=== PATIENT | male | born 1970 | race Caucasian/White ===

== ENCOUNTER → 2016-10-27 | Day surgery (SDC) | payer MEDICAID, OTHER ==
[~2016-10-27] VITALS: Ht 182.9 cm; Wt 133.4 kg
[~2016-10-27] MED LIST: *RESP: ALBUTEROL 2.5 MG/3 ML NEB (PRN) PERIprocedural Use ONLY NEB ONE; *morphine SULFATE 8 MG/ML PERIprocedure ONLY ONE; APIX5TAB PO; ASPI1TAB69 PO; CARV6.25 PO; CHLORHEXIDINE GLUCONATE 2 % 1 PACK (2 CLOTHS) TOP SCH; CYMB60CA PO; DEXAMETHASONE SOD PHOS 4 MG/ML VIAL ONE; DO NOT ADM ANY ANTICOAGULANT DRUGS XX PRN; FAMOTIDINE 20 MG/2 ML VIAL ONE; GABA300C5 PO; GABA600T PO; INSULIN HUMAN REGULAR 1,000 UNITS/10 ML VIAL SQ PRN; LACTATED RINGER'S 1000 ML INJ 1,000 ML IV ONE; LACTATED RINGER'S 1000 ML IV SCH; LEVA500T PO; LEVO.05 PO; LEVOFLOXACIN 500 MG PREMIX INJ 100 ML IV ONE; LEVOFLOXACIN 500 MG PREMIX INJ 100 ML IV SCH; LIPI80TA PO; LISI-515 PO; METF500 PO; METOPROLOL TARTRATE 25 MG TAB PO PRN; MIDAZOLAM HCL 2 MG/2 ML VIAL ONE; MITOMYCIN I-VESICULR SCH; NEOSTIGMINE 3 MG/3 ML SYR IV ONE; NITR1SUB3 SL; OMEP20TA PO; OMEP40CA2 PO; ONDANSETRON HCL 4 MG/2 ML VIAL IV PUSH ONE; ONDANSETRON HCL 4 MG/2 ML VIAL IV PUSH PRN; PERC5TAB12 PO; PHEN0.4T PO; PHENAZOPYRIDINE HCL 100 MG TAB PO PRN; PHENYLEPH/NS 1000 MCG/10 ML SYR IV ONE; PLAV75TA29 PO; POVIDONE IODINE 5% (ANTISEPSIS KIT) 4 APPLICATIONS EACH NARE SCH; PROPOFOL 200 MG/20 ML AMP IV ONE; REME45TA PO; SODIUM CHLORID 0.9% 500 ML IV SCH; SUGAMMADEX SODIUM 200 MG/2 ML VIAL IV PUSH ONE; VESI5TAB PO; WATER STERILE FOR I-VESICULR SCH; [UNRECOGNIZED DRUG - OTHER] I-VESICULR SCH; ePHEDrine/NS 25 MG/5 ML SYR IV ONE; fentaNYL CITRATE 250 MCG/5 ML AMP ONE; oxyCODONE/ACETAMINOPHEN 5 MG/325 MG TAB PO PRN
[2016-10-27 08:00] VITALS: BP 145/85; PULSE 91; RESP 20; TEMP 97.9; O2SAT 97
[2016-10-27 08:26] LABS: AUTOMATED NEUTROPHIL # 7.6 TH/MM3 (1.8-7.7); BASOPHIL # 0.1 TH/MM3 (0-0.2); BASOPHIL % 0.5 % (0.0-2.0); EOSINOPHIL # 0.3 TH/MM3 (0-0.4); EOSINOPHIL % 2.6 % (0.0-4.0); HEMATOCRIT 43.4 % (39.0-51.0); HEMO FLAGS DIFF FINAL; LYMPH % 25.2 % (9.0-44.0); MEAN CELL VOLUME 80.3 FL (80.0-100.0); MEAN CORPUSCULAR HEMOGLOBIN 26.2 PG (27.0-34.0); MEAN CORPUSCULAR HGB CONC 32.6 % (32.0-36.0); MONO % 8.3 % (0.0-8.0); NEUT % 63.4 % (16.0-70.0); PLATELET COUNT 359 TH/MM3 (150-450); RED BLOOD COUNT 5.41 MIL/MM3 (4.50-5.90); RED CELL DISTRIBUTION WIDTH 18.4 % (11.6-17.2)
--- NOTE | 2016-10-27 13:06 | PD.OP ---
Operative Report Date of Surgery: Oct 27, 2016 Preoperative Diagnosis: (1) Bladder cancer Postoperative Diagnosis: (1) Bladder cancer Procedure: Indication for procedure: Case of a pleasant 46-year-old gentleman with recurrent bladder cancer who presents today for cystoscopy with transurethral resection of the current lesions as well as intravesical instillation of mitomycin-C. Findings: Multiple superficial bladder tumors involving right, left, anterior and posterior [place] of the bladder as well as a single lesion involving the prostatic urethra, total area greater than 5 cm. Operative procedure in detail: Patient was brought to the operating room suite and placed supine on cystoscopy table. He was then placed under general anesthesia. He was then repositioned in the dorsal lithotomy position and prepped and draped in normal sterile fashion. After an appropriate timeout was undertaken a proceeded with cystoscopic evaluation utilizing the rigid cystoscope with a 20 [place]an sheath and both the 30 and 70 lenses. Once again the patient was noted to have multiple recurrent bladder tumors involving the prostatic urethra, right wall, left wall, posterior and anterior wall of the bladder. The total area of these superficial tumors was greater than 5 cm. The cystoscope was exchanged for the resectoscope with a 24 [place]an cutting loop. The patient underwent transrectal resection of these recurrent bladder tumors. Tissue was sent off to pathology for permanent sectioning. The resectoscope was withdrawn and a 16 [place]an 10 cc Breaux catheter was placed. 40 mg mitomycin-C in 40 cc sterile water was instilled into the bladder and the end of the Breaux clamped off. The Breaux will remain clamped for 30 minutes and removed in the PACU. The patient tolerated the procedures without complications and was transferred to the PACU in satisfactory condition. Surgeon: Brian Galindo Inspector Multifocal Lens(s): None Operation and Findings: As outlined above. Brian Galindo MD Oct 27, 2016 13:06
[2016-10-27 14:58] VITALS: BP 138/79; PULSE 82; RESP 18; TEMP 98; O2SAT 95
== END | disposition home or self-care (01) ==
LOC: HSDC 06:56
PROVIDERS: ATTEND Urology
DX: C67.9 Malignant neoplasm of bladder, unspecified (principal); I10 Essential (primary) hypertension; J44.9 Chronic obstructive pulmonary disease, unspecified
CPT/HCPCS: 00910; 51720; 52240; 85025; 88305; 94664; J1100; J1956; J2250; J2270; J2370; J2405; J2710; J3010; J7120; J7613; J9280; 88307

== ENCOUNTER 2016-12-20 19:04 | Inpatient (IN) | payer MEDICAID, OTHER ==
[~2016-12-20] VITALS: Ht 182.9 cm; Wt 134.2 kg
[~2016-12-20 19:04] MED LIST changes: -*RESP: ALBUTEROL 2.5 MG/3 ML NEB (PRN) PERIprocedural Use ONLY NEB ONE; -*morphine SULFATE 8 MG/ML PERIprocedure ONLY ONE; -APIX5TAB PO; -CHLORHEXIDINE GLUCONATE 2 % 1 PACK (2 CLOTHS) TOP SCH; -DEXAMETHASONE SOD PHOS 4 MG/ML VIAL ONE; -DO NOT ADM ANY ANTICOAGULANT DRUGS XX PRN; -FAMOTIDINE 20 MG/2 ML VIAL ONE; -GABA600T PO; -INSULIN HUMAN REGULAR 1,000 UNITS/10 ML VIAL SQ PRN; -LACTATED RINGER'S 1000 ML INJ 1,000 ML IV ONE; -LACTATED RINGER'S 1000 ML IV SCH; -LEVOFLOXACIN 500 MG PREMIX INJ 100 ML IV ONE; -LEVOFLOXACIN 500 MG PREMIX INJ 100 ML IV SCH; -METOPROLOL TARTRATE 25 MG TAB PO PRN; -MIDAZOLAM HCL 2 MG/2 ML VIAL ONE; -MITOMYCIN I-VESICULR SCH; -NEOSTIGMINE 3 MG/3 ML SYR IV ONE; -OMEP40CA2 PO; -ONDANSETRON HCL 4 MG/2 ML VIAL IV PUSH ONE; -ONDANSETRON HCL 4 MG/2 ML VIAL IV PUSH PRN; -PHENAZOPYRIDINE HCL 100 MG TAB PO PRN; -PHENYLEPH/NS 1000 MCG/10 ML SYR IV ONE; -POVIDONE IODINE 5% (ANTISEPSIS KIT) 4 APPLICATIONS EACH NARE SCH; -PROPOFOL 200 MG/20 ML AMP IV ONE; -SODIUM CHLORID 0.9% 500 ML IV SCH; -SUGAMMADEX SODIUM 200 MG/2 ML VIAL IV PUSH ONE; -WATER STERILE FOR I-VESICULR SCH; -[UNRECOGNIZED DRUG - OTHER] I-VESICULR SCH; -ePHEDrine/NS 25 MG/5 ML SYR IV ONE; -fentaNYL CITRATE 250 MCG/5 ML AMP ONE; -oxyCODONE/ACETAMINOPHEN 5 MG/325 MG TAB PO PRN
[2016-12-20 19:05] VITALS: BP 172/105; PULSE 127; RESP 22; TEMP 98.4; O2SAT 95
[2016-12-20] MEDS ORDERED: SODIUM CHLORIDE 0.9% FLUSH 10 ML FLUSH IVF PRN (19:30)
--- NOTE | 2016-12-20 19:44 | PD ---
HPI Chief Complaint: Pain: Acute or Chronic Time Seen by Provider: 19:30 Travel History International Travel<30 days: No Contact w/Intl Traveler<30days: No Traveled to known affect area: No History of Present Illness HPI 46-year-old male with known history of peripheral rashes disease, diabetes, known history of bladder cancer, smoker presents for evaluation of acute onset right lower extremity pain. He reports that 2 hours ago he was sitting at home on his computer when he began developing severe pain in the right lower leg and foot. Pain is constant, leading factors. He reports a history of COPD with some chronic dyspnea because of this. Denies any acute dyspnea or chest pain. We on Plavix. He was previously on Coumadin, this was discontinued one year ago. PFSH Past Medical History Hx Anticoagulant Therapy: No Alzheimer's Disease: Yes Anemia: Yes Arthritis: Yes (BOTH KNEES) Asthma: No Autoimmune Disease: No Blood Disorders: No Bipolar Disorder: Yes Anxiety: Yes Depression: Yes Heart Rhythm Problems: No Cancer: Yes (BLADDER CANCER) Cardiac Catheterization: Yes (2009) Cardiovascular Problems: Yes (htn on meds, hx of 3 CT with 2 stent) High Cholesterol: Yes Chemotherapy: No Chest Pain: Yes Congestive Heart Failure: No COPD: Yes Cerebrovascular Accident: Yes Coronary Artery Disease: Yes Diabetes: Yes Patient Takes Glucophage: Yes Diminished Hearing: No Deep Vein Thrombosis: Yes (right leg, PE and stomach) Endocrine: Yes Gastrointestinal Disorders: Yes (ACID REFLUX, HX ULCER) GERD: Yes Glaucoma: No Genitourinary: Yes (BLADDER TUMORS) Headaches: No Hepatitis: No Hiatal Hernia: Yes Heparin Induced Thrombocytopen: No Hypertension: Yes Immune Disorder: Yes (OA) Implanted Vascular Access Dvce: No Kidney Stones: Yes ( CHRONIC STONES ) Medical other: Yes (H/O DVT RLE) Musculoskeletal: Yes (OSTEOARTHRITIS NICKIE KNESS) Neurologic: Yes (DIABETIC NEUROPATHY) Psychiatric: Yes (BIPOLAR, ANXIETY, DEPRESSION) Reproductive: No Respiratory: Yes (COPD, HX PE) Immunizations Current: Yes Migraines: Yes Myocardial Infarction: Yes (X 2) Radiation Therapy: No Renal Failure: No Seizures: No Sickle Cell Disease: No Sleep Apnea: No Thyroid Disease: Yes (HYPOTHYROIDISM) Ulcer: Yes Past Surgical History Abdominal Surgery: No AICD: No Appendectomy: No Arteriovenous Shunt: No Body Medical Devices: CARDIAC STENT Cardiac Surgery: No Cholecystectomy: No Coronary Artery Bypass Graft: No Coronary Stent: Yes (one stent placed) Ear Surgery: No Endocrine Surgery: No Eye Surgery: No Genitourinary Surgery: Yes (BLADDER TUMORS REMOVED; kidney stent removed) Gynecologic Surgery: No Insulin Pump: No Joint Replacement: No Neurologic Surgery: No Oral Surgery: No Pacemaker: No Thoracic Surgery: No Other Surgery: Yes (see hx) Family History Family Myocardial Infarction: Yes (GRANDFATHER) Social History Alcohol Use: Yes Tobacco Use: Yes Substance Use: Yes (MULTI 6 YEARS CLEAN) Allergies-Medications (Allergen,Severity, Reaction): Coded Allergies: Penicillin (Verified Allergy, Severe, Anaphylaxis, 12/20/16) Per pt. Reported Meds & Prescriptions Reported Meds & Active Scripts Active Percocet (Oxycodone-Acetaminophen) 5-325 mg Tab 1-2 Tab PO Q6H PRN Pyridium (Phenazopyridine HCl) 100 Mg Tab 100 Mg PO Q8H PRN Reported Gabapentin 300 Mg Cap 900 Mg PO AC LUNCH Gabapentin 600 Mg Tab 600 Mg PO BID Omeprazole 40 Mg Cap 40 Mg PO HS Synthroid (Levothyroxine Sodium) 50 Mcg Tab 50 Mcg PO DAILY Remeron (Mirtazapine) 45 Mg Tab 45 Mg PO HS Lisinopril 20 Mg Tab 20 Mg PO BID Glucophage (Metformin HCl) 500 Mg Tab 500 Mg PO HS With a meal Nitroglycerin SL (Nitroglycerin) 0.4 Mg Subl 0.4 Mg SL Q 5 MINUTES PRN ONE TABLET UNDER THE TONGUE NEEDED FOR CHEST PAIN, MAY REPEAT EVERY FIVE MINUTES FOR A TOTAL OF 3 DOSES OR CALL 911 IF NO RELIEF Plavix (Clopidogrel Bisulfate) 75 Mg Tab 75 Mg PO DAILY Lipitor (Atorvastatin Calcium) 80 Mg Tab 80 Mg PO HS Coreg (Carvedilol) 6.25 Mg Tab 6.25 Mg PO BID Cymbalta DR (Duloxetine HCl) 60 Mg Capdr 180 Mg PO DAILY Aspirin 81 Mg Tabdr 81 Mg PO DAILY Review of Systems Except as stated in HPI: all other systems reviewed are Neg Physical Exam Narrative GENERAL: Well-developed well-nourished male who appears uncomfortable on initial examination. He was tachycardic initially as well. SKIN: Warm and dry. HEAD: Atraumatic. Normocephalic. EYES: Pupils equal and round. No scleral icterus. No injection or drainage. ENT: No nasal bleeding or discharge. Mucous membranes pink and moist. NECK: Trachea midline. No JVD. CARDIOVASCULAR: Regular rate and rhythm. No murmur appreciated. RESPIRATORY: No accessory muscle use. Some wheezing. GASTROINTESTINAL: Abdomen soft, non-tender, nondistended. Hepatic and splenic margins not palpable. MUSCULOSKELETAL: Initial lower extremities reveals that the right lower leg/foot , cold in comparison to the left. Multiple attempts at Doppler during the right dorsalis pedis and posterior tibial pulses were attempted with no success. Left dorsalis pedis pulse easily dopplerable. No lower extremity edema. NEUROLOGICAL: Awake and alert. No obvious cranial nerve deficits. Motor grossly within normal limits. Normal speech. PSYCHIATRIC: Appropriate mood and affect; insight and judgment normal. Data Data Last Documented VS Vital Signs Date Time Temp Pulse Resp B/P Pulse Ox O2 Delivery O2 Flow Rate FiO2 12/20/16 22:30 98.1 70 18 134/94 100 Room Air Orders Electrocardiogram (12/20/16 19:29) Basic Metabolic Panel (Bmp) (12/20/16 19:29) Ckmb (Isoenzyme) Profile (12/20/16 19:29) Complete Blood Count With Diff (12/20/16 19:29) Magnesium (Mg) (12/20/16 19:29) Prothrombin Time / Inr (Pt) (12/20/16 19:29) Act Partial Throm Time (Ptt) (12/20/16 19:29) Troponin I (12/20/16 19:29) Ecg Monitoring (12/20/16 19:29) Iv Access Insert/Monitor (12/20/16:29) Oximetry (12/20/16 19:29) Oxygen Administration (12/20/16:29) Sodium Chloride 0.9% Flush (Ns Flush) (12/20/16 19:30) Heparin Infusion RAMILA.Q1H (12/20/16 19:31) Heparin Inj (Heparin Inj) (12/21/16 01:45) Heparin Inj (Heparin Inj) (12/21/16 01:45) Heparin-D5w Inj (Heparin-D5w Inj) (12/20/16 19:45) Cbc No Diff, Includes Plts (12/23/16 06:00) Act Partial Throm Time (Ptt) (12/21/16 02:31) Occult Blood (Hemoccult) Stool (12/20/16 19:31) Heparin Inj (Heparin Inj) (12/20/16 19:45) Cta Runoff W Iv Contrast W 3d (12/20/16 ) Morphine Inj (Morphine Inj) (12/20/16 20:00) Hydromorphone Pf Inj (Dilaudid Pf Inj) (12/20/16 20:30) Ondansetron Inj (Zofran Inj) (12/20/16 20:30) NPO (12/20/16 20:46) Type And Screen (12/20/16 20:46) Consent (12/20/16 20:46) Consult Vascular Surgery (12/20/16 ) (Hub Use Only)Inp Phy Cons/Ref (12/20/16 ) Iohexol 350 Inj (Omnipaque 350 Inj) (12/20/16 21:25) Hydromorphone Pf Inj (Dilaudid Pf Inj) (12/20/16 22:30) Admit Order (Ed Use Only) (12/20/16 22:49) Labs Laboratory Tests Test 12/20/16 12/20/16 19:58 21:46 White Blood Count 9.9 TH/MM3 Red Blood Count 5.17 MIL/MM3 Hemoglobin 14.0 GM/DL Hematocrit 42.4 % Mean Corpuscular Volume 81.9 FL Mean Corpuscular Hemoglobin 27.0 PG Mean Corpuscular Hemoglobin 33.0 % Concent Red Cell Distribution Width 19.0 % Platelet Count 252 TH/MM3 Mean Platelet Volume 7.9 FL Neutrophils (%) (Auto) 76.5 % Lymphocytes (%) (Auto) 16.4 % Monocytes (%) (Auto) 5.3 % Eosinophils (%) (Auto) 1.2 % Basophils (%) (Auto) 0.6 % Neutrophils # (Auto) 7.5 TH/MM3 Lymphocytes # (Auto) 1.6 TH/MM3 Monocytes # (Auto) 0.5 TH/MM3 Eosinophils # (Auto) 0.1 TH/MM3 Basophils # (Auto) 0.1 TH/MM3 CBC Comment DIFF FINAL Differential Comment Prothrombin Time 10.0 SEC Prothromb Time International 0.9 RATIO Ratio Activated Partial 22.4 SEC Thromboplast Time Sodium Level 141 MEQ/L Potassium Level 3.8 MEQ/L Chloride Level 108 MEQ/L Carbon Dioxide Level 21.6 MEQ/L Anion Gap 11 MEQ/L Blood Urea Nitrogen 11 MG/DL Creatinine 1.18 MG/DL Estimat Glomerular Filtration 66 ML/MIN Rate Random Glucose 151 MG/DL Calcium Level 8.7 MG/DL Magnesium Level 2.0 MG/DL Total Creatine Kinase 81 U/L Troponin I 0.02 NG/ML Blood Type A POSITIVE Antibody Screen NEGATIVE Blood Bank Comment MDM Medical Decision Making Medical Screen Exam Complete: Yes Emergency Medical Condition: Yes Medical Record Reviewed: Yes Interpretation(s) cta with runoff CONCLUSION: Abrupt occlusion of the proximal right popliteal artery with reconstitution of the more distal popliteal aratery. This is concerning for an embolus in this region. Differential Diagnosis Acute Arterial occlusion, peripheral vascular disease, peripheral neuropathy, DVT Narrative Course 46-year-old male smoker with history of diabetes, bladder cancer, peripheral masses he is presents with acute onset right lower extremity pain which began 2 hours prior to arrival. Multiple attempts were made at Doppler in the right lower extremity pulses with no success. The right lower extremity is cold to palpation in comparison to the left. Therefore discussed with vascular surgeon Dr. Alfredo who agrees with CT and with runoff, heparin initiation. The patient denies any recent bleeding episodes, melena, bright red blood per rectum , hematochezia. Most recent hemoglobin on file 14.1 from October 27, 2016. Results of the CT with runoff have been reviewed. The patient is being admitted to the hospitalist group with vascular surgery consult. Dr. Colon discussed with Dr. Carmichael who is agreeable with admission. Diagnosis Primary Impression: Arterial occlusion Admitting Information Admitting Physician Requests: Admit Abelino Florian December 20, 2016 19:44
[2016-12-20] MEDS ORDERED: HEPARIN SODIUM - IV 10,000 UNITS/10 ML VIAL IV ONE (19:45)
[2016-12-20] MEDS ORDERED: MORPHINE SULFATE 8 MG/ML INJ IV PUSH ONE (20:00)
--- NOTE | 2016-12-20 20:08 | PD ---
Data Data Last Documented VS Vital Signs Date Time Temp Pulse Resp B/P Pulse Ox O2 Delivery O2 Flow Rate FiO2 12/20/16 22:30 98.1 70 18 134/94 100 Room Air Orders Electrocardiogram (12/20/16 19:29) Basic Metabolic Panel (Bmp) (12/20/16 19:29) Ckmb (Isoenzyme) Profile (12/20/16 19:29) Complete Blood Count With Diff (12/20/16 19:29) Magnesium (Mg) (12/20/16 19:29) Prothrombin Time / Inr (Pt) (12/20/16 19:29) Act Partial Throm Time (Ptt) (12/20/16 19:29) Troponin I (12/20/16:29) Ecg Monitoring (12/20/16:29) Iv Access Insert/Monitor (12/20/16 19:29) Oximetry (12/20/16 19:29) Oxygen Administration (12/20/16 19:29) Sodium Chloride 0.9% Flush (Ns Flush) (12/20/16 19:30) Heparin Infusion RAMILA.Q1H (12/20/16 19:31) Heparin Inj (Heparin Inj) (12/21/16 01:45) Heparin Inj (Heparin Inj) (12/21/16 01:45) Heparin-D5w Inj (Heparin-D5w Inj) (12/20/16 19:45) Cbc No Diff, Includes Plts (12/23/16 06:00) Act Partial Throm Time (Ptt) (12/21/16 02:31) Occult Blood (Hemoccult) Stool (12/20/16 19:31) Heparin Inj (Heparin Inj) (12/20/16 19:45) Cta Runoff W Iv Contrast W 3d (12/20/16 ) Morphine Inj (Morphine Inj) (12/20/16 20:00) Hydromorphone Pf Inj (Dilaudid Pf Inj) (12/20/16 20:30) Ondansetron Inj (Zofran Inj) (12/20/16 20:30) NPO (12/20/16 20:46) Type And Screen (12/20/16 20:46) Consent (12/20/16 20:46) Consult Vascular Surgery (12/20/16 ) (Hub Use Only)Inp Phy Cons/Ref (12/20/16 ) Iohexol 350 Inj (Omnipaque 350 Inj) (12/20/16 21:25) Hydromorphone Pf Inj (Dilaudid Pf Inj) (12/20/16 22:30) Admit Order (Ed Use Only) (12/20/16 22:49) Labs Laboratory Tests Test 12/20/16 12/20/16 12/20/16 19:58 21:46 22:00 White Blood Count 9.9 TH/MM3 Red Blood Count 5.17 MIL/MM3 Hemoglobin 14.0 GM/DL Hematocrit 42.4 % Mean Corpuscular Volume 81.9 FL Mean Corpuscular Hemoglobin 27.0 PG Mean Corpuscular Hemoglobin 33.0 % Concent Red Cell Distribution Width 19.0 % Platelet Count 252 TH/MM3 Mean Platelet Volume 7.9 FL Neutrophils (%) (Auto) 76.5 % Lymphocytes (%) (Auto) 16.4 % Monocytes (%) (Auto) 5.3 % Eosinophils (%) (Auto) 1.2 % Basophils (%) (Auto) 0.6 % Neutrophils # (Auto) 7.5 TH/MM3 Lymphocytes # (Auto) 1.6 TH/MM3 Monocytes # (Auto) 0.5 TH/MM3 Eosinophils # (Auto) 0.1 TH/MM3 Basophils # (Auto) 0.1 TH/MM3 CBC Comment DIFF FINAL Differential Comment Prothrombin Time 10.0 SEC Prothromb Time International 0.9 RATIO Ratio Activated Partial 22.4 SEC Thromboplast Time Sodium Level 141 MEQ/L Potassium Level 3.8 MEQ/L Chloride Level 108 MEQ/L Carbon Dioxide Level 21.6 MEQ/L Anion Gap 11 MEQ/L Blood Urea Nitrogen 11 MG/DL Creatinine 1.18 MG/DL Estimat Glomerular Filtration 66 ML/MIN Rate Random Glucose 151 MG/DL Calcium Level 8.7 MG/DL Magnesium Level 2.0 MG/DL Total Creatine Kinase 81 U/L Troponin I 0.02 NG/ML Blood Type A POSITIVE A POSITIVE Antibody Screen NEGATIVE Blood Bank Comment Crossmatch Leukocyte-Reduced Red Blood Cells [facility] Medical Record Reviewed: Yes Supervised Visit with SATURNINO: Yes Narrative Course I, Dr. Gutierrez, have reviewed the advance practice practitioner's documentation and am in agreement, met with the patient face to face, made the diagnosis, and the medical decision making was done by me. *My assessment and Findings: Patient has sudden onset right foot pain and associated pulselessness. Stat CTA ordered. Heparin started. d/w vascular. EKG sinus, rate 99. Last 24 hours Impressions Aorta w/Runoff CTA 12/20/16 0000 Signed Impressions: Service Date/Time: Tuesday, December 20, 2016 21:21 - CONCLUSION: Abrupt occlusion of the proximal right popliteal artery with reconstitution of the more distal popliteal aratery. This is concerning for an embolus in this region. Sammy Nichols MD CBC & BMP Diagram 12/20/16 19:58 d/w vascular surgeon who will take patient to [facility]. d/w Dr Carmichael who will admit patient to [facility] service. Critical Care Narrative Aggregate critical care time was 40 minutes. Time to perform other separately billable procedures was not included in the critical care time. My time did not include minutes spent treating any other patients simultaneously or on activities that did not directly contribute to the patient's treatment. The services I provided to this patient were to treat and/or prevent clinically significant deterioration that could result in: loss of limb I provided critical care services requiring my management, as noted below: Chart data review, documentation time, medication orders and management, vital sign assessments/reviewing monitor data, ordering and reviewing lab tests, ordering and interpreting/reviewing x-rays and diagnostic studies, care of the patient and discussion of the patient with the admitting physicians. Procedures Procedure Narrative RUE IV placed by undersigned at bedside under US guidance. 18g with good return and flush. Pt tolerated well. Aseptic technique. Diagnosis Primary Impression: Ischemia of right lower extremity Additional Impression: Arterial occlusion Admitting Information Admitting Physician Requests: Allan Mondragon MD December 20, 2016 20:08
[2016-12-20 20:10] VITALS: BP 127/97; PULSE 103; RESP 18; O2SAT 100
[2016-12-20] MEDS: HEPARIN-D5W INJ 250 ML IV SCH (20:13)
[2016-12-20] MEDS ORDERED: OMEP40CA2 PO (20:20)
[2016-12-20] MEDS ORDERED: GABA600T PO (20:21)
[2016-12-20] MEDS ORDERED: GABA300C5 PO (20:23)
[2016-12-20 20:24] LABS: AUTOMATED NEUTROPHIL # 7.5 TH/MM3 (1.8-7.7); BASOPHIL # 0.1 TH/MM3 (0-0.2); BASOPHIL % 0.6 % (0.0-2.0); EOSINOPHIL # 0.1 TH/MM3 (0-0.4); EOSINOPHIL % 1.2 % (0.0-4.0); HEMATOCRIT 42.4 % (39.0-51.0); HEMO FLAGS DIFF FINAL; LYMPH % 16.4 % (9.0-44.0); LYMPHOCYTE # 1.6 TH/MM3 (1.0-4.8); MEAN CELL VOLUME 81.9 FL (80.0-100.0); MONO % 5.3 % (0.0-8.0); NEUT % 76.5 % (16.0-70.0); PLATELET COUNT 252 TH/MM3 (150-450); RED BLOOD COUNT 5.17 MIL/MM3 (4.50-5.90); WHITE BLOOD COUNT 9.9 TH/MM3 (4.0-11.0)
[2016-12-20] MEDS ORDERED: ONDANSETRON HCL 4 MG/2 ML VIAL IV PUSH ONE (20:30)
[2016-12-20] MEDS ORDERED: HYDROmorphone HCL PF 1 MG/ML VIAL IV PUSH ONE ×2 (20:30→22:30)
[2016-12-20 20:35] LABS: APTT (PATIENT) 22.4 SEC (24.3-30.1); INTERNATIONAL NORMALIZED RATIO 0.9 RATIO
--- NOTE | 2016-12-20 20:46 | PD.CAR.PN ---
CVT Progress Note Subjective/Hospital Course: 46-year-old vasculopath with multiple medical problems the frequent visitor to this emergency room with coronary artery disease peripheral vascular disease, diabetes mellitus hypertension and bladder tumors, presents with 7-8 hour history off severe pain in his right leg mainly below the knee. On physical exam patient has bilateral good femoral pulses on the left side he has a palpable popliteal pulse and strong dorsalis pedis posterior tibial On the right side patient's palpable femoral pulse very weak popliteal pulse probably by either reconstitution or alongside the clot flow and then no pulses below that level either posterior tibial or dorsalis pedis Foot is cool pale and pulseless partially insensate over the plantar surface and toes. It should be noted that the patient had similar episodes off vascular occlusion about 2 years ago at which time patient underwent tPA lysis by Dr. Xavier and the leg was salvaged. Patient after that continue to smoke which is the case currently. It should be noted then patient is in quite of a poor hygienic state and noncompliant with his medical care. Smokes about half to 1 pack a day continuously all of his adult life despite several heart attacks and problems of the nature. I suspect clot in the superficial femoral artery probably reaching into the trifurcation and depending on CTA findings patient will either undergo TPA lysis or surgical embolectomy Full consult to follow Jailyn Cage Objective: Vital Signs Date Time Temp Pulse Resp B/P Pulse Ox O2 Delivery O2 Flow Rate FiO2 12/20/16 20:10 103 18 127/97 100 Room Air 12/20/16 19:33 95 Room Air 12/20/16 19:22 113 25 12/20/16 19:05 98.4 127 22 172/105 95 Room Air Labs: Laboratory Tests Test 12/20/16 19:58 White Blood Count 9.9 TH/MM3 (4.0-11.0) Red Blood Count 5.17 MIL/MM3 (4.50-5.90) Hemoglobin 14.0 GM/DL (13.0-17.0) Hematocrit 42.4 % (39.0-51.0) Mean Corpuscular Volume 81.9 FL (80.0-100.0) Mean Corpuscular Hemoglobin 27.0 PG (27.0-34.0) Mean Corpuscular Hemoglobin 33.0 % Concent (32.0-36.0) Red Cell Distribution Width 19.0 % (11.6-17.2) Platelet Count 252 TH/MM3 (150-450) Mean Platelet Volume 7.9 FL (7.0-11.0) Neutrophils (%) (Auto) 76.5 % (16.0-70.0) Lymphocytes (%) (Auto) 16.4 % (9.0-44.0) Monocytes (%) (Auto) 5.3 % (0.0-8.0) Eosinophils (%) (Auto) 1.2 % (0.0-4.0) Basophils (%) (Auto) 0.6 % (0.0-2.0) Neutrophils # (Auto) 7.5 TH/MM3 (1.8-7.7) Lymphocytes # (Auto) 1.6 TH/MM3 (1.0-4.8) Monocytes # (Auto) 0.5 TH/MM3 (0-0.9) Eosinophils # (Auto) 0.1 TH/MM3 (0-0.4) Basophils # (Auto) 0.1 TH/MM3 (0-0.2) CBC Comment DIFF FINAL Differential Comment Prothrombin Time 10.0 SEC (9.8-11.6) Prothromb Time International 0.9 RATIO Ratio Activated Partial 22.4 SEC Thromboplast Time (24.3-30.1) Result Diagram: 12/20/161957 Tiff Alfredo MD December 20, 2016 20:46
[2016-12-20 20:47] LABS: BICARBONATE 21.6 MEQ/L (21.0-32.0); POTASSIUM 3.8 MEQ/L (3.5-5.1)
[2016-12-20] MEDS ORDERED: IOHEXOL 350 MG/ML 10 ML VIAL (for RAD DIAG) IV ONE (21:25)
[2016-12-20 22:30] VITALS: BP 134/94; PULSE 70; RESP 18; TEMP 98.1; O2SAT 100
[2016-12-20] MEDS ORDERED: ACETAMINOPHEN 325 MG TAB PO PRN (23:00)
[2016-12-20] MEDS ORDERED: BISACODYL 10 MG SUPP RECTAL PRN (23:00)
[2016-12-20] MEDS ORDERED: MORPHINE SULFATE 4 MG/ML INJ IV PRN (23:00)
[2016-12-20] MEDS ORDERED: GLUCAGON 1 MG/ML VIAL OTHER PRN (23:00)
[2016-12-20] MEDS ORDERED: SODIUM CHLORIDE 0.9% FLUSH 10 ML FLUSH IV FLUSH PRN (23:00)
[2016-12-20] MEDS ORDERED: ONDANSETRON HCL 4 MG/2 ML VIAL IVP PRN (23:00)
[2016-12-20] MEDS ORDERED: DEXTROSE 50% IN WATER 50 ML VIAL(D50) IV PRN (23:00)
[2016-12-20] MEDS ORDERED: ACETAMINOPHEN/HYDROcodone 325 MG/5 MG TAB PO PRN (23:00)
--- NOTE | 2016-12-20 23:00 | HHI.HP ---
[facility] Service [facility] Hospitalists Primary Care Physician Zahra Dennison MD Admission Diagnosis RLE Arterial Occlusion Diagnoses: (1) Ischemia of right lower extremity Diagnosis: Principal (2) PVD (peripheral vascular disease) Diagnosis: Principal (3) HTN (hypertension) Diagnosis: Principal (4) DM (diabetes mellitus) Diagnosis: Principal (5) Tobacco abuse Diagnosis: Principal Travel History International Travel<30 Days: No Contact w/Intl Traveler <30 Da: No Traveled to Known Affected Are: No History of Present Illness This is a 46-year-old male with PMH of Severe PVD, HTN, Hyperlipidemia, COPD, CAD s/p Stent, Anxiety, Depression, Bipolar Disorder, Bladder CA, h/o DVT, h/o Cocaine Abuse and ongoing Tobacco Abuse who presented to the ER w/ complaints of right foot pain starting few hours prior to presentation. Denies trauma or injury. States symptoms similar to previous DVT. Was on Coumadin in the past, now only on ASA/Plavix. On arrival, BP 172/105, HR 127, O2 sats 95% on RA, Afebrile. CBC unremarkable. Chemistry essentially unremarkable except for GFR 66. Troponin negative. INR 0.9. CTA Aorta with abrupt occlusion of the proximal right popliteal artery with reconstitution of distal popliteal artery, concerning for embolus. S/p eval by Dr. Alfredo, plan is for surgical embolectomy. Review of Systems Except as stated in HPI: all other systems reviewed are Neg ROS: 14 point review of systems otherwise negative. Past Family Social History Past Medical History PMH: Severe PVD, HTN, Hyperlipidemia, COPD, CAD s/p Stent, Anxiety, Depression , Bipolar Disorder, Bladder CA, h/o DVT, h/o Cocaine Abuse and ongoing Tobacco Abuse Past Surgical History PAST SURGICAL HISTORY: Cardiac Stent Allergies: Coded Allergies: Penicillin (Verified Allergy, Severe, Anaphylaxis, 12/20/16) Per pt. Family History PAST FAMILY HISTORY: Reviewed. No h/o DM or CAD Social History PAST SOCIAL HISTORY: Positive for alcohol and tobacco. History of Cocaine abuse, positive 07/2016. Physical Exam Vital Signs Vital Signs Date Time Temp Pulse Resp B/P Pulse Ox O2 Delivery O2 Flow Rate FiO2 12/20/16 22:30 98.1 70 18 134/94 100 Room Air 12/20/16 22:30 100 Room Air 12/20/16 20:10 103 18 127/97 100 Room Air 12/20/16 19:33 95 Room Air 12/20/16 19:22 113 25 12/20/16 19:05 98.4 127 22 172/105 95 Room Air Physical Exam PE: GENERAL: Morbidly obese middle-age white male in no acute distress. HEENT: PERRLA, EOMI. No scleral icterus or conjunctival pallor. No lid lag or facial droop. CARDIOVASCULAR: Regular rate and rhythm. No obvious murmurs to auscultation. No chest tenderness to palpation. RESPIRATORY: No obvious rhonchi or wheezing. Clear to auscultation. Breath sounds equal bilaterally. GASTROINTESTINAL: Abdomen soft, non-tender, nondistended. BS normal. MUSCULOSKELETAL: Right lower extremity cool to touch, pulses weak. LLE w/ strong pulses, warm to touch. NEUROLOGICAL: Awake, alert and oriented x4. No focal neurologic deficits. Moving both upper and lower extremities spontaneously. Laboratory Laboratory Tests Test 12/20/16 12/20/16 19:58 21:46 White Blood Count 9.9 Red Blood Count 5.17 Hemoglobin 14.0 Hematocrit 42.4 Mean Corpuscular Volume 81.9 Mean Corpuscular Hemoglobin 27.0 Mean Corpuscular Hemoglobin 33.0 Concent Red Cell Distribution Width 19.0 Platelet Count 252 Mean Platelet Volume 7.9 Neutrophils (%) (Auto) 76.5 Lymphocytes (%) (Auto) 16.4 Monocytes (%) (Auto) 5.3 Eosinophils (%) (Auto) 1.2 Basophils (%) (Auto) 0.6 Neutrophils # (Auto) 7.5 Lymphocytes # (Auto) 1.6 Monocytes # (Auto) 0.5 Eosinophils # (Auto) 0.1 Basophils # (Auto) 0.1 CBC Comment DIFF FINAL Differential Comment Prothrombin Time 10.0 Prothromb Time International 0.9 Ratio Activated Partial 22.4 Thromboplast Time Sodium Level 141 Potassium Level 3.8 Chloride Level 108 Carbon Dioxide Level 21.6 Anion Gap 11 Blood Urea Nitrogen 11 Creatinine 1.18 Estimat Glomerular Filtration 66 Rate Random Glucose 151 Calcium Level 8.7 Magnesium Level 2.0 Total Creatine Kinase 81 Troponin I 0.02 Blood Type A POSITIVE Antibody Screen NEGATIVE Blood Bank Comment Result Diagram: 12/20/16195712/20/161957 Assessment and Plan Problem List: (1) Ischemia of right lower extremity ICD Code: I99.8 Status: Acute (2) PVD (peripheral vascular disease) ICD Code: I73.9 Status: Acute (3) HTN (hypertension) ICD Code: I10 Status: Acute (4) DM (diabetes mellitus) ICD Code: E11.9 Status: Acute (5) Tobacco abuse ICD Code: Z72.0 Status: Acute Assessment and Plan A/P: 1. RLE Ischemia: h/o PVD, significant vasculopathy, ongoing tobacco abuse, now w/ cold extremity, weak pulses. CTA Aorta w/ abrupt occlusion of proximal right popliteal artery with reconstitution of distal popliteal artery, concerning for embolus, images reviewed by me. S/p eval by Dr. Alfredo, plan is for surgical embolectomy. NPO, IVF, analgesics/antiemetics. Currently on Heparin gtt. 2. PVD: Severe, now w/ acute occlusion, continue w/ treatment as above. 3. HTN: BP 170's on arrival, currently 120's systolic. Will continue to monitor, resume home medications. 4. DM: Hold Metformin, Sliding Scale w/ Accu-Cheks. 5. Tobacco Abuse: Pt counselled. Ativan prn if needed. No NicoDerm to avoid vasoconstriction. 6. DVT Prophylaxis: On Heparin gtt 7. Social work for d/c planning as needed. 8. Case discussed w/ ER physician at length Physician Certification 2 Midnight Certification Type: Admission for Inpatient Services Order for Inpatient Services The services are ordered in accordance with Medicare regulations or non- Medicare payer requirements, as applicable. In the case of services not specified as inpatient-only, they are appropriately provided as inpatient services in accordance with the 2-midnight benchmark. Estimated LOS (days): 2 days is the estimated time the patient will need to remain in the hospital, assuming treatment plan goals are met and no additional complications. Post-Hospital Plan: Not yet determined Fadia Carmichael MD December 20, 2016 23:00
--- NOTE | 2016-12-20 23:02 | RADRPT ---
EXAM DATE/TIME: 12/20/2016 21:21 [place] COMPARISON: CTA RUNOFF W 3D RECON, January 06, 2016, 0:00. INDICATIONS : Right leg pain. IV CONTRAST: 91 cc Omnipaque 350 (iohexol) IV RADIATION DOSE: 8.37 CTDIvol (mGy) MEDICAL HISTORY : Diabetes mellitus type 2. Cardiovascular disease Deep venous thrombosis. Bladde r cancer. SURGICAL HISTORY : Angioplasty. ENCOUNTER: Initial ACUITY: 1 day PAIN SCALE: 4/10 LOCATION: Right leg TECHNIQUE: Volumetric scanning was performed using a multi-row detector CT scanner. The data was post processed with a variety of visualization algorithms including full volume maximum intensity pr ojection, multi-planar sliding thin slab reformation, curved planar reformation, and surface renderin g techniques. Using automated exposure control and adjustment of the mA and/or kV according to patie nt size, radiation dose was kept as low as reasonably achievable to obtain optimal diagnostic quality images. FINDINGS: ABDOMINAL AORTA: There is mild plaque seen at the periphery of the abdominal aorta. Some of this is calcified. An aneurysm is not seen. The proximal celiac and superior mesenteric arteries are pa tent and normal in diameter. There are solitary renal arteries bilaterally without gross abnormality . BIFURCATION: Normal. RIGHT PELVIS: The right common iliac, internal iliac, and external iliac vessels are patent witho ut luminal irregularity. LEFT PELVIS: The left common iliac, internal iliac, and external iliac vessels are patent and wit hout luminal irregularity. RIGHT THIGH: The superficial femoral and profunda vessels are patent without luminal irregularity . LEFT THIGH: The superficial femoral and profunda vessels are patent without luminal irregularity. RIGHT KNEE: There is abrupt occlusion of the proximal popliteal artery. There is the suggestion of a filling defect at this level. This is seen at the level of the junction between the femoral sha ft and the femoral condyles. There is reconstitution of the more distal popliteal artery through col laterals. The trifurcation is intact. LEFT KNEE: The distal femoral and popliteal arteries are patent without luminal irregularity. RIGHT LEG: The trifurcation is intact. LEFT LEG: The trifurcation is intact. CONCLUSION: Abrupt occlusion of the proximal right popliteal artery with reconstitution of the more distal poplit eal aratery. This is concerning for an embolus in this region. Sammy Nichols MD on December 20, 2016 at 22:45 Board Certified Radiologist. This report was verified electronically.
[2016-12-20] MEDS ORDERED: DEXAMETHASONE SOD PHOS 4 MG/ML VIAL ONE (23:59)
[2016-12-20] MEDS ORDERED: MIDAZOLAM HCL 2 MG/2 ML VIAL ONE (23:59)
[2016-12-20] MEDS ORDERED: FAMOTIDINE 20 MG/2 ML VIAL ONE (23:59)
[2016-12-21] MEDS ORDERED: HEPARIN SODIUM - IV 10,000 UNITS/10 ML VIAL ONE (01:16)
[2016-12-21] MEDS ORDERED: HEPARIN SODIUM - IV 10,000 UNITS/10 ML VIAL IV PRN ×2 (01:45)
[2016-12-21] MEDS ORDERED: RESP: ALBUTEROL 2.5 MG/3 ML NEB (SCH) ONE (02:38)
[2016-12-21] MEDS ORDERED: *morphine SULFATE 8 MG/ML PERIprocedure ONLY ONE ×3 (02:50→03:13)
[2016-12-21] MEDS ORDERED: *MEPERIDINE 25 MG INJ VIAL PERIprocedural Use ONLY ONE (02:50)
[2016-12-21] MEDS: HEPARIN-D5W INJ 250 ML IV SCH (03:00)
[2016-12-21] MEDS ORDERED: fentaNYL CITRATE 250 MCG/5 ML AMP ONE (03:03)
[2016-12-21] MEDS ORDERED: SUGAMMADEX SODIUM 200 MG/2 ML VIAL IV PUSH ONE ×2 (03:03)
[2016-12-21] MEDS ORDERED: *HYDROmorphone PF 1 MG VIAL PERIprocedural Use ONLY ONE (03:22)
[2016-12-21 04:00] VITALS: BP 131/71; PULSE 70; RESP 11; TEMP 98; O2SAT 96
--- NOTE | 2016-12-21 04:55 | PD.CONS ---
HPI Service Critical Care Medicine Consult Requested By Primary Care Physician Zahra Dennison MD History of Present Illness 46-year-old male with known history of peripheral rashes disease, diabetes, known history of bladder cancer, active smoker presents for evaluation of acute onset right lower extremity pain. He was diagnosed with acute thrombosis and underwent emergent thrombolysis in the vascular suite. Postprocedure is admitted to ICU. Review of Systems ROS Unable to obtain patient still lethargic post general anesthesia Past Family Social History Allergies: Coded Allergies: Penicillin (Verified Allergy, Severe, Anaphylaxis, 12/20/16) Per pt. Past Medical History Severe peripheral vascular disease Hypertension Hyperlipidemia COPD Coronary artery disease status post and placement Anxiety Depression Bipolar Disorder Bladder cancer DVT Tobacco use disorder History of cocaine use Past Surgical History Cardiac stents Reported Medications Reported Meds & Active Scripts Active Percocet (Oxycodone-Acetaminophen) 5-325 mg Tab 1-2 Tab PO Q6H PRN Pyridium (Phenazopyridine HCl) 100 Mg Tab 100 Mg PO Q8H PRN Reported Gabapentin 300 Mg Cap 900 Mg PO AC LUNCH Gabapentin 600 Mg Tab 600 Mg PO BID Omeprazole 40 Mg Cap 40 Mg PO HS Synthroid (Levothyroxine Sodium) 50 Mcg Tab 50 Mcg PO DAILY Remeron (Mirtazapine) 45 Mg Tab 45 Mg PO HS Lisinopril 20 Mg Tab 20 Mg PO BID Glucophage (Metformin HCl) 500 Mg Tab 500 Mg PO HS With a meal Nitroglycerin SL (Nitroglycerin) 0.4 Mg Subl 0.4 Mg SL Q 5 MINUTES PRN ONE TABLET UNDER THE TONGUE NEEDED FOR CHEST PAIN, MAY REPEAT EVERY FIVE MINUTES FOR A TOTAL OF 3 DOSES OR CALL 911 IF NO RELIEF Plavix (Clopidogrel Bisulfate) 75 Mg Tab 75 Mg PO DAILY Lipitor (Atorvastatin Calcium) 80 Mg Tab 80 Mg PO HS Coreg (Carvedilol) 6.25 Mg Tab 6.25 Mg PO BID Cymbalta DR (Duloxetine HCl) 60 Mg Capdr 180 Mg PO DAILY Aspirin 81 Mg Tabdr 81 Mg PO DAILY Active Ordered Medications Current Medications Medications (Trade) Dose Ordered Sig/Erin Route PRN Reason Start Time Stop Time Status Last Admin Dose Admin Heparin Sodium (Porcine) (Heparin Inj) 5,000 units UNSCH PRN IV APTT LESS THAN 25 12/21/16 01:45 Heparin Sodium (Porcine) 2500 units 2,500 units UNSCH PRN IV APTT 25 TO 39 12/21/16 01:45 Heparin Sodium/ Dextrose (Heparin-D5W Inj) 250 ml @ 0 mls/hr TITRATE IV 12/20/16 19:45 12/21/16 03:00 Dextrose (D50w (Vial) Inj) 50 ml UNSCH PRN IV HYPOGLYCEMIA-SEE COMMENTS 12/20/16 23:00 Glucagon (Glucagon Inj) 1 mg UNSCH PRN OTHER HYPOGLYCEMIA-SEE COMMENTS 12/20/16 23:00 Sodium Chloride (NS Flush) 2 ml UNSCH PRN IV FLUSH FLUSH AFTER USING IV ACCESS 12/20/16 23:00 Sodium Chloride (NS Flush) 2 ml BID IV FLUSH 12/21/16 09:00 Ondansetron HCl (Zofran Inj) 4 mg Q6H PRN IVP NAUSEA OR VOMITING 12/20/16 23:00 Bisacodyl (Dulcolax Supp) 10 mg DAILY PRN RECTAL CONSTIPATION 12/20/16 23:00 Acetaminophen (Tylenol) 650 mg Q6H PRN PO FEVER/PAIN SCALE 1 TO 2 12/20/16 23:00 Acetaminophen/ Hydrocodone Bitart ([place] 5-325 Mg) 1 tab Q4H PRN PO PAIN SCALE 3 TO 5 12/20/16 23:00 Atorvastatin Calcium (Lipitor) 80 mg HS PO 12/21/16 21:00 Carvedilol (Coreg) 6.25 mg BID PO 12/21/16 09:00 Duloxetine HCl (Cymbalta Dr) 180 mg DAILY PO 12/21/16 09:00 Gabapentin (Neurontin) 600 mg BID PO 12/21/16 09:00 Levothyroxine Sodium (Synthroid) 50 mcg DAILY@0600 PO 12/21/16 06:00 Lisinopril (Prinivil) 20 mg BID PO 12/21/16 09:00 Mirtazapine (Remeron) 45 mg HS PO 12/21/16 21:00 Pantoprazole Sodium (Protonix) 40 mg HS PO 12/21/16 21:00 Morphine Sulfate (Morphine Inj) 4 mg Q2H PRN IV Pain 6-10 12/21/16 03:00 Oxycodone/ Acetaminophen (Percocet 5-325 Mg) 1 tab Q4H PRN PO PAIN SCALE 3-5 12/21/16 02:00 Clopidogrel Bisulfate (Plavix) 75 mg DAILY PO 12/21/16 09:00 Family History Noncontributory no history of diabetes or premature coronary artery disease Social History Continues to smoke History of cocaine abuse in 2016 No alcohol abuse Physical Exam Vital Signs Vital Signs Date Time Temp Pulse Resp B/P Pulse Ox O2 Delivery O2 Flow Rate FiO2 12/21/16 04:00 98.0 70 11 131/71 96 12/21/16 03:36 98.1 81 16 155/76 99 Nasal Cannula 3 12/21/16 03:15 88 16 143/68 99 Nasal Cannula 3 12/21/16 03:00 90 17 142/72 98 Nasal Cannula 3 12/21/16 02:47 98.8 98 17 165/82 96 Nasal Cannula 3 12/20/16 22:30 98.1 70 18 134/94 100 Room Air 12/20/16 22:30 100 Room Air 12/20/16 20:10 103 18 127/97 100 Room Air 12/20/16 19:33 95 Room Air 12/20/16 19:22 113 25 12/20/16 19:05 98.4 127 22 172/105 95 Room Air Physical Exam GENERAL: Morbidly obese lethargic patient in no acute distress SKIN: Warm and dry. HEAD: Normocephalic. EYES: No scleral icterus. No injection or drainage. NECK: Supple, trachea midline. No JVD or lymphadenopathy. CARDIOVASCULAR: Regular rate and rhythm without murmurs, gallops, or rubs. RESPIRATORY: Breath sounds equal bilaterally. No accessory muscle use. GASTROINTESTINAL: Abdomen soft, non-tender, nondistended. MUSCULOSKELETAL: No cyanosis, or edema. BACK: Nontender without obvious deformity. No CVA tenderness. EXTREMITIES: Peripheral arteria dorsalis pedis pulses on the right extremity is weaker compared to the left side however presented Laboratory Laboratory Tests Test 12/20/16 12/20/16 12/20/16 19:58 21:46 22:00 White Blood Count 9.9 Red Blood Count 5.17 Hemoglobin 14.0 Hematocrit 42.4 Mean Corpuscular Volume 81.9 Mean Corpuscular Hemoglobin 27.0 Mean Corpuscular Hemoglobin 33.0 Concent Red Cell Distribution Width 19.0 Platelet Count 252 Mean Platelet Volume 7.9 Neutrophils (%) (Auto) 76.5 Lymphocytes (%) (Auto) 16.4 Monocytes (%) (Auto) 5.3 Eosinophils (%) (Auto) 1.2 Basophils (%) (Auto) 0.6 Neutrophils # (Auto) 7.5 Lymphocytes # (Auto) 1.6 Monocytes # (Auto) 0.5 Eosinophils # (Auto) 0.1 Basophils # (Auto) 0.1 CBC Comment DIFF FINAL Differential Comment Prothrombin Time 10.0 Prothromb Time International 0.9 Ratio Activated Partial 22.4 Thromboplast Time Sodium Level 141 Potassium Level 3.8 Chloride Level 108 Carbon Dioxide Level 21.6 Anion Gap 11 Blood Urea Nitrogen 11 Creatinine 1.18 Estimat Glomerular Filtration 66 Rate Random Glucose 151 Calcium Level 8.7 Magnesium Level 2.0 Total Creatine Kinase 81 Troponin I 0.02 Blood Type A POSITIVE A POSITIVE Antibody Screen NEGATIVE Blood Bank Comment Crossmatch Leukocyte-Reduced Red Blood Cells Result Diagram: 12/20/16195712/20/161957 Assessment and Plan Assessment and Plan Respiratory failure - Posterior general anesthesia - Incentive spirometer while awake every hour - Wean off the oxygen as tolerated - O2 supply to keep sats above 92 COPD - No exacerbation - No indication for steroids - DuoNeb scheduled and when necessary Tobacco use disorder - Monitor for withdrawal - Consider nicotine patch if needed Acute arterial thrombosis in right lower extremity - Heparin drip - Status post lobectomy by Dr. Cage - Management per vascular surgeon Coronary artery disease - No acute event - Continue home meds and supportive care DVT GI prophylaxis - Heparin drip/heart healthy diet Critical Care: The total critical care time was 35 minutes. Time to perform other separately billable procedures was not included in the critical care time. Arcenio Hsu MD December 21, 2016 04:55
[2016-12-21] MEDS: MORPHINE SULFATE 4 MG/ML INJ IV PRN ×6 (05:16→22:36)
[2016-12-21 06:36] LABS: APTT (PATIENT) 26.6 SEC (24.3-30.1)
[2016-12-21 06:44] LABS: AUTOMATED NEUTROPHIL # 16.1 TH/MM3 (1.8-7.7); BASOPHIL # 0.1 TH/MM3 (0-0.2); BASOPHIL % 0.7 % (0.0-2.0); EOSINOPHIL % 0.1 % (0.0-4.0); HEMATOCRIT 37.7 % (39.0-51.0); LYMPH % 5.3 % (9.0-44.0); MEAN CELL VOLUME 82.6 FL (80.0-100.0); MEAN CORPUSCULAR HEMOGLOBIN 25.8 PG (27.0-34.0); MEAN CORPUSCULAR HGB CONC 31.2 % (32.0-36.0); MONO % 4.1 % (0.0-8.0); NEUT % 89.8 % (16.0-70.0); PLATELET COUNT 225 TH/MM3 (150-450); RED BLOOD COUNT 4.57 MIL/MM3 (4.50-5.90); RED CELL DISTRIBUTION WIDTH 18.7 % (11.6-17.2); WHITE BLOOD COUNT 17.9 TH/MM3 (4.0-11.0)
[2016-12-21 06:48] LABS: HEMO FLAGS AUTO DIFF
[2016-12-21] MEDS: INSULIN ASPART SUPPLEMENTAL SCALE SQ SCH ×4 (07:00→21:17)
[2016-12-21 07:09] LABS: ANION GAP 7 MEQ/L (5-15); AST (GOT) 16 U/L (15-37); BICARBONATE 27.4 MEQ/L (21.0-32.0); BLOOD UREA NITROGEN 10 MG/DL (7-18); CHLORIDE 108 MEQ/L (98-107); GLOMERULAR FILTRATION RATE 87 ML/MIN (>89); SODIUM (NA) 142 MEQ/L (136-145)
[2016-12-21 07:11] LABS: ALKALINE PHOSPHATASE 103 U/L (45-117); ALT (GPT) 22 U/L (12-78); TOTAL BILIRUBIN ADULT 0.4 MG/DL (0.2-1.0)
[2016-12-21] MEDS: LEVOTHYROXINE SODIUM 50 MCG TAB PO SCH (07:12)
[2016-12-21] MEDS: SODIUM CHLORIDE 0.9% FLUSH 10 ML FLUSH IV FLUSH SCH ×2 (07:17→21:17)
[2016-12-21 08:00] VITALS: BP 159/80; PULSE 69; RESP 12; TEMP 98.6; O2SAT 97
[2016-12-21] MEDS: CLOPIDOGREL 75 MG TAB PO SCH (08:59)
[2016-12-21] MEDS: LISINOPRIL 20 MG TAB PO SCH ×2 (08:59→21:06)
[2016-12-21] MEDS: CARVEDILOL 6.25 MG TAB PO SCH ×2 (08:59→21:07)
[2016-12-21] MEDS: DULoxetine HCl DR 60 MG CAP PO SCH (09:00)
[2016-12-21] MEDS: GABAPENTIN 300 MG CAP PO SCH ×3 (09:00→21:06)
[2016-12-21 09:50] LABS: SCAN/DIFF AUTO DIFF CONFIRMED
[2016-12-21 10:00] VITALS: PULSE 70
[2016-12-21] MEDS: APIXABAN 5 MG TABLET PO SCH ×2 (10:15→21:06)
--- NOTE | 2016-12-21 11:27 | PD.CAR.PN ---
CVT Progress Note Subjective/Hospital Course: 46-year-old vasculopath with multiple medical problems the frequent flyer to this emergency room with coronary artery disease peripheral vascular disease, diabetes mellitus hypertension and bladder tumors, presents with 7-8 hour history off severe pain in his right leg mainly below the knee. On physical exam patient has bilateral good femoral pulses on the left side he has a palpable popliteal pulse and strong dorsalis pedis posterior tibial On the right side patient's palpable femoral pulse very weak popliteal pulse probably by either reconstitution or alongside the clot flow and then no pulses below that level either posterior tibial or dorsalis pedis Foot is cool pale and pulseless partially insensate over the plantar surface and toes. It should be noted that the patient had similar episodes off vascular occlusion about 2 years ago at which time patient underwent tPA lysis by Dr. Xavier and the leg was salvaged. Patient after that continue to smoke which is the case currently. It should be noted then patient is in quite of a poor hygienic state and noncompliant with his medical care. Smokes about half to 1 pack a day continuously all of his adult life despite several heart attacks and problems of the nature. I suspect clot in the superficial femoral artery probably reaching into the trifurcation and depending on CTA findings patient will either undergo TPA lysis or surgical embolectomy Full consult to follow Jailyn Cage 12/21/16 Patient status post right leg thromboembolectomy Incision is clean and dry Foot is nice and warm patient now has dopplerable dorsalis pedis and posterior tibial pulses capillary refill is normal Plan Stop heparin drip Patient will be started on a factor X a inhibitor considering the fact that this is repeated episodes of thromboembolism to the leg and there may be a occult source for this looks more like a cardioarterial embolus than anything else Cardiac echo pending Patient can be transferred to the floor and Breaux will be removed Out of bed and ambulate Stop diabetes fluids patient doing well at this time at this bit discharged next 24-48 hrs. Objective: Vital Signs Date Time Temp Pulse Resp B/P Pulse Ox O2 Delivery O2 Flow Rate FiO2 12/21/16 10:00 70 12/21/16 08:00 98.6 69 12 159/80 97 12/21/16 08:00 69 12/21/16 04:00 98.0 70 11 131/71 96 12/21/16 03:36 98.1 81 16 155/76 99 Nasal Cannula 3 12/21/16 03:15 88 16 143/68 99 Nasal Cannula 3 12/21/16 03:00 90 17 142/72 98 Nasal Cannula 3 12/21/16 02:47 98.8 98 17 165/82 96 Nasal Cannula 3 12/20/16 22:30 98.1 70 18 134/94 100 Room Air 12/20/16 22:30 100 Room Air 12/20/16 20:10 103 18 127/97 100 Room Air 12/20/16 19:33 95 Room Air 12/20/16 19:22 113 25 12/20/16 19:05 98.4 127 22 172/105 95 Room Air Labs: Laboratory Tests Test 12/21/16 12/21/16 06:00 06:30 Activated Partial 26.6 SEC Thromboplast Time (24.3-30.1) White Blood Count 17.9 TH/MM3 (4.0-11.0) Red Blood Count 4.57 MIL/MM3 (4.50-5.90) Hemoglobin 11.8 GM/DL (13.0-17.0) Hematocrit 37.7 % (39.0-51.0) Mean Corpuscular Volume 82.6 FL (80.0-100.0) Mean Corpuscular Hemoglobin 25.8 PG (27.0-34.0) Mean Corpuscular Hemoglobin 31.2 % Concent (32.0-36.0) Red Cell Distribution Width 18.7 % (11.6-17.2) Platelet Count 225 TH/MM3 (150-450) Mean Platelet Volume 7.7 FL (7.0-11.0) Neutrophils (%) (Auto) 89.8 % (16.0-70.0) Lymphocytes (%) (Auto) 5.3 % (9.0-44.0) Monocytes (%) (Auto) 4.1 % (0.0-8.0) Eosinophils (%) (Auto) 0.1 % (0.0-4.0) Basophils (%) (Auto) 0.7 % (0.0-2.0) Neutrophils # (Auto) 16.1 TH/MM3 (1.8-7.7) Lymphocytes # (Auto) 1.0 TH/MM3 (1.0-4.8) Monocytes # (Auto) 0.7 TH/MM3 (0-0.9) Eosinophils # (Auto) 0.0 TH/MM3 (0-0.4) Basophils # (Auto) 0.1 TH/MM3 (0-0.2) CBC Comment AUTO DIFF Differential Comment AUTO DIFF CONFIRMED Sodium Level 142 MEQ/L (136-145) Potassium Level 4.0 MEQ/L (3.5-5.1) Chloride Level 108 MEQ/L (98-107) Carbon Dioxide Level 27.4 MEQ/L (21.0-32.0) Anion Gap 7 MEQ/L (5-15) Blood Urea Nitrogen 10 MG/DL (7-18) Creatinine 0.93 MG/DL (0.60-1.30) Estimat Glomerular Filtration 87 ML/MIN (>89) Rate Random Glucose 119 MG/DL (74-106) Calcium Level 8.0 MG/DL (8.5-10.1) Total Bilirubin 0.4 MG/DL (0.2-1.0) Aspartate Amino Transf 16 U/L (15-37) (AST/SGOT) Alanine Aminotransferase 22 U/L (12-78) (ALT/SGPT) Alkaline Phosphatase 103 U/L (45-117) Total Protein 6.2 GM/DL (6.4-8.2) Albumin 3.0 GM/DL (3.4-5.0) Result Diagram: 12/21/1662912/21/16629 Tiff Alfredo MD December 21, 2016 11:27
[2016-12-21] MEDS ORDERED: LACTATED RINGER'S 1000 ML INJ 3,000 ML IV ONE (12:00)
[2016-12-21] MEDS ORDERED: PHENYLEPH/NS 1000 MCG/10 ML SYR IV ONE (12:00)
[2016-12-21] MEDS ORDERED: ONDANSETRON HCL 4 MG/2 ML VIAL IV PUSH ONE (12:00)
[2016-12-21] MEDS ORDERED: SODIUM CHLOR 0.9% 250 ML INJ 250 ML IV ONE (12:00)
[2016-12-21] MEDS ORDERED: ACETAMINOPHEN 1000 MG/100 ML VIAL IV ONE (12:00)
[2016-12-21] MEDS ORDERED: PROPOFOL 200 MG/20 ML AMP IV ONE (12:00)
[2016-12-21] MEDS ORDERED: VANCOMYCIN HCL 1000 MG VIAL IV ONE (12:00)
[2016-12-21] MEDS ORDERED: SODIUM CHLORID 0.9% 500 ML INJ 500 ML IV ONE (12:00)
[2016-12-21 16:00] VITALS: BP 113/64; PULSE 74; RESP 19; TEMP 98; O2SAT 95
--- NOTE | 2016-12-21 17:00 | EKG ---
Date Performed: 12/20/2016 Time Performed: 19:31:43 PTAGE: 46 years EKG: Sinus rhythm INFERIOR MYOCARDIAL INFARCTION PROBABLE ANTEROLATERAL MYOCARDIAL INFARCTION ABNORMAL ECG INTERPRETAT ION BASED ON A DEFAULT AGE OF 40 YEARS PREVIOUS TRACING : 07/31/2016 21.54 Compared to prior tracing no significant change DOCTOR: Raquel Donis Interpretating Date/Time 12/21/2016 16:59:10
[2016-12-21] MEDS: oxyCODONE/ACETAMINOPHEN 5 MG/325 MG TAB PO PRN ×2 (18:02→21:14)
[2016-12-21 18:57] LABS: APTT (PATIENT) 44.1 SEC (24.3-30.1)
[2016-12-21 20:45] VITALS: BP 126/65; PULSE 76; RESP 18; TEMP 99.6; O2SAT 95
[2016-12-21 21:00] VITALS: PULSE 83
[2016-12-21] MEDS: ATORVASTATIN 80 MG TAB PO SCH (21:07)
[2016-12-21] MEDS: PANTOPRAZOLE SOD 40 MG DELAYED RELEASE TAB PO SCH (21:07)
[2016-12-21] MEDS: MIRTAZAPINE 15 MG TAB PO SCH (21:09)
[2016-12-22] MEDS: MORPHINE SULFATE 4 MG/ML INJ IV PRN ×9 (00:36→20:22)
[2016-12-22 00:45] VITALS: BP 130/74; PULSE 80; RESP 19; TEMP 98.9; O2SAT 96
[2016-12-22] MEDS: LEVOTHYROXINE SODIUM 50 MCG TAB PO SCH (04:40)
[2016-12-22] MEDS: oxyCODONE/ACETAMINOPHEN 5 MG/325 MG TAB PO PRN ×2 (04:40→09:02)
[2016-12-22] MEDS: INSULIN ASPART SUPPLEMENTAL SCALE SQ SCH ×4 (06:15→20:33)
[2016-12-22] MEDS: CARVEDILOL 6.25 MG TAB PO SCH ×2 (08:04→20:18)
[2016-12-22 08:05] VITALS: BP 113/69; PULSE 50; PULSE 60; RESP 17; TEMP 97.5; O2SAT 96
[2016-12-22] MEDS: DULoxetine HCl DR 60 MG CAP PO SCH (08:05)
[2016-12-22] MEDS: GABAPENTIN 300 MG CAP PO SCH ×3 (08:05→20:18)
[2016-12-22] MEDS: APIXABAN 5 MG TABLET PO SCH ×2 (08:05→20:18)
[2016-12-22] MEDS: CLOPIDOGREL 75 MG TAB PO SCH (08:05)
[2016-12-22] MEDS: LISINOPRIL 20 MG TAB PO SCH ×2 (08:06→20:18)
[2016-12-22] MEDS: SODIUM CHLORIDE 0.9% FLUSH 10 ML FLUSH IV FLUSH SCH ×2 (08:06→15:49)
--- NOTE | 2016-12-22 09:04 | MP ---
cc: EMEKA WITT MD DATE OF SURGERY 12/21/2016 PREOPERATIVE DIAGNOSIS Right distal SFA and popliteal artery occlusion, thromboembolus. POSTOPERATIVE DIAGNOSIS Right distal SFA and popliteal artery occlusion, thromboembolus. OPERATIVE PROCEDURE Right external iliac thromboembolectomy Right Femoral and popliteal thromboembolectomy SURGEON MD Juni ANESTHESIA General. ESTIMATED BLOOD LOSS 100 cc. PROCEDURE The patient was prepped and draped in the usual fashion. The right groin incision was made in oblique fashion, deepened down to the common femoral artery. The common femoral, deep femoral, superficial femoral arteries are isolated. Incision was made to just over the distal common femoral artery the patient is given 5000 units of heparin. A profunda clamp is placed proximally and distally the vessel is held on a rubber vessel loop. Vessel was opened transversely with Davis scissors and then the profunda clamp was flashed and noted that the flow into the groin is fairly poor. Therefore #5 Sky is first placed upward and I felt when it went through a soft clot. Retrieval of the Sky results in about 4 cm x 8 mm thromboembolus retrieval and this is followed by brisk blood flow. Vessel loop was pulled up and profunda clamp replaced A #5 white Sky is now placed down through the superficial femoral artery into the leg and on the first pass a large amount of thromboembolic material was retrieved. Now a red Sky is placed, the first one broke the balloon, the second one retrieved a little more and then it comes back clean. The vessel is now flushed with heparinized saline and then there is excellent backbleeding present. I wanted to obtain an arteriogram; however, unfortunately the table the patient was on is not suitable table for arteriogram so I had to skip this. The arteriotomy is now closed with 6-0 Prolene interrupted stitches and then blood flow reestablished. The patient has a strong palpable pulse in the popliteal artery and a strong dopplerable brisk posterior tibial artery. Dorsalis pedis is not present either to spasm or pain. The patient has occluded vessel there anyway. The foot readily pinks up. The patient tolerated this part of the procedure well. The area is now irrigated with saline, then the incision closed in layers with 2-0 Vicryl and 4-0 Monocryl. Benzoin and Steri-Strips were applied. Emeka MENDOSA /2:10 AM /8:58 AM JESSICA
--- NOTE | 2016-12-22 09:52 | PD.CAR.PN ---
CVT Progress Note Subjective/Hospital Course: 46-year-old vasculopath with multiple medical problems the frequent visitor to this emergency room with coronary artery disease peripheral vascular disease, diabetes mellitus hypertension and bladder tumors, presents with 7-8 hour history off severe pain in his right leg mainly below the knee. On physical exam patient has bilateral good femoral pulses on the left side he has a palpable popliteal pulse and strong dorsalis pedis posterior tibial On the right side patient's palpable femoral pulse very weak popliteal pulse probably by either reconstitution or alongside the clot flow and then no pulses below that level either posterior tibial or dorsalis pedis Foot is cool pale and pulseless partially insensate over the plantar surface and toes. It should be noted that the patient had similar episodes off vascular occlusion about 2 years ago at which time patient underwent tPA lysis by Dr. Xavier and the leg was salvaged. Patient after that continue to smoke which is the case currently. It should be noted then patient is in quite of a poor hygienic state and noncompliant with his medical care. Smokes about half to 1 pack a day continuously all of his adult life despite several heart attacks and problems of the nature. I suspect clot in the superficial femoral artery probably reaching into the trifurcation and depending on CTA findings patient will either undergo TPA lysis or surgical embolectomy Full consult to follow Thanks J 12/22/16 Patient doing well Foot is nice and warm patient is excellent flow including palpable femoral pulses bilateral strong dopplerable popliteal pulses and strong posterior tibial pulse by Doppler in the right foot Foot is nice and warm and capillary refill is normal From my point patient can be discharged any time Follow-up with me in about 2 weeks in my office Patient should be discharged on factor Xa inhibitor Objective: Vital Signs Date Time Temp Pulse Resp B/P Pulse Ox O2 Delivery O2 Flow Rate FiO2 12/22/16 08:05 97.5 60 17 113/69 96 12/22/16 00:45 98.9 80 19 130/74 96 12/21/16 21:00 83 12/21/16 20:45 99.6 76 18 126/65 95 12/21/16 16:00 98.0 74 19 113/64 95 12/21/16 15:05 18 12/21/16 10:00 70 Result Diagram: 12/21/16 0630 12/21/16 0630 Tiff Alfredo MD December 22, 2016 09:52
[2016-12-22 12:00] VITALS: BP 116/61; PULSE 59; RESP 17; TEMP 97.8; O2SAT 97
[2016-12-22 15:40] VITALS: BP 118/75; PULSE 60; RESP 17; TEMP 97.5; O2SAT 97
[2016-12-22] MEDS: ATORVASTATIN 80 MG TAB PO SCH (20:18)
[2016-12-22] MEDS: PANTOPRAZOLE SOD 40 MG DELAYED RELEASE TAB PO SCH (20:18)
[2016-12-22] MEDS: MIRTAZAPINE 15 MG TAB PO SCH (20:19)
[2016-12-22 20:50] VITALS: BP 125/75; PULSE 58; RESP 20; TEMP 99.1; O2SAT 98
[2016-12-23] MEDS: MORPHINE SULFATE 4 MG/ML INJ IV PRN ×3 (00:07→08:15)
[2016-12-23 00:53] VITALS: BP 126/69; PULSE 59; RESP 20; TEMP 98.5; O2SAT 96
[2016-12-23] MEDS: oxyCODONE/ACETAMINOPHEN 5 MG/325 MG TAB PO PRN ×3 (02:02→11:14)
[2016-12-23 05:37] VITALS: BP 127/76; PULSE 54; RESP 20; TEMP 97.7; O2SAT 96
[2016-12-23] MEDS: LEVOTHYROXINE SODIUM 50 MCG TAB PO SCH (06:13)
[2016-12-23] MEDS: INSULIN ASPART SUPPLEMENTAL SCALE SQ SCH ×2 (06:15→11:00)
[2016-12-23 08:00] VITALS: BP 135/75; PULSE 58; RESP 17; TEMP 97.2; O2SAT 97
[2016-12-23 08:01] VITALS: PULSE 52
[2016-12-23] MEDS: SODIUM CHLORIDE 0.9% FLUSH 10 ML FLUSH IV FLUSH SCH (08:18)
[2016-12-23] MEDS: CLOPIDOGREL 75 MG TAB PO SCH (08:18)
[2016-12-23] MEDS: DULoxetine HCl DR 60 MG CAP PO SCH (08:18)
[2016-12-23] MEDS: CARVEDILOL 6.25 MG TAB PO SCH (08:18)
[2016-12-23] MEDS: APIXABAN 5 MG TABLET PO SCH (08:18)
[2016-12-23] MEDS: GABAPENTIN 300 MG CAP PO SCH ×2 (08:18→11:14)
[2016-12-23] MEDS: LISINOPRIL 20 MG TAB PO SCH (08:18)
[2016-12-23 08:56] VITALS: BP 135/75; PULSE 58; RESP 17; TEMP 97.2; O2SAT 97
[2016-12-23] MEDS ORDERED: PERC5TAB12 PO (11:19)
[2016-12-23] MEDS ORDERED: APIX5TAB PO (11:19)
--- NOTE | 2016-12-23 11:21 | HHI.PR ---
Subjective Remarks in no acute distress. has some on and off pain to the right leg. otherwise no other complaints. d/w the RN and no acute issues over night. Objective Vitals Vital Signs Date Time Temp Pulse Resp B/P Pulse Ox O2 Delivery O2 Flow Rate FiO2 12/23/16 08:56 97.2 58 17 135/75 97 12/23/16 08:26 18 12/23/16 08:01 52 12/23/16 08:00 97.2 58 17 135/75 97 12/23/16 05:37 97.7 54 20 127/76 96 12/23/16 00:53 98.5 59 20 126/69 96 12/22/16 20:50 99.1 58 20 125/75 98 12/22/16 15:40 97.5 60 17 118/75 97 12/22/16 12:00 97.8 59 17 116/61 97 I/O 12/22/16 12/22/16 12/22/16 12/23/16 12/23/16 12/23/16 06:59 14:59 22:59 06:59 14:59 22:59 Intake Total 480 ml Output Total 790 ml 400 ml Balance -310 ml -400 ml Intake Oral 480 ml Output Urine Total 790 ml 400 ml # Bowel Movements 0 Result Diagram: 12/21/16 0630 12/21/16 0630 Imaging Last Impressions Aorta w/Runoff CTA 12/20/16 0000 Signed Impressions: Service Date/Time: Tuesday, December 20, 2016 21:21 - CONCLUSION: Abrupt occlusion of the proximal right popliteal artery with reconstitution of the more distal popliteal aratery. This is concerning for an embolus in this region. Sammy Nichols MD Objective Remarks GENERAL: This is a well-nourished, well-developed patient, in no apparent distress. CARDIOVASCULAR: Regular rate and regular rhythm without murmurs, gallops, or rubs. RESPIRATORY: Clear to auscultation. Breath sounds equal bilaterally. No wheezes , rales, or rhonchi. GASTROINTESTINAL: Abdomen soft, non-tender, nondistended. Normal, active bowel sounds MUSCULOSKELETAL: Extremities without clubbing, cyanosis, or edema. NEURO: Alert & Oriented x4 to person, place, time, situation. Moves all ext x4 Procedures Right external iliac thromboembolectomy Right Femoral and popliteal thromboembolectomy Medications and IVs Current Medications Sodium Chloride (NS Flush) 2 ml UNSCH PRN IVF FLUSH AFTER USING IV ACCESS; Start 12/20/16 at 19:30; Stop 12/21/16 at 00:05; Status DC Heparin Sodium (Porcine) (Heparin Inj) 5,000 units UNSCH PRN IV APTT LESS THAN 25; Start 12/21/16 at 01:45; Stop 12/21/16 at 10:05; Status DC Heparin Sodium (Porcine) 2500 units 2,500 units UNSCH PRN IV APTT 25 TO 39; Start 12/21/16 at 01:45; Stop 12/21/16 at 10:05; Status DC Heparin Sodium/ Dextrose (Heparin-D5W Inj) 250 ml @ 0 mls/hr TITRATE IV Last administered on 12/21/16 03:00; Start 12/20/16 at 19:45; Stop 12/21/16 at 10:05 ; Status DC Heparin Sodium (Porcine) (Heparin Inj) 10,000 units ONCE ONCE IV Last administered on 12/20/16 20:12; Start 12/20/16 at 19:45; Stop 12/21/16 at 10:05 ; Status DC Morphine Sulfate (Morphine Inj) 5 mg ONCE ONCE IV PUSH Last administered on 20:13; Start 12/20/16 at 20:00; Stop 12/20/16 at 20:01; Status DC Hydromorphone HCl (Dilaudid Pf Inj) 1 mg ONCE ONCE IV PUSH Last administered on 12/20/16 20:29; Start 12/20/16 at 20:30; Stop 12/20/16 at 20:31; Status DC Ondansetron HCl (Zofran Inj) 4 mg ONCE ONCE IV PUSH Last administered on 20:29; Start 12/20/16 at 20:30; Stop 12/20/16 at 20:31; Status DC Iohexol (Omnipaque 350 Inj) 91 ml STK-MED ONCE IV Last administered on 21:25; Start 12/20/16 at 21:25; Stop 12/20/16 at 21:27; Status DC Hydromorphone HCl (Dilaudid Pf Inj) 1 mg ONCE ONCE IV PUSH Last administered on 12/20/16 22:29; Start 12/20/16 at 22:30; Stop 12/20/16 at 22:31; Status DC Dextrose (D50w (Vial) Inj) 50 ml UNSCH PRN IV HYPOGLYCEMIA-SEE COMMENTS; Start 12/20/16 at 23:00 Glucagon (Glucagon Inj) 1 mg UNSCH PRN OTHER HYPOGLYCEMIA-SEE COMMENTS; Start 12/20/16 at 23:00 Insulin Aspart (NovoLOG SUPPLEMENTAL SCALE) 1 ACHS SLIDING SCALE SQ ; Start at 07:00 Sodium Chloride (NS Flush) 2 ml UNSCH PRN IV FLUSH FLUSH AFTER USING IV ACCESS ; Start 12/20/16 at 23:00 Sodium Chloride (NS Flush) 2 ml BID IV FLUSH Last administered on 12/23/16 08: 18; Start 12/21/16 at 09:00 Ondansetron HCl (Zofran Inj) 4 mg Q6H PRN IVP NAUSEA OR VOMITING; Start at 23:00 Bisacodyl (Dulcolax Supp) 10 mg DAILY PRN RECTAL CONSTIPATION; Start 12/20/16 at 23:00 Acetaminophen (Tylenol) 650 mg Q6H PRN PO FEVER/PAIN SCALE 1 TO 2; Start at 23:00 Acetaminophen/ Hydrocodone Bitart ([place] 5-325 Mg) 1 tab Q4H PRN PO PAIN SCALE 3 TO 5; Start 12/20/16 at 23:00 Morphine Sulfate (Morphine Inj) 2 mg Q3H PRN IV Pain 6-10; Start 12/20/16 at 23 :00; Stop 12/21/16 at 02:02; Status DC Atorvastatin Calcium (Lipitor) 80 mg HS PO Last administered on 12/22/16 20:18 ; Start 12/21/16 at 21:00 Carvedilol (Coreg) 6.25 mg BID PO Last administered on 12/23/16 08:18; Start 12/21/16 at 09:00 Duloxetine HCl (Cymbalta Dr) 180 mg DAILY PO Last administered on 12/23/16 08: 18; Start 12/21/16 at 09:00 Gabapentin (Neurontin) 900 mg AC LUNCH PO Last administered on 12/22/16 10:37 ; Start 12/21/16 at 11:00 Gabapentin (Neurontin) 600 mg BID PO Last administered on 12/23/16 08:18; Start 12/21/16 at 09:00 Levothyroxine Sodium (Synthroid) 50 mcg DAILY@0600 PO Last administered on 12/23 06:13; Start 12/21/16 at 06:00 Lisinopril (Prinivil) 20 mg BID PO Last administered on 12/23/16 08:18; Start 12/21/16 at 09:00 Mirtazapine (Remeron) 45 mg HS PO Last administered on 12/22/16 20:19; Start 12/21/16 at 21:00 Pantoprazole Sodium (Protonix) 40 mg HS PO Last administered on 12/22/16 20:18 ; Start 12/21/16 at 21:00 Midazolam HCl (Versed Inj) 2 mg STK-MED ONCE .ROUTE ; Start 12/20/16 at 23:59; Stop 12/21/16 at 00:00; Status DC Dexamethasone Sodium Phosphate (Decadron Inj) 4 mg STK-MED ONCE .ROUTE ; Start 12/20/16 at 23:59; Stop 12/21/16 at 00:00; Status DC Famotidine (Pepcid Inj) 20 mg STK-MED ONCE .ROUTE ; Start 12/20/16 at 23:59; Stop 12/21/16 at 00:00; Status DC Heparin Sodium (Porcine) (Heparin Inj) 10,000 units STK-MED ONCE .XX Last administered on 12/21/16 01:16; Start 12/21/16 at 01:16; Stop 12/21/16 at 10:05 ; Status DC Morphine Sulfate (Morphine Inj) 4 mg Q2H PRN IV Pain 6-10 Last administered on 12/23/16 08:15; Start 12/21/16 at 03:00 Oxycodone/ Acetaminophen (Percocet 5-325 Mg) 1 tab Q4H PRN PO PAIN SCALE 3-5 Last administered on 12/23/16 06:18; Start 12/21/16 at 02:00 Clopidogrel Bisulfate (Plavix) 75 mg DAILY PO Last administered on 12/23/16 08 :18; Start 12/21/16 at 09:00 Albuterol Sulfate (Albuterol Neb) 2.5 mg STK-MED ONCE .ROUTE Last administered on 12/21/16 02:38; Start 12/21/16 at 02:38; Stop 12/21/16 at 02:39; Status DC Morphine Sulfate (*morphine INJ PERIprocedure ONLY) 8 mg STK-MED ONCE .ROUTE Last administered on 12/21/16 02:50; Start 12/21/16 at 02:50; Stop 12/21/16 at 02:51; Status DC Meperidine HCl (*DEMEROL INJ PERIprocedural ONLY) 25 mg STK-MED ONCE .ROUTE Last administered on 12/21/16 02:50; Start 12/21/16 at 02:50; Stop 12/21/16 at 02:51; Status DC Morphine Sulfate (*morphine INJ PERIprocedure ONLY) 8 mg STK-MED ONCE .ROUTE Last administered on 12/21/16 03:02; Start 12/21/16 at 03:02; Stop 12/21/16 at 03:03; Status DC Sugammadex Sodium ([place] Inj) 400 mg STK-MED ONCE IV PUSH ; Start 12/21/16 at 03:03; Stop 12/21/16 at 03:04; Status DC Fentanyl Citrate (fentaNYL INJ) 250 mcg STK-MED ONCE .ROUTE ; Start 12/21/16 at 03:03; Stop 12/21/16 at 03:04; Status DC Morphine Sulfate (*morphine INJ PERIprocedure ONLY) 8 mg STK-MED ONCE .ROUTE Last administered on 12/21/16 03:13; Start 12/21/16 at 03:13; Stop 12/21/16 at 03:14; Status DC Hydromorphone HCl (*DILAUDID PF INJ PERIprocedural ONLY) 1 mg STK-MED ONCE .ROUTE Last administered on 12/21/16 03:22; Start 12/21/16 at 03:22; Stop at 03:23; Status DC Apixaban (Eliquis) 5 mg BID PO Last administered on 12/23/16 08:18; Start at 10:15 A/P Assessment and Plan A/P Respiratory failure- resolved COPD - No exacerbation - No indication for steroids Tobacco use disorder - Monitor for withdrawal - Consider nicotine patch if needed Acute arterial thrombosis in right lower extremity - s/p Right external iliac thromboembolectomy and Right Femoral and popliteal thromboembolectomy - cleared by vascular surgeon for discharge. Coronary artery disease - No acute event - Continue lisinopril,BB , statin and plavix diabetes mellitus; resume metformin upon discharge. Discharge Planning likely dc home today. see med list. case management consulted to assist with dc needs; meds/ f/u's. d/w the patient and RN. time spent 31 min. Osmani Phillips MD December 23, 2016 11:21
--- NOTE | 2016-12-23 11:26 | HHI.DS ---
Discharge Summary Admission Date December 20, 2016 at 22:51 Discharge Date: December 23, 2016 Admitting Diagnosis RLE Arterial Occlusion (1) Ischemia of right lower extremity ICD Code: I99.8 Diagnosis: Principal (2) PVD (peripheral vascular disease) ICD Code: I73.9 Diagnosis: Principal (3) HTN (hypertension) ICD Code: I10 Diagnosis: Secondary (4) DM (diabetes mellitus) ICD Code: E11.9 Diagnosis: Secondary (5) Tobacco abuse ICD Code: Z72.0 Diagnosis: Secondary Procedures Right external iliac thromboembolectomy Right Femoral and popliteal thromboembolectomy Brief History - From Admission This is a 46-year-old male with PMH of Severe PVD, HTN, Hyperlipidemia, COPD, CAD s/p Stent, Anxiety, Depression, Bipolar Disorder, Bladder CA, h/o DVT, h/o Cocaine Abuse and ongoing Tobacco Abuse who presented to the ER w/ complaints of right foot pain starting few hours prior to presentation. Denies trauma or injury. States symptoms similar to previous DVT. Was on Coumadin in the past, now only on ASA/Plavix. On arrival, BP 172/105, HR 127, O2 sats 95% on RA, Afebrile. CBC unremarkable. Chemistry essentially unremarkable except for GFR 66. Troponin negative. INR 0.9. CTA Aorta with abrupt occlusion of the proximal right popliteal artery with reconstitution of distal popliteal artery, concerning for embolus. S/p eval by Dr. Alfredo, plan is for surgical embolectomy. CBC/BMP: 12/21/16 0630 12/21/16 0630 Significant Findings Laboratory Tests Test 12/20/16 12/21/16 12/21/16 19:58 06:30 17:27 Red Cell Distribution Width 19.0 % 18.7 % (11.6-17.2) (11.6-17.2) Neutrophils (%) (Auto) 76.5 % 89.8 % (16.0-70.0) (16.0-70.0) Activated Partial 22.4 SEC 44.1 SEC Thromboplast Time (24.3-30.1) (24.3-30.1) Chloride Level 108 MEQ/L 108 MEQ/L (98-107) (98-107) Estimat Glomerular Filtration 66 ML/MIN (>89) 87 ML/MIN (>89) Rate Random Glucose 151 MG/DL 119 MG/DL (74-106) (74-106) White Blood Count 17.9 TH/MM3 (4.0-11.0) Hemoglobin 11.8 GM/DL (13.0-17.0) Hematocrit 37.7 % (39.0-51.0) Mean Corpuscular Hemoglobin 25.8 PG (27.0-34.0) Mean Corpuscular Hemoglobin 31.2 % Concent (32.0-36.0) Lymphocytes (%) (Auto) 5.3 % (9.0-44.0) Neutrophils # (Auto) 16.1 TH/MM3 (1.8-7.7) Calcium Level 8.0 MG/DL (8.5-10.1) Total Protein 6.2 GM/DL (6.4-8.2) Albumin 3.0 GM/DL (3.4-5.0) Imaging Last Impressions Aorta w/Runoff CTA 12/20/16 0000 Signed Impressions: Service Date/Time: Tuesday, December 20, 2016 21:21 - CONCLUSION: Abrupt occlusion of the proximal right popliteal artery with reconstitution of the more distal popliteal aratery. This is concerning for an embolus in this region. Sammy Nichols MD PE at Discharge GENERAL: This is a well-nourished, well-developed patient, in no apparent distress. CARDIOVASCULAR: Regular rate and regular rhythm without murmurs, gallops, or rubs. RESPIRATORY: Clear to auscultation. Breath sounds equal bilaterally. No wheezes , rales, or rhonchi. GASTROINTESTINAL: Abdomen soft, non-tender, nondistended. Normal, active bowel sounds MUSCULOSKELETAL: Extremities without clubbing, cyanosis, or edema. NEURO: Alert & Oriented x4 to person, place, time, situation. Moves all ext x4 Hospital Course Respiratory failure- resolved COPD - No exacerbation - No indication for steroids Tobacco use disorder - Monitor for withdrawal - Consider nicotine patch if needed Acute arterial thrombosis in right lower extremity - s/p Right external iliac thromboembolectomy and Right Femoral and popliteal thromboembolectomy - cleared by vascular surgeon for discharge. Coronary artery disease - No acute event - Continue lisinopril,BB , statin and plavix diabetes mellitus; resume metformin upon discharge. Pt Condition on Discharge: Fair Discharge Disposition: Discharge Home Discharge Time: > 30 minutes Discharge Instructions DIET: Follow Instructions for: Heart Healthy Diet, Diabetic Diet Activities you can perform: Regular-No Restrictions Follow up Referrals: PCP Follow-up Vascular Surgery New Medications: Apixaban (Eliquis) 5 Mg Tab 5 MG PO BID PVD Days 30 Ref 0 TAB Changed Medications: Oxycodone-Acetaminophen (Percocet) 5-325 mg Tab 1 TAB PO Q6H PRN PAIN #30 Ref 0 TAB (Changed from: 1-2 TAB) Continued Medications: Atorvastatin (Lipitor) 80 Mg Tab 80 MG PO HS Cholesterol Management #30 Ref 0 TAB Carvedilol (Coreg) 6.25 Mg Tab 6.25 MG PO BID #60 Ref 0 TAB Clopidogrel (Plavix) 75 Mg Tab 75 MG PO DAILY Blood Clot Prevention #30 Ref [address] (Cymbalta DR) 60 Mg Capdr 180 MG PO DAILY #30 Ref 0 CAP Gabapentin (Gabapentin) 600 Mg Tab 600 MG PO BID #60 Ref 0 TAB Gabapentin (Gabapentin) 300 Mg Cap 900 MG PO AC LUNCH #90 Ref 0 CAP Levothyroxine (Synthroid) 50 Mcg Tab 50 MCG PO DAILY Thyroid #30 Ref 0 TAB Lisinopril (Lisinopril) 20 Mg Tab 20 MG PO BID #30 Ref 0 TAB Metformin (Glucophage) 500 Mg Tab 500 MG PO HS With a meal Blood Sugar Management #30 Ref 0 TAB Mirtazapine (Remeron) 45 Mg Tab 45 MG PO HS Depression Control #30 Ref 0 TAB Nitroglycerin SL (Nitroglycerin SL) 0.4 Mg Subl 0.4 MG SL Q 5 MINUTES ONE TABLET UNDER THE TONGUE NEEDED FOR CHEST PAIN, MAY REPEAT EVERY FIVE MINUTES FOR A TOTAL OF 3 DOSES OR CALL 911 IF NO RELIEF PRN CHEST PAIN #100 Ref 0 TAB.SL Omeprazole (Omeprazole) 40 Mg Cap 40 MG PO HS #30 Ref 0 CAP Phenazopyridine (Pyridium) 100 Mg Tab 100 MG PO Q8H PRN DYSURIA #40 Ref 0 TAB Discontinued Medications: Aspirin (Aspirin) 81 Mg Tabdr 81 MG PO DAILY TAB Osmani Phillips MD December 23, 2016 11:26
--- NOTE | 2016-12-23 11:26 | HHI.DCPOC ---
Discharge Care Plan Diagnosis: (1) PVD (peripheral vascular disease) Additional Problems poor blood circulation. Goals to Promote Your Health * To prevent worsening of your condition and complications * To maintain your health at the optimal level Directions to Meet Your Goals Take your medications as prescribed Follow your dietary instruction Follow activity as directed Keep your appointments as scheduled Take your immunizations and boosters as scheduled If your symptoms worsen call your PCP, if no PCP go to Urgent Care Center or Emergency Room Smoking is Dangerous to Your Health. Avoid second hand smoke Call the 24-hour hour crisis hotline for domestic abuse at Osmani Phillips MD December 23, 2016 11:26
[2016-12-23 11:49] LABS: HEMATOCRIT 36.5 % (39.0-51.0); MEAN CELL VOLUME 82.7 FL (80.0-100.0); MEAN CORPUSCULAR HEMOGLOBIN 27.1 PG (27.0-34.0); MEAN CORPUSCULAR HGB CONC 32.8 % (32.0-36.0); PLATELET COUNT 222 TH/MM3 (150-450); RED BLOOD COUNT 4.42 MIL/MM3 (4.50-5.90); RED CELL DISTRIBUTION WIDTH 18.5 % (11.6-17.2); REVIEW FLAG FINAL; WHITE BLOOD COUNT 7.4 TH/MM3 (4.0-11.0)
[2016-12-23 11:50] VITALS: BP 123/67; PULSE 55; RESP 17; TEMP 97.5; O2SAT 96
--- NOTE | 2016-12-27 17:34 | PQ ---
Physician Query Response Document PATIENT: SUMA OSEGUERA : 1970 ADMIT DATE: 12/20/2016 10:51 PM DISCH DATE: 12/23/2016 12:34 PM RESPONDING PROVIDER #: [email or web address] QUERY TEXT: Respiratory Failure Acuity and Type Respiratory Failure is documented in the Medical Record. Please specify the type and acuity (includes suspected or probable) Such as: -- Acute respiratory failure - With hypoxia - With hypercapnia -- Chronic respiratory failure - With hypoxia - With hypercapnia -- Acute on chronic respiratory failure - With hypoxia - With hypercapnia -- Other, please specify If you have any additional questions/comments and/or concerns, please do not hesitate to reach out to the CDI/Coding Hotline, Ext. [phone]. The patient's Clinical Indicators include: Documentation from Dr. Hsu's Consultation post embolectomy procedure on 12/21/16: Review of Systems : ROS : Unable to obtain patient still lethargic post general anesthesia On nasal cannula O2 at 3 liters. Lowest pulse oximetry recorded was 95% on room air prior to being p laced on O2. Assessment and Plan : Respiratory failure - Posterior general anesthesia - Incentive spirometer while awake every hour - Wean off the oxygen as tolerated - O2 supply to keep sats above 92 Query created by: April Pena on 12/25/2016 3:19 PM RESPONSE TEXT: Acute respiratory failure- post-anesthesia. Electronically signed by: Osmani Phillips MD 12/27/2016 5:31 PM
== END 2016-12-23 12:34 | disposition home or self-care (01) | DRG 270 ==
LOC: NEPC 19:04 → NEDA 22:51 → N03B 12-21 03:43 → N05B 12-21 12:08
PROVIDERS: ADMIT Internal Medicine; ATTEND Internal Medicine
PROC: 04CK0ZZ Extirpation of Matter from Right Femoral Artery, Open Approach (ICD-10-PCS; 2016-12-21)
PROC: 04CM0ZZ Extirpation of Matter from Right Popliteal Artery, Open Approach (ICD-10-PCS; 2016-12-21)
PROC: 04CH0ZZ Extirpation of Matter from Right External Iliac Artery, Open Approach (ICD-10-PCS; principal; 2016-12-21 00:02)
DX: I74.3 Embolism and thrombosis of arteries of the lower extremities (principal); J96.00 Acute respiratory failure, unspecified whether with hypoxia or hypercapnia; Z68.41 Body mass index [BMI] 40.0-44.9, adult; E66.01 Morbid (severe) obesity due to excess calories; E11.40 Type 2 diabetes mellitus with diabetic neuropathy, unspecified; E11.51 Type 2 diabetes mellitus with diabetic peripheral angiopathy without gangrene; Z79.84 Long term (current) use of oral hypoglycemic drugs; I10 Essential (primary) hypertension; Z79.82 Long term (current) use of aspirin; M17.0 Bilateral primary osteoarthritis of knee; Z86.718 Personal history of other venous thrombosis and embolism; E03.9 Hypothyroidism, unspecified; I25.10 Atherosclerotic heart disease of native coronary artery without angina pectoris; Z95.5 Presence of coronary angioplasty implant and graft; I25.2 Old myocardial infarction; Z79.02 Long term (current) use of antithrombotics/antiplatelets; E78.5 Hyperlipidemia, unspecified; K21.9 Gastro-esophageal reflux disease without esophagitis; J44.9 Chronic obstructive pulmonary disease, unspecified; F17.210 Nicotine dependence, cigarettes, uncomplicated; F41.9 Anxiety disorder, unspecified; F31.9 Bipolar disorder, unspecified; Z91.19 Patient's noncompliance with other medical treatment and regimen; Z85.51 Personal history of malignant neoplasm of bladder
CPT/HCPCS: 75635; 80048; 80053; 82550; 82948; 83735; 84484; 85025; 85027; 85610; 85730; 86850; 86900; 86901; 86920; 88304; 93005; 94664; 96365; 96366; 96375; 96376; C1757; J0131; J1100; J1170; J1644; J2175; J2250; J2270; J2370; J2405; J3010; J3370; J7040; J7050; J7120; J7613; Q9967

== ENCOUNTER 2017-02-05 16:41 | Observation (INO) | payer MEDICAID ==
[2017-02-05] VITALS (7 sets, daily range): BP systolic 82–117; BP diastolic 50–70; PULSE 88–124; RESP 16–22; TEMP 97.8–98.2; O2SAT 97–98
[~2017-02-05] VITALS: Ht 182.9 cm; Wt 139.6 kg
[~2017-02-05 16:41] MED LIST changes: +APIX5TAB PO; -ASPI1TAB69 PO; +GABA600T PO; -LEVA500T PO; -OMEP20TA PO; +OMEP40CA2 PO; -VESI5TAB PO
[2017-02-05] MEDS: SODIUM CHLORIDE 0.9% FLUSH 10 ML FLUSH IVF PRN (16:57)
[2017-02-05] MEDS ORDERED: ASPIRIN 325 MG TAB PO ONE (17:00)
[2017-02-05] MEDS ORDERED: XANA2TAB2 PO (17:12)
--- NOTE | 2017-02-05 17:19 | RADRPT ---
EXAM DATE/TIME: 02/05/2017 16:42 [facility] COMPARISON: CHEST SINGLE AP, July 09, 2016, 4:44. INDICATIONS : Chest pain MEDICAL HISTORY : Hypertension. Chronic renal failure. Cardiovascular disease. Bladder Cancer SURGICAL HISTORY : Coronary artery stent. ENCOUNTER: Initial ACUITY: 1 day PAIN SCORE: 9/10 LOCATION: Bilateral chest FINDINGS: A single view of the chest demonstrates the lungs to be symmetrically aerated without evidence of mas s, infiltrate or effusion. The heart size is enlarged but stable compared to the prior exam.. [place] us structures are intact and stable. CONCLUSION: No acute disease. No significant change has occurred. Heath Vigil MD on February 05, 2017 at 17:16 Board Certified Radiologist. This report was verified electronically.
[2017-02-05 17:38] LABS: AUTOMATED NEUTROPHIL # 7.3 TH/MM3 (1.8-7.7); BASOPHIL % 0.4 % (0.0-2.0); EOSINOPHIL # 0.1 TH/MM3 (0-0.4); EOSINOPHIL % 0.9 % (0.0-4.0); HEMATOCRIT 42.8 % (39.0-51.0); HEMO FLAGS DIFF FINAL; LYMPH % 26.6 % (9.0-44.0); MEAN CELL VOLUME 84.5 FL (80.0-100.0); MEAN CORPUSCULAR HEMOGLOBIN 26.5 PG (27.0-34.0); MEAN CORPUSCULAR HGB CONC 31.3 % (32.0-36.0); MONO % 8.2 % (0.0-8.0); NEUT % 63.9 % (16.0-70.0); PLATELET COUNT 268 TH/MM3 (150-450); RED BLOOD COUNT 5.06 MIL/MM3 (4.50-5.90); RED CELL DISTRIBUTION WIDTH 17.6 % (11.6-17.2); WHITE BLOOD COUNT 11.4 TH/MM3 (4.0-11.0)
--- NOTE | 2017-02-05 17:45 | PD ---
HPI Chief Complaint: Chest Pain Time Seen by Provider: 16:45 Travel History International Travel<30 days: No Contact w/Intl Traveler<30days: No Traveled to known affect area: No History of Present Illness HPI 46-year-old male arrives by EMS. The patient was at his Coumadin clinic today when he developed chest pain retrosternal with radiation to the jaw on the left arm. His heart rate was about 90 or so. He received 1 nitroglycerin and his blood pressure decreased to less than 90 systolic. Diaphoresis was observed. Increasing shortness of breath and nausea reported. No vomiting. Patient reports strict compliance with Coumadin and Plavix. He underwent coronary catheterization about 10 months prior where 99% occlusion of LAD was observed and stented by Dr Bustos. The patient reports he is not outside cardiology follow-up secondary to insurance problems. He rates his chest pain is 8/10. Pressure-like in quality. He states he felt very weak all day today and the weakness worsened even more while he was at the Coumadin clinic. Primary care is Dr. Dennison. [facility] Past Medical History Hx Anticoagulant Therapy: Yes (COUMADIN/ PLAVIX) Alzheimer's Disease: Yes Anemia: Yes Arthritis: Yes (BOTH KNEES) Asthma: No Autoimmune Disease: No Blood Disorders: No Bipolar Disorder: Yes Anxiety: Yes Depression: Yes Heart Rhythm Problems: No Cancer: Yes (BLADDER CANCER) Cardiac Catheterization: Yes (2009) Cardiovascular Problems: Yes High Cholesterol: Yes Chemotherapy: No Chest Pain: Yes Congestive Heart Failure: No COPD: Yes Cerebrovascular Accident: Yes Coronary Artery Disease: Yes Diabetes: Yes Patient Takes Glucophage: Yes Diminished Hearing: No Deep Vein Thrombosis: Yes (right leg, PE and stomach) Endocrine: Yes Gastrointestinal Disorders: Yes (ACID REFLUX, HX ULCER) GERD: Yes Glaucoma: No Genitourinary: Yes (BLADDER TUMORS) Headaches: No Hepatitis: No Hiatal Hernia: Yes Heparin Induced Thrombocytopen: No Hypertension: Yes Immune Disorder: Yes (OA) Implanted Vascular Access Dvce: No Kidney Stones: Yes ( CHRONIC STONES ) Medical other: Yes (H/O DVT RLE) Musculoskeletal: Yes (OSTEOARTHRITIS NICKIE KNESS) Neurologic: Yes (DIABETIC NEUROPATHY) Psychiatric: Yes (BIPOLAR, ANXIETY, DEPRESSION) Reproductive: No Respiratory: Yes (COPD, HX PE) Immunizations Current: Yes Migraines: Yes Myocardial Infarction: Yes (X 2) Radiation Therapy: No Renal Failure: No Seizures: No Sickle Cell Disease: No Sleep Apnea: No Thyroid Disease: Yes (HYPOTHYROIDISM) Ulcer: Yes Tetanus Vaccination: > 5 Years Influenza Vaccination: No Past Surgical History Abdominal Surgery: No AICD: No Appendectomy: No Arteriovenous Shunt: No Body Medical Devices: CARDIAC STENT Cardiac Surgery: Yes (TWO STENTS, THROMBOLECTOMY CURRENT VISIT) Cholecystectomy: No Coronary Artery Bypass Graft: No Coronary Stent: Yes (one stent placed) Ear Surgery: No Endocrine Surgery: No Eye Surgery: No Genitourinary Surgery: Yes (BLADDER TUMORS REMOVED; kidney stent removed) Gynecologic Surgery: No Insulin Pump: No Joint Replacement: No Neurologic Surgery: No Oral Surgery: No Pacemaker: No Thoracic Surgery: No Other Surgery: Yes (see hx) Family History Family Myocardial Infarction: Yes (GRANDFATHER) Social History Alcohol Use: Yes (RARE) Tobacco Use: Yes Substance Use: No (PT DENIES) Allergies-Medications (Allergen,Severity, Reaction): Coded Allergies: Penicillin (Verified Allergy, Severe, Anaphylaxis, 02/05/17) Per pt. Reported Meds & Prescriptions Reported Meds & Active Scripts Active Percocet (Oxycodone-Acetaminophen) 5-325 mg Tab 1 Tab PO Q6H PRN Pyridium (Phenazopyridine HCl) 100 Mg Tab 100 Mg PO Q8H PRN Reported Warfarin 2 Mg Tab 2 Mg PO DAILY increase to 5mg Xanax (Alprazolam) 2 Mg Tab 2 Mg PO BID PRN Gabapentin 300 Mg Cap 900 Mg PO AC LUNCH Gabapentin 600 Mg Tab 600 Mg PO BID Omeprazole 40 Mg Cap 40 Mg PO HS Synthroid (Levothyroxine Sodium) 50 Mcg Tab 50 Mcg PO DAILY Remeron (Mirtazapine) 45 Mg Tab 45 Mg PO HS Lisinopril 20 Mg Tab 20 Mg PO BID Glucophage (Metformin HCl) 500 Mg Tab 500 Mg PO HS With a meal Nitroglycerin SL (Nitroglycerin) 0.4 Mg Subl 0.4 Mg SL Q 5 MINUTES PRN ONE TABLET UNDER THE TONGUE NEEDED FOR CHEST PAIN, MAY REPEAT EVERY FIVE MINUTES FOR A TOTAL OF 3 DOSES OR CALL 911 IF NO RELIEF Plavix (Clopidogrel Bisulfate) 75 Mg Tab 75 Mg PO DAILY Lipitor (Atorvastatin Calcium) 80 Mg Tab 80 Mg PO HS Coreg (Carvedilol) 6.25 Mg Tab 6.25 Mg PO BID Cymbalta DR (Duloxetine HCl) 60 Mg Capdr 180 Mg PO DAILY Review of Systems Except as stated in HPI: all other systems reviewed are Neg Physical Exam Narrative GENERAL: 46-year-old male mild to moderate distress secondary to pain and/or anxiety SKIN: Warm. Diaphoretic. HEAD: Atraumatic. Normocephalic. EYES: Pupils equal and round. No scleral icterus. No injection or drainage. ENT: No nasal bleeding or discharge. Mucous membranes pink and moist. NECK: Trachea midline. No JVD. CARDIOVASCULAR: Tachycardia. Regular rhythm. RESPIRATORY: No accessory muscle use. Clear to auscultation. Breath sounds equal bilaterally. GASTROINTESTINAL: Abdomen soft, non-tender, nondistended. Hepatic and splenic margins not palpable. MUSCULOSKELETAL: Extremities without clubbing, cyanosis, or edema. No obvious deformities. NEUROLOGICAL: Awake and alert. No obvious cranial nerve deficits. Motor grossly within normal limits. Five out of 5 muscle strength in the arms and legs. Normal speech. PSYCHIATRIC: Appropriate mood and affect; insight and judgment normal. Data Data Last Documented VS Vital Signs Date Time Temp Pulse Resp B/P Pulse Ox O2 Delivery O2 Flow Rate FiO2 02/05/17 18:18 92 20 98/56 98 Nasal Cannula 3 02/05/17 16:42 97.8 VS reviewed Orders Electrocardiogram (02/05/17 16:46) Ckmb (Isoenzyme) Profile (02/05/17 16:46) Complete Blood Count With Diff (02/05/17 16:46) Comprehensive Metabolic Panel (02/05/17 16:46) Magnesium (Mg) (02/05/17 16:46) Prothrombin Time / Inr (Pt) (02/05/17 16:46) Act Partial Throm Time (Ptt) (02/05/17 16:46) Troponin I (02/05/17 16:46) Lipase (02/05/17 16:46) Chest, Single Ap (02/05/17 16:46) Ecg Monitoring (02/05/17 16:46) Bilateral Bp Monitoring (02/05/17 16:46) Iv Access Insert/Monitor (02/05/17 16:46) Oximetry (02/05/17 16:46) Oxygen Administration (02/05/17 16:46) Aspirin (Aspirin) (02/05/17 17:00) Sodium Chloride 0.9% Flush (Ns Flush) (02/05/17 17:00) Ct Pulmonary Angiogram (02/05/17 17:06) Drug Screen, Random Urine (02/05/17 18:03) CKMB (02/05/17 17:00) CKMB% (02/05/17 17:00) Diet Heart Healthy (02/05/17 Dinner) Vital Signs (Adult) RAMILA.Q4H (02/05/17 18:38) Troponin I (02/05/17 23:00) Troponin I (02/06/17 05:00) Heparin Infusion RAMILA.Q1H (02/05/17 18:35) Heparin Inj (Heparin Inj) (02/05/17 18:45) Heparin Inj (Heparin Inj) (02/06/17 00:45) Heparin Inj (Heparin Inj) (02/06/17 00:45) Heparin-D5w Inj (Heparin-D5w Inj) (02/05/17 18:45) Cbc No Diff, Includes Plts (02/08/17 06:00) Occult Blood (Hemoccult) Stool (02/05/17 18:35) Admit Order (Ed Use Only) (02/05/17 18:42) Labs Laboratory Tests Test 02/05/17 17:00 White Blood Count 11.4 TH/MM3 Red Blood Count 5.06 MIL/MM3 Hemoglobin 13.4 GM/DL Hematocrit 42.8 % Mean Corpuscular Volume 84.5 FL Mean Corpuscular Hemoglobin 26.5 PG Mean Corpuscular Hemoglobin 31.3 % Concent Red Cell Distribution Width 17.6 % Platelet Count 268 TH/MM3 Mean Platelet Volume 8.0 FL Neutrophils (%) (Auto) 63.9 % Lymphocytes (%) (Auto) 26.6 % Monocytes (%) (Auto) 8.2 % Eosinophils (%) (Auto) 0.9 % Basophils (%) (Auto) 0.4 % Neutrophils # (Auto) 7.3 TH/MM3 Lymphocytes # (Auto) 3.0 TH/MM3 Monocytes # (Auto) 0.9 TH/MM3 Eosinophils # (Auto) 0.1 TH/MM3 Basophils # (Auto) 0.0 TH/MM3 CBC Comment DIFF FINAL Differential Comment Prothrombin Time 11.2 SEC Prothromb Time International 1.0 RATIO Ratio Activated Partial 24.2 SEC Thromboplast Time Sodium Level 138 MEQ/L Potassium Level 4.1 MEQ/L Chloride Level 106 MEQ/L Carbon Dioxide Level 25.8 MEQ/L Anion Gap 6 MEQ/L Blood Urea Nitrogen 12 MG/DL Creatinine 1.66 MG/DL Estimat Glomerular Filtration 45 ML/MIN Rate Random Glucose 92 MG/DL Calcium Level 8.6 MG/DL Magnesium Level 2.1 MG/DL Total Bilirubin 0.4 MG/DL Aspartate Amino Transf 23 U/L (AST/SGOT) Alanine Aminotransferase 27 U/L (ALT/SGPT) Alkaline Phosphatase 114 U/L Total Creatine Kinase 112 U/L Creatine Kinase MB 0.6 NG/ML Troponin I 0.06 NG/ML Total Protein 7.3 GM/DL Albumin 3.5 GM/DL Lipase 151 U/L Thyroid Stimulating Hormone 2.140 uIU/ML 3rd Gen [facility] Medical Decision Making Medical Screen Exam Complete: Yes Emergency Medical Condition: Yes Medical Record Reviewed: Yes Differential Diagnosis NSTEMI, unstable angina, coronary vasospasm, PE, PTX, aortic dissection, pericarditis, myocarditis, endocarditis, PNA, esophageal disease, aneurysm, musculoskeletal etiologies, anxiety, cocaine/sympathomimetic abuse Narrative Course EKG: sinus, stable ST changes in multiple leads, rate 99 Last 24 hours Impressions Chest X-Ray 02/05/17 1646 Signed Impressions: Service Date/Time: January 16:42 - CONCLUSION: No acute disease. No significant change has occurred. Heath Vigil MD CBC & BMP Diagram 02/05/17 17:00 Tn 0.06 INR 1.0 LFTs normal Lipase normal Heparin started. Case d/w Dr Phillips for [facility], admission for serial enzymes and cardiology evaluation. 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 Diagnosis Primary Impression: Chest pain Qualified Code: R07.9 - Chest pain, unspecified type Additional Impression: Elevated troponin Admitting Information Admitting Physician Requests: Admit Allan Gutierrez MD Feb 05, 2017 17:45
[2017-02-05 17:48] LABS: APTT (PATIENT) 24.2 SEC (24.3-30.1); PROTHROMBIN TIME - PATIENT 11.2 SEC (9.8-11.6)
[2017-02-05 18:07] LABS: ALT (GPT) 27 U/L (12-78); ANION GAP 6 MEQ/L (5-15); AST (GOT) 23 U/L (15-37); BICARBONATE 25.8 MEQ/L (21.0-32.0); BLOOD UREA NITROGEN 12 MG/DL (7-18); CHLORIDE 106 MEQ/L (98-107); GLOMERULAR FILTRATION RATE 45 ML/MIN (>89); MAGNESIUM 2.1 MG/DL (1.5-2.5); POTASSIUM 4.1 MEQ/L (3.5-5.1); SODIUM (NA) 138 MEQ/L (136-145)
[2017-02-05 18:11] LABS: ALKALINE PHOSPHATASE 114 U/L (45-117); CREATINE KINASE 112 U/L (39-308); TOTAL BILIRUBIN ADULT 0.4 MG/DL (0.2-1.0)
[2017-02-05 18:23] LABS: CKMB 0.6 NG/ML (0.5-3.6)
[2017-02-05] MEDS ORDERED: HEPARIN SODIUM - IV 10,000 UNITS/10 ML VIAL IV ONE (18:45)
[2017-02-05] MEDS: HEPARIN-D5W INJ 250 ML IV SCH (19:22)
[2017-02-05] MEDS ORDERED: IOHEXOL 350 MG/ML 10 ML VIAL (for RAD DIAG) IV ONE (19:34)
--- NOTE | 2017-02-05 19:55 | RADRPT ---
EXAM DATE/TIME: 02/05/2017 19:27 [place] COMPARISON: CT PULMONARY ANGIOGRAM, July 09, 2016, 7:46. INDICATIONS : Chest pain, evaluate for embolus. IV CONTRAST: 50 cc Omnipaque 350 (iohexol) IV RADIATION DOSE: 25.99 CTDIvol (mGy) MEDICAL HISTORY : Cardiovascular disease. Carcinoma, bladder. Hypertension.Diabetic neuropathy. Myocardial infarction. DVT. COPD. SURGICAL HISTORY : Coronary artery stent. ENCOUNTER: Initial ACUITY: 1 day PAIN SCALE: 8/10 LOCATION: Bilateral chest TECHNIQUE: Volumetric scanning of the chest was performed using a pulmonary embolism protocol MIP images were re constructed. Using automated exposure control and adjustment of the mA and/or kV according to patien t size, radiation dose was kept as low as reasonably achievable to obtain optimal diagnostic quality images. DICOM format image data is available electronically for review and comparison. FINDINGS: PULMONARY ARTERIES: No filling defects are seen in the pulmonary arteries through the segmental level. LUNGS: There is no consolidation or pneumothorax . No concerning pulmonary nodule is visualized. There is a mild mosaic increased ground substance throughout the lower lungs which is nonspecific. PLEURAE: There is no pleural thickening or pleural effusion. MEDIASTINUM: There is good visualization of the great vessels of the middle mediastinum. No evidence of mediastin al or hilar adenopathy/mass. CONCLUSION: The study is negative for pulmonary embolism. Tai Chacon MD on February 05, 2017 at 19:46 Board Certified Radiologist. This report was verified electronically.
[2017-02-05] MEDS ORDERED: WARF-23 PO (20:29)
[2017-02-05] MEDS ORDERED: WARF4TAB51 PO (20:34)
--- NOTE | 2017-02-05 20:53 | HHI.PR ---
Addendum to Inpatient Note Addendum Reason: Additional Documentation Additional Information While pt was in the office today, he noted that he had been taking the coumadin and the plavix routinely, however he had not been taking the levothyroxine or the carvedilol for a while as he cannot afford all of his meds each month. He notes he has to choose which ones to take. He previously had cocaine use, not sure if he has restarted (that was the issue with his last NV also). He wasn't using hydrocodone appropriately so I stopped prescribing it for him several months ago--if he is still taking it I don't know who he is getting it from. His normal dose of coumadin had been 5mg daily when he had been on it more than a year ago (stopped it due to no clots in many years and he was having bleeding from the bladder cancer--he couldn't afford the factor Xa inhibitor he was on from hospital discharge of the DVT so he started back on coumadin 2 weeks ago). Zahra Hair MD Feb 05, 2017 20:52
[2017-02-05] MEDS ORDERED: WARFARIN SOD 5 MG TAB PO SCH (21:00)
[2017-02-05] MEDS ORDERED: NITROGLYCERIN 0.4 MG SL 25 TABS/BTL SL PRN (21:15)
[2017-02-05] MEDS ORDERED: SODIUM CHLOR 0.9% 1000 ML INJ 1,000 ML IV ONE (21:15)
[2017-02-05] MEDS ORDERED: GABAPENTIN 300 MG CAP PO ONE (21:15)
[2017-02-05] MEDS: MIRTAZAPINE ODT 30 MG TAB PO SCH (22:00)
--- NOTE | 2017-02-05 22:37 | HHI.HP ---
[facility] Zahra Dennison MD Admission Diagnosis Tn 0.06, Chest Pain, Dyspnea Diagnoses: Chief Complaint: CP and dyspnea Travel History International Travel<30 Days: No Contact w/Intl Traveler <30 Da: No Traveled to Known Affected Are: No History of Present Illness Written by JEANETTE Holcomb acting as scribe for [Colby] on 02/05/17 at 22: 37. 46 y/o male with a history of bladder CA, PVD, DM, hypercholesteremia, HTN, VT with stents,COPD, DVT, hypothyroidism, and bipolar presented to the ED with chest pain and sob. He has been feeling bad for the last few months since he has had bladder cancer. He had a follow up with his PCP today and when he arrived he was feeling dizzy, sob, and was having chest and jaw pain with radiation to right arm. He has chronic diarrhea, but no black or red colored stools. No nausea, vomiting, fever, chills, or dysuria. 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 PCP is Dr. Dennison Review of Systems Constitutional: DENIES: Fever, Chills Respiratory: COMPLAINS OF: Shortness of breath, DENIES: Cough, Sputum production Cardiovascular: COMPLAINS OF: Chest pain, DENIES: Lower Extremity Edema Gastrointestinal: DENIES: Black stools, Bloody stools, Constipation, Diarrhea, Nausea, Vomiting Genitourinary: DENIES: Hematuria, Dysuria Musculoskeletal: DENIES: Neck pain Integumentary: DENIES: Rash Hematologic/lymphatic: DENIES: Lymphadenopathy Immunologic/allergic: DENIES: Urticaria Neurologic: DENIES: Headache Past Family Social History Past Medical History Bladder CA 2014 PVD hypercholesteremia HTN VT x3 with stents COPD DVTs hypothyroidism bipolar DM Past Surgical History Bladder tumor removal Hematoma removed from right knee Renal stent Heart stent Thrombectomy 12/2016 Reported Medications Reported Meds & Active Scripts Active Percocet (Oxycodone-Acetaminophen) 5-325 mg Tab 1 Tab PO Q6H PRN Pyridium (Phenazopyridine HCl) 100 Mg Tab 100 Mg PO Q8H PRN Reported Warfarin 2 Mg Tab 2 Mg PO DAILY increase to 5mg Xanax (Alprazolam) 2 Mg Tab 2 Mg PO BID PRN Gabapentin 300 Mg Cap 900 Mg PO AC LUNCH Gabapentin 600 Mg Tab 600 Mg PO BID Omeprazole 40 Mg Cap 40 Mg PO HS Synthroid (Levothyroxine Sodium) 50 Mcg Tab 50 Mcg PO DAILY Remeron (Mirtazapine) 45 Mg Tab 45 Mg PO HS Lisinopril 20 Mg Tab 20 Mg PO BID Glucophage (Metformin HCl) 500 Mg Tab 500 Mg PO HS With a meal Nitroglycerin SL (Nitroglycerin) 0.4 Mg Subl 0.4 Mg SL Q 5 MINUTES PRN ONE TABLET UNDER THE TONGUE NEEDED FOR CHEST PAIN, MAY REPEAT EVERY FIVE MINUTES FOR A TOTAL OF 3 DOSES OR CALL 911 IF NO RELIEF Plavix (Clopidogrel Bisulfate) 75 Mg Tab 75 Mg PO DAILY Lipitor (Atorvastatin Calcium) 80 Mg Tab 80 Mg PO HS Coreg (Carvedilol) 6.25 Mg Tab 6.25 Mg PO BID Cymbalta DR (Duloxetine HCl) 60 Mg Capdr 180 Mg PO DAILY Allergies: Coded Allergies: Penicillin (Verified Allergy, Severe, Anaphylaxis, 02/05/17) Per pt. Active Ordered Medications Current Medications Medications (Trade) Dose Ordered Sig/Erin Route Start Time Stop Time Status Last Admin (NS Flush) 2 ml UNSCH PRN IVF 02/05/17 17:00 02/05/17 16:57 (Heparin Inj) 5,000 units UNSCH PRN IV 02/06/17 00:45 Heparin Sodium (Porcine) 2500 units 2,500 units UNSCH PRN IV 02/06/17 00:45 (Heparin-D5W Inj) 250 ml @ 0 mls/hr TITRATE IV 02/05/17 18:45 02/05/17 19:22 (Coreg) 3.125 mg BID PO 02/05/17 22:00 (Plavix) 75 mg DAILY PO 02/06/17 09:00 (Neurontin) 900 mg BID PO 02/06/17 09:00 (Imdur) 30 mg DAILY@07 PO 02/06/17 07:00 (Lipitor) 80 mg HS PO 02/05/17 22:00 (Synthroid) 50 mcg DAILY@06 PO 02/06/17 06:00 (Cymbalta Dr) 120 mg DAILY PO 02/06/17 09:00 (Protonix) 40 mg DAILY PO 02/06/17 09:00 (Remeron Soltab Odt) 90 mg HS PO 02/05/17 22:00 (SEROquel) 100 mg BID PO 02/06/17 09:00 (Nitrostat Sl) 0.4 mg Q5M PRN SL 02/05/17 21:15 Family History Mom: HTN Dad: HTN Social History Tobacco use: 3 a day, prior 2 PPD for 30 years Alcohol use: Denies, quit 10 years ago Illicit use: Prior cocaine use, 8 years ago Physical Exam Vital Signs Vital Signs Date Time Temp Pulse Resp B/P Pulse Ox O2 Delivery O2 Flow Rate FiO2 02/05/17 19:42 92 16 109/68 98 Room Air 02/05/17 18:18 92 20 98/56 98 Nasal Cannula 3 02/05/17 17:13 112 22 92/54 98 Nasal Cannula 3 02/05/17 16:53 113 20 117/62 97 Nasal Cannula 2 82/50 02/05/17 16:46 22 98 Nasal Cannula 3 02/05/17 16:46 98 Nasal Cannula 3 02/05/17 16:45 114 22 98 Nasal Cannula 3 02/05/17 16:42 97.8 124 20 117/62 97 Physical Exam GENERAL: This is a well-nourished, Obese patient sitting up in bed. SKIN: No rashes, ecchymoses or lesions. Cool and dry. HEAD: Atraumatic. Normocephalic. EYES: Pupils equal round and reactive. ENT: Nose without bleeding, purulent drainage or septal hematoma. NECK: Trachea midline. No JVD CARDIOVASCULAR: Regular rate and rhythm without murmurs, gallops, or rubs. RESPIRATORY: Clear to auscultation. Breath sounds equal bilaterally. No wheezes , rales, or rhonchi. GASTROINTESTINAL: Abdomen soft, non-tender, nondistended. MUSCULOSKELETAL: Extremities without clubbing, cyanosis, or edema. No calf tenderness. NEUROLOGICAL: Awake and alert. Motor and sensory grossly within normal limits. Normal speech. Laboratory Laboratory Tests Test 02/05/17 17:00 White Blood Count 11.4 Red Blood Count 5.06 Hemoglobin 13.4 Hematocrit 42.8 Mean Corpuscular Volume 84.5 Mean Corpuscular Hemoglobin 26.5 Mean Corpuscular Hemoglobin 31.3 Concent Red Cell Distribution Width 17.6 Platelet Count 268 Mean Platelet Volume 8.0 Neutrophils (%) (Auto) 63.9 Lymphocytes (%) (Auto) 26.6 Monocytes (%) (Auto) 8.2 Eosinophils (%) (Auto) 0.9 Basophils (%) (Auto) 0.4 Neutrophils # (Auto) 7.3 Lymphocytes # (Auto) 3.0 Monocytes # (Auto) 0.9 Eosinophils # (Auto) 0.1 Basophils # (Auto) 0.0 CBC Comment DIFF FINAL Differential Comment Prothrombin Time 11.2 Prothromb Time International 1.0 Ratio Activated Partial 24.2 Thromboplast Time Sodium Level 138 Potassium Level 4.1 Chloride Level 106 Carbon Dioxide Level 25.8 Anion Gap 6 Blood Urea Nitrogen 12 Creatinine 1.66 Estimat Glomerular Filtration 45 Rate Random Glucose 92 Calcium Level 8.6 Magnesium Level 2.1 Total Bilirubin 0.4 Aspartate Amino Transf 23 (AST/SGOT) Alanine Aminotransferase 27 (ALT/SGPT) Alkaline Phosphatase 114 Total Creatine Kinase 112 Creatine Kinase MB 0.6 Troponin I 0.06 Total Protein 7.3 Albumin 3.5 Lipase 151 Thyroid Stimulating Hormone 2.140 3rd Gen Result Diagram: 02/05/17 1700 02/05/17 [address] Angiography 02/05/171705 Signed Impressions: Service Date/Time: January 19:27 - CONCLUSION: The study is negative for pulmonary embolism. Tai Chacon MD Chest X-Ray 02/05/17 1646 Signed Impressions: Service Date/Time: January 16:42 - CONCLUSION: No acute disease. No significant change has occurred. Heath Vigil MD Assessment and Plan Problem List: (1) Acute coronary syndrome ICD Code: I24.9 Status: Acute (2) LUCIA (acute kidney injury) ICD Code: N17.9 Status: Acute (3) Dyspnea ICD Code: R06.00 Status: Acute (4) Subtherapeutic anticoagulation ICD Code: Z51.81 Status: Acute (5) Hypertension ICD Code: I10 Status: Chronic (6) DM (diabetes mellitus) ICD Code: E11.9 Status: Chronic Assessment and Plan 46 y/o male with a history of bladder CA, PVD, DM, hypercholesteremia, HTN, VT with stents,COPd, DVTs, hypothyroidism, and bipolar presented to the ED with chest pain and sob. He has been feeling bad for the last few months since he has had bladder cancer. He had a follow up with his PCP today and when he arrived he was feeling dizzy, sob, and was having chest and jaw pain with radiation to right arm. Troponin elevation- possible Unstable angina/ NSTEMI vs generalized muscle pain patient with active chest pain, dyspnea and elevated troponin, r/o VT and PE Troponin 1 set .06 CTA reviewed, negative for PE EKG shows Sinus rhythm with occasional ventricular premature complexes -Serial troponin and EKG ordered -Heparin drip IV -Nitroglycerin SL PRN for chest pain -Consult cardiology -Cont home Plavix, hold Coumadin Subtherapeutic Coumadin, INR 1.0 -Hold Coumadin for now secondary to heparin drip Acute Kidney injury, creatine 1.6, baseline .9 -BMP in AM -Encourage fluids -Hold Metformin DM, chronic -Accu checks with SSI -hemoglobin A1C ordered HTN, chronic -resume home medications: coreg Chronic medical conditions: dyslipidemia and hypothyroidism, resume home medications DVT prophylaxis: Heparin This note was transcribed by kitibnayla [Ashlee Morton]. I, Dr. Pauline Bowman personally performed the history, physical exam, and medical decision making; and confirmed the accuracy of the information in the transcribed note. Authenticated by Dr. Pauline Bowman on 02/05/17 at 22:37. Discussed Condition With Patient , his nurse Problem Qualifiers (1) Dyspnea: Qualified Code: R06.02 - Shortness of breath (2) DM (diabetes mellitus): Ashlee Morton Feb 05, 2017 22:37 Pauline Bowman MD Feb 06, 2017 07:41
[2017-02-05] MEDS ORDERED: DEXTROSE 50% IN WATER 50 ML VIAL(D50) IV PRN (23:15)
[2017-02-05] MEDS ORDERED: GLUCAGON 1 MG/ML VIAL OTHER PRN (23:15)
[2017-02-05] MEDS: ATORVASTATIN 80 MG TAB PO SCH (23:36)
[2017-02-05] MEDS: CARVEDILOL 3.125 MG TAB PO SCH (23:37)
[2017-02-06] VITALS (7 sets, daily range): BP systolic 94–129; BP diastolic 53–81; PULSE 67–79; RESP 16–18; TEMP 97.3–97.9; O2SAT 94–97
[2017-02-06] MEDS: oxyCODONE/ACETAMINOPHEN 5 MG/325 MG TAB PO PRN ×2 (00:26→10:28)
[2017-02-06] MEDS ORDERED: HEPARIN SODIUM - IV 10,000 UNITS/10 ML VIAL IV PRN (00:45)
[2017-02-06 02:04] LABS: APTT (PATIENT) 27.3 SEC (24.3-30.1)
[2017-02-06] MEDS: ISOSORBIDE MONONITRATE 30 MG TAB PO SCH (06:17)
[2017-02-06] MEDS: LEVOTHYROXINE SODIUM 50 MCG TAB PO SCH (06:17)
[2017-02-06] MEDS: INSULIN ASPART SUPPLEMENTAL SCALE SQ SCH ×4 (06:18→21:00)
[2017-02-06 06:55] LABS: AMPHETAMINE, URINE NEG (NEG); BARBITURATES, URINE NEG (NEG); COCAINE, URINE NEG (NEG)
[2017-02-06] MEDS: CARVEDILOL 3.125 MG TAB PO SCH ×2 (08:35→21:00)
[2017-02-06] MEDS: PANTOPRAZOLE SOD 40 MG DELAYED RELEASE TAB PO SCH (08:36)
[2017-02-06] MEDS: DULoxetine HCl DR 60 MG CAP PO SCH (08:36)
[2017-02-06] MEDS: CLOPIDOGREL 75 MG TAB PO SCH (08:36)
[2017-02-06] MEDS: GABAPENTIN 300 MG CAP PO SCH ×2 (08:36→21:02)
[2017-02-06] MEDS: QUEtiapine FUMARATE 100 MG TAB PO SCH ×2 (08:36→21:02)
[2017-02-06] MEDS ORDERED: metFORMIN HCL 500 MG TAB PO SCH (09:00)
--- NOTE | 2017-02-06 09:47 | HHI.PR ---
Subjective Remarks Follow-up unstable angina/non-ST elevation [place] 02/06/17-patient seen and examined, continue to complaint of substernal chest tightness rated 5/10 in intensity Objective Vitals Vital Signs Date Time Temp Pulse Resp B/P Pulse Ox O2 Delivery O2 Flow Rate FiO2 02/06/17 08:01 97.4 67 18 114/62 95 02/06/17 04:00 97.8 72 18 110/59 96 02/06/17 00:00 97.9 79 16 129/81 94 02/05/17 20:00 98.2 88 18 106/60 97 113/66 108/70 02/05/17 19:42 92 16 109/68 98 Room Air 02/05/17 18:18 92 20 98/56 98 Nasal Cannula 3 02/05/17 17:13 112 22 92/54 98 Nasal Cannula 3 02/05/17 16:53 113 20 117/62 97 Nasal Cannula 2 82/50 02/05/17 16:46 22 98 Nasal Cannula 3 02/05/17 16:46 98 Nasal Cannula 3 02/05/17 16:45 114 22 98 Nasal Cannula 3 02/05/17 16:42 97.8 124 20 117/62 97 I/O 02/05/17 02/05/17 02/05/17 02/06/17 02/06/17 02/06/17 07:00 15:00 23:00 07:00 15:00 23:00 Intake Total 99 ml Balance 99 ml Intake IV Total 99 ml Result Diagram: 02/05/17 1700 02/05/17 [address] Angiography 02/05/17 1706 Signed Impressions: Service Date/Time: January 19:27 - CONCLUSION: The study is negative for pulmonary embolism. Tai Chacon MD Chest X-Ray 02/05/17 1646 Signed Impressions: Service Date/Time: January 16:42 - CONCLUSION: No acute disease. No significant change has occurred. Heath Vigil MD Objective Remarks GENERAL: NAD SKIN: Warm and dry. HEAD: Normocephalic. EYES: No scleral icterus. No injection or drainage. NECK: Supple, trachea midline. No JVD or lymphadenopathy. CARDIOVASCULAR: Regular rate and rhythm without murmurs, gallops, or rubs. RESPIRATORY: Breath sounds equal bilaterally. No accessory muscle use. GASTROINTESTINAL: Abdomen soft, non-tender, nondistended. MUSCULOSKELETAL: No cyanosis, or edema. BACK: Nontender without obvious deformity. No CVA tenderness. A/P Problem List: (1) Acute coronary syndrome ICD Code: I24.9 Status: Acute (2) LUCIA (acute kidney injury) ICD Code: N17.9 Status: Acute (3) Dyspnea ICD Code: R06.00 Status: Acute (4) Subtherapeutic anticoagulation ICD Code: Z51.81 Status: Acute (5) Hypertension ICD Code: I10 Status: Chronic (6) DM (diabetes mellitus) ICD Code: E11.9 Status: Chronic Assessment and Plan 46-year-old man with Acute coronary syndrome Continue ACS rule out per protocol with serial cardiac enzyme and EKGs Cardiology consultation pending for evaluation for possible stress test versus left heart catheterization Continue heparin drip/Plavix/aspirin/nitroglycerin /Coreg/statin Subtherapeutic Coumadin, INR 1.0 -Coumadin on hold, continue with heparin drip Acute Kidney injury, creatine 1.6, baseline .9 -Continue to Hold Metformin DM, chronic -Accu checks with SSI -hemoglobin A1C pending HTN, chronic -Continue Coreg Chronic medical conditions: dyslipidemia and hypothyroidism, continue home medications DVT prophylaxis: Heparin Problem Qualifiers (1) Dyspnea: Qualified Code: R06.02 - Shortness of breath (2) DM (diabetes mellitus): Chris Mcclendon MD Feb 06, 2017 09:47
[2017-02-06 10:09] LABS: APTT (PATIENT) 27.8 SEC (24.3-30.1)
[2017-02-06] MEDS: MORPHINE SULFATE 8 MG/ML INJ IV PUSH PRN ×2 (12:37→16:59)
[2017-02-06] MEDS ORDERED: REGADENOSON INJ 0.4 MG/5 ML SYR ONE (12:37)
[2017-02-06] MEDS: HEPARIN SODIUM - IV 10,000 UNITS/10 ML VIAL IV PRN (12:46)
[2017-02-06] MEDS ORDERED: AMINOPHYLLINE INJ 250 MG/10 ML VIAL IV ONE (13:20)
--- NOTE | 2017-02-06 13:41 | EKG ---
Date Performed: 02/05/2017 Time Performed: 21:04:56 PTAGE: 46 years EKG: Sinus rhythm Inferior infarct - age undetermined Possible lateral infarct - age undetermined Abnormal ECG Compare d to prior tracing no significant change PREVIOUS TRACING : 02/05/2017 16.47 DOCTOR: Cesar Carias Interpretating Date/Time 02/06/2017 13:38:22
--- NOTE | 2017-02-06 13:41 | EKG ---
Date Performed: 02/06/2017 Time Performed: 05:00:58 PTAGE: 46 years EKG: Sinus rhythm Inferior infarct - age undetermined Lateral infarct - age undetermined Abnormal ECG Compared to prio r tracing no significant change PREVIOUS TRACING : 02/05/2017 21.04 DOCTOR: Cesar Carias Interpretating Date/Time 02/06/2017 13:38:13
--- NOTE | 2017-02-06 13:42 | EKG ---
Date Performed: 02/05/2017 Time Performed: 16:47:42 PTAGE: 46 years EKG: Sinus rhythm WITH OCCASIONAL VENTRICULAR PREMATURE COMPLEXES INDETERMINATE AXIS INFERIOR MYOCARDIAL INFARCTION IL OBABLE ANTEROLATERAL MYOCARDIAL INFARCTION ABNORMAL ECG Compared to prior tracing no significant mary ellen sneed PREVIOUS TRACING : 12/20/2016 19.31 DOCTOR: Cesar Carias Interpretating Date/Time 02/06/2017 13:38:36
[2017-02-06 15:20] LABS: HEMOGLOBIN Ao 85.3 %; HEMOGLOBIN LA1C 1.6 %; HEMOGLOBIN P3 3.4 %
--- NOTE | 2017-02-06 17:09 | MB ---
cc: KENNEDY ANGEL DO DATE OF CONSULTATION 02/06/17 REASON FOR CONSULTATION Chest pain. HISTORY OF PRESENT ILLNESS Mark Anthony Louis is a pleasant 46-year-old male who presents to [facility] emergency room on February 05, 2017 due to chest pain and dizziness. He states that he has been feeling bad for the last few months since he has been diagnosed with bladder cancer. While following up with his primary care physician today, he felt somewhat dizzy specifically with standing as well as short of breath. He was found to have a blood pressure of 90/60 and he started having some chest pain. Chest pain is mostly on the right side of his chest and going up to the right side of his jaw. He states that upon arrival to the emergency room, chest pain had relieved. Of note, the patient was also recently diagnosed with arterial occlusion of his right leg on December 21, 2016 and was placed on Eliquis on discharge. He was unable to continue this due to rao and so his primary care physician was switching him to Coumadin and it started him on 1 mg a day and tested his INR after one week. It was noted to be low so he was increased to 2 mg a day and once again was tested and too low. He was about to start on 5 mg a day, but instead came to the emergency room. He denies any lower extremity pain at this time. PAST MEDICAL HISTORY 1. Coronary artery disease with a history of myocardial infarction. 2. Bladder cancer 3. Peripheral arterial disease with a history of arterial occlusion in (December 2016). 4. Hyperlipidemia. 5. Hypertension 6. COPD 7. Hypothyroidism. 8. Bipolar disease. 9. Diabetes mellitus. PAST SURGICAL HISTORY 1. Recent right lower extremity arterial occlusion status post a thromboembolectomy (December 21, 2016). 2. Cardiac catheterization (acute STEMI, April 08, 2016) left main patent, LAD 99% stenosis proximal portion with thrombus, mid-LAD patent, first and second diagonal, patent. Ramus intermediate is a large vessel which is patent. Left circumflex 30% stenosis in the proximal portion with the first and second obtuse marginal patent. RCA is a dominant vessel which is totally occluded at the proximal portion with the distal vessel filling by both right to right and [id number] collaterals. Intervention on the proximal LAD with an integrity stent (4 x 18). 3. Bladder tumor removal. 4. Hematoma removed from right knee. 5. History of renal stent. ALLERGIES PENICILLIN MEDICATIONS 1. Lisinopril 20 mg b.i.d. 2. Coumadin previously 2 mg daily, but recently increased to 5 mg daily. 3. Gabapentin 600 mg b.i.d. with 900 mg at lunch 4. Cymbalta 180 mg daily 5. Remeron 45 mg every night 6. Pyridium 100 mg every 8 hours as needed for dysuria 7. Xanax 2 mg b.i.d. as needed for anxiety. 8. Coreg 6.25 mg b.i.d. 9. Glucophage 500 mg every night 10. Lipitor 80 mg every night 11. Nitro sublingual as needed 12. Percocet 1 tablet every 6 hours as needed for pain. 13. Plavix 75 mg daily 14. Omeprazole 40 mg every night 15. Synthroid 50 mcg daily. FAMILY HISTORY Denies premature coronary artery disease or sudden cardiac within the family. SOCIAL HISTORY Tobacco use. Smokes around three to five cigarettes per day, previously two packs per day for 30 years. Denies alcohol, quitting 10 years ago. Previous cocaine use, quitting eight years ago. REVIEW OF SYSTEMS 14-systems were reviewed including osteopathic. Pertinent positives and negatives above otherwise negative. PHYSICAL EXAMINATION VITAL SIGNS: Temperature 97.4, heart rate 67, blood pressure 114/62, respirations 18, pulse ox 95% on 2 liters. GENERAL: The patient appears well in no acute distress, alert, awake and oriented x3. HEENT: Extraocular muscles intact. Mucous membranes moist. NECK: Supple. No JVD at 45 degrees. No carotid bruits heard bilaterally. Carotid upstroke is brisk in nature. HEART: Regular rate and rhythm. Positive first and second heart sounds with no murmurs, gallops or rubs. PMI is nondisplaced. LUNGS: Clear to auscultation bilaterally. No wheezes, rales or rhonchi. ABDOMEN: Soft, nontender, nondistended, no organomegaly noted. EXTREMITIES: Trace edema bilaterally. Femoral and distal pulses intact bilaterally. NEUROLOGIC: No focal deficits. SKIN: Warm, dry and intact. OSTEOPATHIC: Mild lordosis. No kyphoscoliosis or paraspinal tender points. LABORATORY FINDINGS Hemoglobin 13.4, hematocrit 42.8, platelets 268. INR 1.0. Potassium 4.1, BUN 12, creatinine 1.66, troponin 0.06. CARDIOLOGY STUDIES Electrocardiogram (January at 05:00) sinus rhythm, inferior and lateral infarct which are age indeterminate. No significant change from previous. IMPRESSION 1. Atypical chest pain. 2, History of coronary artery disease with recent myocardial infarction (April 2016) 3. Minimally elevated troponin. 4. Recent right lower extremity arterial occlusion status post thromboembolectomy (December 2016) 5. Change from Eliquis to Coumadin with subtherapeutic INR. 6. History of diabetes mellitus 7. Tobacco abuse. 8. Hypertension. 9. Acute kidney injury. RECOMMENDATIONS Mr. Louis presented with atypical chest pain and has minimally elevated troponin at 0.06. 1. I believe that he should undergo some type of ischemic evaluation and with his current acute kidney injury I do not believe that he should undergo coronary visualization as his creatinine is significantly elevated from his baseline. 2. We will plan on a pharmacologic nuclear stress test today to further look at possible areas of ischemia. 3. We will watch on telemetry for any arrhythmias as the patient states that he has not felt well recently. 4. He has been started on a heparin drip and has been subtherapeutic on his INR with his change to Coumadin. If stress test is negative, then the patient could be restarted on his Coumadin therapy for his recent arterial thromboembolic disease. Thank you for allowing me to see Mark Anthony Louis. If there are any questions, please do not hesitate to call. Kennedy Angel DO VGP/SA /3:40 PM /4:47 PM
[2017-02-06] MEDS: HEPARIN-D5W INJ 250 ML IV SCH (17:10)
[2017-02-06 17:51] LABS: APTT (PATIENT) 25.5 SEC (24.3-30.1)
[2017-02-06] MEDS: MIRTAZAPINE ODT 30 MG TAB PO SCH (21:02)
[2017-02-06] MEDS: ATORVASTATIN 80 MG TAB PO SCH (21:02)
[2017-02-07] VITALS (7 sets, daily range): BP systolic 113–142; BP diastolic 52–84; PULSE 68–98; RESP 18–20; TEMP 97.8–98.1; O2SAT 95–97
[2017-02-07] MEDS: HEPARIN SODIUM - IV 10,000 UNITS/10 ML VIAL IV PRN ×3 (01:15→20:48)
[2017-02-07] MEDS: ISOSORBIDE MONONITRATE 30 MG TAB PO SCH (05:25)
[2017-02-07] MEDS: MORPHINE SULFATE 8 MG/ML INJ IV PUSH PRN ×5 (05:28→22:57)
[2017-02-07] MEDS: LEVOTHYROXINE SODIUM 50 MCG TAB PO SCH (05:32)
[2017-02-07] MEDS: INSULIN ASPART SUPPLEMENTAL SCALE SQ SCH ×4 (05:33→20:38)
[2017-02-07 08:01] LABS: APTT (PATIENT) 25.4 SEC (24.3-30.1)
[2017-02-07 08:12] LABS: BICARBONATE 24.7 MEQ/L (21.0-32.0); POTASSIUM 4.1 MEQ/L (3.5-5.1)
[2017-02-07] MEDS: GABAPENTIN 300 MG CAP PO SCH ×2 (08:53→20:37)
[2017-02-07] MEDS: DULoxetine HCl DR 60 MG CAP PO SCH (08:53)
[2017-02-07] MEDS: QUEtiapine FUMARATE 100 MG TAB PO SCH ×2 (08:54→20:36)
[2017-02-07] MEDS: CLOPIDOGREL 75 MG TAB PO SCH (08:54)
[2017-02-07] MEDS: oxyCODONE/ACETAMINOPHEN 5 MG/325 MG TAB PO PRN ×3 (08:54→20:36)
[2017-02-07] MEDS: SODIUM CHLORIDE 0.9% FLUSH 10 ML FLUSH IVF PRN ×2 (08:54→20:48)
[2017-02-07] MEDS: PANTOPRAZOLE SOD 40 MG DELAYED RELEASE TAB PO SCH (08:55)
[2017-02-07] MEDS: CARVEDILOL 3.125 MG TAB PO SCH ×3 (08:55→20:36)
--- NOTE | 2017-02-07 10:32 | HHI.PR ---
Subjective Remarks Follow-up unstable angina/non-ST elevation [place] 02/06/17-patient seen and examined, continue to complaint of substernal chest tightness rated 5/10 in intensity 02/07/17-patient seen and examined, currently denies any chest pain and is nothing by mouth pending second part of stress test Objective Vitals Vital Signs Date Time Temp Pulse Resp B/P Pulse Ox O2 Delivery O2 Flow Rate FiO2 02/07/17 08:00 98.0 83 18 113/66 95 02/07/17 06:00 97.9 98 18 134/84 96 02/07/17 00:00 97.8 73 18 115/58 97 02/06/17 20:00 77 02/06/17 20:00 97.5 71 16 98/65 96 02/06/17 16:01 97.3 69 18 94/53 97 02/06/17 12:01 97.5 67 18 98/57 94 I/O 02/06/17 02/06/17 02/06/17 02/07/17 02/07/17 02/07/17 07:00 15:00 23:00 07:00 15:00 23:00 Intake Total 99 ml 240 ml 240 ml 0 ml Output Total 1400 ml 400 ml 1200 ml Balance 99 ml -1160 ml -160 ml -1200 ml Intake Oral 240 ml 240 ml 0 ml IV Total 99 ml Output Urine Total 1400 ml 400 ml 1200 ml # Bowel Movements 0 0 0 Result Diagram: 02/05/17 1700 02/07/17 0631 Objective Remarks GENERAL: NAD SKIN: Warm and dry. HEAD: Normocephalic. EYES: No scleral icterus. No injection or drainage. NECK: Supple, trachea midline. No JVD or lymphadenopathy. CARDIOVASCULAR: Regular rate and rhythm without murmurs, gallops, or rubs. RESPIRATORY: Breath sounds equal bilaterally. No accessory muscle use. GASTROINTESTINAL: Abdomen soft, non-tender, nondistended. MUSCULOSKELETAL: No cyanosis, or edema. BACK: Nontender without obvious deformity. No CVA tenderness. A/P Problem List: (1) Acute coronary syndrome ICD Code: I24.9 Status: Acute (2) LUCIA (acute kidney injury) ICD Code: N17.9 Status: Acute (3) Dyspnea ICD Code: R06.00 Status: Acute (4) Subtherapeutic anticoagulation ICD Code: Z51.81 Status: Acute (5) Hypertension ICD Code: I10 Status: Chronic (6) DM (diabetes mellitus) ICD Code: E11.9 Status: Chronic Assessment and Plan 46-year-old man with Acute coronary syndrome Continue ACS rule out per protocol with serial cardiac enzyme and EKGs Cardiology consultation appreciated pending second part of stress test today 02/07/17 Continue heparin drip/Plavix/aspirin/nitroglycerin /Coreg/statin Subtherapeutic Coumadin, INR 1.0 -Coumadin on hold, continue with heparin drip Acute Kidney injury, creatine 1.6, baseline .9 -Continue to Hold Metformin DM, chronic -Accu checks with SSI -hemoglobin A1C 6.1 HTN, chronic -Continue Coreg Chronic medical conditions: dyslipidemia and hypothyroidism, continue home medications DVT prophylaxis: Heparin Problem Qualifiers (1) Dyspnea: Qualified Code: R06.02 - Shortness of breath (2) DM (diabetes mellitus): Chris Mcclendon MD Feb 07, 2017 10:31
--- NOTE | 2017-02-07 12:44 | RADRPT ---
EXAM DATE/TIME: 02/06/2017 13:08 [place] COMPARISON: MYOCARDIAL PERF PHARM SPECT, GATED W/EF, June 05, 2015, 10:15. INDICATIONS : Retrosternal chest pain radiating to the jaw and left arm with diaphoresis, dyspnea and nausea. Angin a. DOSE: 31.7 mCi Tc99m Myoview at stress. 32.7 mCi Tc99m Myoview at rest. 0.4 mg Lexiscan STRESS SYMPTOMS: Chest pain, dyspnea and headache. MEDICATIONS: 1.) 100 mg Aminophylline IV EJECTION FRACTION: 40% MEDICAL HISTORY : Myocardial infarction. Chronic obstructive pulmonary disease. Diabetes mellitus type 2. Hypertension. Deep vein thrombosis. GERD. Stroke. Bladder cancer. SURGICAL HISTORY : Coronary artery stent. Bladder surgery. ENCOUNTER: Initial ACUITY: 1 day PAIN SCALE: 8/10 LOCATION: Retrosternal chest TECHNIQUE: The patient underwent pharmacologic stress with infusion of prescribed dose. Continuous ECG tracing was monitored during stress. Gated SPECT imaging was performed after stress and conventional SPECT i maging was performed at rest. The examination was performed on a SPECT/CT scanner, both attenuation and non-corrected datasets were reviewed. FINDINGS: DISTRIBUTION: The maximum perfused segment at stress is in the anteroseptal and anterolateral [place]. PERFUSION STUDY: No reversible perfusion defects. Large matched defects in the inferior wall inferoseptal and inferola teral [place]. GATED STUDY: Global hypokinesia more pronounced in the inferior wall. CONCLUSION: 1. Remote infarct inferior wall. 2. Decreased ejection fraction. 3. No reversibility suggest ischemia. RISK CATEGORY: High (>3% Annual Mortality Rate) Chris Cordova MD on February 07, 2017 at 12:38 Board Certified Radiologist. This report was verified electronically.
--- NOTE | 2017-02-07 13:09 | PD.CARD.PN ---
Subjective Subjective Remarks Con't chest pain, relieved with morphine Overall feels better Objective Medications Current Medications Medications (Trade) Dose Ordered Sig/Erin Route Start Time Stop Time Status Last Admin (NS Flush) 2 ml UNSCH PRN IVF 02/05/17 17:00 02/07/17 08:54 (Heparin Inj) 5,000 units UNSCH PRN IV 02/06/17 00:45 Heparin Sodium (Porcine) 2500 units 2,500 units UNSCH PRN IV 02/06/17 00:45 02/07/17 08:54 (Heparin-D5W Inj) 250 ml @ 0 mls/hr TITRATE IV 02/05/17 18:45 02/06/17 17:10 (Coreg) 3.125 mg BID PO 02/05/17 22:00 02/07/17 09:03 (Plavix) 75 mg DAILY PO 02/06/17 09:00 02/07/17 08:54 (Neurontin) 900 mg BID PO 02/06/17 09:00 02/07/17 08:53 (Imdur) 30 mg DAILY@07 PO 02/06/17 07:00 02/07/17 05:25 (Lipitor) 80 mg HS PO 02/05/17 22:00 02/06/17 21:02 (Synthroid) 50 mcg DAILY@06 PO 02/06/17 06:00 02/07/17 05:32 (Cymbalta Dr) 120 mg DAILY PO 02/06/17 09:00 02/07/17 08:53 (Protonix) 40 mg DAILY PO 02/06/17 09:00 02/07/17 08:55 (Remeron Soltab Odt) 90 mg HS PO 02/05/17 22:00 02/06/17 21:02 (SEROquel) 100 mg BID PO 02/06/17 09:00 02/07/17 08:54 (Nitrostat Sl) 0.3 mg Q5M PRN SL 02/05/17 22:45 (D50w (Vial) Inj) 50 ml UNSCH PRN IV 02/05/17 23:15 (Glucagon Inj) 1 mg UNSCH PRN OTHER 02/05/17 23:15 (Percocet 5-325 Mg) 1 tab Q6H PRN PO 02/06/17 00:30 02/06/17 10:28 (Percocet 5-325 Mg) 1 tab Q4H PRN PO 02/06/17 18:30 02/07/17 08:54 (Morphine Inj) 2 mg Q5M PRN IV PUSH 02/06/17 19:00 02/07/17 12:31 Vital Signs / I&O Vital Signs Date Time Temp Pulse Resp B/P Pulse Ox O2 Delivery O2 Flow Rate FiO2 02/07/17 12:51 Room Air 02/07/17 08:00 98.0 83 18 113/66 95 02/07/17 08:00 Room Air 02/07/17 06:00 97.9 98 18 134/84 96 02/07/17 00:00 97.8 73 18 115/58 97 02/06/17 20:00 77 02/06/17 20:00 97.5 71 16 98/65 96 02/06/17 16:01 97.3 69 18 94/53 97 I/O 02/06/17 02/06/17 02/06/17 02/07/17 02/07/17 02/07/17 07:00 15:00 23:00 07:00 15:00 23:00 Intake Total 99 ml 240 ml 240 ml 0 ml Output Total 1400 ml 400 ml 1200 ml Balance 99 ml -1160 ml -160 ml -1200 ml Intake Oral 240 ml 240 ml 0 ml IV Total 99 ml Output Urine Total 1400 ml 400 ml 1200 ml # Bowel Movements 0 0 0 Physical Exam GENERAL: NAD, AAOx3 SKIN: Warm and dry. HEAD: Atraumatic. Normocephalic. EYES: Pupils equal and round. No scleral icterus. No injection or drainage. ENT: No nasal bleeding or discharge. Mucous membranes pink and moist. NECK: Trachea midline. No JVD. CARDIOVASCULAR: Regular rate and rhythm. No murmurs noted RESPIRATORY: No accessory muscle use. Clear to auscultation. Breath sounds equal bilaterally. GASTROINTESTINAL: Abdomen soft, non-tender, nondistended. Hepatic and splenic margins not palpable. MUSCULOSKELETAL: Extremities without clubbing, cyanosis, or edema. No obvious deformities. NEUROLOGICAL: Awake and alert. No obvious cranial nerve deficits. Motor grossly within normal limits. Five out of 5 muscle strength in the arms and legs. Normal speech. PSYCHIATRIC: Appropriate mood and affect; insight and judgment normal. Laboratory Laboratory Tests Test 02/06/17 02/06/17 02/07/17 17:24 23:47 06:31 Activated Partial 25.5 SEC 25.0 SEC 25.4 SEC Thromboplast Time Sodium Level 140 MEQ/L Potassium Level 4.1 MEQ/L Chloride Level 108 MEQ/L Carbon Dioxide Level 24.7 MEQ/L Anion Gap 7 MEQ/L Blood Urea Nitrogen 15 MG/DL Creatinine 1.26 MG/DL Estimat Glomerular Filtration 61 ML/MIN Rate Random Glucose 115 MG/DL Calcium Level 8.5 MG/DL Assessment and Plan Problem List: (1) Chest pain (2) Tobacco abuse (3) H/O heart artery stent (4) PVD (peripheral vascular disease) (5) Hx of coronary artery disease (6) Dyslipidemia (7) Hypertension (8) Subtherapeutic anticoagulation (9) LUCIA (acute kidney injury) (10) DM (diabetes mellitus) (11) Elevated troponin Assessment and Plan 1) Presenting with chest pain as well as a minimally elevated troponin 0.06, which was flat 2) Pharmacologic nuclear stress test showing inferior infarct (correlating with previous cath) and no ischemic areas 3) Con't with medical management of CAD 4) Subtherapeutic INR with recent lower extremity arterial occlusion Was changing between Eliquis and Coumadin, but unable to afford Eliquis Currently on heparin drip When discharged, plan on Coumadin/Plavix for CAD/previous arterial occlusion Problem Qualifiers (1) Chest pain: Qualified Code: R07.9 - Chest pain, unspecified type (2) DM (diabetes mellitus): Kennedy Gutierrez DO Feb 07, 2017 13:09
[2017-02-07] MEDS ORDERED: WARFARIN SOD 2 MG TAB PO SCH (18:00)
[2017-02-07] MEDS: HEPARIN-D5W INJ 250 ML IV SCH (18:11)
[2017-02-07] MEDS: NITROGLYCERIN 0.3 MG SL 100 TABS/BTL SL PRN (18:30)
[2017-02-07 19:26] LABS: APTT (PATIENT) 35.2 SEC (24.3-30.1)
[2017-02-07] MEDS: ATORVASTATIN 80 MG TAB PO SCH (20:36)
[2017-02-07] MEDS: MIRTAZAPINE ODT 30 MG TAB PO SCH (20:37)
[2017-02-08 00:30] VITALS: BP 132/73; PULSE 74; RESP 20; TEMP 98.1; O2SAT 97
[2017-02-08 04:29] LABS: HEMATOCRIT 35.9 % (39.0-51.0); MEAN CELL VOLUME 84.2 FL (80.0-100.0); MEAN CORPUSCULAR HEMOGLOBIN 27.6 PG (27.0-34.0); MEAN CORPUSCULAR HGB CONC 32.8 % (32.0-36.0); PLATELET COUNT 214 TH/MM3 (150-450); RED BLOOD COUNT 4.26 MIL/MM3 (4.50-5.90); RED CELL DISTRIBUTION WIDTH 17.5 % (11.6-17.2); REVIEW FLAG FINAL; WHITE BLOOD COUNT 7.9 TH/MM3 (4.0-11.0)
[2017-02-08] MEDS: MORPHINE SULFATE 8 MG/ML INJ IV PUSH PRN ×3 (04:34→08:53)
[2017-02-08] MEDS: HEPARIN-D5W INJ 250 ML IV SCH (04:43)
[2017-02-08 04:49] LABS: APTT (PATIENT) 40.2 SEC (24.3-30.1); INTERNATIONAL NORMALIZED RATIO 0.9 RATIO; PROTHROMBIN TIME - PATIENT 10.4 SEC (9.8-11.6)
[2017-02-08] MEDS: NITROGLYCERIN 0.3 MG SL 100 TABS/BTL SL PRN ×2 (05:20→05:27)
[2017-02-08] MEDS: ISOSORBIDE MONONITRATE 30 MG TAB PO SCH (06:06)
[2017-02-08] MEDS: LEVOTHYROXINE SODIUM 50 MCG TAB PO SCH (06:06)
[2017-02-08] MEDS: INSULIN ASPART SUPPLEMENTAL SCALE SQ SCH ×2 (06:06→11:00)
[2017-02-08 08:00] VITALS: BP 131/64; PULSE 77; RESP 20; TEMP 97.8; O2SAT 97
[2017-02-08] MEDS: CLOPIDOGREL 75 MG TAB PO SCH (08:51)
[2017-02-08] MEDS: GABAPENTIN 300 MG CAP PO SCH (08:51)
[2017-02-08] MEDS: CARVEDILOL 3.125 MG TAB PO SCH (08:51)
[2017-02-08] MEDS: QUEtiapine FUMARATE 100 MG TAB PO SCH (08:51)
[2017-02-08] MEDS: PANTOPRAZOLE SOD 40 MG DELAYED RELEASE TAB PO SCH (08:51)
[2017-02-08] MEDS: DULoxetine HCl DR 60 MG CAP PO SCH (08:51)
--- NOTE | 2017-02-08 10:03 | HHI.PR ---
Subjective Remarks Follow-up unstable angina/non-ST elevation [place] 02/06/17-patient seen and examined, continue to complaint of substernal chest tightness rated 5/10 in intensity 02/07/17-patient seen and examined, currently denies any chest pain and is nothing by mouth pending second part of stress test 02/08/17-patient seen and examined, although patient reports some angina pain however states it stable and much more improved since admission. INR subtherapeutic. Objective Vitals Vital Signs Date Time Temp Pulse Resp B/P Pulse Ox O2 Delivery O2 Flow Rate FiO2 02/08/17 08:00 97.8 77 20 131/64 97 02/08/17 00:30 98.1 74 20 132/73 97 02/07/17 21:38 98.1 79 20 127/80 95 02/07/17 20:30 Room Air 02/07/17 20:00 75 02/07/17 14:00 98.0 84 20 116/52 95 02/07/17 12:51 Room Air I/O 02/07/17 02/07/17 02/07/17 02/08/17 02/08/17 02/08/17 07:00 15:00 23:00 07:00 15:00 23:00 Intake Total 0 ml 1118 ml 117 ml Output Total 1200 ml 100 ml 600 ml Balance -1200 ml 1018 ml -483 ml Intake Oral 0 ml 960 ml IV Total 158 ml 117 ml Output Urine Total 1200 ml 100 ml 600 ml # Bowel Movements 0 Result Diagram: 02/08/17 0406 02/07/17 0631 Objective Remarks GENERAL: NAD SKIN: Warm and dry. HEAD: Normocephalic. EYES: No scleral icterus. No injection or drainage. NECK: Supple, trachea midline. No JVD or lymphadenopathy. CARDIOVASCULAR: Regular rate and rhythm without murmurs, gallops, or rubs. RESPIRATORY: Breath sounds equal bilaterally. No accessory muscle use. GASTROINTESTINAL: Abdomen soft, non-tender, nondistended. MUSCULOSKELETAL: No cyanosis, or edema. BACK: Nontender without obvious deformity. No CVA tenderness. A/P Problem List: (1) Acute coronary syndrome ICD Code: I24.9 Status: Acute (2) LUCIA (acute kidney injury) ICD Code: N17.9 Status: Acute (3) Dyspnea ICD Code: R06.00 Status: Acute (4) Subtherapeutic anticoagulation ICD Code: Z51.81 Status: Acute (5) Hypertension ICD Code: I10 Status: Chronic (6) DM (diabetes mellitus) ICD Code: E11.9 Status: Chronic Assessment and Plan 46-year-old man with Acute coronary syndrome/CAD Status post Lexiscan stress test showing inferior infarct (correlating with previous cath) and no ischemic areas Cardiology consultation appreciated Continue with medical management including heparin drip/Plavix/aspirin/ nitroglycerin /Coreg/statin/Imdur 30 mg daily Subtherapeutic Coumadin, INR 1.0 - continue with heparin drip with Coumadin -Patient advised to take Coumadin 10 mg 1 today 02/08/17 Acute Kidney injury, creatine 1.6, baseline .9 -Continue to Hold Metformin DM, chronic -Accu checks with SSI -hemoglobin A1C 6.1 HTN, chronic -Continue Coreg Chronic medical conditions: dyslipidemia and hypothyroidism, continue home medications DVT prophylaxis: Heparin Problem Qualifiers (1) Dyspnea: Qualified Code: R06.02 - Shortness of breath (2) DM (diabetes mellitus): Chris Mcclendon MD Feb 08, 2017 10:03
[2017-02-08] MEDS ORDERED: COUM10TA PO (10:08)
[2017-02-08] MEDS ORDERED: COUM5TAB PO (10:08)
[2017-02-08] MEDS ORDERED: ISOS30TA3 PO (10:08)
[2017-02-08] MEDS ORDERED: CARV3.125 PO (10:11)
--- NOTE | 2017-02-08 10:19 | HHI.DS ---
Discharge Summary Admission Date Feb 05, 2017 at 18:42 Discharge Date: Feb 08, 2017 Admitting Diagnosis Tn 0.06, Chest Pain, Dyspnea (1) Acute coronary syndrome ICD Code: I24.9 (2) LUCIA (acute kidney injury) ICD Code: N17.9 (3) Dyspnea ICD Code: R06.00 (4) Subtherapeutic anticoagulation ICD Code: Z51.81 (5) Hypertension ICD Code: I10 (6) DM (diabetes mellitus) ICD Code: E11.9 Procedures none Brief History - From Admission Written by JEANETTE Holcomb acting as scribe for [Colby] on 02/05/17 at 22: 37. 46 y/o male with a history of bladder CA, PVD, DM, hypercholesteremia, HTN, [place] with stents,COPD, DVT, hypothyroidism, and bipolar presented to the ED with chest pain and sob. He has been feeling bad for the last few months since he has had bladder cancer. He had a follow up with his PCP today and when he arrived he was feeling dizzy, sob, and was having chest and jaw pain with radiation to right arm. He has chronic diarrhea, but no black or red colored stools. No nausea, vomiting, fever, chills, or dysuria. Since his last [place] 10 months ago with stent placement he has not followed up with a bench worker binding due to insurance purposes. PCP is Dr. Dennison CBC/BMP: 02/08/17 0406 02/07/17 0631 Significant Findings Laboratory Tests Test 02/05/17 02/05/17 02/06/17 02/06/17 17:00 23:08 06:11 06:30 White Blood Count 11.4 TH/MM3 (4.0-11.0) Mean Corpuscular Hemoglobin 26.5 PG (27.0-34.0) Mean Corpuscular Hemoglobin 31.3 % Concent (32.0-36.0) Red Cell Distribution Width 17.6 % (11.6-17.2) Monocytes (%) (Auto) 8.2 % (0.0-8.0) Activated Partial 24.2 SEC Thromboplast Time (24.3-30.1) Creatinine 1.66 MG/DL (0.60-1.30) Estimat Glomerular Filtration 45 ML/MIN (>89) Rate Troponin I 0.06 NG/ML 0.06 NG/ML 0.06 NG/ML (0.02-0.05) (0.02-0.05) (0.02-0.05) Hemoglobin A1c 6.1 % (4.3-6.0) Urine Benzodiazepines Screen POS (NEG) Test 02/07/17 02/07/17 02/08/17 06:31 18:20 04:06 Chloride Level 108 MEQ/L (98-107) Estimat Glomerular Filtration 61 ML/MIN (>89) Rate Random Glucose 115 MG/DL (74-106) Activated Partial 35.2 SEC 40.2 SEC Thromboplast Time (24.3-30.1) (24.3-30.1) Red Blood Count 4.26 MIL/MM3 (4.50-5.90) Hemoglobin 11.8 GM/DL (13.0-17.0) Hematocrit 35.9 % (39.0-51.0) Red Cell Distribution Width 17.5 % (11.6-17.2) PE at Discharge GENERAL: NAD SKIN: Warm and dry. HEAD: Normocephalic. EYES: No scleral icterus. No injection or drainage. NECK: Supple, trachea midline. No JVD or lymphadenopathy. CARDIOVASCULAR: Regular rate and rhythm without murmurs, gallops, or rubs. RESPIRATORY: Breath sounds equal bilaterally. No accessory muscle use. GASTROINTESTINAL: Abdomen soft, non-tender, nondistended. MUSCULOSKELETAL: No cyanosis, or edema. BACK: Nontender without obvious deformity. No CVA tenderness. Hospital Course He was admitted secondary to chest pain, ACS ruled out cardiology was consulted and he underwent a Lexiscan stress test which showed inferior infarct( correlating with previous cath) and no ischemic areas. He was managed medically. He was on heparin drip and started on Imdur 30 mg daily. Patient was continued with Plavix, aspirin, beta meredith and statin. Patient's Coumadin was subsequently restarted, however secondary to subtherapeutic INR was advised to take 10 mg 1 today 02/08/17 and continue with Coumadin 5 mg daily until INR recheck in 2-3 days. BP med were adjusted accordingly, Coreg was decreased to 3.125 mg every 12 hours. Patient's renal function improved. He was place on sliding scale insulin. Pt Condition on Discharge: Stable Discharge Disposition: Discharge Home Discharge Time: <= 30 minutes Discharge Instructions DIET: Follow Instructions for: Diabetic Diet Activities you can perform: Regular-No Restrictions Follow up Referrals: Cardiology PCP Follow-up - 1 Week New Orders: PT/INR - 2-3 Days New Medications: Warfarin (Coumadin) 10 Mg Tab 10 MG PO DAILY Prevent Blood Clot #1 Ref 0 TAB Warfarin (Coumadin) 5 Mg Tab 5 MG PO DAILY Blood Clot Prevention #30 Ref 0 TAB Carvedilol (Coreg) 3.125 Mg Tab 3.125 MG PO BID Blood Pressure Management #60 Ref 3 TAB Isosorbide Mononitrate ER (Isosorbide Mononitrate ER) 30 Mg Yola 30 MG PO DAILY@07 Prevent Heart Failure #30 Ref 3 TAB Continued Medications: Alprazolam (Xanax) 2 Mg Tab 2 MG PO BID PRN ANXIETY Ref 0 TAB Atorvastatin (Lipitor) 80 Mg Tab 80 MG PO HS Cholesterol Management #30 Ref 0 TAB Clopidogrel (Plavix) 75 Mg Tab 75 MG PO DAILY Blood Clot Prevention #[address] Ref [address] (Cymbalta DR) 60 Mg Capdr 180 MG PO DAILY #30 Ref 0 CAP Gabapentin (Gabapentin) 600 Mg Tab 600 MG PO BID #60 Ref 0 TAB Levothyroxine (Synthroid) 50 Mcg Tab 50 MCG PO DAILY Thyroid #30 Ref 0 TAB Lisinopril (Lisinopril) 20 Mg Tab 20 MG PO BID #30 Ref 0 TAB Metformin (Glucophage) 500 Mg Tab 500 MG PO HS With a meal Blood Sugar Management #30 Ref 0 TAB Mirtazapine (Remeron) 45 Mg Tab 45 MG PO HS Depression Control #30 Ref 0 TAB Nitroglycerin SL (Nitroglycerin SL) 0.4 Mg Subl 0.4 MG SL Q 5 MINUTES ONE TABLET UNDER THE TONGUE NEEDED FOR CHEST PAIN, MAY REPEAT EVERY FIVE MINUTES FOR A TOTAL OF 3 DOSES OR CALL 911 IF NO RELIEF PRN CHEST PAIN #100 Ref 0 TAB.SL Omeprazole (Omeprazole) 40 Mg Cap 40 MG PO HS #30 Ref 0 CAP Oxycodone-Acetaminophen (Percocet) 5-325 mg Tab 1 TAB PO Q6H PRN PAIN #30 Ref 0 TAB Discontinued Medications: Carvedilol (Coreg) 6.25 Mg Tab 6.25 MG PO BID #60 Ref 0 TAB Gabapentin (Gabapentin) 300 Mg Cap 900 MG PO AC LUNCH #90 Ref 0 CAP Phenazopyridine (Pyridium) 100 Mg Tab 100 MG PO Q8H PRN DYSURIA #40 Ref 0 TAB Warfarin (Warfarin) 2 Mg Tab 2 MG PO DAILY increase to 5mg Blood Clot Prevention #30 Ref 0 TAB Chris Mcclendon MD Feb 08, 2017 10:19
[2017-02-08 10:30] VITALS: PULSE 71
[2017-02-08 10:35] LABS: APTT (PATIENT) 35.8 SEC (24.3-30.1)
--- NOTE | 2017-02-08 11:55 | PD.CARD.PN ---
Subjective Subjective Remarks No events overnight Feels well, no chest pain Objective Medications Current Medications Medications (Trade) Dose Ordered Sig/Erin Route Start Time Stop Time Status Last Admin (NS Flush) 2 ml UNSCH PRN IVF 02/05/17 17:00 02/07/17 20:48 (Heparin Inj) 5,000 units UNSCH PRN IV 02/06/17 00:45 Heparin Sodium (Porcine) 2500 units 2,500 units UNSCH PRN IV 02/06/17 00:45 02/07/17 20:48 (Heparin-D5W Inj) 250 ml @ 0 mls/hr TITRATE IV 02/05/17 18:45 02/08/17 04:43 (Coreg) 3.125 mg BID PO 02/05/17 22:00 02/08/17 08:51 (Plavix) 75 mg DAILY PO 02/06/17 09:00 02/08/17 08:51 (Neurontin) 900 mg BID PO 02/06/17 09:00 02/08/17 08:51 (Imdur) 30 mg DAILY@07 PO 02/06/17 07:00 02/08/17 06:06 (Lipitor) 80 mg HS PO 02/05/17 22:00 02/07/17 20:36 (Synthroid) 50 mcg DAILY@06 PO 02/06/17 06:00 02/08/17 06:06 (Cymbalta Dr) 120 mg DAILY PO 02/06/17 09:00 02/08/17 08:51 (Protonix) 40 mg DAILY PO 02/06/17 09:00 02/08/17 08:51 (Remeron Soltab Odt) 90 mg HS PO 02/05/17 22:00 02/07/17 20:37 (SEROquel) 100 mg BID PO 02/06/17 09:00 02/08/17 08:51 (Nitrostat Sl) 0.3 mg Q5M PRN SL 02/05/17 22:45 02/08/17 05:27 (D50w (Vial) Inj) 50 ml UNSCH PRN IV 02/05/17 23:15 (Glucagon Inj) 1 mg UNSCH PRN OTHER 02/05/17 23:15 (Percocet 5-325 Mg) 1 tab Q6H PRN PO 02/06/17 00:30 02/06/17 10:28 (Percocet 5-325 Mg) 1 tab Q4H PRN PO 02/06/17 18:30 02/07/17 20:36 (Morphine Inj) 2 mg Q5M PRN IV PUSH 02/06/17 19:00 02/08/17 08:53 Warfarin Sodium 2 mg 2 mg DAILY@16 PO 02/07/17 18:00 02/07/17 17:45 (Coumadin Consult Pharmacy) 0 ml @ 0 mls/hr UNSCH OTHER 02/07/17 17:15 Vital Signs / I&O Vital Signs Date Time Temp Pulse Resp B/P Pulse Ox O2 Delivery O2 Flow Rate FiO2 02/08/17 10:30 71 02/08/17 09:59 Room Air 02/08/17 08:00 97.8 77 20 131/64 97 02/08/17 00:30 98.1 74 20 132/73 97 02/07/17 21:38 98.1 79 20 127/80 95 02/07/17 20:30 Room Air 02/07/17 20:00 75 02/07/17 14:00 98.0 84 20 116/52 95 02/07/17 12:51 Room Air I/O 02/07/17 02/07/17 02/07/17 02/08/17 02/08/17 02/08/17 07:00 15:00 23:00 07:00 15:00 23:00 Intake Total 0 ml 1118 ml 117 ml Output Total 1200 ml 100 ml 600 ml Balance -1200 ml 1018 ml -483 ml Intake Oral 0 ml 960 ml IV Total 158 ml 117 ml Output Urine Total 1200 ml 100 ml 600 ml # Bowel Movements 0 Physical Exam GENERAL: NAD, AAOx3 SKIN: Warm and dry. HEAD: Atraumatic. Normocephalic. EYES: Pupils equal and round. No scleral icterus. No injection or drainage. ENT: No nasal bleeding or discharge. Mucous membranes pink and moist. NECK: Trachea midline. No JVD. CARDIOVASCULAR: Regular rate and rhythm. No murmurs noted RESPIRATORY: No accessory muscle use. Clear to auscultation. Breath sounds equal bilaterally. GASTROINTESTINAL: Abdomen soft, non-tender, nondistended. Hepatic and splenic margins not palpable. MUSCULOSKELETAL: Extremities without clubbing, cyanosis, or edema. No obvious deformities. NEUROLOGICAL: Awake and alert. No obvious cranial nerve deficits. Motor grossly within normal limits. Five out of 5 muscle strength in the arms and legs. Normal speech. PSYCHIATRIC: Appropriate mood and affect; insight and judgment normal. Laboratory Laboratory Tests Test 02/07/17 02/08/17 02/08/17 18:20 04:06 08:30 Activated Partial 35.2 SEC 40.2 SEC 35.8 SEC Thromboplast Time White Blood Count 7.9 TH/MM3 Red Blood Count 4.26 MIL/MM3 Hemoglobin 11.8 GM/DL Hematocrit 35.9 % Mean Corpuscular Volume 84.2 FL Mean Corpuscular Hemoglobin 27.6 PG Mean Corpuscular Hemoglobin 32.8 % Concent Red Cell Distribution Width 17.5 % Platelet Count 214 TH/MM3 Mean Platelet Volume 8.2 FL Prothrombin Time 10.4 SEC Prothromb Time International 0.9 RATIO Ratio Assessment and Plan Problem List: (1) Chest pain (2) Tobacco abuse (3) H/O heart artery stent (4) PVD (peripheral vascular disease) (5) Hx of coronary artery disease (6) Dyslipidemia (7) Hypertension (8) Subtherapeutic anticoagulation (9) LUCIA (acute kidney injury) (10) DM (diabetes mellitus) (11) Elevated troponin Assessment and Plan 1) Presenting with chest pain as well as a minimally elevated troponin 0.06, which was flat 2) Pharmacologic nuclear stress test showing inferior infarct (correlating with previous cath) and no ischemic areas 3) Con't with medical management of CAD 4) Subtherapeutic INR with recent lower extremity arterial occlusion Was changing between Eliquis and Coumadin, but unable to afford Eliquis Currently on heparin drip When discharged, plan on Coumadin/Plavix for CAD/previous arterial occlusion 5) No further cardiovascular workup at this time Problem Qualifiers (1) Chest pain: Qualified Code: R07.9 - Chest pain, unspecified type (2) DM (diabetes mellitus): Kennedy Gutierrez DO Feb 08, 2017 11:55
[2017-02-08 12:00] VITALS: BP 116/68; PULSE 80; RESP 18; TEMP 98; O2SAT 97
[2017-02-08] MEDS: oxyCODONE/ACETAMINOPHEN 5 MG/325 MG TAB PO PRN (12:24)
== END 2017-02-08 13:15 | disposition home or self-care (01) ==
LOC: NEPE 16:41 → NEDA 18:42 → N04A 20:04
PROVIDERS: ADMIT Hospitalist; ATTEND Hospitalist
DX: R06.02 Shortness of breath (principal); I24.9 Acute ischemic heart disease, unspecified; E11.51 Type 2 diabetes mellitus with diabetic peripheral angiopathy without gangrene; R07.9 Chest pain, unspecified; R42 Dizziness and giddiness; R68.84 Jaw pain; M79.601 Pain in right arm; R19.7 Diarrhea, unspecified; N17.9 Acute kidney failure, unspecified; R79.1 Abnormal coagulation profile; R74.8 Abnormal levels of other serum enzymes; R00.0 Tachycardia, unspecified; R94.31 Abnormal electrocardiogram [ECG] [EKG]; I25.10 Atherosclerotic heart disease of native coronary artery without angina pectoris; I10 Essential (primary) hypertension; E03.9 Hypothyroidism, unspecified; I25.2 Old myocardial infarction; J44.9 Chronic obstructive pulmonary disease, unspecified; E78.00 Pure hypercholesterolemia, unspecified; C67.9 Malignant neoplasm of bladder, unspecified; E78.5 Hyperlipidemia, unspecified; E11.40 Type 2 diabetes mellitus with diabetic neuropathy, unspecified; K21.9 Gastro-esophageal reflux disease without esophagitis; F31.9 Bipolar disorder, unspecified; F41.9 Anxiety disorder, unspecified; F02.80 Dementia in other diseases classified elsewhere, unspecified severity, without behavioral disturbance, psychotic disturbance, mood disturbance, and anxiety; G30.9 Alzheimer's disease, unspecified; M17.0 Bilateral primary osteoarthritis of knee; E66.9 Obesity, unspecified; F17.200 Nicotine dependence, unspecified, uncomplicated; Z95.5 Presence of coronary angioplasty implant and graft; Z86.73 Personal history of transient ischemic attack (TIA), and cerebral infarction without residual deficits; Z86.718 Personal history of other venous thrombosis and embolism; Z79.02 Long term (current) use of antithrombotics/antiplatelets; Z79.01 Long term (current) use of anticoagulants; Z79.899 Other long term (current) drug therapy
CPT/HCPCS: 71010; 71275; 76937; 78452; 80048; 80053; 80307; 82272; 82550; 82552; 82948; 83036; 83690; 83735; 84443; 84484; 85025; 85027; 85610; 85730; 93005; 93017; 99285; A9502; G0378; J0280; J1644; J2270; J2785; Q9967

== ENCOUNTER 2017-03-23 09:28 | Emergency (ER) | payer OTHER, MEDICAID ==
[~2017-03-23] VITALS: Ht 182.9 cm; Wt 136.0 kg
[~2017-03-23 09:28] MED LIST changes: -APIX5TAB PO; +CARV3.125 PO; -CARV6.25 PO; +COUM10TA PO; +COUM5TAB PO; -GABA300C5 PO; +ISOS30TA3 PO; -PHEN0.4T PO; +XANA2TAB2 PO
[2017-03-23 09:43] VITALS: BP 96/55; PULSE 85; RESP 18; TEMP 98.8; O2SAT 99
[2017-03-23 09:51] VITALS: BP 96/55; PULSE 85; RESP 18; TEMP 98.8; O2SAT 99
--- NOTE | 2017-03-23 09:58 | PD ---
HPI Chief Complaint: Psychiatric Symptoms Time Seen by Provider: 09:55 Travel History International Travel<30 days: No Contact w/Intl Traveler<30days: No Traveled to known affect area: No History of Present Illness HPI patient was sorenson acted prior to arrival at [facility], due to suicidal ideations...currently patient has thought about overdosing on heroin because he' s tired of living with pain. gives a medical h/o DVT/dm/neuropathy PFSH Past Medical History Hx Anticoagulant Therapy: Yes Alzheimer's Disease: Yes Anemia: Yes Arthritis: Yes (BOTH KNEES) Asthma: No Autoimmune Disease: No Blood Disorders: No Bipolar Disorder: Yes Anxiety: Yes Depression: Yes Heart Rhythm Problems: No Cancer: Yes (BLADDER CANCER) Cardiac Catheterization: Yes (2009) Cardiovascular Problems: Yes High Cholesterol: Yes Chemotherapy: Yes (implanted something in bladder s/p tummors removed) Chest Pain: Yes Congestive Heart Failure: Yes COPD: Yes Cerebrovascular Accident: Yes Coronary Artery Disease: Yes Diabetes: Yes Diminished Hearing: No Deep Vein Thrombosis: Yes (right leg, PE and stomach) Endocrine: Yes Gastrointestinal Disorders: Yes (ACID REFLUX, HX ULCER) GERD: Yes Glaucoma: No Genitourinary: Yes (BLADDER TUMORS) Headaches: No Hepatitis: No Hiatal Hernia: Yes Heparin Induced Thrombocytopen: No Hypertension: Yes Immune Disorder: Yes (OA) Implanted Vascular Access Dvce: No Kidney Stones: Yes ( CHRONIC STONES ) Musculoskeletal: Yes (OSTEOARTHRITIS NICKIE KNESS) Neurologic: Yes (DIABETIC NEUROPATHY) Psychiatric: Yes (BIPOLAR, ANXIETY, DEPRESSION) Reproductive: No Respiratory: Yes (COPD, HX PE) Immunizations Current: Yes Migraines: Yes Myocardial Infarction: Yes (X 2) Radiation Therapy: Yes (pt not sure if bladder insert s/p tumor radition) Renal Failure: No Seizures: No Sickle Cell Disease: No Sleep Apnea: Yes (no cpap) Thyroid Disease: Yes (HYPOTHYROIDISM) Ulcer: Yes Past Surgical History Abdominal Surgery: No AICD: No Appendectomy: No Arteriovenous Shunt: No Body Medical Devices: CARDIAC STENTx2 Cardiac Surgery: Yes (TWO STENTS, THROMBOLECTOMY 01/2017) Cholecystectomy: No Coronary Artery Bypass Graft: No Coronary Stent: Yes (one stent placed) Ear Surgery: No Endocrine Surgery: No Eye Surgery: No Genitourinary Surgery: Yes (BLADDER TUMORS REMOVED; kidney stent removed) Gynecologic Surgery: No Insulin Pump: No Joint Replacement: No Neurologic Surgery: No Oral Surgery: No Pacemaker: No Thoracic Surgery: Yes Other Surgery: Yes (see hx) Social History Alcohol Use: Yes (RARE) Tobacco Use: Yes 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 Reported Meds & Prescriptions Reported Meds & Active Scripts Active Isosorbide Mononitrate ER (Isosorbide Mononitrate) 30 Mg Yola 30 Mg PO DAILY@07 Coumadin (Warfarin) 5 Mg Tab 5 Mg PO DAILY Percocet (Oxycodone-Acetaminophen) 5-325 mg Tab 1 Tab PO Q6H PRN Reported Gabapentin 300 Mg Cap 900 Mg PO HS Gabapentin 300 Mg Cap 900 Mg PO AC BREAKFAST Gabapentin 300 Mg Cap 600 Mg PO AC LUNCH Coreg (Carvedilol) 6.25 Mg Tab 6.25 Mg PO DAILY Mirtazapine 45 Mg Tab 90 Mg PO HS Cymbalta DR (Duloxetine HCl) 60 Mg Capdr 120 Mg PO DAILY Seroquel (Quetiapine Fumarate) 100 Mg Tab 100 Mg PO BID Xanax (Alprazolam) 2 Mg Tab 2 Mg PO BID PRN Omeprazole 40 Mg Cap 40 Mg PO HS Synthroid (Levothyroxine Sodium) 50 Mcg Tab 50 Mcg PO DAILY Lisinopril 20 Mg Tab 20 Mg PO BID Glucophage (Metformin HCl) 500 Mg Tab 500 Mg PO HS With a meal Nitroglycerin SL (Nitroglycerin) 0.4 Mg Subl 0.4 Mg SL Q 5 MINUTES PRN ONE TABLET UNDER THE TONGUE NEEDED FOR CHEST PAIN, MAY REPEAT EVERY FIVE MINUTES FOR A TOTAL OF 3 DOSES OR CALL 911 IF NO RELIEF Plavix (Clopidogrel Bisulfate) 75 Mg Tab 75 Mg PO DAILY Lipitor (Atorvastatin Calcium) 80 Mg Tab 80 Mg PO HS Review of Systems Except as stated in HPI: all other systems reviewed are Neg Psychiatric: Positive: Depression, Suicidal Ideations Physical Exam Narrative GENERAL: SKIN: Warm and dry. HEAD: Atraumatic. Normocephalic. EYES: Pupils equal and round. No scleral icterus. No injection or drainage. ENT: No nasal bleeding or discharge. Mucous membranes pink and moist. NECK: Trachea midline. No JVD. CARDIOVASCULAR: Regular rate and rhythm. RESPIRATORY: No accessory muscle use. Clear to auscultation. Breath sounds equal bilaterally. GASTROINTESTINAL: Abdomen soft, non-tender, nondistended. Hepatic and splenic margins not palpable. MUSCULOSKELETAL: Extremities without clubbing, cyanosis, or edema. No obvious deformities. NEUROLOGICAL: Awake and alert. No obvious cranial nerve deficits. Motor grossly within normal limits. Five out of 5 muscle strength in the arms and legs. Normal speech. PSYCHIATRIC: depressed mood and sad affect; Data Data Last Documented VS Vital Signs Date Time Temp Pulse Resp B/P (MAP) Pulse Ox O2 Delivery O2 Flow Rate FiO2 03/23/17 09:51 85 18 03/23/17 09:51 98.8 96/55 (69) 99 Room Air Orders Orders Complete Blood Count With Diff (03/23/17 09:58) Comprehensive Metabolic Panel (03/23/17 09:58) Urinalysis - C+S If Indicated (03/23/17 09:58) Psych Screen (03/23/17 09:58) Drug Screen, Random Urine (03/23/17 09:58) Alcohol (Ethanol) (03/23/17 09:58) Salicylates (Aspirin) (03/23/17 09:58) Tylenol (Acetaminophen) (03/23/17 09:58) Prothrombin Time / Inr (Pt) (03/23/17 09:58) Act Partial Throm Time (Ptt) (03/23/17 09:58) Labs Laboratory Tests Test 03/23/17 10:35 03/23/17 12:25 White Blood Count 8.3 TH/MM3 Red Blood Count 4.74 MIL/MM3 Hemoglobin 13.0 GM/DL Hematocrit 40.3 % Mean Corpuscular Volume 85.0 FL Mean Corpuscular Hemoglobin 27.4 PG Mean Corpuscular Hemoglobin Concent 32.2 % Red Cell Distribution Width 17.9 % Platelet Count 261 TH/MM3 Mean Platelet Volume 8.0 FL Neutrophils (%) (Auto) 52.2 % Lymphocytes (%) (Auto) 36.6 % Monocytes (%) (Auto) 8.5 % Eosinophils (%) (Auto) 2.4 % Basophils (%) (Auto) 0.3 % Neutrophils # (Auto) 4.3 TH/MM3 Lymphocytes # (Auto) 3.0 TH/MM3 Monocytes # (Auto) 0.7 TH/MM3 Eosinophils # (Auto) 0.2 TH/MM3 Basophils # (Auto) 0.0 TH/MM3 CBC Comment DIFF FINAL Differential Comment Prothrombin Time 10.3 SEC Prothromb Time International Ratio 0.9 RATIO Activated Partial Thromboplast Time 23.9 SEC Blood Urea Nitrogen 11 MG/DL Creatinine 1.10 MG/DL Random Glucose 86 MG/DL Total Protein 6.5 GM/DL Albumin 3.3 GM/DL Calcium Level 8.6 MG/DL Alkaline Phosphatase 97 U/L Aspartate Amino Transf (AST/SGOT) 20 U/L Alanine Aminotransferase (ALT/SGPT) 25 U/L Total Bilirubin 0.3 MG/DL Sodium Level 140 MEQ/L Potassium Level 3.4 MEQ/L Chloride Level 108 MEQ/L Carbon Dioxide Level 22.1 MEQ/L Anion Gap 10 MEQ/L Estimat Glomerular Filtration Rate 72 ML/MIN Salicylates Level 3.9 MG/DL Acetaminophen Level LESS THAN 2.0 MCG/ML Ethyl Alcohol Level LESS THAN 3 MG/DL MDM Medical Decision Making Medical Screen Exam Complete: Yes Emergency Medical Condition: Yes Medical Record Reviewed: Yes Differential Diagnosis hypoglycemia v electrolyte abnl v anemia Narrative Course CBC, COAG AND CMP WNL, NO E/O UTI EITHER. PATIENT IS CURRENTLY CLEAR FOR PSYCHIATRIC SCREEN/EVALUATION Diagnosis Primary Impression: Medical clearance for psychiatric admission Admitting Information Admitting Physician Requests: Observation Kong Zhou MD Mar 23, 2017 09:58
[2017-03-23 11:07] LABS: AUTOMATED NEUTROPHIL # 4.3 TH/MM3 (1.8-7.7); BASOPHIL % 0.3 % (0.0-2.0); EOSINOPHIL # 0.2 TH/MM3 (0-0.4); EOSINOPHIL % 2.4 % (0.0-4.0); HEMATOCRIT 40.3 % (39.0-51.0); HEMO FLAGS DIFF FINAL; LYMPH % 36.6 % (9.0-44.0); MEAN CORPUSCULAR HEMOGLOBIN 27.4 PG (27.0-34.0); MEAN CORPUSCULAR HGB CONC 32.2 % (32.0-36.0); MONO % 8.5 % (0.0-8.0); NEUT % 52.2 % (16.0-70.0); PLATELET COUNT 261 TH/MM3 (150-450); RED BLOOD COUNT 4.74 MIL/MM3 (4.50-5.90); RED CELL DISTRIBUTION WIDTH 17.9 % (11.6-17.2); WHITE BLOOD COUNT 8.3 TH/MM3 (4.0-11.0)
[2017-03-23 11:08] LABS: APTT (PATIENT) 23.9 SEC (24.3-30.1); INTERNATIONAL NORMALIZED RATIO 0.9 RATIO; PROTHROMBIN TIME - PATIENT 10.3 SEC (9.8-11.6)
[2017-03-23 11:11] LABS: ALCOHOL LESS THAN 3 MG/DL (0-5)
[2017-03-23 11:14] LABS: ACETAMINOPHEN LESS THAN 2.0 MCG/ML (10.0-30.0); ALKALINE PHOSPHATASE 97 U/L (45-117); ALT (GPT) 25 U/L (12-78); ANION GAP 10 MEQ/L (5-15); AST (GOT) 20 U/L (15-37); BICARBONATE 22.1 MEQ/L (21.0-32.0); BLOOD UREA NITROGEN 11 MG/DL (7-18); CHLORIDE 108 MEQ/L (98-107); GLOMERULAR FILTRATION RATE 72 ML/MIN (>89); POTASSIUM 3.4 MEQ/L (3.5-5.1); SODIUM (NA) 140 MEQ/L (136-145); TOTAL BILIRUBIN ADULT 0.3 MG/DL (0.2-1.0)
[2017-03-23] MEDS ORDERED: SERO100T PO (12:23)
[2017-03-23] MEDS ORDERED: GABA300C5 PO ×3 (12:23)
[2017-03-23] MEDS ORDERED: MIRT45TA PO (12:23)
[2017-03-23] MEDS ORDERED: CARV6.25 PO (12:23)
[2017-03-23] MEDS ORDERED: CYMB60CA PO (12:23)
[2017-03-23 12:45] LABS: BLOOD, URINE NEG (NEG); COMMENT (UR) CULT NOT INDICATED; CULTURE IF INDICATED CULT NOT INDICATED; GLUCOSE,URINE NEG (NEG); HYALINE CAST, URINE 17 /lpf (RARE); KETONE, URINE NEG (NEG); MUCUS URINE FEW /lpf (OCC); NITRITE,URINE NEG (NEG); SQUAMOUS EPITHELIAL CELL URINE <1 /hpf (0-5); URINE COLOR YELLOW (YELLW/STRAW)
[2017-03-23 16:15] VITALS: BP 113/57; PULSE 66; RESP 16; O2SAT 98
[2017-03-23 22:05] VITALS: BP 137/67; PULSE 64; RESP 18
[2017-03-24 02:10] VITALS: BP 123/69; PULSE 67; RESP 18; O2SAT 95
[2017-03-24 06:00] VITALS: BP 138/69; PULSE 59; RESP 18; O2SAT 98
--- NOTE | 2017-03-24 09:06 | PD ---
History of Present Illness Chief Complaint: Psychiatric Symptoms Time Seen by Provider: 08:50 Travel History International Travel<30 Days: No Contact w/Intl Traveler<30days: No Known affected area: No Legal Status Legal Status: Involuntary [place] Act Signed By: Ddaa MARRERO [place] Act Comment: CERTIFICATE OF PROFESSIONAL INITIATING INVOLUNTARY EXAMINATION03/23/17@0825 History of Present Illness: History of Present Illness Patient is a 46 year old male with history of depression, alcohol abuse who presents to ED under a BA initiated by [employer] [employer] at [facility]. The report alleges that the patient reported feeling suicidal due to not having his medications and that he was in pain and that he feels like his face is going to explode". Reports prior suicide attempt s in past 2 weeks.He reported thoughts of overdosing on heroin. He was monitored in [facility] and he did not present any behavioral concerns and no suicidality. Patient seen. EMR reviewed.He was last evaluated by psychiatry in Jul 2016 and was sent to [facility] for further treatment. The patient is alert and oriented. dressed in hospital gown. He is calm and engaging. Speech is clear and logical. No psychosis and no meghan. He reports that he feels depressed due to not having his medications. He went to [facility] and told them " if I didn't get my medication I will hurt myself" but denies suicidal ideation , intent or plan at this time. He wants to be able to get a prescription since he will have the coverage to get them at the pharmacy. Patient admits to relapse and use of cocaine ten days ago. JEFF Navarro has contacted [facility] to verify current medication as patient reports he has met his share of cost and will be able to get his prescriptions. PFSH Past Medical History Hx Anticoagulant Therapy: Yes Alzheimer's Disease: Yes Anemia: Yes Arthritis: Yes (BOTH KNEES) Asthma: No Autoimmune Disease: No Blood Disorders: No Bipolar Disorder: Yes Anxiety: Yes Depression: Yes Heart Rhythm Problems: No Cancer: Yes (BLADDER CANCER) Cardiac Catheterization: Yes (2009) Cardiovascular Problems: Yes High Cholesterol: Yes Chemotherapy: Yes (implanted something in bladder s/p tummors removed) Chest Pain: Yes Congestive Heart Failure: Yes COPD: Yes Cerebrovascular Accident: Yes Coronary Artery Disease: Yes Diabetes: Yes Patient Takes Glucophage: Yes Diminished Hearing: No Deep Vein Thrombosis: Yes (right leg, PE and stomach) Endocrine: Yes Gastrointestinal Disorders: Yes (ACID REFLUX, HX ULCER) GERD: Yes Glaucoma: No Genitourinary: Yes (BLADDER TUMORS) Headaches: No Hepatitis: No Hiatal Hernia: Yes Heparin Induced Thrombocytopen: No Hypertension: Yes Immune Disorder: Yes (OA) Implanted Vascular Access Dvce: No Kidney Stones: Yes ( CHRONIC STONES ) Medical other: Yes (H/O DVT RLE) Musculoskeletal: Yes (OSTEOARTHRITIS NICKIE KNESS) Neurologic: Yes (DIABETIC NEUROPATHY) Psychiatric: Yes (BIPOLAR, ANXIETY, DEPRESSION) Reproductive: No Respiratory: Yes (COPD, HX PE) Immunizations Current: Yes Migraines: Yes Myocardial Infarction: Yes (X 2) Radiation Therapy: Yes (pt not sure if bladder insert s/p tumor radition) Renal Failure: No Seizures: No Sickle Cell Disease: No Sleep Apnea: Yes (no cpap) Thyroid Disease: Yes (HYPOTHYROIDISM) Ulcer: Yes Past Surgical History Abdominal Surgery: No AICD: No Appendectomy: No Arteriovenous Shunt: No Body Medical Devices: CARDIAC STENTx2 Cardiac Surgery: Yes (TWO STENTS, THROMBOLECTOMY 01/2017) Cholecystectomy: No Coronary Artery Bypass Graft: No Coronary Stent: Yes (stents) Ear Surgery: No Endocrine Surgery: No Eye Surgery: No Genitourinary Surgery: Yes (BLADDER TUMORS REMOVED; kidney stent removed) Gynecologic Surgery: No Insulin Pump: No Joint Replacement: No Neurologic Surgery: No Oral Surgery: No Pacemaker: No Thoracic Surgery: Yes Other Surgery: Yes (see hx) Psychiatric History Psychiatric History Hx Psychiatric Treatment: [facility] 5 YRS AGO INPATIENT. Has been receiving outpatietn care at [facility] and see Tirso. History of Inpatient Treatment: Yes Guns or firearms in home: No Social History Single male. Lives by himself. On medical disability. Has 4 adult children. Hx Alcohol Use: Yes (RARE) Hx Tobacco Use: No Hx Substance Use: Yes (states took cocaine and heroin last week) Substance Use Type: Alcohol, Nicotine/Cigarettes, Benzos (Valium,Xanax) Other Substances Used: ETOH - couple pints of Vodka straight. Hx of Substance Use Treatment: Yes Family Psychiatric History None reported Allergies-Medications (Allergen,Severity, Reaction): Coded Allergies: penicillin G (Unverified Allergy, Severe, Anaphylaxis, 03/23/17) Per pt. Reported Meds & Prescriptions Reported Meds & Active Scripts Active Isosorbide Mononitrate ER (Isosorbide Mononitrate) 30 Mg Yola 30 Mg PO DAILY@07 Coumadin (Warfarin) 5 Mg Tab 5 Mg PO DAILY Percocet (Oxycodone-Acetaminophen) 5-325 mg Tab 1 Tab PO Q6H PRN Reported Gabapentin 300 Mg Cap 900 Mg PO HS Gabapentin 300 Mg Cap 900 Mg PO AC BREAKFAST Gabapentin 300 Mg Cap 600 Mg PO AC LUNCH Coreg (Carvedilol) 6.25 Mg Tab 6.25 Mg PO DAILY Mirtazapine 45 Mg Tab 90 Mg PO HS Cymbalta DR (Duloxetine HCl) 60 Mg Capdr 120 Mg PO DAILY Seroquel (Quetiapine Fumarate) 100 Mg Tab 100 Mg PO BID Xanax (Alprazolam) 2 Mg Tab 2 Mg PO BID PRN Omeprazole 40 Mg Cap 40 Mg PO HS Synthroid (Levothyroxine Sodium) 50 Mcg Tab 50 Mcg PO DAILY Lisinopril 20 Mg Tab 20 Mg PO BID Glucophage (Metformin HCl) 500 Mg Tab 500 Mg PO HS With a meal Nitroglycerin SL (Nitroglycerin) 0.4 Mg Subl 0.4 Mg SL Q 5 MINUTES PRN ONE TABLET UNDER THE TONGUE NEEDED FOR CHEST PAIN, MAY REPEAT EVERY FIVE MINUTES FOR A TOTAL OF 3 DOSES OR CALL 911 IF NO RELIEF Plavix (Clopidogrel Bisulfate) 75 Mg Tab 75 Mg PO DAILY Lipitor (Atorvastatin Calcium) 80 Mg Tab 80 Mg PO HS Review of Systems Musculoskeletal: COMPLAINS OF: Back pain Exam Alert: Yes [place]il: Person (ox4) Mood: Calm Affect: Appropriate Speech: Clear, Logical Eye Contact: Normal Memory Intact: Comment (no impairment ) Hallucinations: Other (denies any) Delusions: No Suicidal: Ideation (denies any) Homicidal: Ideation (deneis any) Insight/Judgement Fair. Not impaired. MDM Medical Decision Making Medical Record Reviewed: Yes Assessment/Plan Patient is a 46 year old male with history of depression, alcohol abuse who presents to ED under a BA initiated by PRODUCTION RECORDER at [facility]. The report alleges that the patient reported feeling suicidal due to not having his medications and that he was in pain and that he feels like his face is going to explode". Patient was monitored in safe environment and did not present any suicidality or behavioral concerns.He is wanting to get back on his medications and plans on continuing care with Tiros at [facility]. He will be provided with a 15 day supply of medication to follow up with [facility]. Orders Orders Complete Blood Count With Diff (03/23/17 09:58) Comprehensive Metabolic Panel (03/23/17 09:58) Urinalysis - C+S If Indicated (03/23/17 09:58) Psych Screen (03/23/17 09:58) Drug Screen, Random Urine (03/23/17 09:58) Alcohol (Ethanol) (03/23/17 09:58) Salicylates (Aspirin) (03/23/17 09:58) Tylenol (Acetaminophen) (03/23/17 09:58) Prothrombin Time / Inr (Pt) (03/23/17 09:58) Act Partial Throm Time (Ptt) (03/23/17 09:58) Diet Diabetic (03/24/17 Breakfast) Results Vital Signs Date Time Temp Pulse Resp B/P (MAP) Pulse Ox O2 Delivery O2 Flow Rate FiO2 03/24/17 06:00 59 18 138/69 (92) 98 Room Air 03/24/17 02:10 67 18 123/69 (87) 95 Room Air 03/23/17 22:05 64 18 137/67 (90) 03/23/17 16:15 66 16 113/57 (75) 98 Room Air 03/23/17 15:27 03/23/17 09:51 85 18 03/23/17 09:51 98.8 85 18 96/55 (69) 99 Room Air 03/23/17 09:43 98.8 85 18 96/55 (69) 99 Laboratory Tests Test 03/23/17 10:35 03/23/17 12:25 White Blood Count 8.3 Red Blood Count 4.74 Hemoglobin 13.0 Hematocrit 40.3 Mean Corpuscular Volume 85.0 Mean Corpuscular Hemoglobin 27.4 Mean Corpuscular Hemoglobin Concent 32.2 Red Cell Distribution Width 17.9 Platelet Count 261 Mean Platelet Volume 8.0 Neutrophils (%) (Auto) 52.2 Lymphocytes (%) (Auto) 36.6 Monocytes (%) (Auto) 8.5 Eosinophils (%) (Auto) 2.4 Basophils (%) (Auto) 0.3 Neutrophils # (Auto) 4.3 Lymphocytes # (Auto) 3.0 Monocytes # (Auto) 0.7 Eosinophils # (Auto) 0.2 Basophils # (Auto) 0.0 CBC Comment DIFF FINAL Differential Comment Prothrombin Time 10.3 Prothromb Time International Ratio 0.9 Activated Partial Thromboplast Time 23.9 Blood Urea Nitrogen 11 Creatinine 1.10 Random Glucose 86 Total Protein 6.5 Albumin 3.3 Calcium Level 8.6 Alkaline Phosphatase 97 Aspartate Amino Transf (AST/SGOT) 20 Alanine Aminotransferase (ALT/SGPT) 25 Total Bilirubin 0.3 Sodium Level 140 Potassium Level 3.4 Chloride Level 108 Carbon Dioxide Level 22.1 Anion Gap 10 Estimat Glomerular Filtration Rate 72 Salicylates Level 3.9 Acetaminophen Level LESS THAN 2.0 Ethyl Alcohol Level LESS THAN 3 Urine Color YELLOW Urine Turbidity CLEAR Urine pH 6.0 Urine Specific [place] 1.020 Urine Protein 30 Urine Glucose (UA) NEG Urine Ketones NEG Urine Occult Blood NEG Urine Nitrite NEG Urine Bilirubin NEG Urine Urobilinogen 2.0 Urine Leukocyte Esterase TRACE Urine RBC LESS THAN 1 Urine WBC 7 Urine Squamous Epithelial Cells <1 Urine Hyaline Casts 17 Urine Mucus FEW Microscopic Urinalysis Comment CULT NOT INDICATED Urine Opiates Screen NEG Urine Barbiturates Screen NEG Urine Amphetamines Screen NEG Urine Benzodiazepines Screen POS Urine Cocaine Screen NEG Urine Cannabinoids Screen NEG Diagnosis Primary Impression: Major depressive disorder, recurrent Additional Impression: Cocaine abuse Psychiatrically Cleared: Yes Med/ Other Pt Specific Info: Prescription(s) given Prescriptions Duloxetine DR (Cymbalta DR) 60 Mg Capdr 60 MG PO DAILY, #15 CAP 0 Refills Prov: Siu,Radha Puja Valencia [employer] 03/24/17 Quetiapine (Seroquel) 100 Mg Tab 100 MG PO BID for Anxiety and/or Insomnia, #30 TAB 0 Refills Prov: Siu,Radha Puja Valencia [employer] 03/24/17 Mirtazapine (Mirtazapine) 30 Mg Tab 30 MG PO HS for Depression Control for 14 Days, #15 TAB 0 Refills Prov: Siu,Radha Puja Valencia [employer]ORDER 03/24/17 Disposition: 01 DISCHARGE HOME Condition: Stable Problem Qualifiers Primary Impression: Major depressive disorder, recurrent Qualified Codes: F33.0 - Major depressive disorder, recurrent, mild Radha Siu [facility] Mar 24, 2017 09:06
[2017-03-24] MEDS ORDERED: MIRT30TA PO (09:08)
[2017-03-24] MEDS ORDERED: SERO100T PO (09:09)
[2017-03-24] MEDS ORDERED: CYMB60CA PO (09:10)
[2017-04-16] MEDS ORDERED: CYMB60CA PO (14:37)
[2017-05-05] MEDS ORDERED: PERC5TAB12 PO (12:27)
[2017-05-11] MEDS ORDERED: PERC10TA27 PO (10:47)
== END 2017-03-24 11:41 | disposition home or self-care (01) ==
LOC: NEPD 09:28 → NEPJ 03-24 11:41
DX: F33.0 Major depressive disorder, recurrent, mild (principal); E03.9 Hypothyroidism, unspecified; E11.40 Type 2 diabetes mellitus with diabetic neuropathy, unspecified; I50.9 Heart failure, unspecified; Z72.0 Tobacco use; Z79.84 Long term (current) use of oral hypoglycemic drugs; Z79.899 Other long term (current) drug therapy
CPT/HCPCS: 80053; 80307; 81001; 85025; 85610; 85730; 99284

== ENCOUNTER 2017-05-01 14:52 | Emergency (ER) | payer MEDICAID, OTHER ==
[~2017-05-01] VITALS: Ht 182.9 cm; Wt 145.0 kg
[~2017-05-01 14:52] MED LIST changes: -CARV3.125 PO; +CARV6.25 PO; -COUM10TA PO; +GABA300C5 PO; -GABA600T PO; +MIRT45TA PO; -REME45TA PO; +SERO100T PO
[2017-05-01 14:54] VITALS: BP 111/55; PULSE 107; RESP 14; TEMP 100.8; O2SAT 96
[2017-05-01 18:32] VITALS: BP 124/63; PULSE 91; RESP 19; TEMP 98.9; O2SAT 97
[2017-05-01] MEDS ORDERED: HYDROmorphone HCL PF 1 MG/ML VIAL IVS ONE (20:00)
--- NOTE | 2017-05-01 20:03 | PD ---
HPI Chief Complaint: Complaint Time Seen by Provider: 18:56 Travel History International Travel<30 days: No Contact w/Intl Traveler<30days: No Traveled to known affect area: No History of Present Illness HPI Is a 46-year-old male multiple medical problems including recurrent bladder cancer presents to the emergency department with pelvic pain, feels a Hot poker stabbing him and his penis, with intermittent spasms in his bladder. He's got a history of chronic pain, states he was prescribed Tylenol with Codeine recently but to chronic opiates in the past. He also is diabetic nerve pain. States she's had similar pain to this in the past. He is due for bladder surgery in the next several weeks. History Past Medical History Narrative Medical Severe peripheral vascular disease not hypertension on hyponatremia CAD, status post and Anxiety and depression Bipolar disorder Bladder cancer History of DVT History of cocaine abuse Ongoing tobacco use Social History Alcohol Use: Yes (RARE) Tobacco Use: Yes (6 CIGARETTES PER DAY) Allergies-Medications (Allergen,Severity, Reaction): Coded Allergies: penicillin G (Unverified Allergy, Severe, Anaphylaxis, 05/01/17) Per pt. Reported Meds & Prescriptions Reported Meds & Active Scripts Active Seroquel (Quetiapine Fumarate) 100 Mg Tab 100 Mg PO BID Isosorbide Mononitrate ER (Isosorbide Mononitrate) 30 Mg Yola 30 Mg PO DAILY@07 Coumadin (Warfarin) 5 Mg Tab 5 Mg PO DAILY Percocet (Oxycodone-Acetaminophen) 5-325 mg Tab 1 Tab PO Q6H PRN Reported Cymbalta DR (Duloxetine HCl) 60 Mg Capdr 120 Mg PO DAILY Gabapentin 300 Mg Cap 900 Mg PO HS Gabapentin 300 Mg Cap 600 Mg PO AC BREAKFAST Gabapentin 300 Mg Cap 900 Mg PO AC LUNCH Coreg (Carvedilol) 6.25 Mg Tab 6.25 Mg PO DAILY Mirtazapine 45 Mg Tab 90 Mg PO HS Xanax (Alprazolam) 2 Mg Tab 2 Mg PO BID PRN Omeprazole 40 Mg Cap 40 Mg PO HS Synthroid (Levothyroxine Sodium) 50 Mcg Tab 50 Mcg PO DAILY Lisinopril 20 Mg Tab 20 Mg PO BID Glucophage (Metformin HCl) 500 Mg Tab 500 Mg PO HS With a meal Nitroglycerin SL (Nitroglycerin) 0.4 Mg Subl 0.4 Mg SL Q 5 MINUTES PRN ONE TABLET UNDER THE TONGUE NEEDED FOR CHEST PAIN, MAY REPEAT EVERY FIVE MINUTES FOR A TOTAL OF 3 DOSES OR CALL 911 IF NO RELIEF Plavix (Clopidogrel Bisulfate) 75 Mg Tab 75 Mg PO DAILY Lipitor (Atorvastatin Calcium) 80 Mg Tab 80 Mg PO HS Review of Systems Except as stated in HPI: all other systems reviewed are Neg Physical Exam Narrative GENERAL: 46-year-old man, obese, generally well-appearing, no acute distress. SKIN: Focused skin assessment warm/dry. HEAD: Atraumatic. Normocephalic. CARDIOVASCULAR: Regular rate and rhythm. No murmur appreciated. RESPIRATORY: No accessory muscle use. Clear to auscultation. Breath sounds equal bilaterally. GASTROINTESTINAL: Abdomen is obese and soft. Is no significant abdominal tenderness. No rebound or guarding. MUSCULOSKELETAL: No obvious deformities. No clubbing. No cyanosis. No edema. NEUROLOGICAL: Awake and alert. No obvious cranial nerve deficits. Motor grossly within normal limits. Normal speech. PSYCHIATRIC: Appropriate mood and affect; insight and judgment normal. Data Data Last Documented VS Vital Signs Date Time Temp Pulse Resp B/P (MAP) Pulse Ox O2 Delivery O2 Flow Rate FiO2 05/01/17 18:32 98.9 91 19 124/63 (83) 97 Room Air Orders Orders Complete Blood Count With Diff (05/01/17 19:30) Comprehensive Metabolic Panel (05/01/17 19:30) Urinalysis - C+S If Indicated (05/01/17 19:30) Ed Poc Ultrasound (05/01/17 ) Hydromorphone Pf Inj (Dilaudid Pf Inj) (05/01/17 20:00) Labs Laboratory Tests Test 05/01/17 19:40 05/01/17 19:50 White Blood Count 9.2 TH/MM3 Red Blood Count 4.54 MIL/MM3 Hemoglobin 12.4 GM/DL Hematocrit 38.2 % Mean Corpuscular Volume 84.2 FL Mean Corpuscular Hemoglobin 27.3 PG Mean Corpuscular Hemoglobin Concent 32.5 % Red Cell Distribution Width 18.1 % Platelet Count 204 TH/MM3 Mean Platelet Volume 8.0 FL Neutrophils (%) (Auto) 62.5 % Lymphocytes (%) (Auto) 27.9 % Monocytes (%) (Auto) 6.7 % Eosinophils (%) (Auto) 1.8 % Basophils (%) (Auto) 1.1 % Neutrophils # (Auto) 5.7 TH/MM3 Lymphocytes # (Auto) 2.6 TH/MM3 Monocytes # (Auto) 0.6 TH/MM3 Eosinophils # (Auto) 0.2 TH/MM3 Basophils # (Auto) 0.1 TH/MM3 CBC Comment DIFF FINAL Differential Comment Blood Urea Nitrogen 14 MG/DL Creatinine 1.16 MG/DL Random Glucose 82 MG/DL Total Protein 6.8 GM/DL Albumin 3.0 GM/DL Calcium Level 8.5 MG/DL Alkaline Phosphatase 110 U/L Aspartate Amino Transf (AST/SGOT) 42 U/L Alanine Aminotransferase (ALT/SGPT) 23 U/L Total Bilirubin 0.4 MG/DL Sodium Level 138 MEQ/L Potassium Level 4.6 MEQ/L Chloride Level 108 MEQ/L Carbon Dioxide Level 23.1 MEQ/L Anion Gap 7 MEQ/L Estimat Glomerular Filtration Rate 67 ML/MIN Urine Color YELLOW Urine Turbidity CLEAR Urine pH 6.0 Urine Specific [place] 1.029 Urine Protein 30 mg/dL Urine Glucose (UA) NEG mg/dL Urine Ketones NEG mg/dL Urine Occult Blood NEG Urine Nitrite NEG Urine Bilirubin NEG Urine Urobilinogen 2.0 MG/DL Urine Leukocyte Esterase NEG Urine RBC 1 /hpf Urine WBC 2 /hpf Urine Mucus FEW /lpf Microscopic Urinalysis Comment CULT NOT INDICATED MDM Medical Decision Making Medical Screen Exam Complete: Yes Emergency Medical Condition: Yes Interpretation(s) LABS: CBC is unremarkable. Mild anemia. CMP overall unremarkable. GFR is a little elevated. Minimal elevation in AST. UA negative Differential Diagnosis Urinary retention, bladder spasms, chronic pain, UTI, other Narrative Course Medical decision making 46 year-old woman presents emergent arm with difficulty voiding and bladder pain and history of recurrent bladder cancer. He is due for recurrent intervention in the next couple weeks. Looks well. He voided normally in the emergency department. When care ultrasound shows normal post void residual volumes. We'll check urine, labs, recommend outpatient follow-up. Procedures Procedure Narrative Point of care ultrasound: Focus transabdominal ultrasound performed to evaluate for the evidence of urinary retention. No evidence of bladder distention was seen. Diagnosis Primary Impression: Pelvic pain in male Additional Instructions: Follow-up with urologist on Thursday. Take hyoscyamine as needed for bladder spasms. Med/Other Pt SpecificInfo: Prescription(s) given Scripts Hyoscyamine (Hyoscyamine) 0.125 Mg Tab 0.125 MG PO Q6H for Bladder Spasm, #15 TAB 0 Refills Prov: Claudy Benites MD 05/01/17 Disposition: 01 DISCHARGE HOME Condition: Stable Claudy Benites MD May 01, 2017 20:03
[2017-05-01 20:06] LABS: AUTOMATED NEUTROPHIL # 5.7 TH/MM3 (1.8-7.7); BASOPHIL # 0.1 TH/MM3 (0-0.2); BASOPHIL % 1.1 % (0.0-2.0); EOSINOPHIL # 0.2 TH/MM3 (0-0.4); EOSINOPHIL % 1.8 % (0.0-4.0); HEMATOCRIT 38.2 % (39.0-51.0); HEMO FLAGS DIFF FINAL; LYMPH % 27.9 % (9.0-44.0); LYMPHOCYTE # 2.6 TH/MM3 (1.0-4.8); MEAN CELL VOLUME 84.2 FL (80.0-100.0); MEAN CORPUSCULAR HEMOGLOBIN 27.3 PG (27.0-34.0); MEAN CORPUSCULAR HGB CONC 32.5 % (32.0-36.0); MONO % 6.7 % (0.0-8.0); NEUT % 62.5 % (16.0-70.0); PLATELET COUNT 204 TH/MM3 (150-450); RED BLOOD COUNT 4.54 MIL/MM3 (4.50-5.90); RED CELL DISTRIBUTION WIDTH 18.1 % (11.6-17.2); WHITE BLOOD COUNT 9.2 TH/MM3 (4.0-11.0)
[2017-05-01 20:19] LABS: ALT (GPT) 23 U/L (12-78)
[2017-05-01 20:21] LABS: ALKALINE PHOSPHATASE 110 U/L (45-117); TOTAL BILIRUBIN ADULT 0.4 MG/DL (0.2-1.0)
[2017-05-01 20:26] LABS: ANION GAP 7 MEQ/L (5-15); AST (GOT) 42 U/L (15-37); BICARBONATE 23.1 MEQ/L (21.0-32.0); BLOOD UREA NITROGEN 14 MG/DL (7-18); CHLORIDE 108 MEQ/L (98-107); GLOMERULAR FILTRATION RATE 67 ML/MIN (>89); POTASSIUM 4.6 MEQ/L (3.5-5.1); SODIUM (NA) 138 MEQ/L (136-145)
[2017-05-01 20:33] LABS: BLOOD, URINE NEG (NEG); COMMENT (UR) CULT NOT INDICATED; CULTURE IF INDICATED CULT NOT INDICATED; GLUCOSE,URINE NEG (NEG); KETONE, URINE NEG (NEG); MUCUS URINE FEW /lpf (OCC); NITRITE,URINE NEG (NEG); URINE COLOR YELLOW (YELLW/STRAW)
[2017-05-01] MEDS ORDERED: HYOS0.128 PO (20:43)
[2017-05-05] MEDS ORDERED: PERC5TAB12 PO (12:27)
[2017-05-11] MEDS ORDERED: PERC10TA27 PO (10:47)
== END 2017-05-01 21:11 | disposition home or self-care (01) ==
LOC: NEPE 14:52
DX: R10.2 Pelvic and perineal pain (principal); I73.9 Peripheral vascular disease, unspecified; Z72.0 Tobacco use
CPT/HCPCS: 80053; 81001; 85025; 96374; 99285; J1170

== ENCOUNTER 2017-05-04 11:18 | Emergency (ER) | payer MEDICAID, OTHER ==
[~2017-05-04 11:18] MED LIST changes: +HYOS0.128 PO
[2017-05-04 11:23] VITALS: BP 134/75; PULSE 110; RESP 15; TEMP 97.8; O2SAT 96
--- NOTE | 2017-05-04 11:28 | PD ---
Physical Exam Time Seen by Provider: 11:26 Narrative History of recurrent bladder and prostate ca. Severe pain x 5 days; was seen Aashish here and given hyoscyamine and it is not working. Pt's urologist Dr. Galindo- has called office, advised patient to come here. No fever/chills. Nausea without vomiting. Urinary urgency with burning. No hematuria. Data Data Last Documented VS Vital Signs Date Time Temp Pulse Resp B/P (MAP) Pulse Ox O2 Delivery O2 Flow Rate FiO2 05/04/17 11:23 97.8 110 15 134/75 (94) 96 Orders Orders Urinalysis - C+S If Indicated (05/04/17 11:28) Complete Blood Count With Diff (05/04/17 11:29) Basic Metabolic Panel (Bmp) (05/04/17 11:29) Tramadol (Ultram) (05/04/17 16:00) Labs Laboratory Tests Test 05/04/17 12:07 05/04/17 12:13 White Blood Count 6.7 TH/MM3 Red Blood Count 4.68 MIL/MM3 Hemoglobin 12.9 GM/DL Hematocrit 39.3 % Mean Corpuscular Volume 84.0 FL Mean Corpuscular Hemoglobin 27.5 PG Mean Corpuscular Hemoglobin Concent 32.8 % Red Cell Distribution Width 18.2 % Platelet Count 279 TH/MM3 Mean Platelet Volume 7.5 FL Neutrophils (%) (Auto) 61.6 % Lymphocytes (%) (Auto) 28.5 % Monocytes (%) (Auto) 7.0 % Eosinophils (%) (Auto) 2.5 % Basophils (%) (Auto) 0.4 % Neutrophils # (Auto) 4.1 TH/MM3 Lymphocytes # (Auto) 1.9 TH/MM3 Monocytes # (Auto) 0.5 TH/MM3 Eosinophils # (Auto) 0.2 TH/MM3 Basophils # (Auto) 0.0 TH/MM3 CBC Comment DIFF FINAL Differential Comment Blood Urea Nitrogen 11 MG/DL Creatinine 1.08 MG/DL Random Glucose 113 MG/DL Calcium Level 8.5 MG/DL Sodium Level 138 MEQ/L Potassium Level 4.3 MEQ/L Chloride Level 109 MEQ/L Carbon Dioxide Level 24.0 MEQ/L Anion Gap 5 MEQ/L Estimat Glomerular Filtration Rate 73 ML/MIN Urine Color STRAW Urine Turbidity CLEAR Urine pH 6.0 Urine Specific [place] 1.002 Urine Protein NEG mg/dL Urine Glucose (UA) NEG mg/dL Urine Ketones NEG mg/dL Urine Occult Blood NEG Urine Nitrite NEG Urine Bilirubin NEG Urine Urobilinogen LESS THAN 2.0 MG/DL Urine Leukocyte Esterase NEG Microscopic Urinalysis Comment CULT NOT INDICATED MDM Medical Record Reviewed: Yes Supervised Visit with SATURNINO: No Scripts Phenazopyridine (Pyridium) 100 Mg Tab 100 MG PO Q8H Y for DYSURIA, #30 TAB 0 Refills Prov: Dominic Reardon MD 05/04/17 Methocarbamol (Robaxin) 750 Mg Tab 750 MG PO QID for Pain, #60 TAB 0 Refills Prov: Dominic Reardon MD 05/04/17 Condition: Stable Justyna Albright May 04, 2017 11:28
[2017-05-04 12:34] LABS: AUTOMATED NEUTROPHIL # 4.1 TH/MM3 (1.8-7.7); BASOPHIL % 0.4 % (0.0-2.0); EOSINOPHIL # 0.2 TH/MM3 (0-0.4); EOSINOPHIL % 2.5 % (0.0-4.0); HEMATOCRIT 39.3 % (39.0-51.0); HEMO FLAGS DIFF FINAL; LYMPH % 28.5 % (9.0-44.0); LYMPHOCYTE # 1.9 TH/MM3 (1.0-4.8); MEAN CORPUSCULAR HEMOGLOBIN 27.5 PG (27.0-34.0); MEAN CORPUSCULAR HGB CONC 32.8 % (32.0-36.0); NEUT % 61.6 % (16.0-70.0); PLATELET COUNT 279 TH/MM3 (150-450); RED BLOOD COUNT 4.68 MIL/MM3 (4.50-5.90); RED CELL DISTRIBUTION WIDTH 18.2 % (11.6-17.2); WHITE BLOOD COUNT 6.7 TH/MM3 (4.0-11.0)
[2017-05-04 12:50] LABS: BLOOD, URINE NEG (NEG); GLUCOSE,URINE NEG (NEG); KETONE, URINE NEG (NEG); NITRITE,URINE NEG (NEG)
[2017-05-04 12:50] LABS: POTASSIUM 4.3 MEQ/L (3.5-5.1)
[2017-05-04 12:57] LABS: COMMENT (UR) CULT NOT INDICATED; CULTURE IF INDICATED CULT NOT INDICATED; URINE COLOR STRAW (YELLW/STRAW)
[2017-05-04] MEDS ORDERED: MACR100C2 PO (13:06)
[2017-05-04] MEDS ORDERED: PHEN0.4T PO ×2 (13:08→15:47)
[2017-05-04] MEDS ORDERED: ROBA750T PO (15:47)
--- NOTE | 2017-05-04 15:48 | PD ---
HPI Chief Complaint: Complaint Time Seen by Provider: 15:20 Travel History International Travel<30 days: No Contact w/Intl Traveler<30days: No Traveled to known affect area: No History of Present Illness HPI 46-year-old male complains of pelvic pain and dysuria and frequency and urinary retention. Patient has history of prostate and bladder cancer status post resection of the lesions. Patient has been seen by Dr. Galindo for follow-up. Patient has been taking oxybutynin, Levsin and [id number] Azo for pain. Patient states that he has recurrent pelvic pain and dysuria and frequency and urinary retention despite taking the medications. Patient denies any fever chills. Patient denies any back pain. PFSH Past Medical History Hx Anticoagulant Therapy: Yes Alzheimer's Disease: Yes Anemia: Yes Arthritis: Yes (BOTH KNEES) Asthma: No Autoimmune Disease: No Blood Disorders: No Bipolar Disorder: Yes Anxiety: Yes Depression: Yes Heart Rhythm Problems: No Cancer: Yes (BLADDER CANCER) Cardiac Catheterization: Yes (2009) Cardiovascular Problems: Yes High Cholesterol: Yes Chemotherapy: Yes (implanted something in bladder s/p tummors removed) Chest Pain: Yes Congestive Heart Failure: Yes COPD: Yes Cerebrovascular Accident: Yes Coronary Artery Disease: Yes Diabetes: Yes Diminished Hearing: No Deep Vein Thrombosis: Yes (right leg, PE and stomach) Endocrine: Yes Gastrointestinal Disorders: Yes (ACID REFLUX, HX ULCER) GERD: Yes Glaucoma: No Genitourinary: Yes (BLADDER TUMORS) Headaches: No Hepatitis: No Hiatal Hernia: Yes Heparin Induced Thrombocytopen: No Hypertension: Yes Immune Disorder: Yes (OA) Implanted Vascular Access Dvce: No Kidney Stones: Yes ( CHRONIC STONES ) Musculoskeletal: Yes (OSTEOARTHRITIS NICKIE KNESS) Neurologic: Yes (DIABETIC NEUROPATHY) Psychiatric: Yes (BIPOLAR, ANXIETY, DEPRESSION) Reproductive: No Respiratory: Yes (COPD, HX PE) Immunizations Current: Yes Migraines: Yes Myocardial Infarction: Yes (X 2) Radiation Therapy: Yes (pt not sure if bladder insert s/p tumor radition) Renal Failure: No Seizures: No Sickle Cell Disease: No Sleep Apnea: Yes (no cpap) Thyroid Disease: Yes (HYPOTHYROIDISM) Ulcer: Yes Past Surgical History Abdominal Surgery: No AICD: No Appendectomy: No Arteriovenous Shunt: No Body Medical Devices: CARDIAC STENTx2 Cardiac Surgery: Yes (TWO STENTS, THROMBOLECTOMY 01/2017) Cholecystectomy: No Coronary Artery Bypass Graft: No Coronary Stent: Yes (stents) Ear Surgery: No Endocrine Surgery: No Eye Surgery: No Genitourinary Surgery: Yes (BLADDER TUMORS REMOVED; kidney stent removed) Gynecologic Surgery: No Insulin Pump: No Joint Replacement: No Neurologic Surgery: No Oral Surgery: No Pacemaker: No Thoracic Surgery: Yes Other Surgery: Yes (see hx) Social History Alcohol Use: Yes (RARE) Tobacco Use: Yes (6 CIGARETTES PER DAY) Substance Use: Yes (states took cocaine and heroin last week) Allergies-Medications (Allergen,Severity, Reaction): Coded Allergies: penicillin G (Verified Allergy, Severe, Anaphylaxis, 05/04/17) Per pt. Reported Meds & Prescriptions Reported Meds & Active Scripts Active Pyridium (Phenazopyridine HCl) 100 Mg Tab 100 Mg PO Q8H PRN Robaxin (Methocarbamol) 750 Mg Tab 750 Mg PO QID Pyridium (Phenazopyridine HCl) 100 Mg Tab 100 Mg PO Q8HR Hyoscyamine (Hyoscyamine Sulfate) 0.125 Mg Tab 0.125 Mg PO Q6H Seroquel (Quetiapine Fumarate) 100 Mg Tab 100 Mg PO BID Isosorbide Mononitrate ER (Isosorbide Mononitrate) 30 Mg Yola 30 Mg PO DAILY@07 Coumadin (Warfarin) 5 Mg Tab 5 Mg PO DAILY Reported Cymbalta DR (Duloxetine HCl) 60 Mg Capdr 120 Mg PO DAILY Gabapentin 300 Mg Cap 900 Mg PO HS Gabapentin 300 Mg Cap 600 Mg PO AC BREAKFAST Gabapentin 300 Mg Cap 900 Mg PO AC LUNCH Coreg (Carvedilol) 6.25 Mg Tab 6.25 Mg PO DAILY Mirtazapine 45 Mg Tab 90 Mg PO HS Xanax (Alprazolam) 2 Mg Tab 2 Mg PO BID PRN Omeprazole 40 Mg Cap 40 Mg PO HS Synthroid (Levothyroxine Sodium) 50 Mcg Tab 50 Mcg PO DAILY Lisinopril 20 Mg Tab 20 Mg PO BID Glucophage (Metformin HCl) 500 Mg Tab 500 Mg PO HS With a meal Nitroglycerin SL (Nitroglycerin) 0.4 Mg Subl 0.4 Mg SL Q 5 MINUTES PRN ONE TABLET UNDER THE TONGUE NEEDED FOR CHEST PAIN, MAY REPEAT EVERY FIVE MINUTES FOR A TOTAL OF 3 DOSES OR CALL 911 IF NO RELIEF Plavix (Clopidogrel Bisulfate) 75 Mg Tab 75 Mg PO DAILY Lipitor (Atorvastatin Calcium) 80 Mg Tab 80 Mg PO HS Review of Systems General / Constitutional: No: Fever Eyes: No: Visual changes HENT: No: Headaches Cardiovascular: No: Chest Pain or Discomfort Respiratory: No: Shortness of Breath Gastrointestinal: No: Abdominal Pain Genitourinary: Positive: Frequency, Dysuria, Decreased Urinary Output Musculoskeletal: No: Pain Skin: No Rash Neurologic: No: Weakness Psychiatric: No: Depression Endocrine: No: Polydipsia Hematologic/Lymphatic: No: Easy Bruising Physical Exam Narrative GENERAL: Well-nourished, well-developed patient. SKIN: Focused skin assessment warm/dry. HEAD: Normocephalic. EYES: No scleral icterus. No injection or drainage. NECK: Supple, trachea midline. No JVD or lymphadenopathy. CARDIOVASCULAR: Regular rate and rhythm without murmurs, gallops, or rubs. RESPIRATORY: Breath sounds equal bilaterally. No accessory muscle use. GASTROINTESTINAL: Abdomen soft, non-tender, nondistended. MUSCULOSKELETAL: No cyanosis, or edema. BACK: Nontender without obvious deformity. No CVA tenderness. exam: No penile lesion noted. No redness swelling of the penis. No tenderness on palpation of the scrotum or testicle. Data Data Last Documented VS Vital Signs Date Time Temp Pulse Resp B/P (MAP) Pulse Ox O2 Delivery O2 Flow Rate FiO2 05/04/17 11:23 97.8 110 15 134/75 (94) 96 Orders Orders Urinalysis - C+S If Indicated (05/04/17 11:28) Complete Blood Count With Diff (05/04/17 11:29) Basic Metabolic Panel (Bmp) (05/04/17 11:29) Tramadol (Ultram) (05/04/17 16:00) Labs Laboratory Tests Test 05/04/17 12:07 05/04/17 12:13 White Blood Count 6.7 TH/MM3 Red Blood Count 4.68 MIL/MM3 Hemoglobin 12.9 GM/DL Hematocrit 39.3 % Mean Corpuscular Volume 84.0 FL Mean Corpuscular Hemoglobin 27.5 PG Mean Corpuscular Hemoglobin Concent 32.8 % Red Cell Distribution Width 18.2 % Platelet Count 279 TH/MM3 Mean Platelet Volume 7.5 FL Neutrophils (%) (Auto) 61.6 % Lymphocytes (%) (Auto) 28.5 % Monocytes (%) (Auto) 7.0 % Eosinophils (%) (Auto) 2.5 % Basophils (%) (Auto) 0.4 % Neutrophils # (Auto) 4.1 TH/MM3 Lymphocytes # (Auto) 1.9 TH/MM3 Monocytes # (Auto) 0.5 TH/MM3 Eosinophils # (Auto) 0.2 TH/MM3 Basophils # (Auto) 0.0 TH/MM3 CBC Comment DIFF FINAL Differential Comment Blood Urea Nitrogen 11 MG/DL Creatinine 1.08 MG/DL Random Glucose 113 MG/DL Calcium Level 8.5 MG/DL Sodium Level 138 MEQ/L Potassium Level 4.3 MEQ/L Chloride Level 109 MEQ/L Carbon Dioxide Level 24.0 MEQ/L Anion Gap 5 MEQ/L Estimat Glomerular Filtration Rate 73 ML/MIN Urine Color STRAW Urine Turbidity CLEAR Urine pH 6.0 Urine Specific [place] 1.002 Urine Protein NEG mg/dL Urine Glucose (UA) NEG mg/dL Urine Ketones NEG mg/dL Urine Occult Blood NEG Urine Nitrite NEG Urine Bilirubin NEG Urine Urobilinogen LESS THAN 2.0 MG/DL Urine Leukocyte Esterase NEG Microscopic Urinalysis Comment CULT NOT INDICATED MDM Medical Decision Making Medical Screen Exam Complete: Yes Emergency Medical Condition: Yes Differential Diagnosis Differential diagnosis including urethritis, UTI, bladder spasm. Narrative Course 46-year-old male with persistent dysuria or frequency pelvic pain. History of prostate and bladder cancer. Ultram one tablet by mouth given. Bedside ultrasound done shows no distended bladder. Diagnosis Primary Impression: Spasmodic bladder Patient Instructions: General Instructions Additional Instructions: Continue with oxybutynin, Levsin, Pyridium as directed. Follow-up with urologist. Med/Other Pt SpecificInfo: Prescription(s) given Scripts Phenazopyridine (Pyridium) 100 Mg Tab 100 MG PO Q8H Y for DYSURIA, #30 TAB 0 Refills Prov: Dominic Reardon MD 05/04/17 Methocarbamol (Robaxin) 750 Mg Tab 750 MG PO QID for Pain, #60 TAB 0 Refills Prov: Dominic Reardon MD 05/04/17 Disposition: 01 DISCHARGE HOME Condition: Stable Dominic Reardon MD May 04, 2017 15:48
[2017-05-04] MEDS ORDERED: traMADol HCL 50 MG TAB PO ONE (16:00)
[2017-05-05] MEDS ORDERED: PERC5TAB12 PO (12:27)
[2017-05-11] MEDS ORDERED: PERC10TA27 PO (10:47)
== END 2017-05-04 16:42 | disposition home or self-care (01) ==
LOC: NEPD 11:18
DX: N32.89 Other specified disorders of bladder (principal); Z85.46 Personal history of malignant neoplasm of prostate; Z85.51 Personal history of malignant neoplasm of bladder; F31.9 Bipolar disorder, unspecified; I10 Essential (primary) hypertension; E11.40 Type 2 diabetes mellitus with diabetic neuropathy, unspecified; I50.9 Heart failure, unspecified; J44.9 Chronic obstructive pulmonary disease, unspecified
CPT/HCPCS: 80048; 81001; 85025; 99284

== ENCOUNTER → 2017-05-11 | Day surgery (SDC) | payer MEDICAID ==
[~2017-05-11] VITALS: Ht 182.9 cm; Wt 151.8 kg
[~2017-05-11] MED LIST changes: +*morphine SULFATE 8 MG/ML PERIprocedure ONLY ONE; +ACETAMINOPHEN 1000 MG/100 ML 100 ML IV ONE; +CHLORHEXIDINE GLUCONATE 2 % 1 PACK (2 CLOTHS) TOPICAL PRN; +DO NOT ADM ANY ANTICOAGULANT DRUGS PRN; +INSULIN HUMAN REGULAR 1,000 UNITS/10 ML VIAL SQ PRN; +LACTATED RINGER'S 1000 ML IV PRN; +LEVOFLOXACIN 500 MG PREMIX INJ 100 ML IV SCH; +LIDOCAINE HCL 1% PF 5 ML AMPULE OTHER ONE; +METOPROLOL TARTRATE 25 MG TAB PO PRN; +ONDANSETRON HCL 4 MG/2 ML VIAL IV PUSH PRN; +PERC10TA27 PO; +PHEN0.4T PO; +PHENYLEPH/NS 1000 MCG/10 ML SYR IV ONE; +POVIDONE IODINE 5% (ANTISEPSIS KIT) 4 APPLICATIONS EACH NARE PRN; +PROPOFOL 200 MG/20 ML AMP IV ONE; +ROBA750T PO; +SODIUM CHLORID 0.9% 500 ML IV PRN; +SUCCINYLCHOLINE CHLORIDE 100 MG/5 ML SYRINGE IV PUSH ONE; +oxyCODONE/ACETAMINOPHEN 10 MG/325 MG TAB PO PRN
[2017-05-11 08:59] LABS: INTERNATIONAL NORMALIZED RATIO 0.9 RATIO; PROTHROMBIN TIME - PATIENT 9.8 SEC (9.8-11.6)
[2017-05-11 09:01] LABS: AUTOMATED NEUTROPHIL # 5.2 TH/MM3 (1.8-7.7); BASOPHIL % 0.4 % (0.0-2.0); EOSINOPHIL # 0.2 TH/MM3 (0-0.4); EOSINOPHIL % 2.9 % (0.0-4.0); HEMATOCRIT 37.8 % (39.0-51.0); HEMO FLAGS DIFF FINAL; LYMPHOCYTE # 1.7 TH/MM3 (1.0-4.8); MEAN CELL VOLUME 84.2 FL (80.0-100.0); MEAN CORPUSCULAR HEMOGLOBIN 27.6 PG (27.0-34.0); MEAN CORPUSCULAR HGB CONC 32.8 % (32.0-36.0); MONO % 7.9 % (0.0-8.0); NEUT % 66.8 % (16.0-70.0); PLATELET COUNT 294 TH/MM3 (150-450); RED BLOOD COUNT 4.49 MIL/MM3 (4.50-5.90); RED CELL DISTRIBUTION WIDTH 17.8 % (11.6-17.2); WHITE BLOOD COUNT 7.8 TH/MM3 (4.0-11.0)
--- NOTE | 2017-05-11 10:46 | PD.OP ---
Operative Report Date of Surgery: May 11, 2017 Preoperative Diagnosis: (1) History of bladder cancer Postoperative Diagnosis: (1) History of bladder cancer Procedure: Cystoscopy with bladder biopsy and fulguration Anesthesia: General Surgeon: Brian Galindo Teasel Setter(s): None Operation and Findings: Indication for procedure: This a very pleasant 46-year-old gentleman with history bladder cancer who is status post recent cystoscopic evaluation that demonstrated a small area involving the posterior bladder wall suspicious for recurrence. Presents now for cystoscopy with bladder biopsy and fulguration. Operative procedure in detail: Patient was brought to the operating suite and placed supine on the OR table. He was then placed under general anesthesia. He was then repositioned in the dorsolithotomy position and prepped and draped in normal sterile fashion. After appropriate timeout was undertaken a proceeded with cystoscopic evaluation utilizing the rigid cystoscope with the 20 Qat[place] sheath in the 30 lens. The urethra was patent without suture formation, the prosthetic urethra was nonobstructing and further passive cystoscope within the urinary bladder via both right and left ureteral orifices being correct anatomic position effluxing clear yellow urine. There was a very small area involving the posterior bladder wall just to the right of the midline suspicious for recurrent bladder cancer. The cup biopsy forceps was utilized in this area was biopsied and subsequently fulgurated with coagulation current. The specimen was sent off to pathology. The bladder was extremely low uric and fluid and the cystoscope withdrawn. The patient tolerated the procedures without complications and was transferred to the PACU in satisfactory condition. Brian Galindo MD May 11, 2017 10:46
[2017-05-11 12:20] VITALS: BP 113/66; PULSE 77; RESP 18; TEMP 97.4; O2SAT 95
== END | disposition home or self-care (01) ==
LOC: HSDC 07:51
PROVIDERS: ATTEND Urology
DX: Z85.51 Personal history of malignant neoplasm of bladder (principal); Z79.01 Long term (current) use of anticoagulants; Z79.899 Other long term (current) drug therapy
CPT/HCPCS: 00910; 52204; 85025; 85610; 88305; J0131; J0330; J1956; J2270; J2370; J3010; J7120

== ENCOUNTER 2017-06-09 13:42 | Observation (INO) | payer SELFPAY ==
[~2017-06-09] VITALS: Ht 182.9 cm; Wt 147.0 kg
[~2017-06-09 13:42] MED LIST changes: -*morphine SULFATE 8 MG/ML PERIprocedure ONLY ONE; -ACETAMINOPHEN 1000 MG/100 ML 100 ML IV ONE; -CHLORHEXIDINE GLUCONATE 2 % 1 PACK (2 CLOTHS) TOPICAL PRN; -DO NOT ADM ANY ANTICOAGULANT DRUGS PRN; -HYOS0.128 PO; +HYOS1TAB9 PO; -INSULIN HUMAN REGULAR 1,000 UNITS/10 ML VIAL SQ PRN; -LACTATED RINGER'S 1000 ML IV PRN; -LEVOFLOXACIN 500 MG PREMIX INJ 100 ML IV SCH; -LIDOCAINE HCL 1% PF 5 ML AMPULE OTHER ONE; -METOPROLOL TARTRATE 25 MG TAB PO PRN; -ONDANSETRON HCL 4 MG/2 ML VIAL IV PUSH PRN; -PHENYLEPH/NS 1000 MCG/10 ML SYR IV ONE; -POVIDONE IODINE 5% (ANTISEPSIS KIT) 4 APPLICATIONS EACH NARE PRN; -PROPOFOL 200 MG/20 ML AMP IV ONE; -SODIUM CHLORID 0.9% 500 ML IV PRN; -SUCCINYLCHOLINE CHLORIDE 100 MG/5 ML SYRINGE IV PUSH ONE; -oxyCODONE/ACETAMINOPHEN 10 MG/325 MG TAB PO PRN
[2017-06-09 13:47] VITALS: BP 179/88; PULSE 111; RESP 26; TEMP 99.3; O2SAT 96
[2017-06-09] MEDS ORDERED: ASPIRIN 81 MG CHEW TAB PO ONE (14:00)
[2017-06-09 14:15] VITALS: BP_SYST 147; BP_SYST 151; BP_DIAS 86; BP_DIAS 89; PULSE 91; RESP 16; O2SAT 96
--- NOTE | 2017-06-09 14:27 | PD ---
HPI Chief Complaint: Chest Pain Time Seen by Provider: 14:19 Travel History International Travel<30 days: No Contact w/Intl Traveler<30days: No Traveled to known affect area: No History of Present Illness HPI This patient complains of chest pain. It started 2 hours ago while he was seated, it was nonexertional. He describes it as a heaviness and a tightness in the sternum. Patient has history of 3 MIs. He takes both Plavix and Coumadin. Symptoms severity was moderate. It's currently eased off. He also has anxiety but sometimes he can't determine whether something is cardiac or anxiety related. No alleviating factors. His may be exacerbated by his anxiety. Duration is about one hour. PFSH Past Medical History Hx Anticoagulant Therapy: Yes Alzheimer's Disease: Yes Anemia: Yes Arthritis: Yes Asthma: No Autoimmune Disease: No Blood Disorders: No Bipolar Disorder: Yes Anxiety: Yes Depression: Yes Heart Rhythm Problems: No Cancer: Yes (BLADDER, PROSTATE) Cardiac Catheterization: Yes Cardiovascular Problems: Yes High Cholesterol: Yes Chemotherapy: Yes (implanted something in bladder s/p tummors removed) Chest Pain: Yes Congestive Heart Failure: Yes COPD: Yes Cerebrovascular Accident: Yes Coronary Artery Disease: Yes Diabetes: Yes Diminished Hearing: No Deep Vein Thrombosis: Yes Endocrine: Yes Gastrointestinal Disorders: Yes (ACID REFLUX, HX ULCER) GERD: Yes Glaucoma: No Genitourinary: Yes (BLADDER TUMORS) Headaches: No Hepatitis: No Hiatal Hernia: Yes Heparin Induced Thrombocytopen: No Hypertension: Yes Immune Disorder: Yes (OA) Implanted Vascular Access Dvce: No Kidney Stones: Yes ( CHRONIC STONES ) Musculoskeletal: Yes (OSTEOARTHRITIS NICKIE KNESS, BURSITIS LEFT ELBOW) Neurologic: Yes (DIABETIC NEUROPATHY) Psychiatric: Yes (BIPOLAR, ANXIETY, DEPRESSION, HX SUICIDE ATTEMPT, PER PT) Reproductive: No Respiratory: Yes (COPD, HX PE) Immunizations Current: Yes Migraines: Yes Myocardial Infarction: Yes (X 2) Radiation Therapy: Yes (pt not sure if bladder insert s/p tumor radition) Renal Failure: No Seizures: No Sickle Cell Disease: No Sleep Apnea: Yes (no cpap) Thyroid Disease: Yes (HYPOTHYROID) Ulcer: Yes Past Surgical History Abdominal Surgery: No AICD: No Appendectomy: No Arteriovenous Shunt: No Body Medical Devices: CARDIAC STENTx2 Cardiac Surgery: Yes (TWO STENTS, THROMBECTOMY 01/2017) Cholecystectomy: No Coronary Artery Bypass Graft: No Coronary Stent: Yes Ear Surgery: No Endocrine Surgery: No Eye Surgery: No Genitourinary Surgery: Yes (BLADDER TUMORS REMOVED; kidney stent removed) Gynecologic Surgery: No Insulin Pump: No Joint Replacement: No Neurologic Surgery: No Oral Surgery: No Pacemaker: No Thoracic Surgery: Yes Other Surgery: Yes (see hx) Social History Alcohol Use: No Tobacco Use: Yes Substance Use: No Allergies-Medications (Allergen,Severity, Reaction): Coded Allergies: penicillin G (Verified Allergy, Severe, Anaphylaxis, 06/05/17) Per pt. Reported Meds & Prescriptions Reported Meds & Active Scripts Active Percocet (Oxycodone-Acetaminophen) 5-325 mg Tab 1 Tab PO Q6H PRN Percocet (Oxycodone-Acetaminophen) 10-325 mg Tab 1 Tab PO Q6H PRN Percocet (Oxycodone-Acetaminophen) 5-325 mg Tab 1-2 Tab PO Q6H PRN Robaxin (Methocarbamol) 750 Mg Tab 750 Mg PO QID Pyridium (Phenazopyridine HCl) 100 Mg Tab 100 Mg PO Q8HR Hyoscyamine (Hyoscyamine Sulfate) 0.125 Mg Tab 0.125 Mg PO Q6H Seroquel (Quetiapine Fumarate) 100 Mg Tab 100 Mg PO BID Isosorbide Mononitrate ER (Isosorbide Mononitrate) 30 Mg Yola 30 Mg PO DAILY@07 Coumadin (Warfarin) 5 Mg Tab 5 Mg PO DAILY Reported Cymbalta DR (Duloxetine HCl) 60 Mg Capdr 120 Mg PO DAILY Gabapentin 300 Mg Cap 900 Mg PO HS Gabapentin 300 Mg Cap 600 Mg PO AC BREAKFAST Gabapentin 300 Mg Cap 900 Mg PO AC LUNCH Coreg (Carvedilol) 6.25 Mg Tab 6.25 Mg PO DAILY Mirtazapine 45 Mg Tab 90 Mg PO HS Xanax (Alprazolam) 2 Mg Tab 2 Mg PO BID PRN Omeprazole 40 Mg Cap 40 Mg PO HS Synthroid (Levothyroxine Sodium) 50 Mcg Tab 50 Mcg PO DAILY Lisinopril 20 Mg Tab 20 Mg PO BID Glucophage (Metformin HCl) 500 Mg Tab 500 Mg PO HS With a meal Nitroglycerin SL (Nitroglycerin) 0.4 Mg Subl 0.4 Mg SL Q 5 MINUTES PRN ONE TABLET UNDER THE TONGUE NEEDED FOR CHEST PAIN, MAY REPEAT EVERY FIVE MINUTES FOR A TOTAL OF 3 DOSES OR CALL 911 IF NO RELIEF Plavix (Clopidogrel Bisulfate) 75 Mg Tab 75 Mg PO DAILY Lipitor (Atorvastatin Calcium) 80 Mg Tab 80 Mg PO HS Review of Systems General / Constitutional: No: Fever Eyes: No: Visual changes HENT: No: Headaches Cardiovascular: Positive: Chest Pain or Discomfort Respiratory: No: Shortness of Breath Gastrointestinal: No: Abdominal Pain Genitourinary: No: Dysuria Musculoskeletal: No: Pain Skin: No Rash Neurologic: No: Weakness Psychiatric: Positive: Anxiety, No: Depression Endocrine: No: Polydipsia Hematologic/Lymphatic: No: Easy Bruising Physical Exam Narrative GENERAL: Obese anxious well-developed patient in no apparent distress. SKIN: Focused skin assessment reveals no rash and nodules. Skin is Warm and dry. HEAD: Atraumatic. Normocephalic. EYES: Pupils equal and round. No scleral icterus. No injection or drainage. ENT: No nasal bleeding or discharge. Mucous membranes pink and moist. NECK: Trachea midline. No JVD. CARDIOVASCULAR: Regular rate and rhythm. No murmur appreciated. RESPIRATORY: No accessory muscle use. Clear to auscultation. Breath sounds equal bilaterally. GASTROINTESTINAL: Abdomen soft, non-tender, nondistended. Hepatic and splenic margins not palpable. MUSCULOSKELETAL: No obvious deformities. No clubbing. No cyanosis. No edema. NEUROLOGICAL: Awake and alert. No obvious cranial nerve deficits. Motor grossly within normal limits. Normal speech. PSYCHIATRIC: Anxious mood and affect; insight and judgment normal. Data Data Last Documented VS Vital Signs Date Time Temp Pulse Resp B/P (MAP) Pulse Ox O2 Delivery O2 Flow Rate FiO2 06/09/17 15:09 92 20 141/83 (102) 96 Nasal Cannula 2.00 06/09/17 13:47 99.3 Orders Orders Electrocardiogram (06/09/17 13:48) Basic Metabolic Panel (Bmp) (06/09/17 13:48) B-Type Natriuretic Peptide (06/09/17 13:48) Ckmb (Isoenzyme) Profile (06/09/17 13:48) Complete Blood Count With Diff (06/09/17 13:48) Magnesium (Mg) (06/09/17 13:48) Prothrombin Time / Inr (Pt) (06/09/17 13:48) Act Partial Throm Time (Ptt) (06/09/17 13:48) Troponin I (06/09/17 13:48) Chest, Single Ap (06/09/17 13:48) Ecg Monitoring (06/09/17 13:48) Bilateral Bp Monitoring (06/09/17 13:48) Iv Access Insert/Monitor (06/09/17 13:48) Oximetry (06/09/17 13:48) Aspirin Chew (Aspirin Chew) (06/09/17 14:00) Lorazepam (Ativan) (06/09/17 14:30) Metoprolol Tartrate (Lopressor) (06/09/17 14:30) CKMB (06/09/17 14:10) CKMB% (06/09/17 14:10) Oxycodone-Acetamin 5-325 Mg (Percocet (06/09/17 16:00) Admit Order (Ed Use Only) (06/09/17 15:47) Labs Laboratory Tests Test 06/09/17 14:10 White Blood Count 7.8 TH/MM3 Red Blood Count 4.64 MIL/MM3 Hemoglobin 12.7 GM/DL Hematocrit 39.1 % Mean Corpuscular Volume 84.2 FL Mean Corpuscular Hemoglobin 27.5 PG Mean Corpuscular Hemoglobin Concent 32.6 % Red Cell Distribution Width 17.8 % Platelet Count 255 TH/MM3 Mean Platelet Volume 7.7 FL Neutrophils (%) (Auto) 65.5 % Lymphocytes (%) (Auto) 23.9 % Monocytes (%) (Auto) 7.2 % Eosinophils (%) (Auto) 2.5 % Basophils (%) (Auto) 0.9 % Neutrophils # (Auto) 5.1 TH/MM3 Lymphocytes # (Auto) 1.9 TH/MM3 Monocytes # (Auto) 0.6 TH/MM3 Eosinophils # (Auto) 0.2 TH/MM3 Basophils # (Auto) 0.1 TH/MM3 CBC Comment DIFF FINAL Differential Comment Prothrombin Time 18.7 SEC Prothromb Time International Ratio 1.7 RATIO Activated Partial Thromboplast Time 31.3 SEC Blood Urea Nitrogen 9 MG/DL Creatinine 1.06 MG/DL Random Glucose 153 MG/DL Calcium Level 8.7 MG/DL Magnesium Level 1.9 MG/DL Sodium Level 139 MEQ/L Potassium Level 4.2 MEQ/L Chloride Level 106 MEQ/L Carbon Dioxide Level 25.5 MEQ/L Anion Gap 8 MEQ/L Estimat Glomerular Filtration Rate 75 ML/MIN Total Creatine Kinase 131 U/L Creatine Kinase MB 0.9 NG/ML Troponin I LESS THAN 0.02 NG/ML MDM Medical Decision Making Medical Screen Exam Complete: Yes Emergency Medical Condition: Yes Medical Record Reviewed: Yes Differential Diagnosis Differential diagnosis includes NM, angina, pericarditis, pleurisy, GERD, anxiety. Narrative Course I have reviewed the patient's electronic medical record. Reviewed his cardiology consultation and stress testing from 4 months ago. He did have fixed defects suggesting old infarct IV placed I reviewed the EKG which shows sinus rhythm but no acute ST elevation I reviewed the chest x-ray which is normal Extended cardiac monitoring shows sinus rhythm with a rare PVC CBC is normal Metabolic profile is normal CK is normal Troponin is normal INR on Coumadin is 1.7 Patient with a 23 hour observation on telemetry in the chest pain center to rule out cardiac cause of his symptoms. Diagnosis Primary Impression: Chest pain Qualified Codes: R07.2 - Precordial pain Admitting Information Admitting Physician Requests: Observation Igor Vargas MD Jun 09, 2017 14:27
[2017-06-09 14:30] LABS: AUTOMATED NEUTROPHIL # 5.1 TH/MM3 (1.8-7.7); BASOPHIL # 0.1 TH/MM3 (0-0.2); BASOPHIL % 0.9 % (0.0-2.0); EOSINOPHIL # 0.2 TH/MM3 (0-0.4); EOSINOPHIL % 2.5 % (0.0-4.0); HEMATOCRIT 39.1 % (39.0-51.0); HEMO FLAGS DIFF FINAL; LYMPH % 23.9 % (9.0-44.0); LYMPHOCYTE # 1.9 TH/MM3 (1.0-4.8); MEAN CELL VOLUME 84.2 FL (80.0-100.0); MEAN CORPUSCULAR HEMOGLOBIN 27.5 PG (27.0-34.0); MEAN CORPUSCULAR HGB CONC 32.6 % (32.0-36.0); MONO % 7.2 % (0.0-8.0); NEUT % 65.5 % (16.0-70.0); PLATELET COUNT 255 TH/MM3 (150-450); RED BLOOD COUNT 4.64 MIL/MM3 (4.50-5.90); RED CELL DISTRIBUTION WIDTH 17.8 % (11.6-17.2); WHITE BLOOD COUNT 7.8 TH/MM3 (4.0-11.0)
[2017-06-09] MEDS ORDERED: METOPROLOL TARTRATE 50 MG TAB PO ONE (14:30)
[2017-06-09] MEDS ORDERED: LORazepam 1 MG TAB PO ONE (14:30)
--- NOTE | 2017-06-09 14:33 | RADRPT ---
EXAM DATE/TIME: 06/09/2017 14:19 [facility] COMPARISON: CHEST SINGLE AP, February 05, 2017, 16:42. INDICATIONS : Chest pain. Patient complains of sudden onset of chest pain, muscle aches, difficulty breathing. MEDICAL HISTORY : Carcinoma, bladder. Carcinoma, prostatic. Cardiovascular disease. Myocardial infarction. DVT. [employer] D. Hypertension. SURGICAL HISTORY : Coronary artery stent. ENCOUNTER: Initial ACUITY: 1 day PAIN SCORE: 9/10 LOCATION: Bilateral chest FINDINGS: Portable AP view of the chest demonstrates a normal-sized cardiac silhouette. No effusion, consolidat ion, or pneumothorax is visualized. The bones and soft tissues demonstrate no acute abnormality. CONCLUSION: No acute cardiopulmonary abnormality is identified. Sammy Lipscomb MD on June 09, 2017 at 14:31 Board Certified Radiologist. This report was verified electronically.
[2017-06-09 14:43] LABS: APTT (PATIENT) 31.3 SEC (24.3-30.1); INTERNATIONAL NORMALIZED RATIO 1.7 RATIO; PROTHROMBIN TIME - PATIENT 18.7 SEC (9.8-11.6)
[2017-06-09 14:57] LABS: ANION GAP 8 MEQ/L (5-15); BICARBONATE 25.5 MEQ/L (21.0-32.0); BLOOD UREA NITROGEN 9 MG/DL (7-18); CHLORIDE 106 MEQ/L (98-107); CREATINE KINASE 131 U/L (39-308); GLOMERULAR FILTRATION RATE 75 ML/MIN (>89); MAGNESIUM 1.9 MG/DL (1.5-2.5); POTASSIUM 4.2 MEQ/L (3.5-5.1); SODIUM (NA) 139 MEQ/L (136-145)
[2017-06-09 15:09] VITALS: BP 141/83; PULSE 92; RESP 20; O2SAT 96
[2017-06-09 15:09] LABS: CKMB 0.9 NG/ML (0.5-3.6)
[2017-06-09] MEDS ORDERED: oxyCODONE/ACETAMINOPHEN 5 MG/325 MG TAB PO ONE (16:00)
[2017-06-09] MEDS ORDERED: ACETAMINOPHEN 500 MG CPLT PO PRN (16:30)
[2017-06-09] MEDS ORDERED: ONDANSETRON HCL 4 MG/2 ML VIAL IV PUSH PRN (16:30)
[2017-06-09] MEDS: WARFARIN SOD 5 MG TAB PO SCH (18:30)
[2017-06-09 18:36] LABS: CREATINE KINASE 162 U/L (39-308)
[2017-06-09] MEDS: ACETAMINOPHEN/HYDROcodone 325 MG/7.5 MG TAB PO PRN ×2 (18:39→23:40)
[2017-06-09 18:48] LABS: CKMB 0.9 NG/ML (0.5-3.6)
[2017-06-09 19:54] VITALS: BP 107/55; PULSE 73; RESP 18; TEMP 98.2; O2SAT 92
[2017-06-09] MEDS ORDERED: NON-FORMULARY DRUG (Omeprazole 40 MG) PO SCH (21:00)
[2017-06-09] MEDS ORDERED: MIRTAZAPINE 15 MG TAB PO SCH (21:00)
[2017-06-09] MEDS: SODIUM CHLORIDE 0.9% FLUSH 5 ML FLUSH IVF SCH (21:00)
[2017-06-09] MEDS: LISINOPRIL 20 MG TAB PO SCH (21:35)
[2017-06-09] MEDS: ATORVASTATIN 80 MG TAB PO SCH (21:35)
[2017-06-09] MEDS: GABAPENTIN 300 MG CAP PO SCH (21:36)
[2017-06-09] MEDS: PANTOPRAZOLE SOD 40 MG DELAYED RELEASE TAB PO SCH (21:36)
[2017-06-09] MEDS: QUEtiapine FUMARATE 100 MG TAB PO SCH (21:36)
[2017-06-09] MEDS ORDERED: ENOXAPARIN SODIUM 150 MG/ML SYRINGE SQ ONE (22:00)
[2017-06-09] MEDS ORDERED: IOHEXOL 350 MG/ML 10 ML VIAL (for RAD DIAG) IVCONTRAST ONE (22:59)
[2017-06-09 23:01] LABS: CREATINE KINASE 120 U/L (39-308)
--- NOTE | 2017-06-09 23:12 | RADRPT ---
EXAM DATE/TIME: 06/09/2017 22:45 [facility] COMPARISON: CT PULMONARY ANGIOGRAM, February 05, 2017, 19:27. INDICATIONS : Mid-sternal chest pain. IV CONTRAST: 75 cc Omnipaque 350 (iohexol) IV Injection Site: Lt Forearm Lot: [id number] Exp Date: Mar 2020 Lot: Exp Date: RADIATION DOSE: 23.25 CTDIvol (mGy) MEDICAL HISTORY : Myocardial infarction. Congestive heart failure. Chronic obstructive pulmonary disease.DVT. CAD. Hype rtension. Bladder cancer. SURGICAL HISTORY : Coronary artery stent. ENCOUNTER: Initial ACUITY: 1 day PAIN SCALE: 7/10 LOCATION: chest TECHNIQUE: Volumetric scanning of the chest was performed using a pulmonary embolism protocol MIP images were re constructed. Using automated exposure control and adjustment of the mA and/or kV according to patien t size, radiation dose was kept as low as reasonably achievable to obtain optimal diagnostic quality images. DICOM format image data is available electronically for review and comparison. Follow-up recommendations for detected pulmonary nodules are based at a minimum on nodule size and pa tient risk factors according to Fleischner Society Guidelines. FINDINGS: Examination of the pulmonary vasculature demonstrates good filling of the main, lobar and segmental b ranches. There are no filling defects to suggest pulmonary embolism. Multiplanar reconstructions are also unremarkable. Examination of the lung dooley demonstrates no evidence of pulmonary nodule. No pleural fluid is iden tified. Examination of the mediastinum demonstrates no abnormally enlarged lymph nodes by CT criteria . No axillary or hilar abnormalities are identified. Coronary artery calcifications are present. The visualized upper abdomen demonstrates no abnormality. CONCLUSION: 1. No evidence of pulmonary embolism. Cesar Arango MD on June 09, 2017 at 23:07 Board Certified Radiologist. This report was verified electronically.
[2017-06-09] MEDS: ALPRAZolam 1 MG TAB PO PRN (23:39)
[2017-06-10] VITALS (10 sets, daily range): BP systolic 86–119; BP diastolic 51–78; PULSE 68–75; RESP 18–20; TEMP 97.6–98.2; O2SAT 94–96
[2017-06-10 02:59] LABS: CKMB 0.7 NG/ML (0.5-3.6)
--- NOTE | 2017-06-10 03:26 | HHI.HP ---
HPI Service [facility] Primary Care Physician Zahra Dennison MD Admission Diagnosis chest pain Diagnoses: Travel History International Travel<30 Days: No Contact w/Intl Traveler <30 Da: No Traveled to Known Affected Are: No History of Present Illness hx from patient, er notes, review of med records chest pain yesterday around 1000a.m. midsternal, radiation to left arm, associated with shortness of breath, diaphoresis, somewhat nauseous then "chest felt like basim horses" have had 3 MIs todays pain is similar to those [place] pains shortness of breath couple of weeks no prolonged travels on coumadin at home reports of hx of blood clots- "they were going to cut my legs off for that"- likely arterial no fever/no nausea/ no vomiting/ no blood in stool or urine reports of weakness and dizziness in past few weeks no diarrhea had bladder / prostate sx on the 11 of may hx of bladder cancer recurrent- 3-4x Review of Systems Except as stated in HPI: all other systems reviewed are Neg Past Family Social History Past Medical History htn dm cad- 3x [place] , stents x 2 chf- ef 35% per patient chronic anticoagulation on coumadin denies copd/ emphysema/ asthma sleep apnea- pt believes so, but never had sleep studies, reports apneic episodes and snoring hx of kidney stones hx of recurrent bladder cancer - s/p implantation of radiation seeds hypothyroidism benign prostate tumor Past Surgical History bladder cancer resections x4 angioplasties LE angiogram coronary bilateral knee surgeries- cartilage out Allergies: Coded Allergies: penicillin G (Verified Allergy, Severe, Anaphylaxis, 06/05/17) Per pt. Family History cancer - all kinds pt's daughter- leukemia as a child Social History used to smoke 2 packs a day for 30yrs, now smoking 3 cigarrettes a day no etoh abuse no drug abuse lives with family now, still driving Physical Exam Vital Signs Vital Signs Date Time Temp Pulse Resp B/P (MAP) Pulse Ox O2 Delivery O2 Flow Rate FiO2 06/10/17 01:17 71 06/10/17 00:58 97.9 71 18 102/51 (68) 95 06/09/17 19:54 98.2 73 18 107/55 (72) 92 06/09/17 15:09 92 20 141/83 (102) 96 Nasal Cannula 2.00 06/09/17 14:15 91 16 147/89 (108) 96 Nasal Cannula 2.00 151/86 (107) 06/09/17 14:15 96 Nasal Cannula 2.00 06/09/17 13:47 99.3 111 26 179/88 (118) 96 Room Air Physical Exam GENERAL: This is a well-nourished, well-developed patient, in no apparent distress. SKIN: No rashes, ecchymoses or lesions. Cool and dry. HEAD: Atraumatic. Normocephalic. No temporal or scalp tenderness. EYES: No scleral icterus. No injection or drainage. ENT: Nose without bleeding, purulent drainage or septal hematoma. Airway patent. NECK: Trachea midline. No JVD CARDIOVASCULAR: Regular rate and rhythm without murmurs, gallops, or rubs. RESPIRATORY: Clear to auscultation. Breath sounds equal bilaterally. No wheezes , rales, or rhonchi. GASTROINTESTINAL: Abdomen soft, non-tender, nondistended. No guarding. MUSCULOSKELETAL: Extremities without clubbing, cyanosis, or edema. No calf tenderness. NEUROLOGICAL: Awake and alert. Motor and sensory grossly within normal limits Normal speech. Laboratory Laboratory Tests Test 06/09/17 14:10 06/09/17 17:50 06/09/17 21:46 White Blood Count 7.8 Red Blood Count 4.64 Hemoglobin 12.7 Hematocrit 39.1 Mean Corpuscular Volume 84.2 Mean Corpuscular Hemoglobin 27.5 Mean Corpuscular Hemoglobin Concent 32.6 Red Cell Distribution Width 17.8 Platelet Count 255 Mean Platelet Volume 7.7 Neutrophils (%) (Auto) 65.5 Lymphocytes (%) (Auto) 23.9 Monocytes (%) (Auto) 7.2 Eosinophils (%) (Auto) 2.5 Basophils (%) (Auto) 0.9 Neutrophils # (Auto) 5.1 Lymphocytes # (Auto) 1.9 Monocytes # (Auto) 0.6 Eosinophils # (Auto) 0.2 Basophils # (Auto) 0.1 CBC Comment DIFF FINAL Differential Comment Prothrombin Time 18.7 Prothromb Time International Ratio 1.7 Activated Partial Thromboplast Time 31.3 Blood Urea Nitrogen 9 Creatinine 1.06 Random Glucose 153 Calcium Level 8.7 Magnesium Level 1.9 Sodium Level 139 Potassium Level 4.2 Chloride Level 106 Carbon Dioxide Level 25.5 Anion Gap 8 Estimat Glomerular Filtration Rate 75 Total Creatine Kinase 131 162 120 Creatine Kinase MB 0.9 0.9 0.7 Troponin I LESS THAN 0.02 LESS THAN 0.02 LESS THAN 0.02 B-Type Natriuretic Peptide 15 Result Diagram: 06/09/17 1410 06/09/17 1410 Imaging Last 48 hours Impressions Chest X-Ray 06/09/17 1348 Signed Impressions: Service Date/Time: Friday, June 09, 2017 14:19 - CONCLUSION: No acute cardiopulmonary abnormality is identified. Sammy Lipscomb MD CT Angiography 06/09/17 0000 Signed Impressions: Service Date/Time: Friday, June 09, 2017 22:45 - CONCLUSION: 1. No evidence of pulmonary embolism. MD Monica Salas VTE Risk Assessment Caprini VTE Risk Assessment: Mod/High Risk (score >= 2) Caprini Risk Assessment Model Point Value = 1 Point Value = 2 Point Value = 3 Point Value = 5 Age 41-60 Minor surgery BMI > 25 kg/m2 Swollen legs Varicose veins or History of unexplained or recurrent spontaneous Oral contraceptives or hormone replacement Sepsis (< 1 month) Serious lung disease, including pneumonia (< 1 month) Abnormal pulmonary function Acute myocardial infarction Congestive heart failure (< 1 month) History of inflammatory bowel disease Medical patient at bed rest Age 61-74 Arthroscopic surgery Major open surgery (> 45 min) Laparoscopic surgery (> 45 min) Malignancy Confined to bed (> 72 hours) Immobilizing plaster cast Central venous access Age >= 75 History of VTE Family history of VTE Factor V Leiden Prothrombin [id number] Lupus anticoagulant Anticardiolipin antibodies Elevated serum homocysteine Heparin-induced thrombocytopenia Other congenital or acquired thrombophilia Stroke (< 1 month) Elective arthroplasty Hip, pelvis, or leg fracture Acute spinal cord injury (< 1 month) Prophylaxis Regimen Total Risk Factor Score Risk Level Prophylaxis Regimen 0-1 Low Early ambulation 2 Moderate Order ONE of the following: *Sequential Compression Device (SCD) *Heparin 5000 units SQ BID 3-4 Higher Order ONE of the following medications: *Heparin 5000 units SQ TID *Enoxaparin/Lovenox 40 mg SQ daily (WT < 150 kg, CrCl > 30 mL/min) *Enoxaparin/Lovenox 30 mg SQ daily (WT < 150 kg, CrCl > 10-29 mL/min) *Enoxaparin/Lovenox 30 mg SQ BID (WT < 150 kg, CrCl > 30 mL/min) AND/OR *Sequential Compression Device (SCD) 5 or more Highest Order ONE of the following medications: *Heparin 5000 units SQ TID (Preferred with Epidurals) *Enoxaparin/Lovenox 40 mg SQ daily (WT < 150 kg, CrCl > 30 mL/min) *Enoxaparin/Lovenox 30 mg SQ daily (WT < 150 kg, CrCl > 10-29 mL/min) *Enoxaparin/Lovenox 30 mg SQ BID (WT < 150 kg, CrCl > 30 mL/min) AND *Sequential Compression Device (SCD) Assessment and Plan Assessment and Plan Impression: chest pain/ unstable angina r/ o pe weight gain of 50lbs in 3 months- subtherapeutic INR htn dm cad- 3x [place] , stents x 2 chf- ef 35% per patient chronic anticoagulation on coumadin denies copd/ emphysema/ asthma sleep apnea- pt believes so, but never had sleep studies, reports apneic episodes and snoring hx of kidney stones hx of recurrent bladder cancer - s/p implantation of radiation seeds hypothyroidism benign prostate tumor Plan: serial enzymes and ekg ct pulm angio stat as pt was c./o chest pain and exertional dypsnea echo in am cardiology consult nitro sl prn for chest pain morphine if above does not improve dvt prophylais on lovenox Discussed Condition With patient, ER , nursing staff Pauline Bowman MD Jun 10, 2017 03:26
[2017-06-10] MEDS: MORPHINE SULFATE 2 MG/ML INJ IV PUSH PRN ×3 (06:16→22:47)
[2017-06-10] MEDS: LEVOTHYROXINE SODIUM 50 MCG TAB PO SCH (06:17)
[2017-06-10] MEDS: ISOSORBIDE MONONITRATE 30 MG TAB PO SCH (06:17)
[2017-06-10] MEDS: GABAPENTIN 300 MG CAP PO SCH ×3 (06:17→20:21)
[2017-06-10 07:09] LABS: INTERNATIONAL NORMALIZED RATIO 1.8 RATIO; PROTHROMBIN TIME - PATIENT 20.3 SEC (9.8-11.6)
[2017-06-10] MEDS ORDERED: ALUMINUM/MAGNESIUM/SIMETH 30 ML CUP PO ONE (08:30)
[2017-06-10] MEDS ORDERED: ALUMINUM/MAGNESIUM/SIMETH 30 ML CUP PO PRN (08:30)
[2017-06-10] MEDS ORDERED: CALCIUM CARBONATE 500 MG CHEWABLE TAB CHEW PRN (08:30)
--- NOTE | 2017-06-10 08:50 | HHI.PR ---
Subjective Remarks Follow-up chest pain. Complains of chest discomfort like viki horse associated with shortness of breath. Called by RN secondary to low blood pressure Objective Vitals Vital Signs Date Time Temp Pulse Resp B/P (MAP) Pulse Ox O2 Delivery O2 Flow Rate FiO2 06/10/17 07:37 97.7 74 18 93/52 (66) 95 06/10/17 04:19 98.1 72 18 103/55 (71) 95 06/10/17 01:17 71 06/10/17 00:58 97.9 71 18 102/51 (68) 95 06/09/17 19:54 98.2 73 18 107/55 (72) 92 06/09/17 15:09 92 20 141/83 (102) 96 Nasal Cannula 2.00 06/09/17 14:15 91 16 147/89 (108) 96 Nasal Cannula 2.00 151/86 (107) 06/09/17 14:15 96 Nasal Cannula 2.00 06/09/17 13:47 99.3 111 26 179/88 (118) 96 Room Air Result Diagram: 06/09/17 1410 06/09/17 1410 Imaging Last Impressions Chest X-Ray 06/09/17 1348 Signed Impressions: Service Date/Time: Friday, June 09, 2017 14:19 - CONCLUSION: No acute cardiopulmonary abnormality is identified. Sammy Lipscomb MD CT Angiography 06/09/17 0000 Signed Impressions: Service Date/Time: Friday, June 09, 2017 22:45 - CONCLUSION: 1. No evidence of pulmonary embolism. Cesar Arango MD Objective Remarks GENERAL: This is a well-nourished, well-developed patient, in no apparent distress. SKIN: No rashes, ecchymoses or lesions. Cool and dry. CARDIOVASCULAR: Regular rate and rhythm without murmurs, gallops, or rubs. RESPIRATORY: Clear to auscultation. Breath sounds equal bilaterally. No wheezes , rales, or rhonchi. GASTROINTESTINAL: Abdomen soft, non-tender, nondistended. No guarding. MUSCULOSKELETAL: Extremities without clubbing, cyanosis but with bilateral lower extremity pitting edema. No joint tenderness, effusion, or edema noted. No calf tenderness. Negative Homans sign bilaterally. NEUROLOGICAL: Awake and alert. Cranial nerves II through XII intact. Motor and sensory grossly within normal limits. Five out of 5 muscle strength in all muscle groups. Normal speech. Procedures none A/P Problem List: (1) Atypical chest pain ICD Code: R07.89 - Atypical chest pain Status: Acute Assessment and Plan Atypical chest pain. Ruled out for [place]. Negative CTA for PE. Possible GI etiology. We will proceed with Lexiscan. Continue PPI with antacids. Check lipase Hypotension with history of hypertension. IV fluids for one liter monitor for overload. Continue Coreg, Imdur and lisinopril with hold parameters Diabetes mellitus. Monitor fingersticks with sliding scale coverage CHF. Compensated at this time. Monitor Hypothyroidism. Continue Synthroid DVT prophylaxis with Coumadin and Lovenox Jose Fernandes MD Jun 10, 2017 08:50
[2017-06-10] MEDS ORDERED: DULoxetine HCl DR 60 MG CAP PO SCH (09:00)
[2017-06-10] MEDS: QUEtiapine FUMARATE 100 MG TAB PO SCH ×2 (09:00→20:21)
[2017-06-10] MEDS ORDERED: DEXTROSE 50% IN WATER 50 ML VIAL(D50) IV PUSH PRN (09:00)
[2017-06-10] MEDS ORDERED: GLUCAGON 1 MG/ML VIAL OTHER PRN (09:00)
[2017-06-10] MEDS: SODIUM CHLORIDE 0.9% FLUSH 5 ML FLUSH IVF SCH ×2 (09:00→20:24)
[2017-06-10] MEDS: LISINOPRIL 20 MG TAB PO SCH ×2 (09:00→20:21)
[2017-06-10] MEDS: SODIUM CHLOR 0.9% 1000 ML INJ 1,000 ML IV SCH (09:18)
[2017-06-10] MEDS: CLOPIDOGREL 75 MG TAB PO SCH (09:25)
[2017-06-10] MEDS: CARVEDILOL 6.25 MG TAB PO SCH (09:26)
[2017-06-10] MEDS: INSULIN ASPART SUPPLEMENTAL SCALE SQ SCH ×3 (12:00→20:25)
[2017-06-10] MEDS ORDERED: REGADENOSON INJ 0.4 MG/5 ML SYR ONE ×2 (12:26→12:31)
--- NOTE | 2017-06-10 12:39 | EKG ---
Date Performed: 06/09/2017 Time Performed: 21:15:13 PTAGE: 46 years EKG: Sinus rhythm INFERIOR MYOCARDIAL INFARCTION ABNORMAL ECG PREVIOUS TRACING : 06/09/2017 16.46 Since previous tracing, no significant change noted DOCTOR: Cesar Carias Interpretating Date/Time 06/10/2017 12:38:01
--- NOTE | 2017-06-10 12:41 | EKG ---
Date Performed: 06/09/2017 Time Performed: 14:03:14 PTAGE: 46 years EKG: SINUS TACHYCARDIA INFERIOR MYOCARDIAL INFARCTION ANTEROLATERAL MYOCARDIAL INFARCTION ABNORM AL ECG INTERPRETATION BASED ON A DEFAULT AGE OF 39 YEARS NO PREVIOUS TRACING DOCTOR: Cesar Carias Interpretating Date/Time 06/10/2017 12:40:01
--- NOTE | 2017-06-10 12:41 | EKG ---
Date Performed: 06/09/2017 Time Performed: 16:46:11 PTAGE: 46 years EKG: Sinus rhythm WITH FREQUENT VENTRICULAR PREMATURE COMPLEXES INFERIOR MYOCARDIAL INFARCTION ANTEROLATERAL MYOCARDIA L INFARCTION ABNORMAL ECG PREVIOUS TRACING : 02/06/2017 05.00 Since previous tracing, no significant change noted DOCTOR: Cesar Carias Interpretating Date/Time 06/10/2017 12:39:30
[2017-06-10] MEDS ORDERED: traMADol HCL 50 MG TAB PO PRN (13:45)
[2017-06-10] MEDS: ACETAMINOPHEN/HYDROcodone 325 MG/7.5 MG TAB PO PRN ×2 (15:03→20:21)
[2017-06-10 15:24] LABS: BICARBONATE 25.5 MEQ/L (21.0-32.0); MAGNESIUM 2.1 MG/DL (1.5-2.5); POTASSIUM 4.3 MEQ/L (3.5-5.1)
--- NOTE | 2017-06-10 17:22 | RADRPT ---
EXAM DATE/TIME: 06/10/2017 12:11 [facility] COMPARISON: MYOCARDIAL PERF PHARM SPECT, GATED W/EF, February 06, 2017, 13:08. MYOCARDIAL PERF PHARM SPECT, GATED W/ EF, June 05, 2015, 10:15. INDICATIONS : Substernal chest pain. Coronary artery disease. DOSE: 35 mCi Tc99m Myoview at stress. 10.5 mCi Tc99m Myoview at rest. 0.4 mg Lexiscan STRESS SYMPTOMS: Dyspnea and chest pain. EJECTION FRACTION: 30% MEDICAL HISTORY : Diabetes mellitus type 2. Hypercholesterolemia. Myocardial infarction. Hiatal hernia. Smoker. Congest juanis heart failure. COPD. Bladder and prostate cancer. SURGICAL HISTORY : Coronary artery stent. Bladder. ENCOUNTER: Initial ACUITY: 1 day PAIN SCALE: 6/10 LOCATION: Substernal chest TECHNIQUE: The patient underwent pharmacologic stress with infusion of prescribed dose. Continuous ECG tracing was monitored during stress. Gated SPECT imaging was performed after stress and conventional SPECT i maging was performed at rest. The examination was performed on a SPECT/CT scanner, both attenuation and non-corrected datasets were reviewed. FINDINGS: DISTRIBUTION: The maximum perfused segment at stress is in the anterolateral wall. PERFUSION STUDY: There is a fixed perfusion defect of the apex. No significant reversible perfusion abnormalities are demonstrated. GATED STUDY: There is global hypokinesia and with a calculated ejection fraction of 30%., Previously was 40% CONCLUSION: No stress-induced ischemia demonstrated. 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 Global hypokinesia with abnormal left ve ntricular ejection fraction of 30%, decreased in the interim. RISK CATEGORY: Intermediate Sammy Oglesby MD on June 10, 2017 at 17:16 Board Certified Radiologist. This report was verified electronically.
[2017-06-10] MEDS: WARFARIN SOD 5 MG TAB PO SCH (17:26)
[2017-06-10] MEDS: ALPRAZolam 1 MG TAB PO PRN (17:26)
--- NOTE | 2017-06-10 18:01 | HHI.DCPOC ---
Discharge Care Plan Diagnosis: (1) Chest pain Your Health Problems Are: Difficulty with ADL Exercise Tolerance Goals to Promote Your Health * To prevent worsening of your condition and complications * To maintain your health at the optimal level Directions to Meet Your Goals Take your medications as prescribed Follow your dietary instruction Follow activity as directed Keep your appointments as scheduled Take your immunizations and boosters as scheduled If your symptoms worsen call your PCP, if no PCP go to Urgent Care Center or Emergency Room Smoking is Dangerous to Your Health. Avoid second hand smoke Call the 24-hour hour crisis hotline for domestic abuse at Jose Fernandes MD Jun 10, 2017 18:01
[2017-06-10] MEDS ORDERED: MIRTAZAPINE 15 MG TAB PO SCH (18:45)
[2017-06-10] MEDS: ATORVASTATIN 80 MG TAB PO SCH (20:20)
[2017-06-10] MEDS: PANTOPRAZOLE SOD 40 MG DELAYED RELEASE TAB PO SCH (20:24)
[2017-06-10 22:13] LABS: AUTOMATED NEUTROPHIL # 4.6 TH/MM3 (1.8-7.7); BASOPHIL % 0.5 % (0.0-2.0); EOSINOPHIL # 0.2 TH/MM3 (0-0.4); EOSINOPHIL % 2.5 % (0.0-4.0); HEMATOCRIT 33.9 % (39.0-51.0); HEMO FLAGS DIFF FINAL; LYMPH % 29.7 % (9.0-44.0); LYMPHOCYTE # 2.3 TH/MM3 (1.0-4.8); MEAN CELL VOLUME 84.1 FL (80.0-100.0); MEAN CORPUSCULAR HEMOGLOBIN 26.7 PG (27.0-34.0); MEAN CORPUSCULAR HGB CONC 31.7 % (32.0-36.0); MONO % 7.4 % (0.0-8.0); NEUT % 59.9 % (16.0-70.0); PLATELET COUNT 249 TH/MM3 (150-450); RED BLOOD COUNT 4.04 MIL/MM3 (4.50-5.90); RED CELL DISTRIBUTION WIDTH 17.7 % (11.6-17.2); WHITE BLOOD COUNT 7.8 TH/MM3 (4.0-11.0)
[2017-06-10] MEDS: SODIUM CHLORIDE 0.9% FLUSH 5 ML FLUSH IVF PRN (22:47)
[2017-06-11 00:03] VITALS: BP 119/70; PULSE 73; RESP 19; TEMP 97.8; O2SAT 96
[2017-06-11] MEDS: MORPHINE SULFATE 2 MG/ML INJ IV PUSH PRN ×2 (02:26→08:27)
[2017-06-11] MEDS: SODIUM CHLORIDE 0.9% FLUSH 5 ML FLUSH IVF PRN (02:26)
[2017-06-11] MEDS: SODIUM CHLOR 0.9% 1000 ML INJ 1,000 ML IV SCH (02:45)
[2017-06-11 04:55] VITALS: BP 100/51; PULSE 81; RESP 19; TEMP 98.1; O2SAT 95
[2017-06-11 05:07] VITALS: O2SAT 95
[2017-06-11] MEDS: LEVOTHYROXINE SODIUM 50 MCG TAB PO SCH (05:59)
[2017-06-11] MEDS: ALPRAZolam 1 MG TAB PO PRN (06:00)
[2017-06-11] MEDS: ISOSORBIDE MONONITRATE 30 MG TAB PO SCH (06:00)
[2017-06-11] MEDS: GABAPENTIN 300 MG CAP PO SCH ×2 (06:03→13:14)
[2017-06-11] MEDS: ACETAMINOPHEN/HYDROcodone 325 MG/7.5 MG TAB PO PRN (06:05)
[2017-06-11 08:00] VITALS: BP 116/54; PULSE 70; PULSE 84; RESP 24; TEMP 98; O2SAT 92
[2017-06-11] MEDS: SODIUM CHLORIDE 0.9% FLUSH 5 ML FLUSH IVF SCH (09:00)
[2017-06-11] MEDS: INSULIN ASPART SUPPLEMENTAL SCALE SQ SCH ×2 (09:10→12:00)
[2017-06-11] MEDS: QUEtiapine FUMARATE 100 MG TAB PO SCH (11:00)
[2017-06-11] MEDS: CLOPIDOGREL 75 MG TAB PO SCH (11:01)
[2017-06-11] MEDS: CARVEDILOL 6.25 MG TAB PO SCH (11:01)
[2017-06-11] MEDS: LISINOPRIL 20 MG TAB PO SCH (11:01)
--- NOTE | 2017-06-11 11:28 | HHI.PR ---
Subjective Remarks Follow-up chest pain. Improving chest discomfort. He has no other complaints. He has been ambulating. He wants to go home. Discussed with RN Objective Vitals Vital Signs Date Time Temp Pulse Resp B/P (MAP) Pulse Ox O2 Delivery O2 Flow Rate FiO2 06/11/17 08:37 20 06/11/17 08:00 98.0 84 24 116/54 (74) 92 06/11/17 07:05 20 06/11/17 05:07 95 06/11/17 04:55 98.1 81 19 100/51 (67) 95 06/11/17 00:03 97.8 73 19 119/70 (86) 96 06/10/17 23:13 74 06/10/17 20:35 97.6 68 20 119/78 (92) 96 06/10/17 16:38 97.9 72 20 112/55 (74) 94 06/10/17 13:41 86/51 (63) 06/10/17 11:36 98.2 75 19 92/52 (65) 95 I/O 06/10/17 06/10/17 06/10/17 06/11/17 06/11/17 06/11/17 07:00 15:00 23:00 07:00 15:00 23:00 Output Total 200 ml Balance -200 ml Output Urine Total 200 ml Result Diagram: 06/10/17 2145 06/10/17 1409 Imaging Last Impressions Myocardial Perfusion Scan Nuc Med 06/10/17 0000 Signed Impressions: Service Date/Time: Saturday, June 10, 2017 12:11 - CONCLUSION: No stress-induced ischemia demonstrated. 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 Global hypokinesia with abnormal left ventricular ejection fraction of 30%%, decreased in the interim. RISK CATEGORY: Intermediate Sammy Oglesby MD Chest X-Ray 06/09/17 1348 Signed Impressions: Service Date/Time: Friday, June 09, 2017 14:19 - CONCLUSION: No acute cardiopulmonary abnormality is identified. Sammy Lipscomb MD CT Angiography 06/09/17 0000 Signed Impressions: Service Date/Time: Friday, June 09, 2017 22:45 - CONCLUSION: 1. No evidence of pulmonary embolism. Cesar Arango MD Objective Remarks GENERAL: This is a well-nourished, well-developed patient, in no apparent distress. SKIN: No rashes, ecchymoses or lesions. Cool and dry. CARDIOVASCULAR: Regular rate and rhythm without murmurs, gallops, or rubs. RESPIRATORY: Clear to auscultation. Breath sounds equal bilaterally. No wheezes , rales, or rhonchi. GASTROINTESTINAL: Abdomen soft, non-tender, nondistended. No guarding. MUSCULOSKELETAL: Extremities without clubbing, cyanosis but with bilateral lower extremity pitting edema. No joint tenderness, effusion, or edema noted. No calf tenderness. Negative Homans sign bilaterally. NEUROLOGICAL: Awake and alert. Cranial nerves II through XII intact. Motor and sensory grossly within normal limits. Five out of 5 muscle strength in all muscle groups. Normal speech. Procedures none A/P Problem List: (1) Atypical chest pain ICD Code: R07.89 - Atypical chest pain Status: Acute Assessment and Plan Atypical chest pain. Negative Lexiscan. Negative CTA for PE. This is musculoskeletal pain versus GI etiology.improving. Continue PPI with antacids. Hypotension with history of hypertension. Improved with IV hydration. Likely secondary to narcotics. Continue Coreg, Imdur and lisinopril with hold parameters Diabetes mellitus. Monitor fingersticks with sliding scale coverage follow-up A1c CHF/cardiomyopathy EF 30%. Compensated at this time. Continue beta meredith and FBAY inhibitor up titrate doses if tolerated. Monitor, recommended follow up with cardiology for AICD Hypothyroidism. Continue Synthroid DVT prophylaxis with Coumadin and Lovenox Discharge Planning Stable for discharge Jose Fernandes MD Jun 11, 2017 11:28
[2017-06-11 12:15] VITALS: BP 113/59; PULSE 76; RESP 24; TEMP 98.5; O2SAT 92
[2017-06-11 13:41] LABS: HEMATOCRIT 34.9 % (39.0-51.0); REVIEW FLAG FINAL
[2017-06-11 13:47] LABS: INTERNATIONAL NORMALIZED RATIO 1.6 RATIO; PROTHROMBIN TIME - PATIENT 17.6 SEC (9.8-11.6)
--- NOTE | 2017-06-11 17:24 | HHI.DS ---
Discharge Summary Admission Date Jun 09, 2017 at 15:49 Discharge Date: Jun 11, 2017 Admitting Diagnosis chest pain (1) Atypical chest pain ICD Code: R07.89 - Atypical chest pain Status: Acute Procedures none Brief History - From Admission hx from patient, er notes, review of med records chest pain yesterday around 1000a.m. midsternal, radiation to left arm, associated with shortness of breath, diaphoresis, somewhat nauseous then "chest felt like basim horses" have had 3 MIs todays pain is similar to those [place] pains shortness of breath couple of weeks no prolonged travels on coumadin at home reports of hx of blood clots- "they were going to cut my legs off for that"- likely arterial no fever/no nausea/ no vomiting/ no blood in stool or urine reports of weakness and dizziness in past few weeks no diarrhea had bladder / prostate sx on the 11 of may hx of bladder cancer recurrent- 3-4x CBC/BMP: 06/11/17 1323 06/10/17 1409 Significant Findings Laboratory Tests Test 06/09/17 14:10 06/09/17 17:50 06/09/17 21:46 06/10/17 05:46 Hemoglobin 12.7 GM/DL (13.0-17.0) Red Cell Distribution Width 17.8 % (11.6-17.2) Prothrombin Time 18.7 SEC (9.8-11.6) 20.3 SEC (9.8-11.6) Activated Partial Thromboplast Time 31.3 SEC (24.3-30.1) Random Glucose 153 MG/DL (74-106) Estimat Glomerular Filtration Rate 75 ML/MIN (>89) Troponin I LESS THAN 0.02 NG/ML LESS THAN 0.02 NG/ML LESS THAN 0.02 NG/ML Test 06/10/17 14:09 06/10/17 21:45 06/11/17 13:23 Random Glucose 117 MG/DL (74-106) Calcium Level 8.3 MG/DL (8.5-10.1) Estimat Glomerular Filtration Rate 79 ML/MIN (>89) Red Blood Count 4.04 MIL/MM3 (4.50-5.90) Hemoglobin 10.8 GM/DL (13.0-17.0) 11.3 GM/DL (13.0-17.0) Hematocrit 33.9 % (39.0-51.0) 34.9 % (39.0-51.0) Mean Corpuscular Hemoglobin 26.7 PG (27.0-34.0) Mean Corpuscular Hemoglobin Concent 31.7 % (32.0-36.0) Red Cell Distribution Width 17.7 % (11.6-17.2) Prothrombin Time 17.6 SEC (9.8-11.6) Imaging Last Impressions Myocardial Perfusion Scan Nuc Med 06/10/17 0000 Signed Impressions: Service Date/Time: Saturday, June 10, 2017 12:11 - CONCLUSION: No stress-induced ischemia demonstrated. 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 Global hypokinesia with abnormal left ventricular ejection fraction of 30%%, decreased in the interim. RISK CATEGORY: Intermediate Sammy Oglesby MD Chest X-Ray 06/09/17 1348 Signed Impressions: Service Date/Time: Friday, June 09, 2017 14:19 - CONCLUSION: No acute cardiopulmonary abnormality is identified. Sammy Lipscomb MD CT Angiography 06/09/17 0000 Signed Impressions: Service Date/Time: Friday, June 09, 2017 22:45 - CONCLUSION: 1. No evidence of pulmonary embolism. Cesar Arango MD PE at Discharge GENERAL: This is a well-nourished, well-developed patient, in no apparent distress. SKIN: No rashes, ecchymoses or lesions. Cool and dry. CARDIOVASCULAR: Regular rate and rhythm without murmurs, gallops, or rubs. RESPIRATORY: Clear to auscultation. Breath sounds equal bilaterally. No wheezes , rales, or rhonchi. GASTROINTESTINAL: Abdomen soft, non-tender, nondistended. No guarding. MUSCULOSKELETAL: Extremities without clubbing, cyanosis but with bilateral lower extremity pitting edema. No joint tenderness, effusion, or edema noted. No calf tenderness. Negative Homans sign bilaterally. NEUROLOGICAL: Awake and alert. Cranial nerves II through XII intact. Motor and sensory grossly within normal limits. Five out of 5 muscle strength in all muscle groups. Normal speech. Hospital Course Atypical chest pain. Negative Lexiscan. Negative CTA for PE. This is musculoskeletal pain versus GI etiology. Improving. Continue PPI with antacids. Hypotension with history of hypertension. Improved with IV hydration. Likely secondary to narcotics. Continue Coreg, Imdur and lisinopril with hold parameters Diabetes mellitus. Monitor fingersticks with sliding scale coverage follow-up A1c CHF/cardiomyopathy EF 30%. Compensated at this time. Continue beta meredith and FABY inhibitor up titrate doses if tolerated. Monitor, recommended follow up with cardiology for AICD Hypothyroidism. Continue Synthroid DVT prophylaxis with Coumadin and Lovenox Pt Condition on Discharge: Stable Discharge Disposition: Discharge Home Discharge Time: > 30 minutes Discharge Instructions DIET: Follow Instructions for: Heart Healthy Diet, Diabetic Diet, Low Sodium Diet Fluid Restrictions: 2L per day Activities you can perform: Regular-No Restrictions Follow up Referrals: PCP Follow-up - 1 Week New Orders: PT/INR Continued Medications: Alprazolam (Xanax) 2 Mg Tab 2 MG PO BID PRN for ANXIETY, TAB 0 Refills Atorvastatin (Lipitor) 80 Mg Tab 80 MG PO HS for Cholesterol Management, #30 TAB 0 Refills Carvedilol (Coreg) 6.25 Mg Tab 6.25 MG PO DAILY, #60 TAB 0 Refills Clopidogrel (Plavix) 75 Mg Tab 75 MG PO DAILY for Blood Clot Prevention, #30 TAB [address] (Cymbalta DR) 60 Mg Capdr 120 MG PO DAILY, #30 CAP 0 Refills Gabapentin (Gabapentin) 300 Mg Cap 900 MG PO AC LUNCH, #90 CAP 0 Refills Gabapentin (Gabapentin) 300 Mg Cap 600 MG PO AC BREAKFAST, #90 CAP 0 Refills Gabapentin (Gabapentin) 300 Mg Cap 900 MG PO HS, #90 CAP 0 Refills Hyoscyamine (Hyoscyamine) 0.125 Mg Tab 0.125 MG PO Q6H for Bladder Spasm, #15 TAB 0 Refills Isosorbide Mononitrate ER (Isosorbide Mononitrate ER) 30 Mg Yola 30 MG PO DAILY@07 for Prevent Heart Failure, #30 TAB 3 Refills Levothyroxine (Synthroid) 50 Mcg Tab 50 MCG PO DAILY for Thyroid, #30 TAB 0 Refills Lisinopril (Lisinopril) 20 Mg Tab 20 MG PO BID, #30 TAB 0 Refills Metformin (Glucophage) 500 Mg Tab 500 MG PO HS for Blood Sugar Management, #30 TAB 0 Refills With a meal Mirtazapine (Mirtazapine) 45 Mg Tab 90 MG PO HS for Depression Control, #30 TAB 0 Refills Nitroglycerin SL (Nitroglycerin SL) 0.4 Mg Subl 0.4 MG SL Q 5 MINUTES PRN for CHEST PAIN, #100 TAB.SL 0 Refills ONE TABLET UNDER THE TONGUE NEEDED FOR CHEST PAIN, MAY REPEAT EVERY FIVE MINUTES FOR A TOTAL OF 3 DOSES OR CALL 911 IF NO RELIEF Omeprazole (Omeprazole) 40 Mg Cap 40 MG PO HS, #30 CAP 0 Refills Oxycodone-Acetaminophen (Percocet) 10-325 mg Tab 1 TAB PO Q6H PRN for PAIN, #10 TAB 0 Refills Quetiapine (Seroquel) 100 Mg Tab 100 MG PO BID for Anxiety and/or Insomnia, #30 TAB 0 Refills Warfarin (Coumadin) 5 Mg Tab 5 MG PO DAILY for Blood Clot Prevention, #30 TAB 0 Refills Jose Fernandes MD Jun 11, 2017 17:24
[2017-06-11 19:32] LABS: HEMOGLOBIN A1a 1.4 %; HEMOGLOBIN A1b 2.3 %; HEMOGLOBIN LA1C 1.6 %; HEMOGLOBIN P3 3.7 %
[2017-06-11 19:33] LABS: HEMOGLOBIN Ao 83.8 %
== END 2017-06-11 16:02 | disposition home or self-care (01) ==
LOC: NEPD 13:42 → NEDA 15:49 → NEPHCDU 18:24 → UNDODISOB 06-10 18:41
PROVIDERS: ADMIT Internal Medicine; ATTEND Internal Medicine
DX: I25.110 Atherosclerotic heart disease of native coronary artery with unstable angina pectoris (principal); R79.1 Abnormal coagulation profile; M79.602 Pain in left arm; R06.02 Shortness of breath; R61 Generalized hyperhidrosis; R11.0 Nausea; M79.1 Myalgia; R00.0 Tachycardia, unspecified; R60.0 Localized edema; I11.0 Hypertensive heart disease with heart failure; I50.9 Heart failure, unspecified; I25.2 Old myocardial infarction; E78.00 Pure hypercholesterolemia, unspecified; E03.9 Hypothyroidism, unspecified; J44.9 Chronic obstructive pulmonary disease, unspecified; E11.40 Type 2 diabetes mellitus with diabetic neuropathy, unspecified; K21.9 Gastro-esophageal reflux disease without esophagitis; G47.30 Sleep apnea, unspecified; F41.9 Anxiety disorder, unspecified; G30.9 Alzheimer's disease, unspecified; F02.80 Dementia in other diseases classified elsewhere, unspecified severity, without behavioral disturbance, psychotic disturbance, mood disturbance, and anxiety; F31.9 Bipolar disorder, unspecified; M19.90 Unspecified osteoarthritis, unspecified site; Z79.01 Long term (current) use of anticoagulants; Z79.02 Long term (current) use of antithrombotics/antiplatelets; Z79.899 Other long term (current) drug therapy; Z86.711 Personal history of pulmonary embolism; Z85.51 Personal history of malignant neoplasm of bladder; Z85.46 Personal history of malignant neoplasm of prostate; Z86.73 Personal history of transient ischemic attack (TIA), and cerebral infarction without residual deficits; Z95.5 Presence of coronary angioplasty implant and graft
CPT/HCPCS: 71010; 71275; 76937; 78452; 80048; 82550; 82552; 82948; 83036; 83690; 83735; 83880; 84443; 84484; 85014; 85018; 85025; 85610; 85730; 93005; 93017; 96361; 96372; 96374; 96376; A9502; G0378; J1650; J1815; J2270; J2785; J7030; Q9967

== ENCOUNTER 2017-07-03 12:56 | Inpatient (IN) | payer MEDICAID ==
[~2017-07-03] VITALS: Ht 182.9 cm; Wt 142.1 kg
[2017-07-03] VITALS (8 sets, daily range): BP systolic 114–151; BP diastolic 68–99; PULSE 74–111; RESP 16–24; TEMP 97.8–98.8; O2SAT 95–98
[~2017-07-03 12:56] MED LIST changes: -PERC5TAB12 PO; -PHEN0.4T PO; -ROBA750T PO
[2017-07-03] MEDS ORDERED: SODIUM CHLORIDE 0.9% FLUSH 10 ML FLUSH IVF PRN (13:00)
[2017-07-03] MEDS ORDERED: ASPIRIN 81 MG CHEW TAB PO ONE (13:00)
--- NOTE | 2017-07-03 13:10 | PD ---
HPI Chief Complaint: Chest Pain Time Seen by Provider: 13:02 Travel History International Travel<30 days: No Contact w/Intl Traveler<30days: No Traveled to known affect area: No History of Present Illness HPI 46 y male with a history of diabetes, [place], and bladder cancer presents to the ED from home with midsternal chest pain with radiation to bilateral upper extremities, nausea, shortness of breath. Patient states he was sitting watching TV and relaxing and had a sudden onset of chest pain. States he took a nitroglycerin just prior to arrival and this did not relieve any of his chest pain. States his pain is 10/10. Patient states that it only gave him a headache. Patient states that he sees his primary care physician for his Coumadin and Plavix and has not followed up with a document image technician. Patient states compliance with his regimen which include Plavix and Coumadin daily. PFSH Past Medical History Hx Anticoagulant Therapy: Yes Alzheimer's Disease: Yes Anemia: Yes Arthritis: Yes Asthma: No Autoimmune Disease: No Blood Disorders: No Bipolar Disorder: Yes Anxiety: Yes Depression: Yes Heart Rhythm Problems: No Cancer: Yes (BLADDER, PROSTATE) Cardiac Catheterization: Yes Cardiovascular Problems: Yes High Cholesterol: Yes Chemotherapy: Yes (implanted something in bladder s/p tummors removed) Chest Pain: Yes Congestive Heart Failure: Yes COPD: Yes Cerebrovascular Accident: Yes Coronary Artery Disease: Yes Diabetes: Yes Diminished Hearing: No Deep Vein Thrombosis: Yes Endocrine: Yes Gastrointestinal Disorders: Yes (ACID REFLUX, HX ULCER) GERD: Yes Glaucoma: No Genitourinary: Yes (BLADDER TUMORS, BLADDER CA) Headaches: No Hepatitis: No Hiatal Hernia: Yes Heparin Induced Thrombocytopen: No Hypertension: Yes Immune Disorder: Yes (OA) Implanted Vascular Access Dvce: No Kidney Stones: Yes ( CHRONIC STONES ) Musculoskeletal: Yes (OSTEOARTHRITIS NICKIE KNESS, BURSITIS LEFT ELBOW) Neurologic: Yes (DIABETIC NEUROPATHY) Psychiatric: Yes (BIPOLAR, ANXIETY, DEPRESSION, HX SUICIDE ATTEMPT, PER PT) Reproductive: No Respiratory: Yes (COPD, HX PE) Immunizations Current: Yes Migraines: Yes Myocardial Infarction: Yes (X 2) Radiation Therapy: Yes (pt not sure if bladder insert s/p tumor radition) Renal Failure: No Seizures: No Sickle Cell Disease: No Sleep Apnea: Yes (no cpap) Thyroid Disease: Yes (HYPOTHYROID) Ulcer: Yes Past Surgical History Abdominal Surgery: No AICD: No Appendectomy: No Arteriovenous Shunt: No Body Medical Devices: CARDIAC STENTx2 Cardiac Surgery: Yes (TWO STENTS, THROMBECTOMY 01/2017) Cholecystectomy: No Coronary Artery Bypass Graft: No Coronary Stent: Yes Ear Surgery: No Endocrine Surgery: No Eye Surgery: No Genitourinary Surgery: Yes (BLADDER TUMORS REMOVED; kidney stent removed) Gynecologic Surgery: No Insulin Pump: No Joint Replacement: No Neurologic Surgery: No Oral Surgery: No Pacemaker: No Thoracic Surgery: Yes Other Surgery: Yes (see hx) Social History Alcohol Use: No Tobacco Use: Yes Substance Use: Yes (COCAINE 12 YEARS AGO PER PT) Allergies-Medications (Allergen,Severity, Reaction): Coded Allergies: penicillin G (Verified Allergy, Severe, Anaphylaxis, 07/03/17) Per pt. Reported Meds & Prescriptions Reported Meds & Active Scripts Active Percocet (Oxycodone-Acetaminophen) 10-325 mg Tab 1 Tab PO Q6H PRN Hyoscyamine (Hyoscyamine Sulfate) 0.125 Mg Tab 0.125 Mg PO Q6H Seroquel (Quetiapine Fumarate) 100 Mg Tab 100 Mg PO BID Isosorbide Mononitrate ER (Isosorbide Mononitrate) 30 Mg Yola 30 Mg PO DAILY@07 Coumadin (Warfarin) 5 Mg Tab 5 Mg PO DAILY Reported Cymbalta DR (Duloxetine HCl) 60 Mg Capdr 120 Mg PO DAILY Gabapentin 300 Mg Cap 900 Mg PO HS Gabapentin 300 Mg Cap 600 Mg PO AC BREAKFAST Gabapentin 300 Mg Cap 900 Mg PO AC LUNCH Coreg (Carvedilol) 6.25 Mg Tab 6.25 Mg PO DAILY Mirtazapine 45 Mg Tab 90 Mg PO HS Xanax (Alprazolam) 2 Mg Tab 2 Mg PO BID PRN Omeprazole 40 Mg Cap 40 Mg PO HS Synthroid (Levothyroxine Sodium) 50 Mcg Tab 50 Mcg PO DAILY Lisinopril 20 Mg Tab 20 Mg PO BID Glucophage (Metformin HCl) 500 Mg Tab 500 Mg PO HS With a meal Nitroglycerin SL (Nitroglycerin) 0.4 Mg Subl 0.4 Mg SL Q 5 MINUTES PRN ONE TABLET UNDER THE TONGUE NEEDED FOR CHEST PAIN, MAY REPEAT EVERY FIVE MINUTES FOR A TOTAL OF 3 DOSES OR CALL 911 IF NO RELIEF Plavix (Clopidogrel Bisulfate) 75 Mg Tab 75 Mg PO DAILY Lipitor (Atorvastatin Calcium) 80 Mg Tab 80 Mg PO HS Review of Systems Except as stated in HPI: all other systems reviewed are Neg Physical Exam Narrative GENERAL: Well-developed well-nourished obese in moderate distress SKIN: Focused skin assessment warm/dry. Mildly ashen HEAD: Atraumatic. Normocephalic. EYES: Pupils equal and round. No scleral icterus. No injection or drainage. ENT: No nasal bleeding or discharge. Mucous membranes pink and moist. NECK: Trachea midline. No JVD. CARDIOVASCULAR: Tachycardic. No murmur appreciated. RESPIRATORY: Mild accessory muscle use. Decreased breath sounds overall, right greater than left. Possibly secondary to body habitus GASTROINTESTINAL: Abdomen soft, non-tender, nondistended. Hepatic and splenic margins not palpable. MUSCULOSKELETAL: No obvious deformities. No clubbing. No cyanosis. No edema. unable to reproduce CP NEUROLOGICAL: Awake and alert. No obvious cranial nerve deficits. Motor grossly within normal limits. Normal speech. PSYCHIATRIC: Appropriate mood and affect; insight and judgment normal. Data Data Last Documented VS Vital Signs Date Time Temp Pulse Resp B/P (MAP) Pulse Ox O2 Delivery O2 Flow Rate FiO2 07/03/17 14:02 97 21 132/76 (94) 95 Nasal Cannula 2.00 07/03/17 13:02 98.2 Orders Orders Electrocardiogram (07/03/17 13:00) Basic Metabolic Panel (Bmp) (07/03/17 13:00) B-Type Natriuretic Peptide (07/03/17 13:00) Ckmb (Isoenzyme) Profile (07/03/17 13:00) Complete Blood Count With Diff (07/03/17 13:00) Magnesium (Mg) (07/03/17 13:00) Prothrombin Time / Inr (Pt) (07/03/17 13:00) Act Partial Throm Time (Ptt) (07/03/17 13:00) Troponin I (07/03/17 13:00) Chest, Single Ap (07/03/17 13:00) Ecg Monitoring (07/03/17 13:00) Bilateral Bp Monitoring (07/03/17 13:00) Iv Access Insert/Monitor (07/03/17 13:00) Oximetry (07/03/17 13:00) Oxygen Administration (07/03/17 13:00) Aspirin Chew (Aspirin Chew) (07/03/17 13:00) Sodium Chloride 0.9% Flush (Ns Flush) (07/03/17 13:00) Ondansetron Inj (Zofran Inj) (07/03/17 13:15) Morphine Inj (Morphine Inj) (07/03/17 13:30) CKMB (07/03/17 13:00) CKMB% (07/03/17 13:00) Labs Laboratory Tests Test 07/03/17 13:00 White Blood Count 10.1 TH/MM3 Red Blood Count 5.19 MIL/MM3 Hemoglobin 14.0 GM/DL Hematocrit 43.6 % Mean Corpuscular Volume 83.9 FL Mean Corpuscular Hemoglobin 27.0 PG Mean Corpuscular Hemoglobin Concent 32.1 % Red Cell Distribution Width 17.4 % Platelet Count 341 TH/MM3 Mean Platelet Volume 8.0 FL Neutrophils (%) (Auto) 55.9 % Lymphocytes (%) (Auto) 33.6 % Monocytes (%) (Auto) 8.1 % Eosinophils (%) (Auto) 2.2 % Basophils (%) (Auto) 0.2 % Neutrophils # (Auto) 5.7 TH/MM3 Lymphocytes # (Auto) 3.4 TH/MM3 Monocytes # (Auto) 0.8 TH/MM3 Eosinophils # (Auto) 0.2 TH/MM3 Basophils # (Auto) 0.0 TH/MM3 CBC Comment DIFF FINAL Differential Comment Prothrombin Time 17.3 SEC Prothromb Time International Ratio 1.7 RATIO Activated Partial Thromboplast Time 26.6 SEC Blood Urea Nitrogen 13 MG/DL Creatinine 1.24 MG/DL Random Glucose 126 MG/DL Calcium Level 9.0 MG/DL Magnesium Level 2.0 MG/DL Sodium Level 139 MEQ/L Potassium Level 4.3 MEQ/L Chloride Level 107 MEQ/L Carbon Dioxide Level 22.6 MEQ/L Anion Gap 9 MEQ/L Estimat Glomerular Filtration Rate 62 ML/MIN Total Creatine Kinase 148 U/L Creatine Kinase MB 1.0 NG/ML Troponin I LESS THAN 0.02 NG/ML B-Type Natriuretic Peptide 9 PG/ML MDM Medical Decision Making Medical Screen Exam Complete: Yes Emergency Medical Condition: Yes Differential Diagnosis STEMI versus an STEMI versus chest pain versus atypical chest pain versus costochondritis versus pulmonary embolism Narrative Course 46 y male with a history of diabetes, [place], and bladder cancer presents to the ED from home with midsternal chest pain with radiation to bilateral upper extremities, nausea, shortness of breath. Patient states he was sitting watching TV and relaxing and had a sudden onset of chest pain. States he took a nitroglycerin just prior to arrival and this did not relieve any of his chest pain. States his pain is 10/10. Patient states that it only gave him a headache. Patient states that he sees his primary care physician for his Coumadin and Plavix and has not followed up with a document image technician. Patient states compliance with his regimen which include Plavix and Coumadin daily. Patient is tachycardic at 110. States compliance of medication. After review of the EMR it appears the patient had a cardiac catheter April last year and found severe vessel involvement in the LAD and RCA. In addition patient came into the emergency department for similar symptoms June 09 and note that EKG appeared similar to today's EKG. EKG- Similar Q Waves present, no ST elevation, no reciprocal changes. Upon reassessment patient still has midsternal chest pain especially in the right side of the chest. Administer morphine 4 mg. Pt states his chest pain is unchanged. Labs: INR subtherapeutic at 1.7. Laboratory Tests Test 07/03/17 13:00 White Blood Count 10.1 TH/MM3 Red Blood Count 5.19 MIL/MM3 Hemoglobin 14.0 GM/DL Hematocrit 43.6 % Mean Corpuscular Volume 83.9 FL Mean Corpuscular Hemoglobin 27.0 PG Mean Corpuscular Hemoglobin Concent 32.1 % Red Cell Distribution Width 17.4 % Platelet Count 341 TH/MM3 Mean Platelet Volume 8.0 FL Neutrophils (%) (Auto) 55.9 % Lymphocytes (%) (Auto) 33.6 % Monocytes (%) (Auto) 8.1 % Eosinophils (%) (Auto) 2.2 % Basophils (%) (Auto) 0.2 % Neutrophils # (Auto) 5.7 TH/MM3 Lymphocytes # (Auto) 3.4 TH/MM3 Monocytes # (Auto) 0.8 TH/MM3 Eosinophils # (Auto) 0.2 TH/MM3 Basophils # (Auto) 0.0 TH/MM3 CBC Comment DIFF FINAL Differential Comment Prothrombin Time 17.3 SEC Prothromb Time International Ratio 1.7 RATIO Activated Partial Thromboplast Time 26.6 SEC Blood Urea Nitrogen 13 MG/DL Creatinine 1.24 MG/DL Random Glucose 126 MG/DL Calcium Level 9.0 MG/DL Magnesium Level 2.0 MG/DL Sodium Level 139 MEQ/L Potassium Level 4.3 MEQ/L Chloride Level 107 MEQ/L Carbon Dioxide Level 22.6 MEQ/L Anion Gap 9 MEQ/L Estimat Glomerular Filtration Rate 62 ML/MIN Total Creatine Kinase 148 U/L Creatine Kinase MB 1.0 NG/ML Troponin I LESS THAN 0.02 NG/ML B-Type Natriuretic Peptide 9 PG/ML Patient is not appropriate for the chest pain center as he had a nuclear stress test approximately 3 weeks ago. Initial labs unremarkable. Patient will be admitted to observation, R/O ACS. Thank you Dr. Hurd for taking this patient. Diagnosis Primary Impression: Atypical chest pain Admitting Information Admitting Physician Requests: Observation Condition: Stable Yanelis Hammer Jul 03, 2017 13:10
[2017-07-03 13:15] LABS: AUTOMATED NEUTROPHIL # 5.7 TH/MM3 (1.8-7.7); BASOPHIL % 0.2 % (0.0-2.0); EOSINOPHIL # 0.2 TH/MM3 (0-0.4); EOSINOPHIL % 2.2 % (0.0-4.0); HEMATOCRIT 43.6 % (39.0-51.0); HEMO FLAGS DIFF FINAL; LYMPH % 33.6 % (9.0-44.0); LYMPHOCYTE # 3.4 TH/MM3 (1.0-4.8); MEAN CELL VOLUME 83.9 FL (80.0-100.0); MEAN CORPUSCULAR HGB CONC 32.1 % (32.0-36.0); MONO % 8.1 % (0.0-8.0); NEUT % 55.9 % (16.0-70.0); PLATELET COUNT 341 TH/MM3 (150-450); RED BLOOD COUNT 5.19 MIL/MM3 (4.50-5.90); RED CELL DISTRIBUTION WIDTH 17.4 % (11.6-17.2); WHITE BLOOD COUNT 10.1 TH/MM3 (4.0-11.0)
[2017-07-03] MEDS ORDERED: ONDANSETRON HCL 4 MG/2 ML VIAL IV PUSH ONE (13:15)
[2017-07-03 13:26] LABS: APTT (PATIENT) 26.6 SEC (24.3-30.1); INTERNATIONAL NORMALIZED RATIO 1.7 RATIO; PROTHROMBIN TIME - PATIENT 17.3 SEC (9.8-11.6)
[2017-07-03] MEDS ORDERED: MORPHINE SULFATE 4 MG/ML INJ IV PUSH ONE (13:30)
--- NOTE | 2017-07-03 13:34 | RADRPT ---
EXAM DATE/TIME: 07/03/2017 13:08 [place] COMPARISON: CHEST SINGLE AP, June 09, 2017, 14:19. INDICATIONS : Midline chest pain for 2 days. MEDICAL HISTORY : Myocardial infarction. SURGICAL HISTORY : Cardiac stents. Angioplasty. ENCOUNTER: Initial ACUITY: 2 days PAIN SCORE: 9/10 LOCATION: Chest, midline. FINDINGS: A single view of the chest demonstrates the lungs to be symmetrically aerated without evidence of mas s, infiltrate or effusion. The cardiomediastinal contours are unremarkable. Osseous structures are intact. CONCLUSION: 1. No acute cardiopulmonary findings. Allan Xavier MD on July 03, 2017 at 13:31 Board Certified Radiologist. This report was verified electronically.
[2017-07-03 13:52] LABS: ANION GAP 9 MEQ/L (5-15); BICARBONATE 22.6 MEQ/L (21.0-32.0); BLOOD UREA NITROGEN 13 MG/DL (7-18); CHLORIDE 107 MEQ/L (98-107); GLOMERULAR FILTRATION RATE 62 ML/MIN (>89); SODIUM (NA) 139 MEQ/L (136-145)
[2017-07-03 13:54] LABS: POTASSIUM 4.3 MEQ/L (3.5-5.1)
[2017-07-03 13:55] LABS: CREATINE KINASE 148 U/L (39-308)
--- NOTE | 2017-07-03 16:19 | HHI.HP ---
[facility] Service [facility] Primary Care Physician Zahra Dennison MD Admission Diagnosis CP R/O AK Diagnoses: Travel History International Travel<30 Days: No Contact w/Intl Traveler <30 Da: No Traveled to Known Affected Are: No History of Present Illness 46-year-old male with past medical history significant for previous AK 3, CHF with EF of 35% per patient, type 2 diabetes mellitus, hyperlipidemia, hypertension, hypothyroidism and bipolar disorder with PTSD presents with several hours of substernal chest pain. The patient describes the pain as a pressure with stabbing that radiates to his bilateral upper extremities. He also endorses nausea and shortness of breath. States he took a nitroglycerin which did not relieve any of the pain. Patient was admitted on 06/09/17 for similar symptoms and a stress test was done which was negative. EKG with no ST segment depression or elevation, similar to previous. Troponin less than 0.02. The patient is on chronic anticoagulation with Coumadin, current INR 1.7. The patient has a history of his second cardiac catheterization in April 2016 where he had stenting of the LAD. Review of Systems Denies fever or chills Denies blurry vision, otorrhea, rhinorrhea Denies sore throat and cough Positive chest pain, shortness of breath No abdominal pain Denies constipation/diarrhea/nausea/vomiting Denies muscle pain/weakness No rashes Past Family Social History Past Medical History AK 3 CHF Diabetes mellitus Osteoarthritis Bipolar disorder PTSD Hyperlipidemia Hypothyroidism Hypertension History of bladder cancer Past Surgical History Cardiac catheterization 2, last April 2016 with stent to the LAD Bladder tumor resection for bladder cancer Bilateral knee surgery Reported Medications Reported Meds & Active Scripts Active Percocet (Oxycodone-Acetaminophen) 10-325 mg Tab 1 Tab PO Q6H PRN Hyoscyamine (Hyoscyamine Sulfate) 0.125 Mg Tab 0.125 Mg PO Q6H Seroquel (Quetiapine Fumarate) 100 Mg Tab 100 Mg PO BID Isosorbide Mononitrate ER (Isosorbide Mononitrate) 30 Mg Yola 30 Mg PO DAILY@07 Coumadin (Warfarin) 5 Mg Tab 5 Mg PO DAILY Reported Cymbalta DR (Duloxetine HCl) 60 Mg Capdr 120 Mg PO DAILY Gabapentin 300 Mg Cap 900 Mg PO HS Gabapentin 300 Mg Cap 600 Mg PO AC BREAKFAST Gabapentin 300 Mg Cap 900 Mg PO AC LUNCH Coreg (Carvedilol) 6.25 Mg Tab 6.25 Mg PO DAILY Mirtazapine 45 Mg Tab 90 Mg PO HS Xanax (Alprazolam) 2 Mg Tab 2 Mg PO BID PRN Omeprazole 40 Mg Cap 40 Mg PO HS Synthroid (Levothyroxine Sodium) 50 Mcg Tab 50 Mcg PO DAILY Lisinopril 20 Mg Tab 20 Mg PO BID Glucophage (Metformin HCl) 500 Mg Tab 500 Mg PO HS With a meal Nitroglycerin SL (Nitroglycerin) 0.4 Mg Subl 0.4 Mg SL Q 5 MINUTES PRN ONE TABLET UNDER THE TONGUE NEEDED FOR CHEST PAIN, MAY REPEAT EVERY FIVE MINUTES FOR A TOTAL OF 3 DOSES OR CALL 911 IF NO RELIEF Plavix (Clopidogrel Bisulfate) 75 Mg Tab 75 Mg PO DAILY Lipitor (Atorvastatin Calcium) 80 Mg Tab 80 Mg PO HS Allergies: Coded Allergies: penicillin G (Verified Allergy, Severe, Anaphylaxis, 07/03/17) Per pt. Family History No family history of coronary artery disease or diabetes mellitus Social History Currently smokes 5 cigarettes per day. Has a [id number] history of smoking. Quit alcohol and illicit drugs 9 years ago. Physical Exam Vital Signs Vital Signs Date Time Temp Pulse Resp B/P (MAP) Pulse Ox O2 Delivery O2 Flow Rate FiO2 07/03/17 14:50 97.8 88 18 114/68 (83) 98 Nasal Cannula 3.00 07/03/17 14:02 97 21 132/76 (94) 95 Nasal Cannula 2.00 07/03/17 13:27 151/82 (105) 07/03/17 13:02 96 Nasal Cannula 2.00 07/03/17 13:02 98.2 111 18 142/99 (113) 96 Nasal Cannula 2.00 07/03/17 13:02 96 2.00 Physical Exam GENERAL: Obese, male sitting up in bed SKIN: No rashes, ecchymoses or lesions. Cool and dry. HEAD: Atraumatic. Normocephalic. No temporal or scalp tenderness. EYES: Pupils equal round and reactive. Extraocular motions intact. No scleral icterus. No injection or drainage. ENT: Nose without bleeding, purulent drainage or septal hematoma. Throat without erythema, tonsillar hypertrophy or exudate. Uvula midline. Airway patent. NECK: Trachea midline. No JVD or lymphadenopathy. Supple, nontender, no meningeal signs. CARDIOVASCULAR: Regular rate and rhythm without murmurs, gallops, or rubs. RESPIRATORY: Clear to auscultation. Breath sounds equal bilaterally. No wheezes , rales, or rhonchi. GASTROINTESTINAL: Abdomen soft, non-tender, nondistended. No hepato-splenomegaly , or palpable masses. No guarding. MUSCULOSKELETAL: 2+ pitting edema to the knees. No joint tenderness, effusion, or edema noted. No calf tenderness. Negative Homans sign bilaterally. NEUROLOGICAL: Awake and alert. Cranial nerves II through XII intact. Motor and sensory grossly within normal limits. Normal speech. Laboratory Laboratory Tests Test 07/03/17 13:00 White Blood Count 10.1 Red Blood Count 5.19 Hemoglobin 14.0 Hematocrit 43.6 Mean Corpuscular Volume 83.9 Mean Corpuscular Hemoglobin 27.0 Mean Corpuscular Hemoglobin Concent 32.1 Red Cell Distribution Width 17.4 Platelet Count 341 Mean Platelet Volume 8.0 Neutrophils (%) (Auto) 55.9 Lymphocytes (%) (Auto) 33.6 Monocytes (%) (Auto) 8.1 Eosinophils (%) (Auto) 2.2 Basophils (%) (Auto) 0.2 Neutrophils # (Auto) 5.7 Lymphocytes # (Auto) 3.4 Monocytes # (Auto) 0.8 Eosinophils # (Auto) 0.2 Basophils # (Auto) 0.0 CBC Comment DIFF FINAL Differential Comment Prothrombin Time 17.3 Prothromb Time International Ratio 1.7 Activated Partial Thromboplast Time 26.6 Blood Urea Nitrogen 13 Creatinine 1.24 Random Glucose 126 Calcium Level 9.0 Magnesium Level 2.0 Sodium Level 139 Potassium Level 4.3 Chloride Level 107 Carbon Dioxide Level 22.6 Anion Gap 9 Estimat Glomerular Filtration Rate 62 Total Creatine Kinase 148 Creatine Kinase MB 1.0 Troponin I LESS THAN 0.02 B-Type Natriuretic Peptide 9 Result Diagram: 07/03/17 1300 07/03/17 1300 Caprini VTE Risk Assessment Caprini VTE Risk Assessment: Mod/High Risk (score >= 2) Caprini Risk Assessment Model Point Value = 1 Point Value = 2 Point Value = 3 Point Value = 5 Age 41-60 Minor surgery BMI > 25 kg/m2 Swollen legs Varicose veins or History of unexplained or recurrent spontaneous Oral contraceptives or hormone replacement Sepsis (< 1 month) Serious lung disease, including pneumonia (< 1 month) Abnormal pulmonary function Acute myocardial infarction Congestive heart failure (< 1 month) History of inflammatory bowel disease Medical patient at bed rest Age 61-74 Arthroscopic surgery Major open surgery (> 45 min) Laparoscopic surgery (> 45 min) Malignancy Confined to bed (> 72 hours) Immobilizing plaster cast Central venous access Age >= 75 History of VTE Family history of VTE Factor V Leiden Prothrombin [id number] Lupus anticoagulant Anticardiolipin antibodies Elevated serum homocysteine Heparin-induced thrombocytopenia Other congenital or acquired thrombophilia Stroke (< 1 month) Elective arthroplasty Hip, pelvis, or leg fracture Acute spinal cord injury (< 1 month) Prophylaxis Regimen Total Risk Factor Score Risk Level Prophylaxis Regimen 0-1 Low Early ambulation 2 Moderate Order ONE of the following: *Sequential Compression Device (SCD) *Heparin 5000 units SQ BID 3-4 Higher Order ONE of the following medications: *Heparin 5000 units SQ TID *Enoxaparin/Lovenox 40 mg SQ daily (WT < 150 kg, CrCl > 30 mL/min) *Enoxaparin/Lovenox 30 mg SQ daily (WT < 150 kg, CrCl > 10-29 mL/min) *Enoxaparin/Lovenox 30 mg SQ BID (WT < 150 kg, CrCl > 30 mL/min) AND/OR *Sequential Compression Device (SCD) 5 or more Highest Order ONE of the following medications: *Heparin 5000 units SQ TID (Preferred with Epidurals) *Enoxaparin/Lovenox 40 mg SQ daily (WT < 150 kg, CrCl > 30 mL/min) *Enoxaparin/Lovenox 30 mg SQ daily (WT < 150 kg, CrCl > 10-29 mL/min) *Enoxaparin/Lovenox 30 mg SQ BID (WT < 150 kg, CrCl > 30 mL/min) AND *Sequential Compression Device (SCD) Assessment and Plan Assessment and Plan 46-year-old male with multiple medical problems and history of previous AK 3 presents with a several hour history of chest pain/pressure and accompanying shortness of breath. 1. Chest pain/pressure/shortness of breath Patient with history of CAD status post cardiac catheterization with stenting to the LAD in April 2016 Stress test within normal limits 3 weeks ago EKG without significant change from prior, no ST segment elevations or depressions, reviewed by me Initial troponin less than 0.02. ACS rule out pending; serial troponins/EKGs Morphine for pain 2. CHF EF of 35% per patient Continue home medications 3. Type 2 diabetes mellitus Holding home metformin SSI 4. Hypertension/hypothyroidism/hyperlipidemia/bipolar disorder/PTSD Continue home medications FEN Heart healthy diet Electrolytes: Monitor and replete when necessary Heparin China Hurd MD Jul 03, 2017 16:19
[2017-07-03] MEDS ORDERED: ACETAMINOPHEN 500 MG CPLT PO PRN (16:45)
[2017-07-03] MEDS ORDERED: SODIUM CHLORIDE 0.9% FLUSH 10 ML FLUSH IV FLUSH PRN (16:45)
[2017-07-03] MEDS ORDERED: GLUCAGON 1 MG/ML VIAL OTHER PRN (17:00)
[2017-07-03] MEDS ORDERED: DEXTROSE 50% IN WATER 50 ML VIAL(D50) IV PUSH PRN (17:00)
[2017-07-03] MEDS: INSULIN ASPART SUPPLEMENTAL SCALE SQ SCH ×2 (17:00→21:00)
[2017-07-03] MEDS: HYOSCYAMINE 0.125 MG TAB PO SCH (18:00)
[2017-07-03] MEDS: NITROGLYCERIN 2% OINT 1 GM PACKET TOP SCH (18:55)
[2017-07-03] MEDS: MORPHINE SULFATE 4 MG/ML INJ IV PUSH PRN (18:55)
[2017-07-03] MEDS: HEPARIN SODIUM - SQ 10,000 UNITS/ML VIAL SQ SCH (18:55)
[2017-07-03] MEDS: ALPRAZolam 1 MG TAB PO PRN (20:25)
[2017-07-03] MEDS: PANTOPRAZOLE SOD 40 MG DELAYED RELEASE TAB PO SCH (22:14)
[2017-07-03] MEDS: SODIUM CHLORIDE 0.9% FLUSH 10 ML FLUSH IV FLUSH SCH (22:14)
[2017-07-03] MEDS: LISINOPRIL 20 MG TAB PO SCH (22:15)
[2017-07-03] MEDS: MIRTAZAPINE 15 MG TAB PO SCH (22:15)
[2017-07-03] MEDS: QUEtiapine FUMARATE 100 MG TAB PO SCH (22:15)
[2017-07-03] MEDS: GABAPENTIN 300 MG CAP PO SCH (22:16)
[2017-07-03] MEDS: ATORVASTATIN 80 MG TAB PO SCH (22:16)
[2017-07-03 23:40] LABS: CREATINE KINASE 91 U/L (39-308)
[2017-07-04] VITALS (7 sets, daily range): BP systolic 99–167; BP diastolic 55–97; PULSE 74–98; RESP 12–18; TEMP 95.1–98.2; O2SAT 93–99
[2017-07-04 01:23] LABS: CREATINE KINASE 96 U/L (39-308)
[2017-07-04] MEDS: NITROGLYCERIN 2% OINT 1 GM PACKET TOP SCH ×2 (01:48→06:00)
[2017-07-04] MEDS: HYOSCYAMINE 0.125 MG TAB PO SCH ×4 (01:48→19:04)
[2017-07-04] MEDS: HEPARIN SODIUM - SQ 10,000 UNITS/ML VIAL SQ SCH ×2 (01:49→10:29)
[2017-07-04] MEDS: MORPHINE SULFATE 4 MG/ML INJ IV PUSH PRN ×2 (01:50→05:06)
[2017-07-04] MEDS: LEVOTHYROXINE SODIUM 50 MCG TAB PO SCH (06:21)
[2017-07-04] MEDS: ISOSORBIDE MONONITRATE 30 MG TAB PO SCH (06:53)
[2017-07-04] MEDS: GABAPENTIN 300 MG CAP PO SCH ×3 (06:53→20:32)
[2017-07-04] MEDS: INSULIN ASPART SUPPLEMENTAL SCALE SQ SCH ×4 (08:00→20:45)
[2017-07-04] MEDS: SODIUM CHLORIDE 0.9% FLUSH 10 ML FLUSH IV FLUSH SCH ×2 (09:00→20:31)
[2017-07-04] MEDS ORDERED: CARVEDILOL 6.25 MG TAB PO SCH (09:00)
[2017-07-04] MEDS: LISINOPRIL 20 MG TAB PO SCH ×2 (09:00→20:32)
[2017-07-04] MEDS ORDERED: NITROGLYCERIN 0.4 MG SL 25 TABS/BTL SL PRN (09:15)
--- NOTE | 2017-07-04 09:24 | HHI.PR ---
Subjective Remarks Follow-up atypical chest pain 07/04/17-patient seen and examined, was complaining of severe chest pain and requesting specifically narcotics. However, when told patient would not be receiving narcotics he initially threatened to sign AMA. Patient with a known history of cardiomyopathy with EF 30% was recently admitted 06/11/17 and had a negative stress test however patient was recommended follow-up outpatient with cardiology for possible AICD placement, which patient did not do. Objective Vitals Vital Signs Date Time Temp Pulse Resp B/P (MAP) Pulse Ox O2 Delivery O2 Flow Rate FiO2 07/04/17 08:29 95.1 81 18 99/55 (70) 94 07/04/17 03:10 97.9 87 18 119/67 (84) 94 07/03/17 23:05 98.3 85 16 127/77 (94) 96 07/03/17 20:10 96 07/03/17 19:59 98.8 74 17 128/68 (88) 96 07/03/17 17:46 98.1 94 24 133/83 (100) 97 07/03/17 17:16 07/03/17 14:50 97.8 88 18 114/68 (83) 98 Nasal Cannula 3.00 07/03/17 14:02 97 21 132/76 (94) 95 Nasal Cannula 2.00 07/03/17 13:27 151/82 (105) 07/03/17 13:02 96 Nasal Cannula 2.00 07/03/17 13:02 98.2 111 18 142/99 (113) 96 Nasal Cannula 2.00 07/03/17 13:02 96 2.00 I/O 07/03/17 07/03/17 07/03/17 07/04/17 07/04/17 07/04/17 07:00 15:00 23:00 07:00 15:00 23:00 Intake Total 240 ml Balance 240 ml Intake Oral 240 ml # Voids 1 Result Diagram: 07/03/17 1300 07/03/17 1300 Imaging Last Impressions Chest X-Ray 07/03/17 1300 Signed Impressions: Service Date/Time: Monday, July 03, 2017 13:08 - CONCLUSION: 1. No acute cardiopulmonary findings. Allan Xavier MD Objective Remarks GENERAL: NAD SKIN: Warm and dry. HEAD: Normocephalic. EYES: No scleral icterus. No injection or drainage. NECK: Supple, trachea midline. No JVD or lymphadenopathy. CARDIOVASCULAR: Regular rate and rhythm without murmurs, gallops, or rubs. RESPIRATORY: Breath sounds equal bilaterally. No accessory muscle use. GASTROINTESTINAL: Abdomen soft, non-tender, nondistended. MUSCULOSKELETAL: No cyanosis, or edema. BACK: Nontender without obvious deformity. No CVA tenderness. A/P Problem List: (1) Atypical chest pain ICD Code: R07.89 - Atypical chest pain Status: Acute Assessment and Plan 46-year-old male with multiple medical problems and history of previous [place] 3 presents with a several hour history of chest pain/pressure and accompanying shortness of breath. Atypical chest pain Recent negative Lexiscan stress test, though ACS thus far unremarkable however will consult cardiology for evaluation for possible left heart catheterization Continue with beta meredith/nitroglycerin sublingual and discontinue paste secondary to low BP/ Chronic systolic CHF Currently well compensated Cardiology consultation pending for evaluation for possible AICD placement Continue beta meredith, Imdur and FABY inhibitor Hypothyroidism. Continue Synthroid Type 2 diabetes mellitus Holding home metformin Continue with SSI Hypertension//hyperlipidemia/bipolar disorder/PTSD Continue home medications Chris Mcclendon MD Jul 04, 2017 09:24
[2017-07-04] MEDS: CLOPIDOGREL 75 MG TAB PO SCH (10:27)
[2017-07-04] MEDS: DULoxetine HCl DR 60 MG CAP PO SCH (10:28)
[2017-07-04] MEDS: QUEtiapine FUMARATE 100 MG TAB PO SCH ×2 (10:30→20:33)
[2017-07-04 13:46] LABS: INTERNATIONAL NORMALIZED RATIO 1.9 RATIO; PROTHROMBIN TIME - PATIENT 18.8 SEC (9.8-11.6)
[2017-07-04] MEDS: ALPRAZolam 1 MG TAB PO PRN (15:36)
[2017-07-04] MEDS ORDERED: WARFARIN SOD 5 MG TAB PO SCH (16:00)
[2017-07-04] MEDS ORDERED: HEPARIN SODIUM - IV 10,000 UNITS/10 ML VIAL IV PUSH ONE (16:15)
[2017-07-04 16:28] LABS: APTT (PATIENT) 30.8 SEC (24.3-30.1)
--- NOTE | 2017-07-04 17:53 | MB ---
cc: RAMIREZ GREENE M.D. DATE OF CONSULTATION: 07/04/2017. HISTORY OF PRESENT ILLNESS: Mark Anthony is a very pleasant 46-year-old gentleman with history of stent x2, coronary artery disease, myocardial infarction in the past who presented to the emergency room complaining of severe 10/10 chest pain unremitting. At the time I saw him, the patient noted severe unremitting chest pain for 24 straight hours. He otherwise denies any fever, chills, cough, GI or bleeding, paroxysmal nocturnal dyspnea, orthopnea, syncope or dizziness. PAST MEDICAL HISTORY: His past medical history includes: 1. Diabetes. 2. Myocardial infarction. 3. Bladder cancer. 4. History of anemia. 5. Alzheimer's disease. 6. Bipolar disorder. 7. Prostate and bladder cancer. 8. History of congestive heart failure. 9. History of COPD. 10. History of CVA. 11. History of coronary artery disease. 12. Diabetes. 13. Acid reflux. 14. Nephrolithiasis. 15. Diabetic neuropathy. 16. History of pulmonary embolus. 17. Hypothyroidism. 18. He had a percutaneous coronary intervention with thrombectomy in January of 2017. SOCIAL HISTORY: He denies alcohol use. He does smoke. Previous user of cocaine. ALLERGIES: PENICILLIN. MEDICATIONS PRIOR TO ADMISSION: 1. Percocet. 2. Hyoscyamine. 3. Seroquel. 4. Isosorbide. 5. Coumadin. 6. Cymbalta. 7. Gabapentin. 8. Coreg 6.25 daily. 9. Mirtazapine. 10. Xanax. 11. Omeprazole. 12. Synthroid. 13. Lisinopril 20 twice a day. 14. Glucophage. 15. Nitroglycerin PRN. 16. Plavix 75. 17. Lipitor 80. He had a heart catheterization on April 11 2016 done at [place]. Unfortunately, I am unable to pull the report off the computer. MEDICATIONS CURRENTLY IN THE HOSPITAL: 1. Heparin drip. 2. PRN morphine. 3. Coreg 6.25 daily. 4. Clopidogrel 75 daily. 5. Isosorbide 30 daily. 6. Levothyroxine 50 daily. 7. Atorvastatin 80 at bedtime. 8. Gabapentin 900 at bedtime. 9. Lisinopril 20 twice a day. 10. Remeron 45 at bedtime. 11. Seroquel. 12. Pantoprazole 40 at bedtime. 13. Levsin 0.125 q. 6 hours. 14. Insulin. PHYSICAL EXAMINATION: VITAL SIGNS: Blood pressure 108/61, pulse 80, respiratory rate 12, temperature 96.2. GENERAL: He is alert and oriented times three and in no acute distress. NECK: The neck is supple. No jugular venous distention. No bruits. CARDIOVASCULAR EXAM: S1-S2. No murmurs, rubs or gallops. LUNGS: Clear to auscultation bilaterally. ABDOMEN: The abdomen is soft, nontender and nondistended with positive bowel sounds. EXTREMITIES: No lower extremity edema. LABS: White count 10.1, hemoglobin 14.0, hematocrit 43.6, platelet count 341,000. Troponin is less than 0.02 x3. BNP is 9. Sodium 139, potassium 4.3, chloride 107, bicarbonate 22.6, BUN 13, creatinine 1.24, glucose 126. INR is 1.9. IMAGING STUDIES: Chest x-ray shows no acute cardiopulmonary findings. EKGS: EKG shows sinus tachycardia at 125 beats per minute with inferior Q waves. Second EKG shows sinus tachycardia at 110 beats per minute with inferior Q waves. Third EKG shows normal sinus rhythm at 85 beats per minute with one PVC and inferior Q waves. The fourth EKG shows normal sinus rhythm at 78 beats per minute with PVCs, inferior Q waves and lateral Q waves. DIAGNOSES: He has the following diagnoses: 1. Atypical chest pain. 2. Coronary artery disease. 3. Tobacco abuse. 4. History of pulmonary embolus. DISCUSSION: The patient's chest pain is atypical in the sense that it has been 24 hours severe with no enzyme elevation. Nevertheless, will continue to do serial troponins given his history of PE and a subtherapeutic INR. Will do a CT of the chest to rule out PE. If this is negative, will plan for left heart catheterization on Thursday. The patient has been started on a heparin bolus ____ on Plavix. He does need to be on twice a day Coreg and I will change his Coreg to twice a day. Otherwise, he appears to be on optimal medical therapy including Plavix, Lipitor 80, Lisinopril and Coreg. Also recommend a 2-D echocardiogram. MD BEATRIZ Humphreys/AAMIR /5:03 PM /5:34 PM
[2017-07-04] MEDS ORDERED: IOHEXOL 350 MG/ML 10 ML VIAL (for RAD DIAG) IVCONTRAST ONE (18:02)
[2017-07-04] MEDS: METFORMIN HOLD POST IV CONTRAST SCH (18:20)
--- NOTE | 2017-07-04 18:25 | RADRPT ---
EXAM DATE/TIME: 07/04/2017 17:59 [facility] COMPARISON: CT PULMONARY ANGIOGRAM, June 09, 2017, 22:45. INDICATIONS : Chest pain; rule out pulmonary embolus. IV CONTRAST: 80 cc Omnipaque 350 (iohexol) IV RADIATION DOSE: 23.60 CTDIvol (mGy) MEDICAL HISTORY : Cerebrovascular disease. Alzheimer's. Congestive heart failure.DVT, Hypertension SURGICAL HISTORY : None. ENCOUNTER: Initial ACUITY: 1 day PAIN SCALE: 6/10 LOCATION: chest TECHNIQUE: Volumetric scanning of the chest was performed using a pulmonary embolism protocol MIP images were re constructed. Using automated exposure control and adjustment of the mA and/or kV according to patien t size, radiation dose was kept as low as reasonably achievable to obtain optimal diagnostic quality images. DICOM format image data is available electronically for review and comparison. Follow-up recommendations for detected pulmonary nodules are based at a minimum on nodule size and pa tient risk factors according to Fleischner Society Guidelines. FINDINGS: PULMONARY ARTERIES: The pulmonary arteries are visualized to the proximal subsegmental level without intraluminal filling defect. More distal subsegmental branches are not completely opacified. The central pulmonary artery measures up to 3.1 cm. LUNGS: Subtle patchy ground glass opacities in the lower lobes bilaterally likely reflect volume loss. PLEURAE: There is no pleural thickening or pleural effusion. MEDIASTINUM: There is good visualization of the great vessels of the middle mediastinum. No evidence of mediastin al or hilar adenopathy/mass. Mild to moderate coronary calcifications. MUSCULOSKELETAL: Within normal limits for patient age. MISCELLANEOUS: The visualized upper abdominal organs demonstrate no acute abnormality. CONCLUSION: 1. No evidence for pulmonary intervals and to the proximal subsegmental level. More distal subsegment al branches are suboptimally opacified. 2. Minimally prominent central pulmonary artery measuring up to 3.1 cm. This may reflect some degree of pulmonary artery hypertension. 3. Probable mild atelectasis in the lower lobes bilaterally. 4. Mild to moderate coronary artery calcifications. Richie Billingsley MD on July 04, 2017 at 18:18 Board Certified Radiologist. This report was verified electronically.
--- NOTE | 2017-07-04 18:31 | ECHRPT ---
Indication: CHEST PAIN CONCLUSIONS Mildly dilated left ventricle. Mild concentric left ventricular hypertrophy. The left ventricular systolic function is cevmbifr-dt-ctrcffh reduced with an estimated ejection fra ction in the range of 35-40%. There is diffuse global hypokinesis with distinct regional wall motion abnormalities. The left atrial size is mildly dilated. There is trace tricuspid valve regurgitation. The estimated pulmonary arterial pressure is 31.7 mmHg. BP: 119 / 67 HR: 87 Rhythm: Sinus MEASUREMENTS (Male / Female) Normal Values Technical Quality:Fair 2D ECHO LV Diastolic Diameter PLAX 6.2 cm 4.2 - 5.9 / 3.9 - 5.3 cm LV Systolic Diameter PLAX 5.3 cm IVS Diastolic Thickness 1.1 cm 0.6 - 1.0 / 0.6 - 0.9 cm LVPW Diastolic Thickness 1.1 cm 0.6 - 1.0 / 0.6 - 0.9 cm LV Relative Wall Thickness 0.3 RV Internal Dim ED PLAX 2.8 cm LVOT Diameter 2.3 cm Aortic Root Diameter 3.5 cm LA Systolic Diameter LX 4.1 cm 3.0 - 4.0 / 2.7 - 3.8 cm M-MODE AV Cusp Separation MM 2.5 cm DOPPLER AV Peak Velocity 142.0 cm/s AV Peak Gradient 8.1 mmHg AV Mean Gradient 4.0 mmHg AV Velocity Time Integral 20.7 cm LVOT Peak Velocity 88.0 cm/s LVOT Peak Gradient 3.1 mmHg LVOT Velocity Time Integral 13.1 cm LVOT Cardiac Index 1705.1 cm/minm AV Area Cont Eq vti 2.6 cm AV Area Cont Eq pk 2.6 cm Mitral E Point Velocity 72.1 cm/s Mitral A Point Velocity 62.7 cm/s Mitral E to A Ratio 1.1 LV E' Lateral Velocity 9.6 cm/s Mitral E to LV E' Lateral Ratio 7.5 LV E' Septal Velocity 6.2 cm/s Mitral E to LV E' Septal Ratio 11.6 TR Peak Velocity 233.0 cm/s TR Peak Gradient 21.7 mmHg Right Atrial Pressure 10.0 mmHg Pulmonary Artery Systolic Pressu 31.7 mmHg Right Ventricular Systolic Press 31.7 mmHg PV Peak Velocity 75.2 cm/s PV Peak Gradient 2.3 mmHg FINDINGS LEFT VENTRICLE Mildly dilated left ventricle. Mild concentric left ventricular hypertrophy. The left ventricular systolic function is hhfltcgm-ba-ccdpttt reduced with an estimated ejection fra ction in the range of 35-40%. There is diffuse global hypokinesis with distinct regional wall motion abnormalities. RIGHT VENTRICLE Normal right ventricular size and systolic function. LEFT ATRIUM The left atrial size is mildly dilated. RIGHT ATRIUM The right atrial size is normal. ATRIAL SEPTUM Normal atrial septal thickness without atrial level shunting by limited color doppler interrogation. AORTA The aortic root and proximal ascending aorta are normal in size on limited imaging. MITRAL VALVE Structurally normal mitral valve. No mitral valve stenosis or regurgitation. AORTIC VALVE Trileaflet aortic valve. No aortic valve stenosis or regurgitation. TRICUSPID VALVE There is trace tricuspid valve regurgitation. The estimated pulmonary arterial pressure is 31.7 mmHg. PULMONARY VALVE No pulmonary valve regurgitation or stenosis. VESSELS The inferior vena cava is normal in size. PERICARDIUM No pericardial effusion. Jay Sykes MD, FACC, [facility] (Electronically Signed) Final Date:04 July 2017 18:30
[2017-07-04] MEDS: HEPARIN-D5W 25,000 U/250 ML 250 ML IV PRN (19:04)
[2017-07-04 19:25] LABS: HEMATOCRIT 37.5 % (39.0-51.0); MEAN CELL VOLUME 84.2 FL (80.0-100.0); MEAN CORPUSCULAR HEMOGLOBIN 27.3 PG (27.0-34.0); MEAN CORPUSCULAR HGB CONC 32.4 % (32.0-36.0); PLATELET COUNT 240 TH/MM3 (150-450); RED BLOOD COUNT 4.45 MIL/MM3 (4.50-5.90); RED CELL DISTRIBUTION WIDTH 16.9 % (11.6-17.2); REVIEW FLAG FINAL; WHITE BLOOD COUNT 6.9 TH/MM3 (4.0-11.0)
[2017-07-04] MEDS: ATORVASTATIN 80 MG TAB PO SCH (20:32)
[2017-07-04] MEDS: CARVEDILOL 6.25 MG TAB PO SCH (20:33)
[2017-07-04] MEDS: PANTOPRAZOLE SOD 40 MG DELAYED RELEASE TAB PO SCH (20:33)
[2017-07-04] MEDS: MIRTAZAPINE 15 MG TAB PO SCH (20:34)
[2017-07-04] MEDS ORDERED: HEPARIN SODIUM - IV 10,000 UNITS/10 ML VIAL IV PUSH PRN (22:15)
[2017-07-05] VITALS (26 sets, daily range): BP systolic 110–149; BP diastolic 56–86; PULSE 66–99; RESP 18–22; TEMP 97–98.3; O2SAT 95–98
[2017-07-05] MEDS: ALPRAZolam 1 MG TAB PO PRN ×3 (00:51→19:53)
[2017-07-05] MEDS: MORPHINE SULFATE 4 MG/ML INJ IV PUSH PRN ×3 (00:52→19:55)
[2017-07-05 02:49] LABS: APTT (PATIENT) 36.1 SEC (24.3-30.1)
[2017-07-05] MEDS: HEPARIN SODIUM - IV 10,000 UNITS/10 ML VIAL IV PUSH PRN ×3 (03:07→20:00)
[2017-07-05] MEDS: ISOSORBIDE MONONITRATE 30 MG TAB PO SCH (05:35)
[2017-07-05] MEDS: LEVOTHYROXINE SODIUM 50 MCG TAB PO SCH (05:35)
[2017-07-05] MEDS: HYOSCYAMINE 0.125 MG TAB PO SCH ×5 (05:36→23:18)
[2017-07-05] MEDS: GABAPENTIN 300 MG CAP PO SCH ×3 (05:36→19:52)
[2017-07-05] MEDS: LISINOPRIL 20 MG TAB PO SCH ×2 (08:18→19:51)
[2017-07-05] MEDS: CARVEDILOL 6.25 MG TAB PO SCH ×2 (08:19→19:52)
[2017-07-05] MEDS: DULoxetine HCl DR 60 MG CAP PO SCH (08:19)
[2017-07-05] MEDS: SODIUM CHLORIDE 0.9% FLUSH 10 ML FLUSH IV FLUSH SCH ×2 (08:19→19:52)
[2017-07-05] MEDS: CLOPIDOGREL 75 MG TAB PO SCH (08:19)
[2017-07-05] MEDS: QUEtiapine FUMARATE 100 MG TAB PO SCH ×2 (10:02→19:52)
--- NOTE | 2017-07-05 10:42 | PD.CARD.PN ---
Subjective Subjective Remarks states no change in chest pain, appears comfortable Objective Medications Current Medications Medications (Trade) Dose Ordered Sig/Erin Route Start Time Stop Time Status Last Admin (NS Flush) 2 ml BID IV FLUSH 07/03/17 21:00 07/05/17 08:19 (NS Flush) 2 ml UNSCH PRN IV FLUSH 07/03/17 16:45 07/03/17 18:56 (Tylenol) 500 mg Q4H PRN PO 07/03/17 16:45 (Xanax) 2 mg BID PRN PO 07/03/17 17:00 07/05/17 00:51 (Lipitor) 80 mg HS PO 07/03/17 21:00 07/04/17 20:32 (Plavix) 75 mg DAILY PO 07/04/17 09:00 07/05/17 08:19 (Cymbalta Dr) 120 mg DAILY PO 07/04/17 09:00 07/05/17 08:19 (Neurontin) 600 mg AC BREAKFAST PO 07/04/17 07:00 07/05/17 05:36 (Neurontin) 900 mg AC LUNCH PO 07/04/17 11:00 07/04/17 10:29 (Neurontin) 900 mg HS PO 07/03/17 21:00 07/04/17 20:32 (Levsin) 0.125 mg Q6H PO 07/03/17 18:00 07/04/17 19:04 (Imdur) 30 mg DAILY@07 PO 07/04/17 07:00 07/05/17 05:35 (Synthroid) 50 mcg DAILY@0600 PO 07/04/17 06:00 07/05/17 05:35 (Prinivil) 20 mg BID PO 07/03/17 21:00 07/05/17 08:18 (Remeron) 45 mg HS PO 07/03/17 21:00 07/04/17 20:34 (SEROquel) 100 mg BID PO 07/03/17 21:00 07/05/17 10:02 (Protonix) 40 mg HS PO 07/03/17 21:00 07/04/17 20:33 (D50w (Vial) Inj) 50 ml UNSCH PRN IV PUSH 07/03/17 17:00 (Glucagon Inj) 1 mg UNSCH PRN OTHER 07/03/17 17:00 (NovoLOG SUPPLEMENTAL SCALE) 1 ACHS SLIDING SCALE SQ 07/03/17 17:00 (Nitrostat Sl) 0.4 mg Q5M PRN SL 07/04/17 09:15 (Heparin Inj) 5,000 units UNSCH PRN IV PUSH 07/04/17 22:15 (Heparin Inj) 2,500 units UNSCH PRN IV PUSH 07/04/17 22:15 07/05/17 03:07 Heparin Sodium/ Dextrose 250 ml @ 10 mls/hr TITRATE PRN IV 07/04/17 16:15 07/04/17 19:04 (Morphine Inj) 1 mg Q6H PRN IV PUSH 07/04/17 17:00 07/05/17 08:18 (Coreg) 6.25 mg Q12HR PO 07/04/17 21:00 07/05/17 08:19 Miscellaneous Information HOLD METFORMIN FOR... Q24H .XX 07/04/17 18:20 07/06/17 18:19 Vital Signs / I&O Vital Signs Date Time Temp Pulse Resp B/P (MAP) Pulse Ox O2 Delivery O2 Flow Rate FiO2 07/05/17 06:00 74 07/05/17 05:00 83 07/05/17 04:00 90 07/05/17 04:00 Room Air 07/05/17 04:00 98.1 90 18 127/78 (94) 95 07/05/17 03:00 86 07/05/17 02:00 91 07/05/17 01:00 87 07/05/17 00:00 Room Air 07/05/17 00:00 84 07/05/17 00:00 98.3 84 18 110/57 (74) 95 07/04/17 19:45 98.2 98 18 128/82 (97) 94 07/04/17 15:16 96.2 80 12 108/61 (77) 95 07/04/17 11:19 96.5 83 12 118/66 (83) 93 I/O 07/04/17 07/04/17 07/04/17 07/05/17 07/05/17 07/05/17 07:00 15:00 23:00 07:00 15:00 23:00 Intake Total 240 ml 480 ml Balance 240 ml 480 ml Intake Oral 240 ml 480 ml # Voids 3 3 # Bowel Movements 0 Physical Exam GENERAL: SKIN: Warm and dry. HEAD: Normocephalic. EYES: No scleral icterus. No injection or drainage. NECK: Supple, trachea midline. No JVD or lymphadenopathy. CARDIOVASCULAR: Regular rate and rhythm without murmurs, gallops, or rubs. RESPIRATORY: Breath sounds equal bilaterally. No accessory muscle use. GASTROINTESTINAL: Abdomen soft, non-tender, nondistended. MUSCULOSKELETAL: No cyanosis, or edema. BACK: Nontender without obvious deformity. No CVA tenderness. Laboratory Laboratory Tests Test 07/04/17 13:26 07/04/17 18:48 07/04/17 18:58 07/05/17 02:10 Prothrombin Time 18.8 SEC Prothromb Time International Ratio 1.9 RATIO Activated Partial Thromboplast Time 30.8 SEC 36.1 SEC White Blood Count 6.9 TH/MM3 Red Blood Count 4.45 MIL/MM3 Hemoglobin 12.1 GM/DL Hematocrit 37.5 % Mean Corpuscular Volume 84.2 FL Mean Corpuscular Hemoglobin 27.3 PG Mean Corpuscular Hemoglobin Concent 32.4 % Red Cell Distribution Width 16.9 % Platelet Count 240 TH/MM3 Mean Platelet Volume 7.8 FL Troponin I LESS THAN 0.02 NG/ML Assessment and Plan Problem List: (1) Cardiomyopathy ICD Codes: I42.9 - Cardiomyopathy, unspecified (2) Hypertension ICD Codes: I10 - Hypertension Status: Chronic (3) Hx of coronary artery disease ICD Codes: Z86.79 - History of coronary artery disease Status: Chronic (4) PVD (peripheral vascular disease) ICD Codes: I73.9 - Peripheral vascular disease Status: Acute (5) Chest pain ICD Codes: R07.9 - Chest pain, unspecified Status: Acute (6) Tobacco abuse ICD Codes: Z72.0 - Tobacco use Status: Chronic (7) Hx of Pulmonary emboli on anticoagulation subtherapeutic Status: Acute Assessment and Plan 1.) CAD - rhc/lhc are medically necessary due to recurrent chest pain s/p pci x 2 january,, ccs class 4 angina, cardiomyopathy; continue aspirin, iv heparin, dc tobacco, d/w patient and nurse at bedside Jay Sykes MD Jul 05, 2017 10:42
[2017-07-05 11:58] LABS: APTT (PATIENT) 30.6 SEC (24.3-30.1)
[2017-07-05] MEDS: INSULIN ASPART SUPPLEMENTAL SCALE SQ SCH ×3 (11:58→20:04)
[2017-07-05] MEDS: HEPARIN-D5W 25,000 U/250 ML 250 ML IV PRN ×2 (12:42→16:12)
--- NOTE | 2017-07-05 15:13 | HHI.PR ---
Subjective Remarks Patient states the chest pain is slightly improved today. He complains of pain all over and request the morphine to be increased. States he was short of breath yesterday with chest pain but is not short of breath today. Objective Vitals Vital Signs Date Time Temp Pulse Resp B/P (MAP) Pulse Ox O2 Delivery O2 Flow Rate FiO2 07/05/17 13:02 97 07/05/17 11:15 97.0 70 20 126/56 (79) 98 07/05/17 11:15 98 Room Air 07/05/17 11:15 70 07/05/17 07:30 72 07/05/17 07:30 96 Room Air 07/05/17 07:30 97.8 72 22 149/86 (107) 96 07/05/17 06:00 74 07/05/17 05:00 83 07/05/17 04:00 90 07/05/17 04:00 Room Air 07/05/17 04:00 98.1 90 18 127/78 (94) 95 07/05/17 03:00 86 07/05/17 02:00 91 07/05/17 01:00 87 07/05/17 00:00 Room Air 07/05/17 00:00 84 07/05/17 00:00 98.3 84 18 110/57 (74) 95 07/04/17 19:45 98.2 98 18 128/82 (97) 94 07/04/17 15:16 96.2 80 12 108/61 (77) 95 I/O 07/04/17 07/04/17 07/04/17 07/05/17 07/05/17 07/05/17 06:59 14:59 22:59 06:59 14:59 22:59 Intake Total 240 ml 480 ml Balance 240 ml 480 ml Intake Oral 240 ml 480 ml # Voids 3 3 # Bowel Movements 0 Result Diagram: 07/04/17 1848 07/03/17 1300 Objective Remarks GENERAL: Well-nourished, well-developed pleasant obese male patient. SKIN: Warm and dry. HEAD: Normocephalic. EYES: No scleral icterus. No injection or drainage. NECK: Supple, trachea midline. No JVD or lymphadenopathy. CARDIOVASCULAR: Regular rate and rhythm without murmurs, gallops, or rubs. RESPIRATORY: Breath sounds equal bilaterally. No accessory muscle use. GASTROINTESTINAL: Abdomen soft, non-tender, nondistended. EXTREMITIES: No cyanosis, or edema. NEUROLOGICAL: Awake, alert, and oriented x 3. Non-focal. A/P Problem List: (1) Atypical chest pain ICD Code: R07.89 - Atypical chest pain Status: Acute (2) Cardiomyopathy ICD Code: I42.9 - Cardiomyopathy, unspecified (3) Hypertension ICD Code: I10 - Hypertension Status: Chronic (4) Bladder cancer ICD Code: C67.9 - Malignant neoplasm of bladder, unspecified Status: Acute (5) Peripheral neuropathic pain ICD Code: G62.9 - Peripheral neuropathic pain Status: Acute (6) Bipolar 1 disorder ICD Code: F31.9 - Bipolar I disorder Status: Chronic (7) Hypothyroid ICD Code: E03.9 - Hypothyroidism, unspecified Status: Chronic (8) Hx of popliteal artery thrombosis ICD Code: Z86.718 - Personal history of other venous thrombosis and embolism Status: Chronic (9) Anticoagulated on Coumadin ICD Code: Z51.81 - Encounter for therapeutic drug level monitoring; Z79.01 - detention (current) use of anticoagulants Status: Acute (10) Peripheral arterial disease ICD Code: I73.9 - Peripheral vascular disease, unspecified Status: Chronic (11) Diabetic neuropathy ICD Code: E11.40 - Type 2 diabetes mellitus with diabetic neuropathy, unspecified Status: Acute (12) HTN (hypertension) ICD Code: I10 - Essential (primary) hypertension Status: Acute (13) DM (diabetes mellitus) ICD Code: E11.9 - Type 2 diabetes mellitus without complications Status: Chronic Assessment and Plan 46-year-old male with multiple medical problems and history of previous [place] 3 presents with a several hour history of chest pain/pressure and accompanying shortness of breath. Somewhat Atypical chest pain - troponins and EKG negative Recent negative Lexiscan stress test Cardiology consulted and plans for left and right heart catheterization tomorrow Continue with beta meredith/nitroglycerin sublingual , also on heparin drip Morphine when necessary Chronic systolic CHF Currently well compensated Cardiology ff Continue beta meredith, Imdur and FABY inhibitor Hypothyroidism. Continue Synthroid Type 2 diabetes mellitus with peripheral neuropathy Holding home metformin Continue with SSI Continue Neurontin and Cymbalta Peripheral arterial disease with history of right lower extremity, lysis of the embolectomy to the femoral external iliac and popliteal artery December 2016 - on Coumadin and Plavix chronically for this Hold Coumadin while on heparin drip Hypertension//hyperlipidemia/bipolar disorder/PTSD Continue home medications DVT prophylaxis. Coumadin on hold as he is on heparin drip. Jenifer Arango MD Jul 05, 2017 15:13
[2017-07-05] MEDS: METFORMIN HOLD POST IV CONTRAST SCH (18:20)
[2017-07-05] MEDS: oxyCODONE/ACETAMINOPHEN 10 MG/325 MG TAB PO PRN (18:23)
[2017-07-05 19:14] LABS: AUTOMATED NEUTROPHIL # 3.4 TH/MM3 (1.8-7.7); BASOPHIL % 0.5 % (0.0-2.0); EOSINOPHIL # 0.2 TH/MM3 (0-0.4); EOSINOPHIL % 2.4 % (0.0-4.0); HEMATOCRIT 35.7 % (39.0-51.0); HEMO FLAGS DIFF FINAL; LYMPH % 35.9 % (9.0-44.0); LYMPHOCYTE # 2.4 TH/MM3 (1.0-4.8); MEAN CELL VOLUME 83.8 FL (80.0-100.0); MEAN CORPUSCULAR HEMOGLOBIN 26.8 PG (27.0-34.0); MONO % 10.1 % (0.0-8.0); NEUT % 51.1 % (16.0-70.0); PLATELET COUNT 227 TH/MM3 (150-450); RED BLOOD COUNT 4.26 MIL/MM3 (4.50-5.90); WHITE BLOOD COUNT 6.6 TH/MM3 (4.0-11.0)
[2017-07-05 19:18] LABS: APTT (PATIENT) 34.8 SEC (24.3-30.1)
[2017-07-05 19:32] LABS: BICARBONATE 28.7 MEQ/L (21.0-32.0); MAGNESIUM 2.1 MG/DL (1.5-2.5); POTASSIUM 3.7 MEQ/L (3.5-5.1)
[2017-07-05] MEDS: ATORVASTATIN 80 MG TAB PO SCH (19:51)
[2017-07-05] MEDS: PANTOPRAZOLE SOD 40 MG DELAYED RELEASE TAB PO SCH (19:52)
[2017-07-05] MEDS: MIRTAZAPINE 15 MG TAB PO SCH (19:53)
--- NOTE | 2017-07-05 23:08 | EKG ---
Date Performed: 07/03/2017 Time Performed: 23:55:18 PTAGE: 46 years EKG: Sinus rhythm WITH OCCASIONAL VENTRICULAR PREMATURE COMPLEXES INFERIOR MYOCARDIAL INFARCTION ANTEROLATERAL MYOCARD IAL INFARCTION ABNORMAL ECG PREVIOUS TRACING : 07/03/2017 18.03 Compared to prior tracing no significant change DOCTOR: Jhonatan Higginbotham Interpretating Date/Time 07/05/2017 23:08:49
--- NOTE | 2017-07-05 23:20 | EKG ---
Date Performed: 07/03/2017 Time Performed: 18:03:27 PTAGE: 46 years EKG: Sinus rhythm WITH OCCASIONAL VENTRICULAR PREMATURE COMPLEXES INFERIOR MYOCARDIAL INFARCTION ANTEROLATERAL MYOCARD IAL INFARCTION ABNORMAL ECG PREVIOUS TRACING : 06/09/2017 21.15 Compared to prior tracing no significant change DOCTOR: Jhonatan Higginbotham Interpretating Date/Time 07/05/2017 23:18:59
--- NOTE | 2017-07-05 23:31 | EKG ---
Date Performed: 07/03/2017 Time Performed: 12:57:54 PTAGE: 46 years EKG: SINUS TACHYCARDIA INFERIOR MYOCARDIAL INFARCTION ABNORMAL ECG INTERPRETATION BASED ON A DEF CHAO AGE OF 40 YEARS NO PREVIOUS TRACING DOCTOR: Jhonatan Higginbotham Interpretating Date/Time 07/05/2017 23:29:54
--- NOTE | 2017-07-05 23:31 | EKG ---
Date Performed: 07/03/2017 Time Performed: 13:04:28 PTAGE: 46 years EKG: SINUS TACHYCARDIA INFERIOR MYOCARDIAL INFARCTION ANTEROLATERAL MYOCARDIAL INFARCTION ABNORM AL ECG INTERPRETATION BASED ON A DEFAULT AGE OF 40 YEARS NO PREVIOUS TRACING DOCTOR: Jhonatan Higginbotham Interpretating Date/Time 07/05/2017 23:29:16
[2017-07-06] VITALS (21 sets, daily range): BP systolic 115–134; BP diastolic 64–83; PULSE 66–97; RESP 18–22; TEMP 97.8–98.6; O2SAT 95–98
[2017-07-06 01:07] LABS: APTT (PATIENT) 39.9 SEC (24.3-30.1)
[2017-07-06] MEDS: HEPARIN SODIUM - IV 10,000 UNITS/10 ML VIAL IV PUSH PRN (01:51)
[2017-07-06] MEDS: MORPHINE SULFATE 4 MG/ML INJ IV PUSH PRN ×3 (02:28→20:48)
[2017-07-06] MEDS: oxyCODONE/ACETAMINOPHEN 10 MG/325 MG TAB PO PRN ×3 (05:11→19:51)
[2017-07-06] MEDS: LEVOTHYROXINE SODIUM 50 MCG TAB PO SCH (05:11)
[2017-07-06] MEDS: HYOSCYAMINE 0.125 MG TAB PO SCH ×3 (05:11→21:50)
[2017-07-06] MEDS: ISOSORBIDE MONONITRATE 30 MG TAB PO SCH (05:13)
[2017-07-06] MEDS: GABAPENTIN 300 MG CAP PO SCH ×3 (05:13→21:39)
[2017-07-06 08:20] LABS: HEMATOCRIT 37.3 % (39.0-51.0); MEAN CORPUSCULAR HEMOGLOBIN 26.9 PG (27.0-34.0); MEAN CORPUSCULAR HGB CONC 31.7 % (32.0-36.0); PLATELET COUNT 216 TH/MM3 (150-450); RED BLOOD COUNT 4.38 MIL/MM3 (4.50-5.90); RED CELL DISTRIBUTION WIDTH 17.3 % (11.6-17.2); REVIEW FLAG FINAL; WHITE BLOOD COUNT 5.4 TH/MM3 (4.0-11.0)
[2017-07-06 08:27] LABS: APTT (PATIENT) 41.3 SEC (24.3-30.1)
[2017-07-06] MEDS: CLOPIDOGREL 75 MG TAB PO SCH (08:30)
[2017-07-06] MEDS: ALPRAZolam 1 MG TAB PO PRN ×2 (08:30→19:51)
[2017-07-06] MEDS: LISINOPRIL 20 MG TAB PO SCH ×2 (08:30→21:00)
[2017-07-06] MEDS: CARVEDILOL 6.25 MG TAB PO SCH ×2 (08:30→21:39)
[2017-07-06] MEDS: INSULIN ASPART SUPPLEMENTAL SCALE SQ SCH ×3 (08:30→21:00)
[2017-07-06] MEDS: QUEtiapine FUMARATE 100 MG TAB PO SCH ×2 (08:31→21:39)
[2017-07-06] MEDS: DULoxetine HCl DR 60 MG CAP PO SCH (08:33)
[2017-07-06] MEDS: SODIUM CHLORIDE 0.9% FLUSH 10 ML FLUSH IV FLUSH SCH ×2 (08:33→21:40)
[2017-07-06 08:45] LABS: BICARBONATE 29.4 MEQ/L (21.0-32.0); POTASSIUM 3.9 MEQ/L (3.5-5.1)
--- NOTE | 2017-07-06 11:07 | HHI.PR ---
Subjective Remarks Patient states he had a rough night he did not feel the nurse was sympathetic or attentive to his needs. He had diffuse musculoskeletal pain which is ongoing today. Also some minimal sharp chest pain. Objective Vitals Vital Signs Date Time Temp Pulse Resp B/P (MAP) Pulse Ox O2 Delivery O2 Flow Rate FiO2 07/06/17 07:28 97 21 07/06/17 06:00 74 07/06/17 05:00 82 07/06/17 04:00 97 07/06/17 04:00 98.1 97 18 123/83 (96) 97 07/06/17 03:00 91 07/06/17 02:00 89 07/06/17 01:00 90 07/06/17 00:00 83 07/06/17 00:00 Room Air 07/06/17 00:00 98.4 83 18 126/64 (84) 95 07/05/17 23:00 87 07/05/17 22:00 89 07/05/17 21:00 99 07/05/17 20:00 Room Air 07/05/17 20:00 96 07/05/17 20:00 98.1 96 18 135/76 (95) 96 07/05/17 18:00 74 07/05/17 17:00 68 07/05/17 16:00 86 07/05/17 15:20 98.0 80 20 126/56 (79) 95 07/05/17 15:20 80 07/05/17 15:00 90 07/05/17 14:00 92 07/05/17 13:02 97 07/05/17 13:00 78 07/05/17 12:00 74 07/05/17 11:15 97.0 70 20 126/56 (79) 98 07/05/17 11:15 98 Room Air 07/05/17 11:15 70 I/O 07/05/17 07/05/17 07/05/17 07/06/17 07/06/17 07/06/17 07:00 15:00 23:00 07:00 15:00 23:00 Intake Total 590 ml 1147 ml 800 ml Output Total 300 ml 1100 ml Balance 590 ml 847 ml -300 ml Intake Oral 480 ml 840 ml 800 ml IV Total 110 ml 307 ml Output Urine Total 300 ml 1100 ml # Voids 3 # Bowel Movements 0 0 0 Result Diagram: 07/06/17 0735 07/06/17 0735 Objective Remarks GENERAL: Well-nourished, well-developed pleasant obese male patient. SKIN: Warm and dry. HEAD: Normocephalic. EYES: No scleral icterus. No injection or drainage. NECK: Supple, trachea midline. No JVD or lymphadenopathy. CARDIOVASCULAR: Regular rate and rhythm without murmurs, gallops, or rubs. RESPIRATORY: Breath sounds equal bilaterally. No accessory muscle use. GASTROINTESTINAL: Abdomen soft, non-tender, nondistended. EXTREMITIES: No cyanosis, or edema. NEUROLOGICAL: Awake, alert, and oriented x 3. Non-focal. A/P Problem List: (1) Atypical chest pain ICD Code: R07.89 - Atypical chest pain Status: Acute (2) Cardiomyopathy ICD Code: I42.9 - Cardiomyopathy, unspecified Status: Chronic (3) Hypertension ICD Code: I10 - Hypertension Status: Chronic (4) Bladder cancer ICD Code: C67.9 - Malignant neoplasm of bladder, unspecified Status: Chronic (5) Peripheral neuropathic pain ICD Code: G62.9 - Peripheral neuropathic pain Status: Chronic (6) Bipolar 1 disorder ICD Code: F31.9 - Bipolar I disorder Status: Chronic (7) Hypothyroid ICD Code: E03.9 - Hypothyroidism, unspecified Status: Chronic (8) Hx of popliteal artery thrombosis ICD Code: Z86.718 - Personal history of other venous thrombosis and embolism Status: Chronic (9) Anticoagulated on Coumadin ICD Code: Z51.81 - Encounter for therapeutic drug level monitoring; Z79.01 - intermediate (current) use of anticoagulants Status: Chronic (10) Peripheral arterial disease ICD Code: I73.9 - Peripheral vascular disease, unspecified Status: Chronic (11) Diabetic neuropathy ICD Code: E11.40 - Type 2 diabetes mellitus with diabetic neuropathy, unspecified Status: Chronic (12) HTN (hypertension) ICD Code: I10 - Essential (primary) hypertension Status: Chronic (13) DM (diabetes mellitus) ICD Code: E11.9 - Type 2 diabetes mellitus without complications Status: Chronic Assessment and Plan 46-year-old male with multiple medical problems and history of previous [place] 3 presents with a several hour history of chest pain/pressure and accompanying shortness of breath. Somewhat Atypical chest pain - troponins and EKG negative Recent negative Lexiscan stress test Cardiology consulted and plans for left and right heart catheterization today Continue with beta meredith/nitroglycerin sublingual , also on heparin drip Morphine when necessary Chronic systolic CHF, LVEF 35% by [facility] 2015 Currently well compensated 2d echo LVEF 35-40%, global hypokinesis, mildly dilated LV and LA Cardiology ff Continue beta meredith, Imdur and FABY inhibitor Hypothyroidism. Continue Synthroid Type 2 diabetes mellitus with peripheral neuropathy Holding home metformin Continue with SSI Continue Neurontin and Cymbalta Peripheral arterial disease with history of right lower extremity, lysis of the embolectomy to the femoral external iliac and popliteal artery December 2016 - on Coumadin and Plavix chronically for this Hold Coumadin while on heparin drip Hypertension//hyperlipidemia/bipolar disorder/PTSD Continue home medications DVT prophylaxis. Coumadin on hold as he is on heparin drip. Jenifer Arango MD Jul 06, 2017 11:07
[2017-07-06] MEDS ORDERED: MIDAZOLAM HCL 2 MG/2 ML VIAL ONE ×2 (14:44→14:48)
[2017-07-06] MEDS ORDERED: MIDAZOLAM HCL 2 MG/2 ML VIAL IV ONE ×2 (14:45→14:50)
[2017-07-06] MEDS ORDERED: HEPARIN SODIUM - IV 10,000 UNITS/10 ML VIAL IV ONE (15:00)
[2017-07-06] MEDS ORDERED: CLOPIDOGREL 300 MG TAB ONE (15:54)
[2017-07-06] MEDS ORDERED: TIROFIBAN INFUSION INJ 250 ML IV ONE (15:54)
[2017-07-06] MEDS ORDERED: ASPIRIN 81 MG CHEW TAB ONE (15:54)
[2017-07-06] MEDS ORDERED: TIROFIBAN IV ONE (15:59)
[2017-07-06] MEDS ORDERED: CLOPIDOGREL 300 MG TAB PO ONE (16:00)
[2017-07-06] MEDS ORDERED: ASPIRIN 81 MG CHEW TAB PO ONE (16:00)
[2017-07-06] MEDS: TIROFIBAN INFUSION INJ 250 ML IV SCH ×2 (16:02→23:46)
[2017-07-06] MEDS ORDERED: SODIUM CHLORIDE 0.9% FLUSH 10 ML FLUSH IV FLUSH PRN (16:15)
[2017-07-06] MEDS ORDERED: MISC INFORMATION XX ONE (16:15)
--- NOTE | 2017-07-06 16:17 | CATHPROC ---
[facility] HIS Report Study Information Study Number Admission Scheduled Start Study Start [id number] Jul 04 2017 4:44PM 07/06/2017 Jul 06 2017 2:02PM [place] [facility] Cardiac Catheterization Admit Source Facility Department Emergency department [facility] - Attending Physician Physician and Clinical Staff Initial Jay Quispe Tactical Air Control PartyShell Padilla BSN Tactical Air Control Party Yang Medrano,JEFF Recorder Sheryl, Chele,RT(R) ScrLorrie Patiño,LATANYA TECH2 Procedures Performed Procedure Location (Site) Vessel Name Angiogram LV LV Ventricle Coronary Angiograms LCA Left Coronary Coronary Angiograms RCA Right Coronary PTCA RCA Right Coronary PTCA RCA Mid Right Coronary Stent RCA Mid Right Coronary Wire insertion Fem Art (right) Femoral Art Equipment Time Vice Chair Description Size Mfg Part Number Used/Scraped [id number] 15:01 [employer] WIRE, ASAHI PROWATER 180CM 180CM Used *[id number] 13476-13 15:07 [employer] WIRE, ASAHI PROWATER 180CM 180CM Used *[id number] CATHETER, FR5 SWAN JIA 14:44 GRIGSBY CAMACHO FR 5 110F5 *[id number] Used MONITOR TRANSDUCER, TRUWAVE [id number] 14:44 GRIGSBY CAMACHO * Used W/STOCKCOCK *[id number] 15:11 [employer] WIRE, CHOICE PT 182CM 182CM Used *[id number] [id number] *[id number] *[id number] [id number] *[id number] 14:44 MEDLINE INDUSTRIES PACK, CCL CUSTOM * Used *[id number] 14:44 MEDLINE PACER PEN, SKIN DUAL W/ RULER * Used *[id number] BALLOON, 1.25 X 10MM [id number] 15:25 MEDTRONIC 10MM Used SPRINTER LEGEND RX *[id number] BALLOON, 1.25 X 6MM SPRINTER [id number] 15:21 MEDTRONIC 6MM Used LEGEND RX *[id number] 15:30 MEDTRONIC BALLOON, 1.5 X 12MM EUPHORA 12MM Used *[id number] [id number] 15:38 MEDTRONIC BALLOON, 1.5 X 15MM EUPHORA 15MM Used *[id number] 15:18 MEDTRONIC BALLOON, 1.5 X 6MM EUPHORA 6MM Used *[id number] [id number] 15:03 MEDTRONIC BALLOON, 2.0 X 10MM EUPHORA 10MM Used *7922416 [id number] 15:45 MEDTRONIC BALLOON, 2.0 X 20MM EUPHORA 20MM Used *0478571 [id number] 15:51 MEDTRONIC STENT, 2.5 26 INTEGRITY 2.5 26 Used *9775251 [id number] 15:16 [employer] MEDICAL 30 JACQUI INDEFLATOR Used *[id number] [id number] 14:44 MERIT MEDICAL SHEATH, FR5.5 PRELUDE 11CM FR 5.5 Used 038ACT# [id number] 14:59 [employer]ICAL SHEATH, FR6.5 PRELUDE 11CM FR 6.5 038ACT Used *0406160 [id number] 14:44 [employer] MEDICAL WIRE, 3MMJ .035 180CM 180CM Used *[id number] [id number] 14:44 NAMIC MANIFOLD, 4 PORT * Used *[id number] 14:44 NYCOMED OMNIPAQUE, 350 MG, 150ML 150ML [id number] Used 15:52 NYCOMED OMNIPAQUE, 350 MG, 50ML 50ML [id number] Used 15:42 NYCOMED OMNIPAQUE, 350 MG, 50ML 50ML [id number] Used [id number] 14:44 WOOD MEDICAL BLANKET,WARM AIR CCL * Used *[id number] 14:44 TERUMO MEDICAL SHEATH, FR4 TERUMO (10CM) FR 4 Used *[id number] Equipment Model, Serial, Lot Number and Expiration Data Description Model Number Serial Number Lot Number Expiration Date BALLOON, 1.25 X 6MM SPRINTER [id number] 10-27-2019 LEGEND RX STENT, 2.5 26 INTEGRITY [id number] 11-26-2018 WIRE, CHOICE PT 182CM [id number] 02-13-2019 History: Risk Factors Family History of Hypertension Dyslipidemia Previous IA Previous Heart Failure Premature CAD Yes Yes No Yes No Prior Valve Prior PCI Prior PCIDate Prior CABG Surgery No Yes 01/01/2017 No Cerebrovascular Peripheral Artery Chronic Lung On Dialysis Diabetes Diabetes Therapy Disease Disease Disease No No No No Yes Oral History: Stress Tests Stress or Imaging Studies Performed No History: Other Current Smoker Packs a Day Years Used Pack Years Yes 1 35 35 Labs Hgb (g/dl) Hct (%) WBC (l/cumm) Platelets (thousands) 11.60-17.00 35.00-51.00 4.00-11.00 150.00-450.00 11.8 37.3 5.4 216 Glucose (mg/dl) BUN (mg/dl) Creatinine (mg/dl) BUN:Creatinine (1:x) 74.00-106.00 7.00-18.00 0.50-1.30 10.00-20.00 136 13 1.1 11.8 Na (meq/l) K (meq/l) 136.00-145.00 3.50-5.10 139 3.9 INR (PTT:PT) 0.90-1.10 1.9 Troponin I (ng/ml) CPK-MB (ng/ML) 0.02-0.05 0.50-3.60 0.02 Not Drawn Medication Medication Total Dose (Bolus/Oral) Medication Total Dosage/Unit 1% XYLOCAINE 20 mL AGGRASTAT BOLUS 71 mL ASPIRIN 162 mg HEPARIN 9700 units PLAVIX 300 mg VERSED 3 mg Medications (Bolus/Oral) Medication Time Given Dosage/Unit Administered By Reason VERSED 07/06/2017 2:44:34 PM 2 mg Shell Lopez 2 mg VERSED given in lab by Shell Lopez BSN via Peripheral IV. Ordered by Jay Sykes. 1% XYLOCAINE 07/06/2017 2:45:35 PM 20 mL Jay Sykes Patient arrived on 20 mL 1% XYLOCAINE given by Jay Sykes in Right Groin via Subcutaneous. Orde red by Jay Sykes. VERSED 07/06/2017 2:49:16 PM 1 mg Shell Lopez Patient arrived on 1 mg VERSED given by Shell Lopez BSN via Peripheral IV. Ordered by Jay Candelaria. HEPARIN 07/06/2017 3:00:13 PM 9700 units Shell Lopez Patient arrived on 9700 units HEPARIN given by Shell Lopez BSN via Peripheral IV. Ordered by Jay Sykes. ASPIRIN 07/06/2017 3:59:22 PM 162 mg Shell Lopez Patient arrived on 162 mg ASPIRIN given by Shell Lopez BSN via Subcutaneous. Ordered by Jay Hayes. PLAVIX 07/06/2017 3:59:38 PM 300 mg Shell Lopez Patient arrived on 300 mg PLAVIX given by Shell Lopez BSN via Oral. Ordered by Heladio Sykes. AGGRASTAT BOLUS 07/06/2017 3:59:46 PM 71 mL Shell Lopez 71 mL AGGRASTAT BOLUS given in lab by Shell Lopez BSN via Peripheral IV. Ordered by Jay Sykes. Medication (Drip) Medication Time Given Dosage/Unit Concentration/Unit Diluent (ml) Solution AGGRASTAT DRIP 07/06/2017 4:00:48 PM 0.153 mcg/kg/min 12.5 mg 250 NaCl .9 0.153 mcg/kg/min AGGRASTAT DRIP given in lab by Shell Lopez BSN via Peripheral IV. Pump/Drip Flow = 25.5 ml/hr using NaCl .9 with a concentration of 12.5 mg in 250 ml. Ordered by Jay Sykes. IV Solutions 07/06/2017 2:24:04 PM 0 mL (IV) 500 NaCl .9 Patient arrived on IV Solutions given by Jay Sykes in Left Antecubital via Peripheral IV. Pump /Drip Flow = 20 ml/hr using NaCl .9. Ordered by Jay Sykes. Initial Case Assessment Cardiovascular HR Rhythm NIBP Chest Pain 76 sr 112/65 0 Edema Present Skin color Skin None Normal Warm Dry Circulatory - Right Pulses Dorsalis Pedis Femoral 2 2 Scale (0,1,2,3,4,d) Circulatory - Left Pulses Dorsalis Pedis Femoral 2 2 Scale (0,1,2,3,4,d) Neurological State Oriented to time-place- Alert Moves all extremities person Respiration - General Respiration Rate SpO2 (%) O2 (lpm) (B/min) 18 96 0 Final Case Assessment Cardiovascular HR Rhythm NIBP Chest Pain 97 sr 136/81 0 Edema Present Skin color Skin None Normal Warm Dry Circulatory - Right Pulses Dorsalis Pedis Femoral 2 2 Scale (0,1,2,3,4,d) Circulatory - Left Pulses Dorsalis Pedis Femoral 2 2 Scale (0,1,2,3,4,d) Neurological State Oriented to time-place- Alert Moves all extremities person Respiration - General Respiration Rate SpO2 (%) O2 (lpm) (B/min) 18 98 0 Chronological Log Time Study Chronological Log 14:09:05 Patient arrived via Bed. 14:09:07 Patient Name, D.O.B, / Armband Verified By R.N. 14:09:08 Consent signed by the physician and the patient and verified by the Attending Physician staff. 14:09:09 Pre-op and post- op instructions given; patient acknowledges understanding of instructions. 14:11:24 Verbal Stimulation=2 Physical Stimulation=2 Airway=2 Respiration=2 TOTAL=8. (0=absent, 1=li mited, 2=present) Vitals capture started with the following parameters, Patient=Adult, Interval=5 min, Initial Pr kcgjyy=498 mmHg, 14:15:11 Deflation Rate=5 mmHg, Cuff placed on Left Arm 14:15:54 HR=77 bpm, JZXC=624/64 mmhg, SpO2=97.0 %, Resp=5 B/min, Dooley=2 14:20:36 Reference ECG taken 14:20:51 HR=77 bpm, JEIJ=292/65 mmhg, SpO2=97.0 %, Resp=28 B/min, Dooley=2 14:23:13 Presedation assessment performed by Attending Physician RN. 14:23:15 Patient has been NPO for More than 6Hrs. 14:23:19 Skin Breakdown-none present per patient. 14:23:33 A # 20 IV was noted in the Antecubital (left). Grade = 0 Patient arrived on IV Solutions given by Jay Sykes in Left Antecubital via Peripheral IV . Pump/Drip Flow = 20 14:24:04 ml/hr using NaCl .9. Ordered by Jay Sykes. 14:24:25 History and physical on the chart or being dictated. Assessment: Initial Case, HR=76 BPM, Rhythm=sr, ONSW=641/65 mmhg, Chest Pain=0, Edema=None, Col or=Normal, Skin = Warm, Dry Right Pulses: Fabrice Ped=2, Femoral=2 14:24:27 Left Pulses: Fabrice Ped=2, Femoral=2 Neurological: State=Alert, Ox3, LANDIN Respiration: Resp=18 B/min, SpO2=96 %, O2=0 lpm 14:24:44 Reference ECG taken 14:25:00 Bilateral groins prepped with 2% chlorhexidine, and draped after a 3 minute waiting time. 14:25:55 HR=76 bpm, XHZD=683/62 mmhg, SpO2=95.0 %, Resp=20 B/min, Dooley=2 14:30:49 HR=76 bpm, MIBZ=638/71 mmhg, SpO2=96.0 %, Resp=13 B/min, Dooley=2 14:32:51 Pressure channel 1 zeroed. 14:35:53 HR=71 bpm, MWYX=529/60 mmhg, SpO2=96.0 %, Resp=33 B/min, Dooley=2 14:36:24 MD paged 14:40:56 HR=76 bpm, MVBQ=482/53 mmhg, SpO2=94.0 %, Resp=11 B/min, Dooley=2 14:43:22 MD arrived. 14:44:34 2 mg VERSED given in lab by Shell Lopez BSN via Peripheral IV. Ordered by Jay Sykes. Time Out. Correct patient, correct procedure, correct physician, power injector not loaded with contrast with surgical 14:45:07 team present. Time Out Concurred by MD and individual staff in procedure. Not loaded at this ti me. 14:45:25 Presedation re-assessment performed by Attending Physician RN. 14:45:27 Case Start 14:45:28 Verbal Stimulation=2 Physical Stimulation=2 Airway=2 Respiration=2 TOTAL=8. (0=absent, 1=li mited, 2=present) Patient arrived on 20 mL 1% XYLOCAINE given by Jay Sykes in Right Groin via Subcutaneous . Ordered by 14:45:35 Jay Sykes. 14:45:55 HR=73 bpm, LQSA=274/61 mmhg, SpO2=95.0 %, Resp=23 B/min, Dooley=2 14:46:16 Access site was Right Femoral Artery. 14:46:22 A SHEATH, FR4 TERUMO (10CM) FR 4 was advanced into the Fem Art (right) using the Percut[place]o us technique. A SHEATH, FR5.5 PRELUDE 11CM FR 5.5 was advanced into the Fem Vein (right) using the Modified Corinne gomez 14:48:16 technique. 14:48:50 A CATHETER, FR5 SWAN JIA MONITOR FR 5 was inserted via Fem Vein (right) 14:49:16 Patient arrived on 1 mg VERSED given by Shell Lopez BSN via Peripheral IV. Ordered by Jay Sykes. Recorded Pressure: PCW, HR=74, Condition=Condition 1 14:49:52 (Pulmonary Capillary Wedge) PCW Recorded Pressure: MPA, HR=76, Condition=Condition 1 14:50:07 (Main Pulmonary Artery) MPA 14:50:54 HR=75 bpm, YMTS=141/61 mmhg, SpO2=94.0 %, Resp=7 B/min Recorded Pressure: RV, HR=76, Condition=Condition 1 14:51:02 (Right Ventricle) RV Recorded Pressure: RA, HR=73, Condition=Condition 1 14:51:49 (Right Atrium) RA 16/07/11 14:52:19 Saturation: Site=FA (Femoral Artery) , O2=94 %, Hgb=11.8 gm/dl, Condition=Condition 1. Used in calculation. 14:52:48 Saturation: Site=PA (Pulmonary Artery) , O2=72.3 %, Hgb=11.8 gm/dl, Condition=Condition 1. Used in calculation. 14:53:04 Saturation: Site=RA (Right Atrium) , O2=75 %, Hgb=11.8 gm/dl, Condition=Condition 1. Used i n calculation. 14:53:19 [place] Jia Catheter Removed A JR 4.0 INFINITI CATHETER FR 4 was advanced over a wire. OMNIPAQUE, 350 MG, 150ML 150ML was us ed for 14:53:29 injections. 14:53:43 The LV was injected at ~CC/SEC~ cc/sec for a total of ~TOTAL~. OMNIPAQUE, 350 MG, 150ML 150 ML used. hand Recorded Pressure: LV, HR=69, Condition=Condition 1 14:54:03 (Left Ventricle) LV 96/14/20 Recorded Pressure: LV, Ao, HR=71, Condition=Condition 1 14:54:19 (Left Ventricle) LV 91/13/19, (Aorta) Ao 96/58/77 14:54:49 The RCA was injected and visualized at various angles. OMNIPAQUE, 350 MG, 150ML 150ML used . After removing the current catheter a JL 4.0 INFINITI CATHETER FR 4 was advanced over a WIRE, 3 MMJ .035 180CM 14:55:52 180CM. 14:55:55 HR=70 bpm, XNIO=556/59 mmhg, SpO2=96.0 %, Resp=15 B/min, Pain=0, April=10, Dooley=2 A JL 4.0 INFINITI CATHETER FR 4 was advanced over a wire. OMNIPAQUE, 350 MG, 150ML 150ML was us ed for 14:56:06 injections. 14:56:23 The LCA was injected and visualized at various angles. OMNIPAQUE, 350 MG, 150ML 150ML used . A SHEATH, FR6.5 PRELUDE 11CM FR 6.5 was exchanged in the Fem Art (right). This was necessary in order to 14:58:44 accomodate a larger catheter. Patient arrived on 9700 units HEPARIN given by Shell Lopez BSN via Peripheral IV. Orde red by Onel, 15:00:13 Jay. 15:00:58 HR=71 bpm, UNCJ=978/71 mmhg, SpO2=97.0 %, Resp=10 B/min, Pain=0, April=10, Dooley=2 15:02:33 Catheter was removed A JR 4.0 GUIDE CATHETER FR 6 was advanced over a wire. OMNIPAQUE, 350 MG, 150ML 150ML was used for 15:02:37 injections. 15:02:47 The RCA was injected and visualized at various angles. OMNIPAQUE, 350 MG, 150ML 150ML used . 15:03:49 A WIRE, ASAHI PROWATER 180CM 180CM was inserted via Fem Art (right). 15:06:01 HR=72 bpm, AZNB=041/70 mmhg, SpO2=97.0 %, Resp=9 B/min, Pain=0, April=10, Dooley=2 15:06:51 Wire removed 15:09:16 A WIRE, ASAHI PROWATER 180CM 180CM was inserted via Fem Art (right). 15:10:58 HR=72 bpm, QONI=183/73 mmhg, SpO2=96.0 %, Resp=9 B/min, Pain=0, April=10, Dooley=2 15:12:24 A WIRE, CHOICE PT 182CM 182CM was inserted via Fem Art (right). 15:13:39 Wire removed, prowater 15:15:01 Interventional wire has crossed the lesion 15:15:49 A BALLOON, 2.0 X 10MM EUPHORA 10MM was inserted over WIRE, CHOICE PT 182CM 182CM via the RC A Mid. 15:15:57 HR=73 bpm, PEFP=869/75 mmhg, SpO2=95.0 %, Resp=10 B/min, Pain=0, April=10, Dooley=2 A BALLOON, 2.0 X 10MM EUPHORA 10MM over a WIRE, CHOICE PT 182CM 182CM in the RCA was inflat ed using a 30 15:16:00 JACQUI INDEFLATOR at 8 jacqui for 10 sec. A BALLOON, 2.0 X 10MM EUPHORA 10MM over a WIRE, CHOICE PT 182CM 182CM in the RCA Mid was inflat ed using a 15:16:19 30 JACQUI INDEFLATOR at 8 jacqui for 8 sec. 15:16:45 Balloon Removed. 15:19:08 A BALLOON, 1.5 X 6MM EUPHORA 6MM was inserted over WIRE, CHOICE PT 182CM 182CM via the RCA Mid. A BALLOON, 1.5 X 6MM EUPHORA 6MM over a WIRE, CHOICE PT 182CM 182CM in the RCA Mid was inflated using a 30 15:19:32 JACQUI INDEFLATOR at 14 jacqui for 15 sec. 15:20:10 Balloon Removed. 15:20:56 HR=74 bpm, COQV=765/70 mmhg, SpO2=97.0 %, Resp=12 B/min, Pain=0, April=10, Dooley=2 A BALLOON, 1.25 X 6MM SPRINTER LEGEND RX 6MM was inserted over WIRE, CHOICE PT 182CM 182CM via the RCA 15:21:21 Mid. 15:22:47 Balloon Removed. A BALLOON, 1.25 X 10MM SPRINTER LEGEND RX 10MM was inserted over WIRE, CHOICE PT 182CM 182CM vi a the RCA 15:24:52 Mid. A BALLOON, 1.25 X 10MM SPRINTER LEGEND RX 10MM over a WIRE, CHOICE PT 182CM 182CM in the RCA Mi d was 15:25:12 inflated using a 30 JACQUI INDEFLATOR at 15 jacqui for 30 sec. 15:25:59 HR=69 bpm, ERFY=962/76 mmhg, SpO2=94.0 %, Resp=11 B/min, Pain=0, April=10, Dooley=2 A BALLOON, 1.25 X 10MM SPRINTER LEGEND RX 10MM over a WIRE, CHOICE PT 182CM 182CM in the RCA Mi d was 15:26:23 inflated using a 30 JACQUI INDEFLATOR at 15 jacqui for 12 sec. A BALLOON, 1.25 X 10MM SPRINTER LEGEND RX 10MM over a WIRE, CHOICE PT 182CM 182CM in the RCA Mi d was 15:26:31 inflated using a 30 JCAQUI INDEFLATOR at 15 jacqui for 12 sec. A BALLOON, 1.25 X 10MM SPRINTER LEGEND RX 10MM over a WIRE, CHOICE PT 182CM 182CM in the RCA Mi d was 15:27:14 inflated using a 30 JACQUI INDEFLATOR at 15 jacqui for 8 sec. 15:29:03 A WIRE, ASAHI PROWATER 180CM 180CM was inserted via Fem Art (right). 15:31:00 HR=68 bpm, YYXZ=918/70 mmhg, SpO2=98.0 %, Resp=10 B/min, Pain=0, April=10, Dooley=2 A BALLOON, 1.25 X 10MM SPRINTER LEGEND RX 10MM over a WIRE, CHOICE PT 182CM 182CM in the RCA Mi d was 15:36:14 inflated using a 30 JACQUI INDEFLATOR at 6 jacqui for 12 sec. 15:37:03 HR=75 bpm, MSMI=336/73 mmhg, SpO2=97.0 %, Resp=10 B/min, Dooley=2 15:37:43 Balloon Removed. 15:38:41 A BALLOON, 1.5 X 15MM EUPHORA 15MM was inserted over WIRE, CHOICE PT 182CM 182CM via the RC A Mid. A BALLOON, 1.5 X 15MM EUPHORA 15MM over a WIRE, CHOICE PT 182CM 182CM in the RCA Mid was inflat ed using a 15:38:52 30 JACQUI INDEFLATOR at 15 jacqui for 12 sec. 15:41:00 HR=73 bpm, PRWE=650/79 mmhg, SpO2=95.0 %, Resp=10 B/min, Dooley=2 A BALLOON, 1.5 X 15MM EUPHORA 15MM over a WIRE, CHOICE PT 182CM 182CM in the RCA Mid was inflat ed using a 15:42:44 30 JACQUI INDEFLATOR at 15 jacqui for 12 sec. A BALLOON, 1.5 X 15MM EUPHORA 15MM over a WIRE, CHOICE PT 182CM 182CM in the RCA Mid was inflat ed using a 15:43:13 30 JACQUI INDEFLATOR at 15 jacqui for 12 sec. A BALLOON, 1.5 X 15MM EUPHORA 15MM over a WIRE, CHOICE PT 182CM 182CM in the RCA Mid was inflat ed using a 15:43:35 30 JACQUI INDEFLATOR at 15 jacqui for 12 sec. A BALLOON, 1.5 X 15MM EUPHORA 15MM over a WIRE, CHOICE PT 182CM 182CM in the RCA Mid was inflat ed using a 15:43:54 30 JACQUI INDEFLATOR at 15 jacqui for 12 sec. A BALLOON, 1.5 X 15MM EUPHORA 15MM over a WIRE, CHOICE PT 182CM 182CM in the RCA Mid was inflat ed using a 15:44:11 30 JACQUI INDEFLATOR at 15 jacqui for 12 sec. A BALLOON, 1.5 X 15MM EUPHORA 15MM over a WIRE, CHOICE PT 182CM 182CM in the RCA Mid was inflat ed using a 15:44:24 30 JACQUI INDEFLATOR at 15 jacqui for 10 sec. 15:45:26 Balloon Removed. 15:46:02 HR=76 bpm, WWNA=972/83 mmhg, SpO2=96.0 %, Resp=11 B/min, Dooley=2 15:46:38 A BALLOON, 2.0 X 20MM EUPHORA 20MM was inserted over WIRE, CHOICE PT 182CM 182CM via the RC A Mid. A BALLOON, 2.0 X 20MM EUPHORA 20MM over a WIRE, CHOICE PT 182CM 182CM in the RCA Mid was inflat ed using a 15:46:49 30 JACQUI INDEFLATOR at 14 jacqui for 10 sec. A BALLOON, 2.0 X 20MM EUPHORA 20MM over a WIRE, CHOICE PT 182CM 182CM in the RCA Mid was inflat ed using a 15:47:20 30 JACQUI INDEFLATOR at 14 jacqui for 10 sec. A BALLOON, 2.0 X 20MM EUPHORA 20MM over a WIRE, CHOICE PT 182CM 182CM in the RCA Mid was inflat ed using a 15:48:26 30 JACQUI INDEFLATOR at 14 jacqui for 10 sec. A BALLOON, 2.0 X 20MM EUPHORA 20MM over a WIRE, CHOICE PT 182CM 182CM in the RCA Mid was inflat ed using a 15:49:03 30 JACQUI INDEFLATOR at 14 jacqui for 10 sec. A BALLOON, 2.0 X 20MM EUPHORA 20MM over a WIRE, CHOICE PT 182CM 182CM in the RCA Mid was inflat ed using a 15:49:29 30 JACQUI INDEFLATOR at 14 jacqui for 10 sec. 15:50:17 Balloon Removed. 15:51:05 HR=82 bpm, PYPN=219/82 mmhg, SpO2=97.0 %, Resp=10 B/min, Dooley=2 An STENT, 2.5 26 INTEGRITY 2.5 26 Bare Metal Stent was inserted through a JR 4.0 GUIDE CATHETER FR 6 over a 15:52:07 WIRE, CHOICE PT 182CM 182CM. A STENT, 2.5 26 INTEGRITY 2.5 26 was deployed using a 30 JACQUI INDEFLATOR at 10 atmospheres for 1 0 seconds in 15:52:23 the RCA Mid. 15:52:52 Delivery device removed 15:53:49 Wire removed 15:53:52 Catheter was removed 15:54:40 Case End Assessment: Final Case, HR=97 BPM, Rhythm=sr, VIFV=317/81 mmhg, Chest Pain=0, Edema=None, Clutier r=Normal, Skin = Warm, Dry Right Pulses: Fabrice Ped=2, Femoral=2 15:54:55 Left Pulses: Fabrice Ped=2, Femoral=2 Neurological: State=Alert, Ox3, LANDIN Respiration: Resp=18 B/min, SpO2=98 %, O2=0 lpm 15:56:06 HR=76 bpm, LFWF=087/83 mmhg, SpO2=98.0 %, Resp=8 B/min, Dooley=2 Patient arrived on 162 mg ASPIRIN given by Shell Lopez BSN via Subcutaneous. Ordered by Onel, 15:59:22 15:59:38 Patient arrived on 300 mg PLAVIX given by Shell Lopez BSN via Oral. Ordered by Arthur. Yoly 15:59:46 71 mL AGGRASTAT BOLUS given in lab by Shell Lopez BSN via Peripheral IV. Ordered by Jay Sykes. 0.153 mcg/kg/min AGGRASTAT DRIP given in lab by Shell Lopez BSN via Peripheral IV. Pu mp/Drip Flow = 16:00:48 25.5 ml/hr using NaCl .9 with a concentration of 12.5 mg in 250 ml. Ordered by Adrian Sykes 16:01:11 HR=73 bpm, UPZN=284/81 mmhg, SpO2=98.0 %, Resp=14 B/min, Dooley=2 16:04:27 Vitals capture stopped. 16:05:07 Catheter(s) removed without difficulty 16:05:10 In the Fem Art (right) the SHEATH, FR6.5 PRELUDE 11CM FR 6.[address] by Jay Sauer. 16:05:18 In the Fem Vein (right) the SHEATH, FR4 TERUMO (10CM) FR [address] by Jay Sood. 16:05:28 Sterile dressing applied to site 16:05:30 No case complications noted. 16:05:33 Bedside Report will be given. 16:05:35 Contrast Scanned 16:09:17 Patient moved to [facility] End Study - Contrast Media Used In Study Contrast Total Opened (mL) Total Used (mL) Total Wasted (mL) Omnipaque 165 165 0 End Study - Maximum Contrast Load Max Contrast Load (mL) 631.8 End Study - Radiation Exposure Fluoro Time (minutes) 31.5 End Study - Patient Disposition Complications Transferred To Interventional Outcome No Telemetry Bed successful
[2017-07-06] MEDS: PANTOPRAZOLE SOD 40 MG DELAYED RELEASE TAB PO SCH (21:38)
[2017-07-06] MEDS: ATORVASTATIN 80 MG TAB PO SCH (21:38)
[2017-07-06] MEDS: MIRTAZAPINE 15 MG TAB PO SCH (21:38)
[2017-07-07] VITALS (24 sets, daily range): BP systolic 116–135; BP diastolic 59–77; PULSE 71–110; RESP 20–22; TEMP 98–98.6; O2SAT 97–98
[2017-07-07 01:37] LABS: APTT (PATIENT) 21.9 SEC (24.3-30.1)
[2017-07-07] MEDS: oxyCODONE/ACETAMINOPHEN 10 MG/325 MG TAB PO PRN ×3 (02:16→17:42)
[2017-07-07] MEDS: MORPHINE SULFATE 4 MG/ML INJ IV PUSH PRN ×4 (02:25→22:14)
[2017-07-07] MEDS ORDERED: HEPARIN SODIUM - IV 10,000 UNITS/10 ML VIAL IV PUSH PRN (02:30)
[2017-07-07 06:28] LABS: AUTOMATED NEUTROPHIL # 3.8 TH/MM3 (1.8-7.7); BASOPHIL % 0.5 % (0.0-2.0); EOSINOPHIL # 0.2 TH/MM3 (0-0.4); EOSINOPHIL % 3.5 % (0.0-4.0); HEMATOCRIT 36.6 % (39.0-51.0); HEMO FLAGS DIFF FINAL; LYMPH % 23.1 % (9.0-44.0); LYMPHOCYTE # 1.4 TH/MM3 (1.0-4.8); MEAN CELL VOLUME 84.4 FL (80.0-100.0); MEAN CORPUSCULAR HEMOGLOBIN 26.6 PG (27.0-34.0); MEAN CORPUSCULAR HGB CONC 31.6 % (32.0-36.0); MONO % 10.6 % (0.0-8.0); NEUT % 62.3 % (16.0-70.0); PLATELET COUNT 219 TH/MM3 (150-450); RED BLOOD COUNT 4.34 MIL/MM3 (4.50-5.90); RED CELL DISTRIBUTION WIDTH 17.4 % (11.6-17.2); WHITE BLOOD COUNT 6.1 TH/MM3 (4.0-11.0)
[2017-07-07] MEDS: ISOSORBIDE MONONITRATE 30 MG TAB PO SCH (06:28)
[2017-07-07] MEDS: LEVOTHYROXINE SODIUM 50 MCG TAB PO SCH (06:28)
[2017-07-07] MEDS: HYOSCYAMINE 0.125 MG TAB PO SCH ×3 (06:28→17:41)
[2017-07-07 06:39] LABS: INTERNATIONAL NORMALIZED RATIO 1.3 RATIO; PROTHROMBIN TIME - PATIENT 13.2 SEC (9.8-11.6)
[2017-07-07] MEDS: GABAPENTIN 300 MG CAP PO SCH ×3 (06:43→20:54)
[2017-07-07 06:46] LABS: BICARBONATE 27.2 MEQ/L (21.0-32.0); POTASSIUM 3.8 MEQ/L (3.5-5.1)
[2017-07-07] MEDS: HEPARIN-D5W 25,000 U/250 ML 250 ML IV PRN ×2 (07:00→22:17)
[2017-07-07] MEDS ORDERED: IOHEXOL 350 MG/ML 100 ML BTL (for Cath Lab) OTHER ONE (07:16)
[2017-07-07] MEDS: ALPRAZolam 1 MG TAB PO PRN ×2 (07:39→17:42)
[2017-07-07] MEDS: INSULIN ASPART SUPPLEMENTAL SCALE SQ SCH ×4 (08:00→20:54)
[2017-07-07] MEDS: SODIUM CHLORIDE 0.9% FLUSH 10 ML FLUSH IV FLUSH SCH ×3 (09:00→20:54)
--- NOTE | 2017-07-07 09:18 | MA ---
cc: RAMIREZ GREENE M.D. DATE 07/06/2017 PROCEDURE PERFORMED Right heart catheterization, left heart catheterization, left ventriculography, coronary angiography, PCI bare metal stent of the proximal mid RCA and PTCA of the mid to distal RCA. INDICATIONS 1. Unstable angina. 2. [place] [employer] Class IV angina. 3. Cardiomyopathy 4. Congestive heart failure 5. [place] Heart Association class 3 congestive heart failure. 6. Coronary artery disease PROCEDURAL STATEMENT The patient was brought to the cardiac catheterization laboratory, prepped and draped in the usual sterile fashion. 10 cc's of 1% lidocaine was used to locally anesthetize the right common femoral artery. A 4-[place] sheath was successfully placed in the right common femoral artery. A 5-[place] sheath placed in the right common femoral vein. Right heart catheterization was performed first on room air with the following findings: Pulmonary capillary wedge pressure: 23/21-18. PA pressure 32/12-23. RV pressure 39/10-16. RA pressure 14/12-11. FA sat was 94%. PA sat was 72.3%. RA sat 75%. The cardiac output by Jennifer 9.2 liters per minute. Cardiac and cardiac index by Jennifer 3.6 per meter squared per minute and SVR is 1471 dynes. Left heart catheterization was then performed with 4-[place] JR-4, JL-4 catheter with following findings. The LV pressures 100/16-18. There is severe hypokinesis of the posterior wall. Ejection fraction is 45%. The right coronary artery is dominant. It is subtotally occluded in the proximal segment with ALBINO-I flow into the mid segment and ALBINO-0 flow beyond the mid segment. The left main coronary artery has no significant disease angiographically. The LAD is transapical. The stent in the proximal segment has moderate in-stent stenosis up to 50% angiographically. The LAD supplies sdbf-an-bwlny collaterals to the right PDA filling retrograde to the bifurcation of the distal RCA and into the distal RCA. The ramus intermedius vessel is a medium-sized vessel with no significant disease angiographically. Left circumflex vessel has mild diffuse disease in the proximal segment up to 20% angiographically. The first obtuse marginal vessel is a small vessel 1 mm in diameter. No significant disease angiographically. The second obtuse marginal vessel is a small to medium sized vessel with an ostial proximal 60% stenosis with a 45 degrees angulation off the distal AV groove left circumflex vessel which then goes on to fill a still very small distal posterolateral artery which is probably 0.5 mm in diameter. The 4-[place] sheath was exchanged for a 6-[place] sheath. 70 units per kilo of heparin was given. Initial ACT 335, 6-[place] JR-4 guide was placed in the proximal right coronary artery and was not able to cross the proximal right coronary artery with a 0.014 [place] guidewire. I then placed a 0.014 Choice PT wire into the proximal right coronary artery and was able to place it beyond the area of 100% stenosis, but could not advance the wire. I then used a 2-0 x 10 before Euphora balloon was able to place the 0.014 Choice PT guidewire into the distal right coronary artery and right PDA. I was not able to pass the 2.0 x 10 Euphora balloon beyond the mid right coronary artery. I then tried to cross the mid right coronary artery with 1.5 mm x 6 mm Euphora balloon, unable to cross and I also tried to cross it with a 1.256 mm Euphora balloon unable to cross. I did do several inflations beyond the initial proximal occlusion. This resulted in improved flow into the vsb-ib-mtdsab right coronary artery, however, there was no runoff seen into the distal right coronary artery. I then placed a 0.014 [place] guidewire as a rodney wire. I was not able to advance into the distal right coronary artery, I was, however, able to advance a 1.5-15 mm Euphora balloon into the distal right coronary artery. I then removed the [place] guidewire. I did one inflation to 15 atmospheres at the mid segment. I then was able to pass the 1.5 x 15 Euphora balloon to the distal right coronary artery, did one inflation to 15 atmospheres for 20 seconds and then did pullback inflations back to the mid segment all up to 15 atmospheres. I then did two inflations in the proximal mid with three inflations up to 15 atmospheres in the proximal mid resulting in re-establishment of flow throughout the entire right coronary artery and into the right PDA and right posterolateral artery. I then ballooned the mid to distal right coronary artery with a 2.0 x 20 Euphora balloon with one inflation to 10 atmospheres for 20 seconds and I then did pulled inflations all the way back to the initial proximal occlusion. I then placed a 2.5 x 26 Integrity stent in the proximal mid segment with one inflation to 10 atmospheres for 20 seconds. The stenosis went from 100% with ALBINO-0 flow to 0% with ALBINO-III flow. NOTE There was not runoff into the distal right PDA. Suspect there was competitive flow from the collateralized PDA as initially there was flow retrograde from the collateralized PDA into the distal right. The right posterolateral artery was a small 1.5 mm vessel. Note, the patient's systolic blood pressure did improve increased to by about 20 mmHg after reperfusion. CONCLUSION 1. Unstable angina [place] [employer] Class IV angina with severe chest pain at rest, culprit occluded right coronary with a [id number]-[id number] collaterals to the right PDA. 2. Moderate in-stent restenosis of the proximal LAD to about 50%. 3. Moderate ric-kp-prefve ostial proximal OM as detailed above 60% in a medium-sized vessel. 4. Mildly reduced LV systolic function of 45% with severe hypokinesis of the posterior wall. Cardiac index of 3.6 liters per meter squared per minute. 5. Recommend continue Plavix 75 mg daily. We will re-bolus with a 300 mg p.o. load, start aspirin 162 mg p.o. 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 The patient will need to be on triple anticoagulation as he has a history of PE, so therefore we will restart his heparin without bolus 6 hours after the sheath is out tonight and restart his Coumadin tomorrow if there are no issues with bleeding for a target INR of 2.0 to 3.0. MD BEATRIZ Humphreys/POLI /4:04 PM /8:54 AM
[2017-07-07] MEDS: CARVEDILOL 6.25 MG TAB PO SCH ×2 (09:42→20:54)
[2017-07-07] MEDS: ASPIRIN 81 MG CHEW TAB PO SCH (09:42)
[2017-07-07] MEDS: DULoxetine HCl DR 60 MG CAP PO SCH (09:43)
[2017-07-07] MEDS: LISINOPRIL 20 MG TAB PO SCH ×2 (09:43→20:54)
[2017-07-07] MEDS: CLOPIDOGREL 75 MG TAB PO SCH (09:44)
[2017-07-07] MEDS: QUEtiapine FUMARATE 100 MG TAB PO SCH ×2 (09:49→20:54)
--- NOTE | 2017-07-07 12:44 | HHI.PR ---
Subjective Remarks Patient complains of low back pain so severe he can't move. Per nursing staff he's been asking for Dilaudid by name and has been irritated and somewhat verbally aggressive with the nursing staff. Objective Vitals Vital Signs Date Time Temp Pulse Resp B/P (MAP) Pulse Ox O2 Delivery O2 Flow Rate FiO2 07/07/17 08:11 97 Room Air 07/07/17 08:11 98.2 81 22 135/77 (96) 97 07/07/17 05:00 85 07/07/17 04:00 81 07/07/17 03:42 99 Room Air 07/07/17 03:00 82 07/07/17 03:00 98.4 83 20 132/73 (92) 98 07/07/17 00:00 97 Room Air 07/07/17 00:00 98.0 71 20 118/59 (78) 98 07/06/17 20:00 99 Room Air 07/06/17 20:00 97.9 75 20 131/77 (95) 98 07/06/17 18:00 80 07/06/17 17:40 96 21 07/06/17 17:00 66 07/06/17 16:30 98.0 67 20 124/68 (86) 98 07/06/17 16:30 67 07/06/17 14:00 80 07/06/17 13:00 76 I/O 07/06/17 07/06/17 07/06/17 07/07/17 07/07/17 07/07/17 07:00 15:00 23:00 07:00 15:00 23:00 Intake Total 800 ml 1125 ml Output Total 1100 ml 700 ml 300 ml Balance -300 ml 425 ml -300 ml Intake Oral 800 ml 480 ml IV Total 645 ml Output Urine Total 1100 ml 700 ml 300 ml # Bowel Movements 0 0 Result Diagram: 07/07/17 0454 07/07/17 045 Objective Remarks GENERAL: Well-nourished, well-developed pleasant obese male patient. SKIN: Warm and dry. HEAD: Normocephalic. EYES: No scleral icterus. No injection or drainage. NECK: Supple, trachea midline. No JVD or lymphadenopathy. CARDIOVASCULAR: Regular rate and rhythm without murmurs, gallops, or rubs. RESPIRATORY: Breath sounds equal bilaterally. No accessory muscle use. GASTROINTESTINAL: Abdomen soft, non-tender, nondistended. EXTREMITIES: No cyanosis, or edema. NEUROLOGICAL: Awake, alert, and oriented x 3. Non-focal. A/P Problem List: (1) Atypical chest pain ICD Code: R07.89 - Atypical chest pain Status: Acute (2) Cardiomyopathy ICD Code: I42.9 - Cardiomyopathy, unspecified Status: Chronic (3) Hypertension ICD Code: I10 - Hypertension Status: Chronic (4) Bladder cancer ICD Code: C67.9 - Malignant neoplasm of bladder, unspecified Status: Chronic (5) Peripheral neuropathic pain ICD Code: G62.9 - Peripheral neuropathic pain Status: Chronic (6) Bipolar 1 disorder ICD Code: F31.9 - Bipolar I disorder Status: Chronic (7) Hypothyroid ICD Code: E03.9 - Hypothyroidism, unspecified Status: Chronic (8) Hx of popliteal artery thrombosis ICD Code: Z86.718 - Personal history of other venous thrombosis and embolism Status: Chronic (9) Anticoagulated on Coumadin ICD Code: Z51.81 - Encounter for therapeutic drug level monitoring; Z79.01 - medical terminologist (current) use of anticoagulants Status: Chronic (10) Peripheral arterial disease ICD Code: I73.9 - Peripheral vascular disease, unspecified Status: Chronic (11) Diabetic neuropathy ICD Code: E11.40 - Type 2 diabetes mellitus with diabetic neuropathy, unspecified Status: Chronic (12) HTN (hypertension) ICD Code: I10 - Essential (primary) hypertension Status: Chronic (13) DM (diabetes mellitus) ICD Code: E11.9 - Type 2 diabetes mellitus without complications Status: Chronic Assessment and Plan 46-year-old male with multiple medical problems and history of previous [place] 3 presents with a several hour history of chest pain/pressure and accompanying shortness of breath. CAD - troponins and EKG negative Recent negative Lexiscan stress test Dr. Sykes did left and right heart catheterization on 07/06 showing occluded RCA which was stented, proximal LAD stent with restenosis of about 50% , hypokinesis of the posterior wall, left ventricular ejection fraction of 45% Continue aspirin and Plavix Heparin drip with Coumadin - of note PE is reported in the medical record greater than 2 years ago however no evidence of it on the 3-D CTA pulmonary angiograms he has had here - I discussed with Dr. Sykes we will consult hematology for opinion to see if Coumadin is still needed Continue with beta meredith Morphine when necessary Chronic systolic CHF, LVEF 35% by [facility] 2015 Currently well compensated 2d echo LVEF 35-40%, global hypokinesis, mildly dilated LV and LA Cardiology ff Continue beta meredith, Imdur and FABY inhibitor Hypothyroidism. Continue Synthroid Type 2 diabetes mellitus with peripheral neuropathy Holding home metformin Continue with SSI Continue Neurontin and Cymbalta Peripheral arterial disease with history of right lower extremity, lysis of the embolectomy to the femoral external iliac and popliteal artery December 2016 - on Coumadin and Plavix chronically for this Currently on heparin drip, consult hematology to see if Coumadin is still needed as he is now on Plavix and aspirin Hypertension//hyperlipidemia/bipolar disorder/PTSD Continue home medications Chronic back pain and musculoskeletal pain Patient asking for Dilaudid by name. He is on morphine and Lortab as needed. We'll give him Dilaudid by mouth 4 mg every 4 hours as needed for severe musculoskeletal pain. DVT prophylaxis. on heparin drip. Jenifer Arango MD Jul 07, 2017 12:44
[2017-07-07 12:45] LABS: APTT (PATIENT) 27.1 SEC (24.3-30.1)
[2017-07-07] MEDS: HYDROmorphone HCL 4 MG TAB PO PRN ×2 (13:56→20:53)
--- NOTE | 2017-07-07 14:48 | PD.CARD.PN ---
Subjective Subjective Remarks chest pain completely resolved Objective Medications Current Medications Medications (Trade) Dose Ordered Sig/Erin Route Start Time Stop Time Status Last Admin (Tylenol) 500 mg Q4H PRN PO 07/03/17 16:45 (Xanax) 2 mg BID PRN PO 07/03/17 17:00 07/07/17 07:39 (Lipitor) 80 mg HS PO 07/03/17 21:00 07/06/17 21:38 (Cymbalta Dr) 120 mg DAILY PO 07/04/17 09:00 07/07/17 09:43 (Neurontin) 600 mg AC BREAKFAST PO 07/04/17 07:00 07/07/17 06:43 (Neurontin) 900 mg AC LUNCH PO 07/04/17 11:00 07/07/17 11:59 (Neurontin) 900 mg HS PO 07/03/17 21:00 07/06/17 21:39 (Levsin) 0.125 mg Q6H PO 07/03/17 18:00 07/07/17 11:59 (Imdur) 30 mg DAILY@07 PO 07/04/17 07:00 07/07/17 06:28 (Synthroid) 50 mcg DAILY@0600 PO 07/04/17 06:00 07/07/17 06:28 (Prinivil) 20 mg BID PO 07/03/17 21:00 07/07/17 09:43 (Remeron) 45 mg HS PO 07/03/17 21:00 07/06/17 21:38 (SEROquel) 100 mg BID PO 07/03/17 21:00 07/07/17 09:49 (Protonix) 40 mg HS PO 07/03/17 21:00 07/06/17 21:38 (D50w (Vial) Inj) 50 ml UNSCH PRN IV PUSH 07/03/17 17:00 (Glucagon Inj) 1 mg UNSCH PRN OTHER 07/03/17 17:00 (NovoLOG SUPPLEMENTAL SCALE) 1 ACHS SLIDING SCALE SQ 07/03/17 17:00 07/06/17 08:30 (Nitrostat Sl) 0.4 mg Q5M PRN SL 07/04/17 09:15 (Coreg) 6.25 mg Q12HR PO 07/04/17 21:00 07/07/17 09:42 (Percocet 10-325 Mg) 1 tab Q6H PRN PO 07/05/17 13:15 07/07/17 07:44 (Morphine Inj) 2 mg Q6H PRN IV PUSH 07/05/17 15:15 07/07/17 08:32 (NS Flush) 2 ml UNSCH PRN IV FLUSH 07/06/17 16:15 (NS Flush) 2 ml BID IV FLUSH 07/06/17 21:00 (Aspirin Chew) 162 mg DAILY PO 07/07/17 09:00 07/07/17 09:42 (Plavix) 75 mg DAILY PO 07/07/17 09:00 07/07/17 09:44 (Heparin Inj) 5,000 units UNSCH PRN IV PUSH 07/07/17 02:30 (Heparin Inj) 2,500 units UNSCH PRN IV PUSH 07/07/17 02:30 Heparin Sodium/ Dextrose 250 ml @ 10 mls/hr TITRATE PRN IV 07/07/17 02:30 07/07/17 07:00 (Dilaudid) 4 mg Q4H PRN PO 07/07/17 12:45 07/07/17 13:56 Pharmacy Profile Note 0 ml @ 0 mls/hr UNSCH OTHER 07/07/17 13:15 (Coumadin) 5 mg DAILY@1600 PO 07/07/17 16:00 (Coumadin Booklet) 1 ONCE ONCE OTHER 07/07/17 16:00 07/07/17 16:01 Vital Signs / I&O Vital Signs Date Time Temp Pulse Resp B/P (MAP) Pulse Ox O2 Delivery O2 Flow Rate FiO2 07/07/17 13:00 88 07/07/17 12:00 80 07/07/17 12:00 98.5 83 20 116/71 (86) 97 07/07/17 11:00 93 07/07/17 10:00 84 07/07/17 09:00 92 07/07/17 08:11 97 Room Air 07/07/17 08:11 98.2 81 22 135/77 (96) 97 07/07/17 08:00 78 07/07/17 07:00 89 07/07/17 05:00 85 07/07/17 04:00 81 07/07/17 03:42 99 Room Air 07/07/17 03:00 82 07/07/17 03:00 98.4 83 20 132/73 (92) 98 07/07/17 00:00 97 Room Air 07/07/17 00:00 98.0 71 20 118/59 (78) 98 07/06/17 20:00 99 Room Air 07/06/17 20:00 97.9 75 20 131/77 (95) 98 07/06/17 18:00 80 07/06/17 17:40 96 21 07/06/17 17:00 66 07/06/17 16:30 98.0 67 20 124/68 (86) 98 07/06/17 16:30 67 I/O 07/06/17 07/06/17 07/06/17 07/07/17 07/07/17 07/07/17 07:00 15:00 23:00 07:00 15:00 23:00 Intake Total 800 ml 1125 ml Output Total 1100 ml 700 ml 300 ml Balance -300 ml 425 ml -300 ml Intake Oral 800 ml 480 ml IV Total 645 ml Output Urine Total 1100 ml 700 ml 300 ml # Bowel Movements 0 0 Physical Exam GENERAL: SKIN: Warm and dry. HEAD: Normocephalic. EYES: No scleral icterus. No injection or drainage. NECK: Supple, trachea midline. No JVD or lymphadenopathy. CARDIOVASCULAR: Regular rate and rhythm without murmurs, gallops, or rubs. RESPIRATORY: Breath sounds equal bilaterally. No accessory muscle use. GASTROINTESTINAL: Abdomen soft, non-tender, nondistended. MUSCULOSKELETAL: No cyanosis, or edema. BACK: Nontender without obvious deformity. No CVA tenderness. Laboratory Laboratory Tests Test 07/07/17 00:27 07/07/17 04:54 07/07/17 11:45 Activated Partial Thromboplast Time 21.9 SEC 27.1 SEC White Blood Count 6.1 TH/MM3 Red Blood Count 4.34 MIL/MM3 Hemoglobin 11.6 GM/DL Hematocrit 36.6 % Mean Corpuscular Volume 84.4 FL Mean Corpuscular Hemoglobin 26.6 PG Mean Corpuscular Hemoglobin Concent 31.6 % Red Cell Distribution Width 17.4 % Platelet Count 219 TH/MM3 Mean Platelet Volume 8.0 FL Neutrophils (%) (Auto) 62.3 % Lymphocytes (%) (Auto) 23.1 % Monocytes (%) (Auto) 10.6 % Eosinophils (%) (Auto) 3.5 % Basophils (%) (Auto) 0.5 % Neutrophils # (Auto) 3.8 TH/MM3 Lymphocytes # (Auto) 1.4 TH/MM3 Monocytes # (Auto) 0.6 TH/MM3 Eosinophils # (Auto) 0.2 TH/MM3 Basophils # (Auto) 0.0 TH/MM3 CBC Comment DIFF FINAL Differential Comment Prothrombin Time 13.2 SEC Prothromb Time International Ratio 1.3 RATIO Blood Urea Nitrogen 11 MG/DL Creatinine 1.08 MG/DL Random Glucose 103 MG/DL Calcium Level 8.3 MG/DL Sodium Level 139 MEQ/L Potassium Level 3.8 MEQ/L Chloride Level 105 MEQ/L Carbon Dioxide Level 27.2 MEQ/L Anion Gap 7 MEQ/L Estimat Glomerular Filtration Rate 73 ML/MIN Total Creatine Kinase 88 U/L Assessment and Plan Problem List: (1) Cardiomyopathy ICD Codes: I42.9 - Cardiomyopathy, unspecified Status: Chronic (2) Hypertension ICD Codes: I10 - Hypertension Status: Chronic (3) Hx of coronary artery disease ICD Codes: Z86.79 - History of coronary artery disease Status: Chronic (4) PVD (peripheral vascular disease) ICD Codes: I73.9 - Peripheral vascular disease Status: Acute (5) Chest pain ICD Codes: R07.9 - Chest pain, unspecified Status: Acute (6) Tobacco abuse ICD Codes: Z72.0 - Tobacco use Status: Chronic (7) Hx of Pulmonary emboli on anticoagulation subtherapeutic Status: Acute Assessment and Plan 1.) CAD - pod # bms rca, chest pain completely resolved, continue aspirin, plavix, iv heparin, dc tobacco, d/w Dr Arango, 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
[2017-07-07] MEDS ORDERED: WARFARIN SOD 5 MG TAB PO SCH (16:00)
--- NOTE | 2017-07-07 18:07 | EKG ---
Date Performed: 07/07/2017 Time Performed: 05:57:20 PTAGE: 46 years EKG: Sinus rhythm Inferior infarct - age undetermined Possible lateral infarct - age undetermined Low QRS voltages in precordial leads When compard to previous tracing the premature ventricular Contractions are resolved . Abnormal ECG PREVIOUS TRACING : 07/03/2017 23.55 DOCTOR: Emily Ovalle Interpretating Date/Time 07/07/2017 18:05:37
[2017-07-07 20:01] LABS: APTT (PATIENT) 25.6 SEC (24.3-30.1)
[2017-07-07] MEDS: ATORVASTATIN 80 MG TAB PO SCH (20:53)
[2017-07-07] MEDS: MIRTAZAPINE 15 MG TAB PO SCH (20:53)
[2017-07-07] MEDS: PANTOPRAZOLE SOD 40 MG DELAYED RELEASE TAB PO SCH (20:53)
[2017-07-07] MEDS: HEPARIN SODIUM - IV 10,000 UNITS/10 ML VIAL IV PUSH PRN (20:56)
[2017-07-08] VITALS (15 sets, daily range): BP systolic 119–127; BP diastolic 65–79; PULSE 78–100; RESP 16–20; TEMP 97.8–99.4; O2SAT 94–99
[2017-07-08] MEDS: oxyCODONE/ACETAMINOPHEN 10 MG/325 MG TAB PO PRN (00:43)
[2017-07-08] MEDS: HYOSCYAMINE 0.125 MG TAB PO SCH ×3 (00:43→11:07)
[2017-07-08 04:06] LABS: APTT (PATIENT) 30.3 SEC (24.3-30.1); INTERNATIONAL NORMALIZED RATIO 1.1 RATIO; PROTHROMBIN TIME - PATIENT 11.5 SEC (9.8-11.6)
[2017-07-08 04:29] LABS: HDL CHOLESTEROL 34.4 MG/DL (40.0-60.0); INDIRECT BILIRUBIN 0.3 MG/DL (0.0-0.8); TOTAL BILIRUBIN ADULT 0.4 MG/DL (0.2-1.0)
[2017-07-08] MEDS: LEVOTHYROXINE SODIUM 50 MCG TAB PO SCH (04:44)
[2017-07-08] MEDS: MORPHINE SULFATE 4 MG/ML INJ IV PUSH PRN ×2 (04:44→11:06)
[2017-07-08] MEDS: HEPARIN SODIUM - IV 10,000 UNITS/10 ML VIAL IV PUSH PRN (04:45)
[2017-07-08] MEDS: GABAPENTIN 300 MG CAP PO SCH ×2 (06:34→11:07)
[2017-07-08] MEDS: ISOSORBIDE MONONITRATE 30 MG TAB PO SCH (06:34)
[2017-07-08] MEDS: INSULIN ASPART SUPPLEMENTAL SCALE SQ SCH ×2 (08:00→11:19)
[2017-07-08] MEDS: SODIUM CHLORIDE 0.9% FLUSH 10 ML FLUSH IV FLUSH SCH (09:00)
[2017-07-08] MEDS: ASPIRIN 81 MG CHEW TAB PO SCH (10:12)
[2017-07-08] MEDS: LISINOPRIL 20 MG TAB PO SCH (10:12)
[2017-07-08] MEDS: DULoxetine HCl DR 60 MG CAP PO SCH (10:12)
[2017-07-08] MEDS: CARVEDILOL 6.25 MG TAB PO SCH (10:12)
[2017-07-08] MEDS: CLOPIDOGREL 75 MG TAB PO SCH (10:12)
[2017-07-08] MEDS: QUEtiapine FUMARATE 100 MG TAB PO SCH (10:12)
[2017-07-08] MEDS: HYDROmorphone HCL 4 MG TAB PO PRN (10:13)
[2017-07-08] MEDS ORDERED: METF500 PO (11:03)
[2017-07-08] MEDS ORDERED: ASPI81 PO (11:03)
--- NOTE | 2017-07-08 11:19 | HHI.DS ---
Discharge Summary Admission Date Jul 04, 2017 at 16:44 Discharge Date: Jul 08, 2017 Admitting Diagnosis CP R/O AR (1) Atypical chest pain ICD Code: R07.89 - Atypical chest pain Status: Acute (2) Cardiomyopathy ICD Code: I42.9 - Cardiomyopathy, unspecified Status: Chronic (3) Hypertension ICD Code: I10 - Hypertension Status: Chronic (4) Bladder cancer ICD Code: C67.9 - Malignant neoplasm of bladder, unspecified Status: Chronic (5) Peripheral neuropathic pain ICD Code: G62.9 - Peripheral neuropathic pain Status: Chronic (6) Bipolar 1 disorder ICD Code: F31.9 - Bipolar I disorder Status: Chronic (7) Hypothyroid ICD Code: E03.9 - Hypothyroidism, unspecified Status: Chronic (8) Hx of popliteal artery thrombosis ICD Code: Z86.718 - Personal history of other venous thrombosis and embolism Status: Chronic (9) Anticoagulated on Coumadin ICD Code: Z51.81 - Encounter for therapeutic drug level monitoring; Z79.01 - terminal manager (current) use of anticoagulants Status: Chronic (10) Peripheral arterial disease ICD Code: I73.9 - Peripheral vascular disease, unspecified Status: Chronic (11) Diabetic neuropathy ICD Code: E11.40 - Type 2 diabetes mellitus with diabetic neuropathy, unspecified Status: Chronic (12) HTN (hypertension) ICD Code: I10 - Essential (primary) hypertension Status: Chronic (13) DM (diabetes mellitus) ICD Code: E11.9 - Type 2 diabetes mellitus without complications Status: Chronic Procedures Left and right heart catheterizations Brief History - From Admission 46-year-old male with past medical history significant for previous AR 3, CHF with EF of 35% per patient, type 2 diabetes mellitus, hyperlipidemia, hypertension, hypothyroidism and bipolar disorder with PTSD presents with several hours of substernal chest pain. The patient describes the pain as a pressure with stabbing that radiates to his bilateral upper extremities. He also endorses nausea and shortness of breath. States he took a nitroglycerin which did not relieve any of the pain. Patient was admitted on 06/09/17 for similar symptoms and a stress test was done which was negative. EKG with no ST segment depression or elevation, similar to previous. Troponin less than 0.02. The patient is on chronic anticoagulation with Coumadin, current INR 1.7. The patient has a history of his second cardiac catheterization in April 2016 where he had stenting of the LAD. CBC/BMP: 07/07/17 0454 07/07/17 0454 Significant Findings Laboratory Tests Test 07/05/17 11:32 07/05/17 18:34 07/06/17 00:20 07/06/17 07:35 Activated Partial Thromboplast Time 30.6 SEC (24.3-30.1) 34.8 SEC (24.3-30.1) 39.9 SEC (24.3-30.1) 41.3 SEC (24.3-30.1) Red Blood Count 4.26 MIL/MM3 (4.50-5.90) 4.38 MIL/MM3 (4.50-5.90) Hemoglobin 11.4 GM/DL (13.0-17.0) 11.8 GM/DL (13.0-17.0) Hematocrit 35.7 % (39.0-51.0) 37.3 % (39.0-51.0) Mean Corpuscular Hemoglobin 26.8 PG (27.0-34.0) 26.9 PG (27.0-34.0) Monocytes (%) (Auto) 10.1 % (0.0-8.0) Calcium Level 8.2 MG/DL (8.5-10.1) 8.4 MG/DL (8.5-10.1) Estimat Glomerular Filtration Rate 69 ML/MIN (>89) 68 ML/MIN (>89) Mean Corpuscular Hemoglobin Concent 31.7 % (32.0-36.0) Red Cell Distribution Width 17.3 % (11.6-17.2) Random Glucose 136 MG/DL (74-106) Test 07/07/17 00:27 07/07/17 04:54 07/07/17 11:45 07/07/17 19:14 Activated Partial Thromboplast Time 21.9 SEC (24.3-30.1) Red Blood Count 4.34 MIL/MM3 (4.50-5.90) Hemoglobin 11.6 GM/DL (13.0-17.0) Hematocrit 36.6 % (39.0-51.0) Mean Corpuscular Hemoglobin 26.6 PG (27.0-34.0) Mean Corpuscular Hemoglobin Concent 31.6 % (32.0-36.0) Red Cell Distribution Width 17.4 % (11.6-17.2) Monocytes (%) (Auto) 10.6 % (0.0-8.0) Prothrombin Time 13.2 SEC (9.8-11.6) Calcium Level 8.3 MG/DL (8.5-10.1) Estimat Glomerular Filtration Rate 73 ML/MIN (>89) Test 07/08/17 03:20 Activated Partial Thromboplast Time 30.3 SEC (24.3-30.1) Aspartate Amino Transf (AST/SGOT) 14 U/L (15-37) Albumin 3.3 GM/DL (3.4-5.0) Triglycerides Level 353 MG/DL (42-150) HDL Cholesterol 34.4 MG/DL (40.0-60.0) PE at Discharge GENERAL: Well-nourished, well-developed pleasant obese male patient. SKIN: Warm and dry. HEAD: Normocephalic. EYES: No scleral icterus. No injection or drainage. NECK: Supple, trachea midline. No JVD or lymphadenopathy. CARDIOVASCULAR: Regular rate and rhythm without murmurs, gallops, or rubs. RESPIRATORY: Breath sounds equal bilaterally. No accessory muscle use. GASTROINTESTINAL: Abdomen soft, non-tender, nondistended. EXTREMITIES: No cyanosis, or edema. NEUROLOGICAL: Awake, alert, and oriented x 3. Non-focal. Pt update on day of discharge Patient still complaining of back pain and joint pain however denies any chest pain or shortness of breath. He is ambulating. Hospital Course 46-year-old male with multiple medical problems and history of previous AR 3 presents with a several hour history of chest pain/pressure and accompanying shortness of breath. The patient was admitted to the hospital. Troponins and EKG were negative for ischemic findings. Dr. Sykes performed a left and right heart catheterization on 07/06 showing occluded RCA which was stented, proximal LAD stent with restenosis of about 50%, hypokinesis of the posterior wall, left ventricular ejection fraction of 45%. Patient is recommended to continue on Plavix and also start aspirin. Continue Coreg and lisinopril and Lipitor. Patient also will need to be on Coumadin for his history of 2 DVTs. Patient does have chronic back pain and musculoskeletal pain and was asking for Dilaudid by name. Apparently his PCP took him off opioids as he had a positive drug screen for cocaine. No opioids prescribed at discharge. Patient to follow-up with his PCP Dr. Dennison in 1 week I did discuss the patient with her. PT/INR ordered for Thursday to be cc 2 Dr. Dennison's office. Pt Condition on Discharge: Stable Discharge Disposition: Discharge Home Discharge Time: > 30 minutes Discharge Instructions DIET: Follow Instructions for: Heart Healthy Diet, Diabetic Diet Activities you can perform: Regular-No Restrictions Follow up Referrals: PCP Follow-up - 1 Week with Zahra eDnnison MD New Medications: Aspirin (Tgt Aspirin) 81 Mg Chw 162 MG PO DAILY for blood thinner, #30 EA Changed Medications: Metformin (Glucophage) 500 Mg Tab 500 MG PO HS for Blood Sugar Management, #30 TAB 0 Refills (Changed from: With a meal) Start on 07/11. Take With a meal Continued Medications: Alprazolam (Xanax) 2 Mg Tab 2 MG PO BID PRN for ANXIETY, TAB 0 Refills Atorvastatin (Lipitor) 80 Mg Tab 80 MG PO HS for Cholesterol Management, #30 TAB 0 Refills Carvedilol (Coreg) 6.25 Mg Tab 6.25 MG PO DAILY, #60 TAB 0 Refills Clopidogrel (Plavix) 75 Mg Tab 75 MG PO DAILY for Blood Clot Prevention, #30 TAB [address] (Cymbalta DR) 60 Mg Capdr 120 MG PO DAILY, #30 CAP 0 Refills Gabapentin (Gabapentin) 300 Mg Cap 900 MG PO AC LUNCH, #90 CAP 0 Refills Gabapentin (Gabapentin) 300 Mg Cap 600 MG PO AC BREAKFAST, #90 CAP 0 Refills Gabapentin (Gabapentin) 300 Mg Cap 900 MG PO HS, #90 CAP 0 Refills Hyoscyamine (Hyoscyamine) 0.125 Mg Tab 0.125 MG PO Q6H for Bladder Spasm, #15 TAB 0 Refills Isosorbide Mononitrate ER (Isosorbide Mononitrate ER) 30 Mg Yola 30 MG PO DAILY@07 for Prevent Heart Failure, #30 TAB 3 Refills Levothyroxine (Synthroid) 50 Mcg Tab 50 MCG PO DAILY for Thyroid, #30 TAB 0 Refills Lisinopril (Lisinopril) 20 Mg Tab 20 MG PO BID, #30 TAB 0 Refills Mirtazapine (Mirtazapine) 45 Mg Tab 90 MG PO HS for Depression Control, #30 TAB 0 Refills Nitroglycerin SL (Nitroglycerin SL) 0.4 Mg Subl 0.4 MG SL Q 5 MINUTES PRN for CHEST PAIN, #100 TAB.SL 0 Refills ONE TABLET UNDER THE TONGUE NEEDED FOR CHEST PAIN, MAY REPEAT EVERY FIVE MINUTES FOR A TOTAL OF 3 DOSES OR CALL 911 IF NO RELIEF Omeprazole (Omeprazole) 40 Mg Cap 40 MG PO HS, #30 CAP 0 Refills Oxycodone-Acetaminophen (Percocet) 10-325 mg Tab 1 TAB PO Q6H PRN for PAIN, #10 TAB 0 Refills Quetiapine (Seroquel) 100 Mg Tab 100 MG PO BID for Anxiety and/or Insomnia, #30 TAB 0 Refills Warfarin (Coumadin) 5 Mg Tab 5 MG PO DAILY for Blood Clot Prevention, #30 TAB 0 Refills Jenifer Arango MD Jul 08, 2017 11:19
--- NOTE | 2017-07-08 13:27 | PD.CARD.PN ---
Subjective Subjective Remarks chest pain completely resolved Objective Medications Current Medications Medications (Trade) Dose Ordered Sig/Erin Route Start Time Stop Time Status Last Admin (Tylenol) 500 mg Q4H PRN PO 07/03/17 16:45 (Xanax) 2 mg BID PRN PO 07/03/17 17:00 07/07/17 17:42 (Cymbalta Dr) 120 mg DAILY PO 07/04/17 09:00 07/08/17 10:12 (Neurontin) 600 mg AC BREAKFAST PO 07/04/17 07:00 07/08/17 06:34 (Neurontin) 900 mg AC LUNCH PO 07/04/17 11:00 07/08/17 11:07 (Neurontin) 900 mg HS PO 07/03/17 21:00 07/07/17 20:54 (Levsin) 0.125 mg Q6H PO 07/03/17 18:00 07/08/17 11:07 (Imdur) 30 mg DAILY@07 PO 07/04/17 07:00 07/08/17 06:34 (Synthroid) 50 mcg DAILY@0600 PO 07/04/17 06:00 07/08/17 04:44 (Prinivil) 20 mg BID PO 07/03/17 21:00 07/08/17 10:12 (Remeron) 45 mg HS PO 07/03/17 21:00 07/07/17 20:53 (SEROquel) 100 mg BID PO 07/03/17 21:00 07/08/17 10:12 (Protonix) 40 mg HS PO 07/03/17 21:00 07/07/17 20:53 (D50w (Vial) Inj) 50 ml UNSCH PRN IV PUSH 07/03/17 17:00 (Glucagon Inj) 1 mg UNSCH PRN OTHER 07/03/17 17:00 (NovoLOG SUPPLEMENTAL SCALE) 1 ACHS SLIDING SCALE SQ 07/03/17 17:00 07/06/17 08:30 (Nitrostat Sl) 0.4 mg Q5M PRN SL 07/04/17 09:15 (Coreg) 6.25 mg Q12HR PO 07/04/17 21:00 07/08/17 10:12 (Percocet 10-325 Mg) 1 tab Q6H PRN PO 07/05/17 13:15 12/17 00:43 (Morphine Inj) 2 mg Q6H PRN IV PUSH 07/05/17 15:15 07/08/17 11:06 (NS Flush) 2 ml UNSCH PRN IV FLUSH 07/06/17 16:15 (NS Flush) 2 ml BID IV FLUSH 07/06/17 21:00 07/08/17 09:00 (Aspirin Chew) 162 mg DAILY PO 07/07/17 09:00 07/08/17 10:12 (Plavix) 75 mg DAILY PO 07/07/17 09:00 07/08/17 10:12 (Heparin Inj) 5,000 units UNSCH PRN IV PUSH 07/07/17 02:30 (Heparin Inj) 2,500 units UNSCH PRN IV PUSH 07/07/17 02:30 07/08/17 04:45 (Dilaudid) 4 mg Q4H PRN PO 07/07/17 12:45 07/08/17 10:13 (Lipitor) 20 mg HS PO 07/08/17 21:00 (Coumadin) 10 mg ONCE ONCE PO 07/08/17 16:00 07/08/17 16:01 (Coumadin) 5 mg DAILY@1600 PO 07/09/17 16:00 Vital Signs / I&O Vital Signs Date Time Temp Pulse Resp B/P (MAP) Pulse Ox O2 Delivery O2 Flow Rate FiO2 07/08/17 12:31 99 21 07/08/17 11:39 16 07/08/17 11:38 16 07/08/17 11:00 97.8 81 18 119/79 (92) 94 07/08/17 11:00 84 07/08/17 10:00 86 07/08/17 09:00 88 07/08/17 08:00 82 07/08/17 07:00 86 07/08/17 07:00 83 18 127/65 (85) 95 07/08/17 07:00 Room Air 07/08/17 06:00 80 07/08/17 05:00 98 07/08/17 04:00 98.4 78 20 120/75 (90) 97 07/08/17 04:00 Room Air 07/08/17 04:00 79 07/08/17 03:00 84 07/08/17 02:00 82 07/08/17 01:43 20 07/08/17 01:00 80 07/08/17 00:00 79 07/08/17 00:00 99.4 82 20 120/68 (85) 96 07/08/17 00:00 Room Air 07/07/17 23:00 80 07/07/17 22:03 97 21 07/07/17 22:00 82 07/07/17 21:00 80 07/07/17 20:00 98.6 86 20 123/66 (85) 97 07/07/17 20:00 88 07/07/17 20:00 Room Air 07/07/17 19:00 90 07/07/17 18:00 80 07/07/17 17:00 78 07/07/17 16:00 80 07/07/17 15:30 98.2 81 22 118/70 (86) 97 07/07/17 15:00 110 07/07/17 14:00 82 I/O 07/07/17 07/07/17 07/07/17 07/08/17 07/08/17 07/08/17 07:00 15:00 23:00 07:00 15:00 23:00 Intake Total 65 ml 720 ml 600 ml Output Total 300 ml 1900 ml 3 ml Balance -235 ml -1180 ml 597 ml Intake Oral 720 ml 480 ml IV Total 65 ml 120 ml Output Urine Total 300 ml 1900 ml 3 ml # Bowel Movements 0 Physical Exam GENERAL: SKIN: Warm and dry. HEAD: Normocephalic. EYES: No scleral icterus. No injection or drainage. NECK: Supple, trachea midline. No JVD or lymphadenopathy. CARDIOVASCULAR: Regular rate and rhythm without murmurs, gallops, or rubs. RESPIRATORY: Breath sounds equal bilaterally. No accessory muscle use. GASTROINTESTINAL: Abdomen soft, non-tender, nondistended. MUSCULOSKELETAL: No cyanosis, or edema. BACK: Nontender without obvious deformity. No CVA tenderness. Laboratory Laboratory Tests Test 07/07/17 19:14 07/08/17 03:20 Activated Partial Thromboplast Time 25.6 SEC 30.3 SEC Prothrombin Time 11.5 SEC Prothromb Time International Ratio 1.1 RATIO Total Bilirubin 0.4 MG/DL Direct Bilirubin 0.1 MG/DL Indirect Bilirubin 0.3 MG/DL Aspartate Amino Transf (AST/SGOT) 14 U/L Alanine Aminotransferase (ALT/SGPT) 28 U/L Alkaline Phosphatase 112 U/L Total Protein 7.0 GM/DL Albumin 3.3 GM/DL Triglycerides Level 353 MG/DL Cholesterol Level 200 MG/DL LDL Cholesterol 95 MG/DL HDL Cholesterol 34.4 MG/DL Cholesterol/HDL Ratio 5.81 RATIO Assessment and Plan Problem List: (1) Cardiomyopathy ICD Codes: I42.9 - Cardiomyopathy, unspecified Status: Chronic (2) Hypertension ICD Codes: I10 - Hypertension Status: Chronic (3) Hx of coronary artery disease ICD Codes: Z86.79 - History of coronary artery disease Status: Chronic (4) PVD (peripheral vascular disease) ICD Codes: I73.9 - Peripheral vascular disease Status: Acute (5) Chest pain ICD Codes: R07.9 - Chest pain, unspecified Status: Acute (6) Tobacco abuse ICD Codes: Z72.0 - Tobacco use Status: Chronic (7) Hx of Pulmonary emboli on anticoagulation subtherapeutic Status: Acute Assessment and Plan 1.) CAD - pod #2 bms rca, chest pain completely resolved, continue aspirin, plavix, start lipitor 20 mg hs, dc tobacco, d/w Dr Arango, will have hematology asses [facility] need for anticoagulation with coumadin, ow ok to dc from cv standpoint, will need statin beta meredith and tere inhibitor Jay Sykes MD Jul 08, 2017 13:27
[2017-07-08] MEDS ORDERED: WARFARIN SOD 2.5 MG TAB PO ONE (16:00)
[2017-07-08] MEDS ORDERED: WARFARIN SOD 10 MG TAB PO ONE (16:00)
[2017-07-08] MEDS ORDERED: ATORVASTATIN 20 MG TAB PO SCH (21:00)
[2017-07-09] MEDS ORDERED: WARFARIN SOD 5 MG TAB PO SCH (16:00)
== END 2017-07-08 14:03 | disposition home or self-care (01) | DRG 249 ==
LOC: NEPE 12:56 → NEDA 14:25 → NEPGCP 17:32 → OBSVTOIN 07-04 16:44 → HCIS 07-04 22:56
PROVIDERS: ADMIT Hospitalist; ATTEND Family Medicine
PROC: 4A023N8 Measurement of Cardiac Sampling and Pressure, Bilateral, Percutaneous Approach (ICD-10-PCS; 2017-07-06)
PROC: B2111ZZ Fluoroscopy of Multiple Coronary Arteries using Low Osmolar Contrast (ICD-10-PCS; 2017-07-06)
PROC: B2151ZZ Fluoroscopy of Left Heart using Low Osmolar Contrast (ICD-10-PCS; 2017-07-06)
PROC: 02703DZ Dilation of Coronary Artery, One Artery with Intraluminal Device, Percutaneous Approach (ICD-10-PCS; principal; 2017-07-06 14:30)
DX: I25.110 Atherosclerotic heart disease of native coronary artery with unstable angina pectoris (principal); I42.9 Cardiomyopathy, unspecified; I50.22 Chronic systolic (congestive) heart failure; E11.51 Type 2 diabetes mellitus with diabetic peripheral angiopathy without gangrene; E11.40 Type 2 diabetes mellitus with diabetic neuropathy, unspecified; Z68.41 Body mass index [BMI] 40.0-44.9, adult; I11.0 Hypertensive heart disease with heart failure; T82.855A Stenosis of coronary artery stent, initial encounter; Z79.84 Long term (current) use of oral hypoglycemic drugs; I25.2 Old myocardial infarction; E66.9 Obesity, unspecified; G89.29 Other chronic pain; M54.5 Low back pain; F31.9 Bipolar disorder, unspecified; E03.9 Hypothyroidism, unspecified; Z86.718 Personal history of other venous thrombosis and embolism; Z79.01 Long term (current) use of anticoagulants; E78.5 Hyperlipidemia, unspecified; Z85.51 Personal history of malignant neoplasm of bladder; M19.90 Unspecified osteoarthritis, unspecified site; F43.10 Post-traumatic stress disorder, unspecified; F17.210 Nicotine dependence, cigarettes, uncomplicated
CPT/HCPCS: 71010; 71275; 76937; 80048; 80061; 80076; 82550; 82552; 82810; 82948; 83735; 83880; 84484; 85002; 85025; 85027; 85610; 85730; 92928; 93005; 93306; 93460; 96372; 96374; 96375; 96376; 99152; 99153; C1725; C1769; C1876; C1887; C1893; G0378; J1644; J1815; J2250; J2270; J2405; J3246; Q9967

== ENCOUNTER 2017-08-19 15:23 | Observation (INO) | payer MEDICAID ==
[~2017-08-19] VITALS: Ht 182.9 cm; Wt 145.0 kg
[~2017-08-19 15:23] MED LIST changes: +ASPI81 PO
[2017-08-19 15:24] VITALS: BP 136/82; PULSE 101; RESP 18; TEMP 98.4; O2SAT 97
[2017-08-19 15:45] VITALS: O2SAT 97
[2017-08-19] MEDS ORDERED: NITROGLYCERIN 0.4 MG SL 25 TABS/BTL SL ONE (15:45)
[2017-08-19] MEDS ORDERED: ASPIRIN 81 MG CHEW TAB PO ONE (15:45)
--- NOTE | 2017-08-19 16:04 | RADRPT ---
EXAM DATE/TIME: 08/19/2017 15:46 [facility] COMPARISON: CHEST SINGLE AP, July 03, 2017, 13:08. INDICATIONS : Chest pain, shortness of breath starting today MEDICAL HISTORY : Myocardial infarction SURGICAL HISTORY : Cardiac stents. Angioplasty ENCOUNTER: Initial ACUITY: 1 day PAIN SCORE: 10/10 LOCATION: Bilateral chest FINDINGS: A single view of the chest demonstrates the lungs to be symmetrically aerated without evidence of mas s, infiltrate or effusion. The cardiomediastinal contours are unremarkable. Osseous structures are intact. CONCLUSION: Normal examination. Claudy Ventura MD on August 19, 2017 at 15:59 Board Certified Radiologist. This report was verified electronically.
[2017-08-19 16:05] LABS: AUTOMATED NEUTROPHIL # 4.3 TH/MM3 (1.8-7.7); BASOPHIL % 0.7 % (0.0-2.0); EOSINOPHIL # 0.1 TH/MM3 (0-0.4); EOSINOPHIL % 1.2 % (0.0-4.0); HEMATOCRIT 38.1 % (39.0-51.0); HEMOGLOBIN 12.2 GM/DL (13.0-17.0); LYMPHOCYTE # 1.8 TH/MM3 (1.0-4.8); MEAN CELL VOLUME 80.5 FL (80.0-100.0); MEAN CORPUSCULAR HEMOGLOBIN 25.9 PG (27.0-34.0); MEAN CORPUSCULAR HGB CONC 32.1 % (32.0-36.0); MEAN PLATELET VOLUME 7.7 FL (7.0-11.0); MONO % 5.5 % (0.0-8.0); MONOCYTE # 0.4 TH/MM3 (0-0.9); NEUT % 65.6 % (16.0-70.0); PLATELET COUNT 333 TH/MM3 (150-450); RED BLOOD COUNT 4.73 MIL/MM3 (4.50-5.90); RED CELL DISTRIBUTION WIDTH 17.9 % (11.6-17.2); WHITE BLOOD COUNT 6.6 TH/MM3 (4.0-11.0)
[2017-08-19] MEDS ORDERED: MORPHINE SULFATE 4 MG/ML INJ IV PUSH ONE (16:15)
[2017-08-19 16:17] LABS: ALBUMIN 3.4 GM/DL (3.4-5.0); ALT (GPT) 28 U/L (12-78); AST (GOT) 18 U/L (15-37); BICARBONATE 27.2 MEQ/L (21.0-32.0); BLOOD UREA NITROGEN 10 MG/DL (7-18); CALCIUM 8.1 MG/DL (8.5-10.1); CHLORIDE 103 MEQ/L (98-107); CREATININE 1.35 MG/DL (0.60-1.30); GLOMERULAR FILTRATION RATE 56 ML/MIN (>89); GLUCOSE,RANDOM 165 MG/DL (74-106); LIPASE 215 U/L (73-393); MAGNESIUM 1.4 MG/DL (1.5-2.5); SODIUM (NA) 138 MEQ/L (136-145)
[2017-08-19 16:18] LABS: INTERNATIONAL NORMALIZED RATIO 2.3 RATIO; PROTHROMBIN TIME - PATIENT 23.1 SEC (9.8-11.6)
--- NOTE | 2017-08-19 16:20 | PD ---
HPI Chief Complaint: Chest Pain Time Seen by Provider: 15:34 Travel History International Travel<30 days: No Contact w/Intl Traveler<30days: No Traveled to known affect area: No History of Present Illness HPI 47 year-old male presents to the emergency room for evaluation of substernal, epigastric chest pain that started suddenly about 1 hour prior to arrival. States that when it started he was diaphoretic and short of breath. Pain radiates into his throat but does not go to his jaw or down his arm. It is described as crushing, squeezing, "like a muscle spasm of the heart." He has no associated nausea, vomiting. Patient has history of myocardial infarction one year ago. States he has a stent. His primary care doctor is Dr. Dennison but he does not have a early morning because of insurance reasons. Blood thinners are Plavix, aspirin, and Coumadin. He did not take his aspirin today. PFSH Past Medical History Hx Anticoagulant Therapy: Yes Alzheimer's Disease: Yes Anemia: Yes Arthritis: Yes Asthma: No Autoimmune Disease: No Blood Disorders: No Bipolar Disorder: Yes Anxiety: Yes Depression: Yes Heart Rhythm Problems: No Cancer: Yes (BLADDER, PROSTATE) Cardiac Catheterization: Yes Cardiovascular Problems: Yes (CO X4, STENTS X 3) High Cholesterol: Yes Chemotherapy: Yes (implanted something in bladder s/p tummors removed) Chest Pain: Yes Congestive Heart Failure: Yes COPD: Yes Cerebrovascular Accident: Yes Coronary Artery Disease: Yes Diabetes: Yes Patient Takes Glucophage: Yes Diminished Hearing: No Deep Vein Thrombosis: Yes Endocrine: Yes Gastrointestinal Disorders: Yes (ACID REFLUX, HX ULCER) GERD: Yes Glaucoma: No Genitourinary: Yes (BLADDER TUMORS, BLADDER CA) Headaches: No Hepatitis: No Hiatal Hernia: Yes Heparin Induced Thrombocytopen: No Hypertension: Yes Immune Disorder: Yes (OA) Implanted Vascular Access Dvce: No Kidney Stones: Yes ( CHRONIC STONES ) Medical other: Yes (H/O DVT RLE) Musculoskeletal: Yes (OSTEOARTHRITIS NICKIE KNESS, BURSITIS LEFT ELBOW) Neurologic: Yes (DIABETIC NEUROPATHY) Psychiatric: Yes (BIPOLAR, ANXIETY, DEPRESSION, HX SUICIDE ATTEMPT, PER PT) Reproductive: No Respiratory: Yes (COPD, HX PE) Immunizations Current: Yes Migraines: Yes Myocardial Infarction: Yes (X 2) Radiation Therapy: Yes (pt not sure if bladder insert s/p tumor radition) Renal Failure: No Seizures: No Sickle Cell Disease: No Sleep Apnea: Yes (no cpap) Thyroid Disease: Yes (HYPOTHYROID) Ulcer: Yes Past Surgical History Abdominal Surgery: No AICD: No Appendectomy: No Arteriovenous Shunt: No Body Medical Devices: CARDIAC STENTx2 Cardiac Surgery: Yes (TWO STENTS, THROMBECTOMY 01/2017) Cholecystectomy: No Coronary Artery Bypass Graft: No Coronary Stent: Yes Ear Surgery: No Endocrine Surgery: No Eye Surgery: No Genitourinary Surgery: Yes (BLADDER TUMORS REMOVED; kidney stent removed) Gynecologic Surgery: No Insulin Pump: No Joint Replacement: No Neurologic Surgery: No Oral Surgery: No Pacemaker: No Thoracic Surgery: Yes Other Surgery: Yes (CARDIAC CATH X 3, ANGIOPLASTY X 3 ) Family History Family Myocardial Infarction: Yes (GRANDFATHER) Social History Alcohol Use: No Tobacco Use: Yes Substance Use: Yes (COCAINE 12 YEARS AGO PER PT) Allergies-Medications (Allergen,Severity, Reaction): Coded Allergies: penicillin G (Verified Allergy, Severe, Anaphylaxis, 07/03/17) Per pt. Reported Meds & Prescriptions Reported Meds & Active Scripts Active Tgt Aspirin (Aspirin) 81 Mg Chw 162 Mg PO DAILY Glucophage (Metformin HCl) 500 Mg Tab 500 Mg PO HS Start on 07/11. Take With a meal Percocet (Oxycodone-Acetaminophen) 10-325 mg Tab 1 Tab PO Q6H PRN Hyoscyamine (Hyoscyamine Sulfate) 0.125 Mg Tab 0.125 Mg PO Q6H Seroquel (Quetiapine Fumarate) 100 Mg Tab 100 Mg PO BID Isosorbide Mononitrate ER (Isosorbide Mononitrate) 30 Mg Yola 30 Mg PO DAILY@07 Coumadin (Warfarin) 5 Mg Tab 5 Mg PO DAILY Reported Cymbalta DR (Duloxetine HCl) 60 Mg Capdr 120 Mg PO DAILY Gabapentin 300 Mg Cap 900 Mg PO HS Gabapentin 300 Mg Cap 600 Mg PO AC BREAKFAST Gabapentin 300 Mg Cap 900 Mg PO AC LUNCH Coreg (Carvedilol) 6.25 Mg Tab 6.25 Mg PO DAILY Mirtazapine 45 Mg Tab 90 Mg PO HS Xanax (Alprazolam) 2 Mg Tab 2 Mg PO BID PRN Omeprazole 40 Mg Cap 40 Mg PO HS Synthroid (Levothyroxine Sodium) 50 Mcg Tab 50 Mcg PO DAILY Lisinopril 20 Mg Tab 20 Mg PO BID Nitroglycerin SL (Nitroglycerin) 0.4 Mg Subl 0.4 Mg SL Q 5 MINUTES PRN ONE TABLET UNDER THE TONGUE NEEDED FOR CHEST PAIN, MAY REPEAT EVERY FIVE MINUTES FOR A TOTAL OF 3 DOSES OR CALL 911 IF NO RELIEF Plavix (Clopidogrel Bisulfate) 75 Mg Tab 75 Mg PO DAILY Lipitor (Atorvastatin Calcium) 80 Mg Tab 80 Mg PO HS Review of Systems Except as stated in HPI: all other systems reviewed are Neg Physical Exam Narrative GENERAL: Well-nourished, morbidly obese male in no acute distress. Afebrile. Ambulatory. SKIN: Focused skin assessment warm/dry. HEAD: Normocephalic. EYES: No scleral icterus. No injection or drainage. NECK: Supple, trachea midline. No JVD or lymphadenopathy. CARDIOVASCULAR: Regular rate and rhythm without murmurs, gallops, or rubs. RESPIRATORY: Breath sounds equal bilaterally. No accessory muscle use. GASTROINTESTINAL: Abdomen soft, non-tender, nondistended. Data Data Last Documented VS Vital Signs Date Time Temp Pulse Resp B/P (MAP) Pulse Ox O2 Delivery O2 Flow Rate FiO2 08/19/17 16:37 101 26 102/58 (73) 97 Nasal Cannula 2.00 08/19/17 15:24 98.4 Orders Orders Electrocardiogram (08/19/17 15:42) Ckmb (Isoenzyme) Profile (08/19/17 15:42) Complete Blood Count With Diff (08/19/17 15:42) Comprehensive Metabolic Panel (08/19/17 15:42) Magnesium (Mg) (08/19/17 15:42) Prothrombin Time / Inr (Pt) (08/19/17 15:42) Act Partial Throm Time (Ptt) (08/19/17 15:42) Troponin I (08/19/17 15:42) Lipase (08/19/17 15:42) Chest, Single Ap (08/19/17 15:42) Ecg Monitoring (08/19/17 15:42) Bilateral Bp Monitoring (08/19/17 15:42) Iv Access Insert/Monitor (08/19/17 15:42) Oximetry (08/19/17 15:42) Oxygen Administration (08/19/17 15:42) Aspirin Chew (Aspirin Chew) (08/19/17 15:45) Nitroglycerin Sl (Nitrostat Sl) (08/19/17 15:45) Morphine Inj (Morphine Inj) (08/19/17 16:15) CKMB (08/19/17 15:40) CKMB% (08/19/17 15:40) Lorazepam Inj (Ativan Inj) (08/19/17 17:00) B-Type Natriuretic Peptide (08/19/17 17:16) Sodium Chlor 0.9% 1000 Ml Inj (Ns 1000 M (08/19/17 19:00) Activity Bed Rest With Brp (08/19/17 19:05) Vital Signs (Adult) Q4H (08/19/17 19:05) Cardiac Rhythm .As Directed (08/19/17 19:05) Notify Dr: Other .PRN (08/19/17 19:05) Notify Parameters (08/19/17 19:05) Resp Oxygen Nasal Cannula (08/19/17 ) Diet Heart Healthy (08/20/17 Breakfast) Ckmb (Isoenzyme) Profile (08/19/17 19:05) Ckmb (Isoenzyme) Profile (08/19/17 22:05) Troponin I (08/19/17 19:05) Troponin I (08/19/17 22:05) Electrocardiogram (08/19/17 19:05) Electrocardiogram (08/19/17 22:05) ^ Obtain (08/19/17 19:05) Nitroglycerin Sl (Nitrostat Sl) (08/19/17 19:15) Project Manager [employer] / Telemetry [email or web address] (08/19/17 19:05) Labs Laboratory Tests Test 08/19/17 15:40 White Blood Count 6.6 TH/MM3 Red Blood Count 4.73 MIL/MM3 Hemoglobin 12.2 GM/DL Hematocrit 38.1 % Mean Corpuscular Volume 80.5 FL Mean Corpuscular Hemoglobin 25.9 PG Mean Corpuscular Hemoglobin Concent 32.1 % Red Cell Distribution Width 17.9 % Platelet Count 333 TH/MM3 Mean Platelet Volume 7.7 FL Neutrophils (%) (Auto) 65.6 % Lymphocytes (%) (Auto) 27.0 % Monocytes (%) (Auto) 5.5 % Eosinophils (%) (Auto) 1.2 % Basophils (%) (Auto) 0.7 % Neutrophils # (Auto) 4.3 TH/MM3 Lymphocytes # (Auto) 1.8 TH/MM3 Monocytes # (Auto) 0.4 TH/MM3 Eosinophils # (Auto) 0.1 TH/MM3 Basophils # (Auto) 0.0 TH/MM3 CBC Comment DIFF FINAL Differential Comment Prothrombin Time 23.1 SEC Prothromb Time International Ratio 2.3 RATIO Activated Partial Thromboplast Time 33.7 SEC Blood Urea Nitrogen 10 MG/DL Creatinine 1.35 MG/DL Random Glucose 165 MG/DL Total Protein 7.4 GM/DL Albumin 3.4 GM/DL Calcium Level 8.1 MG/DL Magnesium Level 1.4 MG/DL Alkaline Phosphatase 124 U/L Aspartate Amino Transf (AST/SGOT) 18 U/L Alanine Aminotransferase (ALT/SGPT) 28 U/L Total Bilirubin 0.3 MG/DL Sodium Level 138 MEQ/L Potassium Level 3.5 MEQ/L Chloride Level 103 MEQ/L Carbon Dioxide Level 27.2 MEQ/L Anion Gap 8 MEQ/L Estimat Glomerular Filtration Rate 56 ML/MIN Total Creatine Kinase 133 U/L Creatine Kinase MB 0.8 NG/ML Troponin I LESS THAN 0.02 NG/ML B-Type Natriuretic Peptide 15 PG/ML Lipase 215 U/L MDM Medical Decision Making Medical Screen Exam Complete: Yes Emergency Medical Condition: Yes Medical Record Reviewed: Yes Differential Diagnosis STEMI, chest pain, atypical chest pain, GERD, anxiety Narrative Course 47-year-old male with a history of STEMI 1 year ago presents to the emergency room for evaluation of substernal, crushing chest pain radiating into his throat. Symptoms started suddenly. They were persistent. He reported associated diaphoresis in shortness of breath. No nausea or vomiting. IV access established basic lab's obtained. Vital signs stable. Patient is well appearing. Skin is warm and dry. Abdomen soft, nontender. CBC as unremarkable. CMP shows mildly elevated creatinine for which patient has given 1 L of fluids. Troponin as less than 0.02. CK-MB is 0.8. BNP is 15. Chest x- rays negative. Patient placed on cardiac telemetry. He was given him his given nitro and morphine without relief in symptoms in the ED. Patient has significant risk factors including diabetes, history of multiple MIs, morbid obesity, and he smokes. While in ED, it was observed that patient was having multiple PVCs. For these reasons, he will be admitted to the chest pain center for serial troponins and EKGs. Diagnosis Primary Impression: Chest pain Qualified Codes: R07.9 - Chest pain, unspecified Condition: Stable Gabriela Lazaro Aug 19, 2017 16:20
[2017-08-19 16:22] LABS: ALKALINE PHOSPHATASE 124 U/L (45-117); TOTAL BILIRUBIN ADULT 0.3 MG/DL (0.2-1.0); TOTAL PROTEIN 7.4 GM/DL (6.4-8.2); TROPONIN I LESS THAN 0.02 NG/ML (0.02-0.05)
[2017-08-19 16:37] VITALS: BP 102/58; PULSE 101; RESP 26; O2SAT 97
[2017-08-19] MEDS ORDERED: LORazepam 2 MG/ML VIAL IV PUSH ONE (17:00)
[2017-08-19] MEDS ORDERED: SODIUM CHLOR 0.9% 1000 ML INJ 1,000 ML IV ONE (19:00)
[2017-08-19] MEDS: NITROGLYCERIN 0.4 MG SL 25 TABS/BTL SL PRN ×3 (20:37→20:51)
[2017-08-19 21:13] VITALS: BP_SYST 106; BP_SYST 110; BP_DIAS 69; BP_DIAS 71; PULSE 82
[2017-08-19 21:16] VITALS: BP 105/55; PULSE 70; RESP 18; TEMP 98.3; O2SAT 97
[2017-08-19 21:57] LABS: TROPONIN I LESS THAN 0.02 NG/ML (0.02-0.05)
[2017-08-19] MEDS: MORPHINE SULFATE 4 MG/ML INJ IV PRN (22:13)
[2017-08-19 23:00] VITALS: PULSE 72
[2017-08-20] VITALS (9 sets, daily range): BP systolic 106–128; BP diastolic 52–77; PULSE 62–79; RESP 18–20; TEMP 97.6–98.7; O2SAT 94–97
[2017-08-20 00:55] LABS: TROPONIN I LESS THAN 0.02 NG/ML (0.02-0.05)
[2017-08-20] MEDS: MORPHINE SULFATE 4 MG/ML INJ IV PRN (04:46)
[2017-08-20] MEDS ORDERED: GLUCAGON 1 MG/ML VIAL OTHER PRN (08:45)
[2017-08-20] MEDS ORDERED: ALPRAZolam 1 MG TAB PO PRN (08:45)
[2017-08-20] MEDS ORDERED: oxyCODONE/ACETAMINOPHEN 10 MG/325 MG TAB PO PRN (08:45)
[2017-08-20] MEDS ORDERED: DEXTROSE 50% IN WATER 50 ML VIAL(D50) IV PUSH PRN (08:45)
--- NOTE | 2017-08-20 08:56 | HHI.HP ---
[facility] Primary Care Physician Zahra Dennison MD Chief Complaint Chest pain History of Present Illness This is a 47-year-old male with history of CAD with stents, diabetes, hypertension, hyperlipidemia, PE, CVA, and tobacco abuse that presents to ED with a complaint of a central chest tightness that began around 2:00 yesterday afternoon while he was watching television. He was short of breath, nauseous, and diaphoretic. Symptoms lasted about 5 hours. Found nothing to improve or worsen it. He states that he was given nitroglycerin in the ED which did not change his symptoms. States it feels a little similar to when he needed a stent last month. He had a cardiac catheterization with Dr. Sykes July with a integrity stent in the proximal RCA. Stent to the proximal LAD had moderate in-stent restenosis at approximately 50% with collateralization to the PDA. Dates he does not have a baling press operator. He did not follow-up with Dr. Sykes after the stent. He states he follows his primary care physician who manages his Coumadin level and continues his refills. His PCP is Dr. Dennison. Continues to smoke tobacco products but states he has decreased to about 1 pack a day over last 2 weeks from one pack of cigarettes daily for 35 years. Eyes recent illness. Denies travel. Review of Systems General: Patient denies fevers, chills recent, and recent travel HEENT: Patient denies headache, sore throat, difficulty swallowing. Cardiovascular: Has the chest discomfort as mentioned above. Denies sensation of heart beating rapidly or irregularly. No syncope. He was diaphoretic. Respiratory: He was short of breath. Denies inspirational chest discomfort. Denies coughing wheezing or hemoptysis. GI: He was nauseous. Patient denies vomiting, diarrhea, abdominal pain, bloody stools. Musculoskeletal: Patient denies joint pain or edema. Denies calf pain or edema. Neurovascular: Patient denies numbness, tingling, weakness in extremities. Denies headache. Endocrine: Denies polyuria and polydipsia. Hematologic: Denies easy bruising. Skin: Denies rash or itching. Past Family Social History Allergies: Coded Allergies: penicillin G (Verified Allergy, Severe, Anaphylaxis, 07/03/17) Per pt. Past Medical History CAD with stents, most recently stent of the RCA with Dr. Sykes. Diabetes, hypertension, hyperlipidemia, COPD, CVA, bipolar disorder, GERD, for pulmonary emboli with lasting about one year ago, hypothyroidism, bladder and prostate cancer and states that he has had normal evaluation since April 2017, and anemia. Past Surgical History Heart catheterizations with stenting. Bladder surgery. Reported Medications Reported Meds & Active Scripts Active Tgt Aspirin (Aspirin) 81 Mg Chw 162 Mg PO DAILY Glucophage (Metformin HCl) 500 Mg Tab 500 Mg PO HS Start on 07/11. Take With a meal Percocet (Oxycodone-Acetaminophen) 10-325 mg Tab 1 Tab PO Q6H PRN Seroquel (Quetiapine Fumarate) 100 Mg Tab 100 Mg PO BID Isosorbide Mononitrate ER (Isosorbide Mononitrate) 30 Mg Yola 30 Mg PO DAILY@07 Coumadin (Warfarin) 5 Mg Tab 5 Mg PO DAILY Reported Jackmbalta DR (Duloxetine HCl) 60 Mg Capdr 120 Mg PO DAILY Gabapentin 300 Mg Cap 900 Mg PO HS Gabapentin 300 Mg Cap 600 Mg PO AC BREAKFAST Gabapentin 300 Mg Cap 900 Mg PO AC LUNCH Coreg (Carvedilol) 6.25 Mg Tab 6.25 Mg PO DAILY Mirtazapine 45 Mg Tab 90 Mg PO HS Xanax (Alprazolam) 2 Mg Tab 2 Mg PO BID PRN Omeprazole 40 Mg Cap 40 Mg PO HS Synthroid (Levothyroxine Sodium) 50 Mcg Tab 50 Mcg PO DAILY Lisinopril 20 Mg Tab 20 Mg PO BID Nitroglycerin SL (Nitroglycerin) 0.4 Mg Subl 0.4 Mg SL Q 5 MINUTES PRN ONE TABLET UNDER THE TONGUE NEEDED FOR CHEST PAIN, MAY REPEAT EVERY FIVE MINUTES FOR A TOTAL OF 3 DOSES OR CALL 911 IF NO RELIEF Plavix (Clopidogrel Bisulfate) 75 Mg Tab 75 Mg PO DAILY Lipitor (Atorvastatin Calcium) 80 Mg Tab 80 Mg PO HS Active Ordered Medications Current Medications Medications (Trade) Dose Ordered Sig/Erin Route Start Time Stop Time Status Last Admin (Nitrostat Sl) 0.4 mg Q5M PRN SL 08/19/17 19:15 08/19/17 20:51 (Morphine Inj) 4 mg Q6H PRN IV 08/19/17 22:00 08/20/17 04:46 (Xanax) 2 mg BID PRN PO 08/20/17 08:45 UNV (Lipitor) 80 mg HS PO 08/20/17 21:00 UNV (Plavix) 75 mg DAILY PO 08/20/17 09:00 UNV (Cymbalta Dr) 120 mg DAILY PO 08/20/17 09:00 UNV (Neurontin) 600 mg AC BREAKFAST PO 08/21/17 07:00 UNV (Neurontin) 900 mg AC LUNCH PO 08/20/17 11:00 UNV (Neurontin) 900 mg HS PO 08/20/17 21:00 UNV (Imdur) 30 mg DAILY@07 PO 08/21/17 07:00 UNV (Synthroid) 50 mcg DAILY PO 08/20/17 09:00 UNV (Prinivil) 20 mg BID PO 08/20/17 09:00 UNV (Remeron) 90 mg HS PO 08/20/17 21:00 UNV (Percocet 10-325 Mg) 1 tab Q6H PRN PO 08/20/17 08:45 UNV (SEROquel) 100 mg BID PO 08/20/17 09:00 UNV Non-Formulary Medication 40 mg HS PO 08/20/17 21:00 UNV (D50w (Vial) Inj) 50 ml UNSCH PRN IV PUSH 08/20/17 08:45 UNV (Glucagon Inj) 1 mg UNSCH PRN OTHER 08/20/17 08:45 UNV (NovoLOG SUPPLEMENTAL SCALE) 1 ACHS SLIDING SCALE SQ 08/20/17 12:00 UNV Family History There is family history of CAD. Social History Continues to smoke cigarettes but states he has been smoking 1 pack of cigarettes daily for the last 2 weeks. Prior to that he was smoking 1 pack of service daily for 35 years. Denies alcohol or illicit drugs. Physical Exam Vital Signs Vital Signs Date Time Temp Pulse Resp B/P (MAP) Pulse Ox O2 Delivery O2 Flow Rate FiO2 08/20/17 08:26 98.7 66 18 113/55 (74) 97 08/20/17 04:51 18 08/20/17 04:38 98.4 79 18 106/54 (71) 95 08/20/17 01:10 98.3 74 18 106/52 (70) 96 08/19/17 23:00 72 08/19/17 21:16 98.3 70 18 105/55 (72) 97 1/17/18 21:16 08/19/17 21:13 82 110/71 (84) 106/69 (81) 08/19/17 16:37 101 26 102/58 (73) 97 Nasal Cannula 2.00 08/19/17 15:45 97 Room Air 08/19/17 15:45 97 Room Air 08/19/17 15:24 98.4 101 18 136/82 (100) 97 Physical Exam GENERAL: This is a well-nourished, well-developed patient, in no apparent distress. Patient speaks in clear complete sentences. Patient is pleasant. Patient is obese at 145 kg. HEENT: Head is atraumatic and normocephalic. Neck is supple without lymphadenopathy and trachea is midline. No JVD or carotid bruits. CARDIOVASCULAR: Regular rate and rhythm without murmurs, gallops, or rubs. RESPIRATORY: Clear to auscultation. Breath sounds equal bilaterally. No wheezes , rales, or rhonchi. Chest wall is nontender. No use of accessory muscles. GASTROINTESTINAL: Abdomen is nontender, nondistended. Abdomen soft. No obvious pulsatile mass or bruit. No CVA tenderness. Strong femoral pulses bilaterally. Normal bowel sounds in all quadrants. MUSCULOSKELETAL: Patient is moving upper and lower extremities freely. No calf tenderness or edema, no Homans sign. Strong pulses in upper and lower extremities. NEUROLOGICAL: Patient is alert and oriented. Cranial nerves 2-12 are grossly intact. No focal deficits and speech is clear. SKIN: No rash and turgor is normal. Laboratory Laboratory Tests Test 08/19/17 15:40 08/19/17 21:00 08/20/17 00:10 White Blood Count 6.6 Red Blood Count 4.73 Hemoglobin 12.2 Hematocrit 38.1 Mean Corpuscular Volume 80.5 Mean Corpuscular Hemoglobin 25.9 Mean Corpuscular Hemoglobin Concent 32.1 Red Cell Distribution Width 17.9 Platelet Count 333 Mean Platelet Volume 7.7 Neutrophils (%) (Auto) 65.6 Lymphocytes (%) (Auto) 27.0 Monocytes (%) (Auto) 5.5 Eosinophils (%) (Auto) 1.2 Basophils (%) (Auto) 0.7 Neutrophils # (Auto) 4.3 Lymphocytes # (Auto) 1.8 Monocytes # (Auto) 0.4 Eosinophils # (Auto) 0.1 Basophils # (Auto) 0.0 CBC Comment DIFF FINAL Differential Comment Prothrombin Time 23.1 Prothromb Time International Ratio 2.3 Activated Partial Thromboplast Time 33.7 Blood Urea Nitrogen 10 Creatinine 1.35 Random Glucose 165 Total Protein 7.4 Albumin 3.4 Calcium Level 8.1 Magnesium Level 1.4 Alkaline Phosphatase 124 Aspartate Amino Transf (AST/SGOT) 18 Alanine Aminotransferase (ALT/SGPT) 28 Total Bilirubin 0.3 Sodium Level 138 Potassium Level 3.5 Chloride Level 103 Carbon Dioxide Level 27.2 Anion Gap 8 Estimat Glomerular Filtration Rate 56 Total Creatine Kinase 133 120 121 Creatine Kinase MB 0.8 LESS THAN 0.5 1.0 Troponin I LESS THAN 0.02 LESS THAN 0.02 LESS THAN 0.02 B-Type Natriuretic Peptide 15 Lipase 215 Result Diagram: 08/19/17 1540 08/19/17 1540 Imaging Last 48 hours Impressions Chest X-Ray 08/19/17 1542 Signed Impressions: Service Date/Time: Saturday, August 19, 2017 15:46 - CONCLUSION: Normal examination. Claudy Ventura MD Course Sinus rhythm without significant ST segment depressions or elevations. Caprini VTE Risk Assessment Caprini VTE Risk Assessment: Mod/High Risk (score >= 2) Caprini Risk Assessment Model Point Value = 1 Point Value = 2 Point Value = 3 Point Value = 5 Age 41-60 Minor surgery BMI > 25 kg/m2 Swollen legs Varicose veins or History of unexplained or recurrent spontaneous Oral contraceptives or hormone replacement Sepsis (< 1 month) Serious lung disease, including pneumonia (< 1 month) Abnormal pulmonary function Acute myocardial infarction Congestive heart failure (< 1 month) History of inflammatory bowel disease Medical patient at bed rest Age 61-74 Arthroscopic surgery Major open surgery (> 45 min) Laparoscopic surgery (> 45 min) Malignancy Confined to bed (> 72 hours) Immobilizing plaster cast Central venous access Age >= 75 History of VTE Family history of VTE Factor V Leiden Prothrombin [id number] Lupus anticoagulant Anticardiolipin antibodies Elevated serum homocysteine Heparin-induced thrombocytopenia Other congenital or acquired thrombophilia Stroke (< 1 month) Elective arthroplasty Hip, pelvis, or leg fracture Acute spinal cord injury (< 1 month) Prophylaxis Regimen Total Risk Factor Score Risk Level Prophylaxis Regimen 0-1 Low Early ambulation 2 Moderate Order ONE of the following: *Sequential Compression Device (SCD) *Heparin 5000 units SQ BID 3-4 Higher Order ONE of the following medications: *Heparin 5000 units SQ TID *Enoxaparin/Lovenox 40 mg SQ daily (WT < 150 kg, CrCl > 30 mL/min) *Enoxaparin/Lovenox 30 mg SQ daily (WT < 150 kg, CrCl > 10-29 mL/min) *Enoxaparin/Lovenox 30 mg SQ BID (WT < 150 kg, CrCl > 30 mL/min) AND/OR *Sequential Compression Device (SCD) 5 or more Highest Order ONE of the following medications: *Heparin 5000 units SQ TID (Preferred with Epidurals) *Enoxaparin/Lovenox 40 mg SQ daily (WT < 150 kg, CrCl > 30 mL/min) *Enoxaparin/Lovenox 30 mg SQ daily (WT < 150 kg, CrCl > 10-29 mL/min) *Enoxaparin/Lovenox 30 mg SQ BID (WT < 150 kg, CrCl > 30 mL/min) AND *Sequential Compression Device (SCD) Assessment and Plan Assessment and Plan * Chest pain: Patient has had serial cardiac enzymes and EKGs for ruling out purposes. He will be seen by Dr. López of cardiology in the chest pain center. I discussed the patient with Dr. Sykes, patient has not followed him in the office and stated that he would not be following him and should notify baling press operator radiology transcriptionist if further evaluation needed. Patient will undergo a Lexiscan and if is negative will be discharged home with instructions follow- up with PCP and also to make arrangements to follow-up with a local baling press operator. * Diabetes: Sliding scale coverage. Resume medication at discharge. Follow diabetic diet. * Hypertension: Continue current medication. * Hyperlipidemia: Continue current medication. * Hypothyroidism: Continue current medication. * CAD: We'll reassess with stress testing. Patient will need to make arrangements to follow-up with outpatient cardiology. * Tobacco abuse: Patient has been counseled on importance of smoking cessation. * Obesity: Patient has been counseled on importance of diet, excised, and weight loss. Patient is stable at this time. He is agreeable to this plan. Gokul Caal Aug 20, 2017 08:56
[2017-08-20] MEDS ORDERED: QUEtiapine FUMARATE 100 MG TAB PO SCH (10:00)
[2017-08-20] MEDS ORDERED: DULoxetine HCl DR 60 MG CAP PO SCH (10:00)
[2017-08-20] MEDS ORDERED: CLOPIDOGREL 75 MG TAB PO SCH (10:00)
[2017-08-20] MEDS ORDERED: LISINOPRIL 20 MG TAB PO SCH (10:00)
[2017-08-20] MEDS ORDERED: GABAPENTIN 300 MG CAP PO SCH ×2 (11:00→21:00)
[2017-08-20] MEDS ORDERED: LEVOTHYROXINE SODIUM 50 MCG TAB PO SCH (12:00)
[2017-08-20] MEDS ORDERED: INSULIN ASPART SUPPLEMENTAL SCALE SQ SCH (12:00)
--- NOTE | 2017-08-20 12:47 | PD.CARD.PN ---
Subjective Subjective Remarks Patient seen examined and discussed with PA. 47 YO morbidly obese white man in no distress sleeping on my arrival. Known CAD with stents, diabetes, hypertension, hyperlipidemia, PE and CVA. He has episodes of CP at times but these are usually brief in duration. Yesterday he developed CP about 2 PM that persisted until it was relieved in ED about 7 PM. CATH reviewed. Has not followed up with Dr. Sykes but does see his PCP Dr. Robison regularly. Still smokes but has cut down to 3/d. Objective Medications Current Medications Medications (Trade) Dose Ordered Sig/Erin Route Start Time Stop Time Status Last Admin (Nitrostat Sl) 0.4 mg Q5M PRN SL 08/19/17 19:15 08/19/17 20:51 (Morphine Inj) 4 mg Q6H PRN IV 08/19/17 22:00 08/20/17 04:46 (Xanax) 2 mg BID PRN PO 08/20/17 08:45 (Lipitor) 80 mg HS PO 08/20/17 21:00 (Plavix) 75 mg DAILY PO 08/20/17 10:00 08/20/17 09:48 (Cymbalta Dr) 120 mg DAILY PO 08/20/17 10:00 08/20/17 09:49 (Neurontin) 600 mg AC BREAKFAST PO 08/21/17 07:00 (Neurontin) 900 mg AC LUNCH PO 08/20/17 11:00 08/20/17 11:29 (Neurontin) 900 mg HS PO 08/20/17 21:00 (Imdur) 30 mg DAILY@07 PO 08/21/17 07:00 (Synthroid) 50 mcg DAILY@0600 PO 08/20/17 12:00 08/20/17 12:18 (Prinivil) 20 mg BID PO 08/20/17 10:00 08/20/17 09:49 (Remeron) 90 mg HS PO 08/20/17 21:00 (Percocet 10-325 Mg) 1 tab Q6H PRN PO 08/20/17 08:45 08/20/17 09:49 (SEROquel) 100 mg BID PO 08/20/17 10:00 08/20/17 09:49 (Protonix) 40 mg HS PO 08/20/17 21:00 (D50w (Vial) Inj) 50 ml UNSCH PRN IV PUSH 08/20/17 08:45 (Glucagon Inj) 1 mg UNSCH PRN OTHER 08/20/17 08:45 (NovoLOG SUPPLEMENTAL SCALE) 1 ACHS SLIDING SCALE SQ 08/20/17 12:00 Vital Signs / I&O Vital Signs Date Time Temp Pulse Resp B/P (MAP) Pulse Ox O2 Delivery O2 Flow Rate FiO2 08/20/17 12:04 97.6 62 20 128/69 (88) 95 08/20/17 08:26 98.7 66 18 113/55 (74) 97 08/20/17 08:00 66 08/20/17 04:51 18 08/20/17 04:38 98.4 79 18 106/54 (71) 95 08/20/17 01:10 98.3 74 18 106/52 (70) 96 08/19/17 23:00 72 08/19/17 21:16 98.3 70 18 105/55 (72) 97 08/19/17 21:16 08/19/17 21:13 82 110/71 (84) 106/69 (81) 08/19/17 16:37 101 26 102/58 (73) 97 Nasal Cannula 2.00 08/19/17 15:45 97 Room Air 08/19/17 15:45 97 Room Air 08/19/17 15:24 98.4 101 18 136/82 (100) 97 Physical Exam Very obese Alert and cooperative Scratch fierro on back of neck, red-inflamed Chest with decreased BS but clear with no RWT CV RSR with no GRM Laboratory Laboratory Tests Test 08/19/17 15:40 08/19/17 21:00 08/20/17 00:10 White Blood Count 6.6 TH/MM3 Red Blood Count 4.73 MIL/MM3 Hemoglobin 12.2 GM/DL Hematocrit 38.1 % Mean Corpuscular Volume 80.5 FL Mean Corpuscular Hemoglobin 25.9 PG Mean Corpuscular Hemoglobin Concent 32.1 % Red Cell Distribution Width 17.9 % Platelet Count 333 TH/MM3 Mean Platelet Volume 7.7 FL Neutrophils (%) (Auto) 65.6 % Lymphocytes (%) (Auto) 27.0 % Monocytes (%) (Auto) 5.5 % Eosinophils (%) (Auto) 1.2 % Basophils (%) (Auto) 0.7 % Neutrophils # (Auto) 4.3 TH/MM3 Lymphocytes # (Auto) 1.8 TH/MM3 Monocytes # (Auto) 0.4 TH/MM3 Eosinophils # (Auto) 0.1 TH/MM3 Basophils # (Auto) 0.0 TH/MM3 CBC Comment DIFF FINAL Differential Comment Prothrombin Time 23.1 SEC Prothromb Time International Ratio 2.3 RATIO Activated Partial Thromboplast Time 33.7 SEC Blood Urea Nitrogen 10 MG/DL Creatinine 1.35 MG/DL Random Glucose 165 MG/DL Total Protein 7.4 GM/DL Albumin 3.4 GM/DL Calcium Level 8.1 MG/DL Magnesium Level 1.4 MG/DL Alkaline Phosphatase 124 U/L Aspartate Amino Transf (AST/SGOT) 18 U/L Alanine Aminotransferase (ALT/SGPT) 28 U/L Total Bilirubin 0.3 MG/DL Sodium Level 138 MEQ/L Potassium Level 3.5 MEQ/L Chloride Level 103 MEQ/L Carbon Dioxide Level 27.2 MEQ/L Anion Gap 8 MEQ/L Estimat Glomerular Filtration Rate 56 ML/MIN Total Creatine Kinase 133 U/L 120 U/L 121 U/L Creatine Kinase MB 0.8 NG/ML LESS THAN 0.5 NG/ML 1.0 NG/ML Troponin I LESS THAN 0.02 NG/ML LESS THAN 0.02 NG/ML LESS THAN 0.02 NG/ML B-Type Natriuretic Peptide 15 PG/ML Lipase 215 U/L Imaging Last 24 hours Impressions Chest X-Ray 08/19/17 1542 Signed Impressions: Service Date/Time: Saturday, August 19, 2017 15:46 - CONCLUSION: Normal examination. Claudy Ventura MD Assessment and Plan Problem List: (1) Cardiomyopathy ICD Codes: I42.9 - Cardiomyopathy, unspecified Status: Chronic (2) Hypertension ICD Codes: I10 - Hypertension Status: Chronic (3) Dyslipidemia ICD Codes: E78.5 - Dyslipidemia Status: Chronic (4) Hx of coronary artery disease ICD Codes: Z86.79 - History of coronary artery disease Status: Chronic (5) PVD (peripheral vascular disease) ICD Codes: I73.9 - Peripheral vascular disease Status: Chronic (6) Chest pain ICD Codes: R07.9 - Chest pain, unspecified Status: Acute Plan: Very atypical CP but with history of CAD and diabetes. Has ruled out x3 for ACS but will complete evaluation with a nuclear stress test to evaluate possible ongoing ischemia. If negative or low level positive will disch to FU with Dr. Dennison but if positive will admit. (7) Tobacco abuse ICD Codes: Z72.0 - Tobacco use Status: Chronic (8) Hx of Pulmonary emboli on anticoagulation subtherapeutic Status: Chronic (9) DVT (deep vein thrombosis) in ICD Codes: O22.30 - Deep phlebothrombosis in , unspecified trimester; I82.409 - Acute embolism and thrombosis of unspecified deep veins of unspecified lower extremity Status: Chronic (10) Peripheral neuropathic pain ICD Codes: G62.9 - Peripheral neuropathic pain Status: Chronic (11) Hypothyroid ICD Codes: E03.9 - Hypothyroidism, unspecified Status: Chronic (12) Bipolar 1 disorder ICD Codes: F31.9 - Bipolar I disorder Status: Chronic (13) Diabetes mellitus ICD Codes: E11.9 - Diabetes mellitus Status: Chronic (14) Atypical chest pain ICD Codes: R07.89 - Atypical chest pain Status: Acute Problem Qualifiers (1) Chest pain: Qualified Codes: R07.9 - Chest pain, unspecified Lazaro López MD Aug 20, 2017 12:47
--- NOTE | 2017-08-20 12:55 | EKG ---
Date Performed: 08/20/2017 Time Performed: 01:17:41 PTAGE: 47 years EKG: Sinus rhythm INFERIOR MYOCARDIAL INFARCTION PROBABLE ANTEROLATERAL MYOCARDIAL INFARCTION ABNORMAL ECG NO SIG SMITH GE PREVIOUS TRACING : 08/19/2017 21.22 DOCTOR: Lazaro López Interpretating Date/Time 08/20/2017 12:54:29
--- NOTE | 2017-08-20 12:58 | EKG ---
Date Performed: 08/19/2017 Time Performed: 21:22:30 PTAGE: 47 years EKG: Sinus rhythm INFERIOR MYOCARDIAL INFARCTION ANTEROLATERAL MYOCARDIAL INFARCTION ABNORMAL ECG NO SIG CHANGE PREVIOUS TRACING : 08/19/2017 15.33 DOCTOR: Lazaro López Interpretating Date/Time 08/20/2017 12:57:55
--- NOTE | 2017-08-20 13:01 | EKG ---
Date Performed: 08/19/2017 Time Performed: 15:33:42 PTAGE: 47 years EKG: Sinus rhythm INFERIOR MYOCARDIAL INFARCTION ANTEROLATERAL MYOCARDIAL INFARCTION ABNORMAL ECG NO SIG CHANGE PREVIOUS TRACING : 07/07/2017 05.57 DOCTOR: Lazaro López Interpretating Date/Time 08/20/2017 13:00:08
[2017-08-20] MEDS ORDERED: REGADENOSON INJ 0.4 MG/5 ML SYR ONE (13:28)
--- NOTE | 2017-08-20 15:27 | RADRPT ---
EXAM DATE/TIME: 08/20/2017 13:43 [facility] COMPARISON: MYOCARDIAL PERF PHARM SPECT, GATED W/EF, June 10, 2017, 12:11. INDICATIONS : Mid chest pain with shortness of breath and nausea for one day. Angina. DOSE: 35 mCi Tc99m Myoview at stress. 11 mCi Tc99m Myoview at rest. 0.4 mg Lexiscan STRESS SYMPTOMS: Shortness of breath, chest pressure. EJECTION FRACTION: 29% MEDICAL HISTORY : Cardiovascular disease. Diabetes mellitus type 2. Hypertension. SURGICAL HISTORY : Coronary artery stent. ENCOUNTER: Initial ACUITY: 1 day PAIN SCALE: 5/10 LOCATION: Midsternal chest TECHNIQUE: The patient underwent pharmacologic stress with infusion of prescribed dose. Continuous ECG tracing was monitored during stress. Gated SPECT imaging was performed after stress and conventional SPECT i maging was performed at rest. The examination was performed on a SPECT/CT scanner, both attenuation and non-corrected datasets were reviewed. FINDINGS: DISTRIBUTION: The maximum perfused segment at stress is in the <anterolateral> wall. PERFUSION STUDY: There is marked decreased perfusion of the entire posterior wall extending into the apex. GATED STUDY: The chamber is diffusely dilated with global hypokinesia. CONCLUSION: Chamber is dilated with poor ejection fraction down to 29%. No evidence of ischemia. RISK CATEGORY: High (>3% Annual Mortality Rate) Claudy Ventura MD on August 20, 2017 at 15:24 Board Certified Radiologist. This report was verified electronically.
[2017-08-20] MEDS ORDERED: FURO1TAB62 PO (16:17)
--- NOTE | 2017-08-20 16:27 | HHI.DCPOC ---
Discharge Care Plan Diagnosis: (1) Chest pain (2) H/O heart artery stent (3) Cardiomyopathy (4) DM (diabetes mellitus) (5) HTN (hypertension) (6) Hypertension (7) Dyslipidemia (8) Hx of coronary artery disease (9) Hypothyroid (10) Tobacco abuse Goals to Promote Your Health * To prevent worsening of your condition and complications * To maintain your health at the optimal level Directions to Meet Your Goals Take your medications as prescribed Follow your dietary instruction Follow activity as directed Keep your appointments as scheduled Take your immunizations and boosters as scheduled If your symptoms worsen call your PCP, if no PCP go to Urgent Care Center or Emergency Room Smoking is Dangerous to Your Health. Avoid second hand smoke Call the 24-hour hour crisis hotline for domestic abuse at Gokul Caal Aug 20, 2017 16:27
[2017-08-20] MEDS ORDERED: PANTOPRAZOLE SOD 40 MG DELAYED RELEASE TAB PO SCH (21:00)
[2017-08-20] MEDS ORDERED: ATORVASTATIN 80 MG TAB PO SCH (21:00)
[2017-08-20] MEDS ORDERED: MIRTAZAPINE 15 MG TAB PO SCH (21:00)
[2017-08-21] MEDS ORDERED: GABAPENTIN 300 MG CAP PO SCH (07:00)
[2017-08-21] MEDS ORDERED: ISOSORBIDE MONONITRATE 30 MG TAB PO SCH (07:00)
--- NOTE | 2017-08-21 12:02 | TR ---
Date Performed: 08/20/2017 Time Performed: 14:07:08 DOCTOR: Lazaro López DRUG LIST: CLINICAL HISTORY: ANGINA REASON FOR TEST: REASON FOR ENDING: OBSERVATION: CONCLUSION: Lexiscan stress test was performed under standard four minute protocol. Radionuclide was injected one minute prior to ending the test. No electrocardiographic abormalities were present to suggest ischemia. Nuclear imaging and interpretation are pending. COMMENTS:
== END 2017-08-20 17:19 | disposition home or self-care (01) ==
LOC: NEPE 15:23 → NEDH 19:08 → NEPFCDU 20:55
PROVIDERS: ADMIT Internal Medicine Cardiovascular Disease; ATTEND Internal Medicine Cardiovascular Disease
DX: R07.89 Other chest pain (principal); I42.9 Cardiomyopathy, unspecified; E11.9 Type 2 diabetes mellitus without complications; I11.0 Hypertensive heart disease with heart failure; I50.9 Heart failure, unspecified; I25.10 Atherosclerotic heart disease of native coronary artery without angina pectoris; I49.3 Ventricular premature depolarization; E03.9 Hypothyroidism, unspecified; R61 Generalized hyperhidrosis; R06.02 Shortness of breath; I25.2 Old myocardial infarction; D64.9 Anemia, unspecified; E78.00 Pure hypercholesterolemia, unspecified; J44.9 Chronic obstructive pulmonary disease, unspecified; I82.509 Chronic embolism and thrombosis of unspecified deep veins of unspecified lower extremity; F02.80 Dementia in other diseases classified elsewhere, unspecified severity, without behavioral disturbance, psychotic disturbance, mood disturbance, and anxiety; G30.9 Alzheimer's disease, unspecified; E66.01 Morbid (severe) obesity due to excess calories; Z68.41 Body mass index [BMI] 40.0-44.9, adult; E78.5 Hyperlipidemia, unspecified; F17.200 Nicotine dependence, unspecified, uncomplicated; Z95.5 Presence of coronary angioplasty implant and graft; Z86.73 Personal history of transient ischemic attack (TIA), and cerebral infarction without residual deficits; Z79.01 Long term (current) use of anticoagulants; Z79.84 Long term (current) use of oral hypoglycemic drugs
CPT/HCPCS: 71045; 78452; 80053; 82550; 82552; 83690; 83735; 83880; 84484; 85025; 85610; 85730; 93005; 93017; 96361; 96374; 96375; 96376; 99285; A9502; G0378; J2060; J2270; J2785; J7030

== ENCOUNTER 2017-10-15 15:22 | Inpatient (IN) | payer MEDICAID ==
[~2017-10-15] VITALS: Ht 180.3 cm; Wt 156.5 kg
[~2017-10-15 15:22] MED LIST changes: +FURO1TAB62 PO; -HYOS1TAB9 PO
[2017-10-15 15:24] VITALS: PULSE 92; RESP 18; TEMP 98.9; O2SAT 98
[2017-10-15] MEDS ORDERED: SODIUM CHLORIDE 0.9% FLUSH 10 ML FLUSH IVF PRN (15:30)
[2017-10-15 15:41] LABS: AUTOMATED NEUTROPHIL # 4.5 TH/MM3 (1.8-7.7); BASOPHIL # 0.1 TH/MM3 (0-0.2); EOSINOPHIL # 0.1 TH/MM3 (0-0.4); EOSINOPHIL % 1.5 % (0.0-4.0); HEMATOCRIT 37.3 % (39.0-51.0); LYMPHOCYTE # 2.2 TH/MM3 (1.0-4.8); MEAN CELL VOLUME 79.1 FL (80.0-100.0); MEAN CORPUSCULAR HEMOGLOBIN 25.4 PG (27.0-34.0); MEAN CORPUSCULAR HGB CONC 32.2 % (32.0-36.0); MEAN PLATELET VOLUME 7.2 FL (7.0-11.0); MONO % 5.8 % (0.0-8.0); MONOCYTE # 0.4 TH/MM3 (0-0.9); NEUT % 61.7 % (16.0-70.0); PLATELET COUNT 308 TH/MM3 (150-450); RED BLOOD COUNT 4.72 MIL/MM3 (4.50-5.90); RED CELL DISTRIBUTION WIDTH 19.2 % (11.6-17.2); WHITE BLOOD COUNT 7.3 TH/MM3 (4.0-11.0)
--- NOTE | 2017-10-15 15:48 | PD ---
HPI Chief Complaint: Chest Pain Time Seen by Provider: 15:26 Travel History International Travel<30 days: No Contact w/Intl Traveler<30days: No Traveled to known affect area: No History of Present Illness HPI 47-year-old male patient with history of previous multiple MIs and stenting, presents to the ER today brought in by EMS for 9 out of 10 substernal chest pains with radiation up to the neck, shortness of breath. He states it feels like previous DE. He had taken his own aspirin and was given several doses of nitroglycerin by EMS. Modifying Factors: None Associated Signs & Symptoms: Chest pains Risk Factors: History of cardiac issues PFSH Past Medical History Hx Anticoagulant Therapy: Yes Alzheimer's Disease: Yes Anemia: Yes Arthritis: Yes Asthma: No Autoimmune Disease: No Blood Disorders: No Bipolar Disorder: Yes Anxiety: Yes Depression: Yes Heart Rhythm Problems: Yes Cancer: Yes (BLADDER, PROSTATE) Cardiac Catheterization: Yes Cardiovascular Problems: Yes High Cholesterol: Yes Chemotherapy: Yes (implanted something in bladder s/p tummors removed) Chest Pain: Yes Congestive Heart Failure: No COPD: Yes Cerebrovascular Accident: Yes Coronary Artery Disease: Yes Diabetes: Yes Patient Takes Glucophage: Yes Diminished Hearing: No Deep Vein Thrombosis: Yes Endocrine: Yes Gastrointestinal Disorders: Yes (ACID REFLUX, HX ULCER) GERD: Yes Glaucoma: No Genitourinary: Yes (BLADDER TUMORS, BLADDER CA) Headaches: No Hepatitis: No Hiatal Hernia: Yes Heparin Induced Thrombocytopen: No Hypertension: Yes Immune Disorder: Yes (OA) Implanted Vascular Access Dvce: No Kidney Stones: Yes ( CHRONIC STONES ) Medical other: Yes (H/O DVT RLE) Musculoskeletal: Yes (OSTEOARTHRITIS NICKIE KNESS, BURSITIS LEFT ELBOW) Neurologic: Yes (DIABETIC NEUROPATHY) Psychiatric: Yes (BIPOLAR, ANXIETY, DEPRESSION, HX SUICIDE ATTEMPT, PER PT) Reproductive: No Respiratory: Yes (COPD, HX PE) Immunizations Current: Yes Migraines: Yes Myocardial Infarction: Yes (X 2) Radiation Therapy: Yes (pt not sure if bladder insert s/p tumor radition) Renal Failure: No Seizures: No Sickle Cell Disease: No Sleep Apnea: Yes (no cpap) Thyroid Disease: Yes (HYPOTHYROID) Ulcer: Yes Tetanus Vaccination: > 5 Years Influenza Vaccination: Yes Past Surgical History Abdominal Surgery: No AICD: No Appendectomy: No Arteriovenous Shunt: No Body Medical Devices: CARDIAC STENTx2 Cardiac Surgery: Yes (TWO STENTS, THROMBECTOMY 01/2017) Cholecystectomy: No Coronary Artery Bypass Graft: No Coronary Stent: Yes Ear Surgery: No Endocrine Surgery: No Eye Surgery: No Genitourinary Surgery: Yes (BLADDER TUMORS REMOVED; kidney stent removed) Gynecologic Surgery: No Insulin Pump: No Joint Replacement: No Neurologic Surgery: No Oral Surgery: No Pacemaker: No Thoracic Surgery: Yes Other Surgery: Yes (CARDIAC CATH X 3, ANGIOPLASTY X 3 ) Family History Family Myocardial Infarction: Yes Social History Alcohol Use: No Tobacco Use: Yes (1 PPD) Substance Use: Yes (COCAINE 12 YEARS AGO PER PT) Allergies-Medications (Allergen,Severity, Reaction): Coded Allergies: penicillin G (Verified Allergy, Severe, Anaphylaxis, 10/15/17) Per pt. Reported Meds & Prescriptions Reported Meds & Active Scripts Active Tgt Aspirin (Aspirin) 81 Mg Chw 162 Mg PO DAILY Glucophage (Metformin HCl) 500 Mg Tab 500 Mg PO HS Start on 07/11. Take With a meal Percocet (Oxycodone-Acetaminophen) 10-325 mg Tab 1 Tab PO Q6H PRN Seroquel (Quetiapine Fumarate) 100 Mg Tab 100 Mg PO BID Isosorbide Mononitrate ER (Isosorbide Mononitrate) 30 Mg Yola 30 Mg PO DAILY@07 Coumadin (Warfarin) 5 Mg Tab 5 Mg PO DAILY Reported Lasix (Furosemide) 20 Mg Tab 20 Mg PO BID Cymbalta DR (Duloxetine HCl) 60 Mg Capdr 120 Mg PO DAILY Gabapentin 300 Mg Cap 900 Mg PO HS Gabapentin 300 Mg Cap 600 Mg PO AC BREAKFAST Gabapentin 300 Mg Cap 900 Mg PO AC LUNCH Coreg (Carvedilol) 6.25 Mg Tab 6.25 Mg PO BID Mirtazapine 45 Mg Tab 90 Mg PO HS Xanax (Alprazolam) 2 Mg Tab 2 Mg PO BID PRN Omeprazole 40 Mg Cap 40 Mg PO HS Synthroid (Levothyroxine Sodium) 50 Mcg Tab 50 Mcg PO DAILY Lisinopril 20 Mg Tab 20 Mg PO BID Nitroglycerin SL (Nitroglycerin) 0.4 Mg Subl 0.4 Mg SL Q 5 MINUTES PRN ONE TABLET UNDER THE TONGUE NEEDED FOR CHEST PAIN, MAY REPEAT EVERY FIVE MINUTES FOR A TOTAL OF 3 DOSES OR CALL 911 IF NO RELIEF Plavix (Clopidogrel Bisulfate) 75 Mg Tab 75 Mg PO DAILY Lipitor (Atorvastatin Calcium) 80 Mg Tab 80 Mg PO HS Review of Systems Except as stated in HPI: all other systems reviewed are Neg Physical Exam Narrative GENERAL: Well-developed middle-age male patient currently in moderate distress. Awake and oriented 3. SKIN: Focused skin assessment warm/dry. HEAD: Atraumatic. Normocephalic. EYES: Pupils equal and round. No scleral icterus. No injection or drainage. ENT: No nasal bleeding or discharge. Mucous membranes pink and moist. NECK: Trachea midline. No JVD. CARDIOVASCULAR: Regular rate and rhythm. No murmur appreciated. RESPIRATORY: No accessory muscle use. Clear to auscultation. Breath sounds equal bilaterally. GASTROINTESTINAL: Abdomen soft, non-tender, nondistended. Hepatic and splenic margins not palpable. MUSCULOSKELETAL: No obvious deformities. No clubbing. No cyanosis. No edema. NEUROLOGICAL: Awake and alert. No obvious cranial nerve deficits. Motor grossly within normal limits. Normal speech. PSYCHIATRIC: Appropriate mood and affect; insight and judgment normal. Data Data Last Documented VS Vital Signs Date Time Temp Pulse Resp B/P (MAP) Pulse Ox O2 Delivery O2 Flow Rate FiO2 10/15/17 16:31 79 20 109/68 (82) 98 Nasal Cannula 2.00 10/15/17 15:24 98.9 Orders Orders Electrocardiogram (10/15/17 15:) B-Type Natriuretic Peptide (10/15/17 15:) Ckmb (Isoenzyme) Profile (10/15/17 15:26) Complete Blood Count With Diff (10/15/17 15:) Comprehensive Metabolic Panel (10/15/17 15:) Magnesium (Mg) (10/15/17 15:) Prothrombin Time / Inr (Pt) (10/15/17 15:) Act Partial Throm Time (Ptt) (10/15/17 15:) Troponin I (10/15/17 15:) Chest, Single Ap (10/15/17 15:) Ecg Monitoring (10/15/17 15:) Bilateral Bp Monitoring (10/15/17 15:) Iv Access Insert/Monitor (10/15/17 15:) Oximetry (10/15/17 15:) Oxygen Administration (10/15/17 15:) Sodium Chloride 0.9% Flush (Ns Flush) (10/15/17 15:30) CKMB (10/15/17 15:20) CKMB% (10/15/17 15:20) Sodium Chlorid 0.9% 500 Ml Inj (Ns 500 M (10/15/17 16:15) Morphine Inj (Morphine Inj) (10/15/17 16:15) Activity Bed Rest With Brp (10/15/17 17:15) Vital Signs (Adult) Q4H (10/15/17 17:15) Cardiac Rhythm .As Directed (10/15/17 17:15) Notify Dr: Other .PRN (10/15/17 17:15) Notify Dr. Parameters (10/15/17 17:15) Resp Oxygen Nasal Cannula (10/15/17 ) Ckmb (Isoenzyme) Profile (10/15/17 17:15) Ckmb (Isoenzyme) Profile (10/15/17 20:15) Troponin I (10/15/17 17:15) Troponin I (10/15/17 20:15) Electrocardiogram (10/15/17 17:15) Electrocardiogram (10/15/17 20:15) ^ Obtain (10/15/17 17:15) Sodium Chloride 0.9% Flush (Ns Flush) (10/15/17 17:15) Sodium Chloride 0.9% Flush (Ns Flush) (10/15/17 21:00) Nitroglycerin 2% Oint (Nitroglycerin 2% (10/15/17 18:00) Aspirin (Aspirin) (10/16/17 09:00) Assistant Boiler Operator / Telemetry [id number] (10/15/17 17:15) Admit Order (Ed Use Only) (10/15/17 17:15) Labs Laboratory Tests Test 10/15/17 15:20 White Blood Count 7.3 TH/MM3 Red Blood Count 4.72 MIL/MM3 Hemoglobin 12.0 GM/DL Hematocrit 37.3 % Mean Corpuscular Volume 79.1 FL Mean Corpuscular Hemoglobin 25.4 PG Mean Corpuscular Hemoglobin Concent 32.2 % Red Cell Distribution Width 19.2 % Platelet Count 308 TH/MM3 Mean Platelet Volume 7.2 FL Neutrophils (%) (Auto) 61.7 % Lymphocytes (%) (Auto) 30.0 % Monocytes (%) (Auto) 5.8 % Eosinophils (%) (Auto) 1.5 % Basophils (%) (Auto) 1.0 % Neutrophils # (Auto) 4.5 TH/MM3 Lymphocytes # (Auto) 2.2 TH/MM3 Monocytes # (Auto) 0.4 TH/MM3 Eosinophils # (Auto) 0.1 TH/MM3 Basophils # (Auto) 0.1 TH/MM3 CBC Comment DIFF FINAL Differential Comment Prothrombin Time 26.1 SEC Prothromb Time International Ratio 2.6 RATIO Activated Partial Thromboplast Time 35.1 SEC Blood Urea Nitrogen 8 MG/DL Creatinine 1.09 MG/DL Random Glucose 217 MG/DL Total Protein 6.9 GM/DL Albumin 3.1 GM/DL Calcium Level 8.2 MG/DL Magnesium Level 1.8 MG/DL Alkaline Phosphatase 98 U/L Aspartate Amino Transf (AST/SGOT) 19 U/L Alanine Aminotransferase (ALT/SGPT) 26 U/L Total Bilirubin 0.3 MG/DL Sodium Level 139 MEQ/L Potassium Level 4.3 MEQ/L Chloride Level 104 MEQ/L Carbon Dioxide Level 28.7 MEQ/L Anion Gap 6 MEQ/L Estimat Glomerular Filtration Rate 72 ML/MIN Total Creatine Kinase 130 U/L Creatine Kinase MB 1.2 NG/ML Troponin I LESS THAN 0.02 NG/ML B-Type Natriuretic Peptide 33 PG/ML MDM Medical Decision Making Medical Screen Exam Complete: Yes Emergency Medical Condition: Yes Medical Record Reviewed: Yes Interpretation(s) EKG shows normal sinus rhythm with occasional PVCs, rate 83 bpm. No signs of acute ST elevations or depressions. Laboratory Tests Test 10/15/17 15:20 Hemoglobin 12.0 GM/DL (13.0-17.0) Hematocrit 37.3 % (39.0-51.0) Mean Corpuscular Volume 79.1 FL (80.0-100.0) Mean Corpuscular Hemoglobin 25.4 PG (27.0-34.0) Red Cell Distribution Width 19.2 % (11.6-17.2) Prothrombin Time 26.1 SEC (9.8-11.6) Activated Partial Thromboplast Time 35.1 SEC (24.3-30.1) Random Glucose 217 MG/DL (74-106) Albumin 3.1 GM/DL (3.4-5.0) Calcium Level 8.2 MG/DL (8.5-10.1) Estimat Glomerular Filtration Rate 72 ML/MIN (>89) Troponin I LESS THAN 0.02 NG/ML Last 24 hours Impressions Chest X-Ray 10/15/17 1526 Signed Impressions: Service Date/Time: October 15:33 - CONCLUSION: No acute cardiopulmonary disease. Bishop Ghosh MD Differential Diagnosis Chest pains: Unstable angina versus ACS versus CHF Narrative Course Chest x-ray did not show any signs of acute pulmonary process. Cardiac enzymes are negative. EKG did not show any signs of acute ST changes. Patient was given nitroglycerin by EMS and had taken his on aspirin. He was given morphine in the ER for pain with some improvement in symptoms. At this point, my plan would be to admit the patient for further evaluation and rule out DE and the chest pain center. Diagnosis Primary Impression: Chest pain Admitting Information Admitting Physician Requests: Admit Carly Cutler MD Oct 15, 2017 15:48
[2017-10-15 15:59] LABS: INTERNATIONAL NORMALIZED RATIO 2.6 RATIO; PROTHROMBIN TIME - PATIENT 26.1 SEC (9.8-11.6)
[2017-10-15 16:02] LABS: ALBUMIN 3.1 GM/DL (3.4-5.0); ALT (GPT) 26 U/L (12-78); AST (GOT) 19 U/L (15-37); BICARBONATE 28.7 MEQ/L (21.0-32.0); BLOOD UREA NITROGEN 8 MG/DL (7-18); CALCIUM 8.2 MG/DL (8.5-10.1); CHLORIDE 104 MEQ/L (98-107); CREATININE 1.09 MG/DL (0.60-1.30); GLOMERULAR FILTRATION RATE 72 ML/MIN (>89); GLUCOSE,RANDOM 217 MG/DL (74-106); MAGNESIUM 1.8 MG/DL (1.5-2.5); SODIUM (NA) 139 MEQ/L (136-145)
--- NOTE | 2017-10-15 16:03 | RADRPT ---
EXAM DATE/TIME: 10/15/2017 15:33 [facility] COMPARISON: CHEST SINGLE AP, August 19, 2017, 15:46. INDICATIONS : Chest pain MEDICAL HISTORY : Cardiovascular disease. Diabetes mellitus type 2. Hypertension SURGICAL HISTORY : Coronary artery stent ENCOUNTER: Initial ACUITY: 1 day PAIN SCORE: 4/10 LOCATION: chest FINDINGS: The heart is stable. The pulmonary vascular pattern is normal. The lungs are clear. CONCLUSION: No acute cardiopulmonary disease. Bishop Ghosh MD on October 15, 2017 at 16:00 Board Certified Radiologist. This report was verified electronically.
[2017-10-15 16:06] LABS: ALKALINE PHOSPHATASE 98 U/L (45-117); TOTAL BILIRUBIN ADULT 0.3 MG/DL (0.2-1.0); TOTAL PROTEIN 6.9 GM/DL (6.4-8.2); TROPONIN I LESS THAN 0.02 NG/ML (0.02-0.05)
[2017-10-15] MEDS ORDERED: MORPHINE SULFATE 2 MG/ML INJ IV PUSH ONE (16:15)
[2017-10-15] MEDS ORDERED: SODIUM CHLORID 0.9% 500 ML INJ 500 ML IV ONE (16:15)
[2017-10-15 16:31] VITALS: BP 109/68; PULSE 79; RESP 20; O2SAT 98
[2017-10-15] MEDS ORDERED: SODIUM CHLORIDE 0.9% FLUSH 10 ML FLUSH IV FLUSH PRN (17:15)
[2017-10-15] MEDS ORDERED: ENOXAPARIN SODIUM 150 MG/ML SYRINGE SQ SCH (18:15)
[2017-10-15] MEDS: NITROGLYCERIN 2% OINT 1 GM PACKET TOP SCH ×3 (18:35→23:19)
[2017-10-15 18:36] VITALS: BP 128/62; PULSE 74; RESP 18; O2SAT 99
[2017-10-15 18:57] LABS: TROPONIN I LESS THAN 0.02 NG/ML (0.02-0.05)
[2017-10-15 20:49] VITALS: BP 162/88; PULSE 78; RESP 16; TEMP 97.8; O2SAT 99
[2017-10-15] MEDS: SODIUM CHLORIDE 0.9% FLUSH 10 ML FLUSH IV FLUSH SCH (21:00)
[2017-10-15 22:32] LABS: TROPONIN I LESS THAN 0.02 NG/ML (0.02-0.05)
[2017-10-15 23:45] VITALS: PULSE 66
[2017-10-15] MEDS ORDERED: HEPARIN SODIUM - SQ 10,000 UNITS/ML VIAL SQ SCH (23:45)
[2017-10-16] VITALS (24 sets, daily range): BP systolic 109–159; BP diastolic 57–84; PULSE 63–99; RESP 16–27; TEMP 97.6–98.4; O2SAT 95–99
[2017-10-16] MEDS ORDERED: DEXTROSE 50% IN WATER 50 ML VIAL(D50) IV PUSH PRN
[2017-10-16] MEDS ORDERED: GLUCAGON 1 MG/ML VIAL OTHER PRN
--- NOTE | 2017-10-16 00:01 | HHI.HP ---
HPI Service [facility] Primary Care Physician Zahra Dennison MD Admission Diagnosis Chest pain Diagnoses: Travel History International Travel<30 Days: No Contact w/Intl Traveler <30 Da: No Traveled to Known Affected Are: No History of Present Illness 37-year-old male with a past medical history significant for CAD status post multiple MIs, hypertension, hyperlipidemia, diabetes mellitus, history of DVT/ PE (anticoagulated on Coumadin), history of bladder cancer resents to the emergency department for evaluation of chest pain. The patient reports that he was sitting watching TV with his father when he had sudden onset chest pain/ pressure which was substernal and radiated to his jaw. The patient states the pain is similar to when he had his previous MIs. He reports that he continues to have chest pain despite Nitropaste and taking his home nitroglycerin 3. The patient is in moderate distress at the time of our interview and is extremely anxious. He reports nothing has improved his chest pain. He denies associated nausea or vomiting. No fever/chills. No cough or shortness of breath. No episodes of diaphoresis. Review of Systems Except as stated in HPI: all other systems reviewed are Neg Past Family Social History Past Medical History History of DVT/PE, anticoagulated on Coumadin Coronary artery disease History of multiple MIs Hypertension Hyperlipidemia Type 2 diabetes mellitus History of bladder cancer Hypothyroidism Past Surgical History Bladder tumor removal Multiple cystoscopies Cardiac catheterization 4 with a total of 3 stent placements Bilateral knee arthroscopy Reported Medications Reported Meds & Active Scripts Active Tgt Aspirin (Aspirin) 81 Mg Chw 162 Mg PO DAILY Glucophage (Metformin HCl) 500 Mg Tab 500 Mg PO HS Start on 07/11. Take With a meal Percocet (Oxycodone-Acetaminophen) 10-325 mg Tab 1 Tab PO Q6H PRN Seroquel (Quetiapine Fumarate) 100 Mg Tab 100 Mg PO BID Isosorbide Mononitrate ER (Isosorbide Mononitrate) 30 Mg Yola 30 Mg PO DAILY@07 Coumadin (Warfarin) 5 Mg Tab 5 Mg PO DAILY Reported Lasix (Furosemide) 20 Mg Tab 20 Mg PO BID Cymbalta DR (Duloxetine HCl) 60 Mg Capdr 120 Mg PO DAILY Gabapentin 300 Mg Cap 900 Mg PO HS Gabapentin 300 Mg Cap 600 Mg PO AC BREAKFAST Gabapentin 300 Mg Cap 900 Mg PO AC LUNCH Coreg (Carvedilol) 6.25 Mg Tab 6.25 Mg PO BID Mirtazapine 45 Mg Tab 90 Mg PO HS Xanax (Alprazolam) 2 Mg Tab 2 Mg PO BID PRN Omeprazole 40 Mg Cap 40 Mg PO HS Synthroid (Levothyroxine Sodium) 50 Mcg Tab 50 Mcg PO DAILY Lisinopril 20 Mg Tab 20 Mg PO BID Nitroglycerin SL (Nitroglycerin) 0.4 Mg Subl 0.4 Mg SL Q 5 MINUTES PRN ONE TABLET UNDER THE TONGUE NEEDED FOR CHEST PAIN, MAY REPEAT EVERY FIVE MINUTES FOR A TOTAL OF 3 DOSES OR CALL 911 IF NO RELIEF Plavix (Clopidogrel Bisulfate) 75 Mg Tab 75 Mg PO DAILY Lipitor (Atorvastatin Calcium) 80 Mg Tab 80 Mg PO HS Allergies: Coded Allergies: penicillin G (Verified Allergy, Severe, Anaphylaxis, 10/15/17) Per pt. Family History Patient does not know Social History Smokes approximately 5 cigarettes per day. Has a history of alcohol abuse however is currently abstinent from alcohol and all illicit drugs. Physical Exam Vital Signs Vital Signs Date Time Temp Pulse Resp B/P (MAP) Pulse Ox O2 Delivery O2 Flow Rate FiO2 10/15/17 20:49 97.8 78 16 162/88 (112) 99 10/15/17 18:36 74 18 128/62 (84) 99 Room Air 10/15/17 16:31 79 20 109/68 (82) 98 Nasal Cannula 2.00 10/15/17 15:32 98 Nasal Cannula 2.00 10/15/17 15:28 86 20 98 Nasal Cannula 2.00 10/15/17 15:24 98.9 92 18 98 Physical Exam GENERAL: male sitting up in bed, appears uncomfortable and anxious SKIN: No rashes, ecchymoses or lesions. Cool and dry. HEAD: Atraumatic. Normocephalic. No temporal or scalp tenderness. EYES: Pupils equal round and reactive. Extraocular motions intact. No scleral icterus. No injection or drainage. ENT: Nose without bleeding, purulent drainage or septal hematoma. Throat without erythema, tonsillar hypertrophy or exudate. Uvula midline. Airway patent. NECK: Trachea midline. No JVD or lymphadenopathy. Supple, nontender, no meningeal signs. CARDIOVASCULAR: Regular rate and rhythm without murmurs, gallops, or rubs. RESPIRATORY: Clear to auscultation. Breath sounds equal bilaterally. No wheezes , rales, or rhonchi. GASTROINTESTINAL: Abdomen soft, non-tender, nondistended. No hepato-splenomegaly , or palpable masses. No guarding. MUSCULOSKELETAL: Extremities without clubbing, cyanosis, or edema. No joint tenderness, effusion, or edema noted. No calf tenderness. NEUROLOGICAL: Awake and alert. Cranial nerves II through XII intact. Motor and sensory grossly within normal limits. Normal speech. Laboratory Laboratory Tests Test 10/15/17 15:20 10/15/17 18:30 10/15/17 21:30 White Blood Count 7.3 Red Blood Count 4.72 Hemoglobin 12.0 Hematocrit 37.3 Mean Corpuscular Volume 79.1 Mean Corpuscular Hemoglobin 25.4 Mean Corpuscular Hemoglobin Concent 32.2 Red Cell Distribution Width 19.2 Platelet Count 308 Mean Platelet Volume 7.2 Neutrophils (%) (Auto) 61.7 Lymphocytes (%) (Auto) 30.0 Monocytes (%) (Auto) 5.8 Eosinophils (%) (Auto) 1.5 Basophils (%) (Auto) 1.0 Neutrophils # (Auto) 4.5 Lymphocytes # (Auto) 2.2 Monocytes # (Auto) 0.4 Eosinophils # (Auto) 0.1 Basophils # (Auto) 0.1 CBC Comment DIFF FINAL Differential Comment Prothrombin Time 26.1 Prothromb Time International Ratio 2.6 Activated Partial Thromboplast Time 35.1 Blood Urea Nitrogen 8 Creatinine 1.09 Random Glucose 217 Total Protein 6.9 Albumin 3.1 Calcium Level 8.2 Magnesium Level 1.8 Alkaline Phosphatase 98 Aspartate Amino Transf (AST/SGOT) 19 Alanine Aminotransferase (ALT/SGPT) 26 Total Bilirubin 0.3 Sodium Level 139 Potassium Level 4.3 Chloride Level 104 Carbon Dioxide Level 28.7 Anion Gap 6 Estimat Glomerular Filtration Rate 72 Total Creatine Kinase 130 102 100 Creatine Kinase MB 1.2 0.9 Troponin I LESS THAN 0.02 LESS THAN 0.02 LESS THAN 0.02 B-Type Natriuretic Peptide 33 Result Diagram: 10/15/17 1520 10/15/17 1520 Caprini VTE Risk Assessment Caprini VTE Risk Assessment: Mod/High Risk (score >= 2) Caprini Risk Assessment Model Point Value = 1 Point Value = 2 Point Value = 3 Point Value = 5 Age 41-60 Minor surgery BMI > 25 kg/m2 Swollen legs Varicose veins or History of unexplained or recurrent spontaneous Oral contraceptives or hormone replacement Sepsis (< 1 month) Serious lung disease, including pneumonia (< 1 month) Abnormal pulmonary function Acute myocardial infarction Congestive heart failure (< 1 month) History of inflammatory bowel disease Medical patient at bed rest Age 61-74 Arthroscopic surgery Major open surgery (> 45 min) Laparoscopic surgery (> 45 min) Malignancy Confined to bed (> 72 hours) Immobilizing plaster cast Central venous access Age >= 75 History of VTE Family history of VTE Factor V Leiden Prothrombin [id number] Lupus anticoagulant Anticardiolipin antibodies Elevated serum homocysteine Heparin-induced thrombocytopenia Other congenital or acquired thrombophilia Stroke (< 1 month) Elective arthroplasty Hip, pelvis, or leg fracture Acute spinal cord injury (< 1 month) Prophylaxis Regimen Total Risk Factor Score Risk Level Prophylaxis Regimen 0-1 Low Early ambulation 2 Moderate Order ONE of the following: *Sequential Compression Device (SCD) *Heparin 5000 units SQ BID 3-4 Higher Order ONE of the following medications: *Heparin 5000 units SQ TID *Enoxaparin/Lovenox 40 mg SQ daily (WT < 150 kg, CrCl > 30 mL/min) *Enoxaparin/Lovenox 30 mg SQ daily (WT < 150 kg, CrCl > 10-29 mL/min) *Enoxaparin/Lovenox 30 mg SQ BID (WT < 150 kg, CrCl > 30 mL/min) AND/OR *Sequential Compression Device (SCD) 5 or more Highest Order ONE of the following medications: *Heparin 5000 units SQ TID (Preferred with Epidurals) *Enoxaparin/Lovenox 40 mg SQ daily (WT < 150 kg, CrCl > 30 mL/min) *Enoxaparin/Lovenox 30 mg SQ daily (WT < 150 kg, CrCl > 10-29 mL/min) *Enoxaparin/Lovenox 30 mg SQ BID (WT < 150 kg, CrCl > 30 mL/min) AND *Sequential Compression Device (SCD) Assessment and Plan Assessment and Plan Assessment/plan: 1. Intractable chest pain/unstable angina/coronary artery disease Patient with significant cardiac history who does not currently follow with a integration architect Chest pain refractory to Nitropaste and sublingual nitroglycerin Nitro ggt Morphine Cardiology consulted, appreciate recommendations Anticoagulated with Coumadin, INR therapeutic Continue home aspirin/Plavix 2. Hypertension/hyperlipidemia Continue home medications 3. Diabetes mellitus Holding home metformin Sliding scale insulin Monitor blood glucose 4. History of DVT/PE INR therapeutic at 2.6 Continue home Coumadin 5. Hypothyroidism Continue home Synthroid FEN NPO NS at 125 cc/hr Electrolytes: Monitor and replete when necessary Coumadin Physician Certification 2 Midnight Certification Type: Admission for Inpatient Services Order for Inpatient Services The services are ordered in accordance with Medicare regulations or non- Medicare payer requirements, as applicable. In the case of services not specified as inpatient-only, they are appropriately provided as inpatient services in accordance with the 2-midnight benchmark. Estimated LOS (days): 2 2 days is the estimated time the patient will need to remain in the hospital, assuming treatment plan goals are met and no additional complications. Post-Hospital Plan: Not yet determined China Hurd MD Oct 16, 2017 00:01
[2017-10-16] MEDS: NITROGLYCERIN-D5W 50 MG/250 ML 250 ML IV PRN (02:19)
[2017-10-16] MEDS: MORPHINE SULFATE 4 MG/ML INJ IV PUSH PRN ×5 (03:56→21:38)
[2017-10-16 04:47] LABS: AUTOMATED NEUTROPHIL # 3.9 TH/MM3 (1.8-7.7); BASOPHIL % 0.5 % (0.0-2.0); EOSINOPHIL # 0.1 TH/MM3 (0-0.4); EOSINOPHIL % 1.5 % (0.0-4.0); HEMATOCRIT 35.3 % (39.0-51.0); HEMOGLOBIN 11.3 GM/DL (13.0-17.0); LYMPHOCYTE # 3.2 TH/MM3 (1.0-4.8); MEAN CORPUSCULAR HEMOGLOBIN 25.4 PG (27.0-34.0); MEAN CORPUSCULAR HGB CONC 32.1 % (32.0-36.0); MEAN PLATELET VOLUME 7.8 FL (7.0-11.0); MONO % 7.9 % (0.0-8.0); MONOCYTE # 0.6 TH/MM3 (0-0.9); NEUT % 49.1 % (16.0-70.0); PLATELET COUNT 266 TH/MM3 (150-450); RED BLOOD COUNT 4.47 MIL/MM3 (4.50-5.90); RED CELL DISTRIBUTION WIDTH 19.1 % (11.6-17.2); WHITE BLOOD COUNT 7.9 TH/MM3 (4.0-11.0)
[2017-10-16 05:08] LABS: BICARBONATE 25.3 MEQ/L (21.0-32.0); CALCIUM 8.3 MG/DL (8.5-10.1); CREATININE 0.93 MG/DL (0.60-1.30)
[2017-10-16] MEDS: LEVOTHYROXINE SODIUM 50 MCG TAB PO SCH ×2 (07:18→09:47)
[2017-10-16] MEDS: SODIUM CHLOR 0.9% 1000 ML INJ 1,000 ML IV SCH ×3 (07:45→15:45)
[2017-10-16] MEDS: INSULIN ASPART SUPPLEMENTAL SCALE SQ SCH ×4 (08:00→21:00)
--- NOTE | 2017-10-16 09:09 | PD.CONS ---
HPI Consult Requested By Primary Care Physician Zahra Dennison MD History of Present Illness 47-year-old male with an extensive history of CAD, cardiomyopathy, HTN, HLD, DM , tobacco abuse who presented for chest pain. Yesterday afternoon the patient was sitting and began having 9/10 discomfort in his chest similar to previous episodes of angina. No shortness of breath. Chest pain is improving since starting on nitro GTT overnight. EKG with no significant change from previous and cardiac enzymes are not elevated. Not currently following with cardiology. Continues to smoke. On warfarin for history of DVT/PE. (Sandip Ramirez) Review of Systems Negative except as stated in HPI (Sandip Ramirez) Past Family Social History Allergies: Coded Allergies: penicillin G (Verified Allergy, Severe, Anaphylaxis, 10/15/17) Per pt. 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 Take With a meal Percocet (Oxycodone-Acetaminophen) 10-325 mg Tab 1 Tab PO Q6H PRN Seroquel (Quetiapine Fumarate) 100 Mg Tab 100 Mg PO BID Isosorbide Mononitrate ER (Isosorbide Mononitrate) 30 Mg Yola 30 Mg PO DAILY@07 Coumadin (Warfarin) 5 Mg Tab 5 Mg PO DAILY Reported Lasix (Furosemide) 20 Mg Tab 20 Mg PO BID Cymbalta DR (Duloxetine HCl) 60 Mg Capdr 120 Mg PO DAILY Gabapentin 300 Mg Cap 900 Mg PO HS Gabapentin 300 Mg Cap 600 Mg PO AC BREAKFAST Gabapentin 300 Mg Cap 900 Mg PO AC LUNCH Coreg (Carvedilol) 6.25 Mg Tab 6.25 Mg PO BID Mirtazapine 45 Mg Tab 90 Mg PO HS Xanax (Alprazolam) 2 Mg Tab 2 Mg PO BID PRN Omeprazole 40 Mg Cap 40 Mg PO HS Synthroid (Levothyroxine Sodium) 50 Mcg Tab 50 Mcg PO DAILY Lisinopril 20 Mg Tab 20 Mg PO BID Nitroglycerin SL (Nitroglycerin) 0.4 Mg Subl 0.4 Mg SL Q 5 MINUTES PRN ONE TABLET UNDER THE TONGUE NEEDED FOR CHEST PAIN, MAY REPEAT EVERY FIVE MINUTES FOR A TOTAL OF 3 DOSES OR CALL 911 IF NO RELIEF Plavix (Clopidogrel Bisulfate) 75 Mg Tab 75 Mg PO DAILY Lipitor (Atorvastatin Calcium) 80 Mg Tab 80 Mg PO HS Active Ordered Medications Current Medications Medications (Trade) Dose Ordered Sig/Erin Route Start Time Stop Time Status Last Admin (NS Flush) 2 ml UNSCH PRN IV FLUSH 10/15/17 17:15 (NS Flush) 2 ml BID IV FLUSH 10/15/17 21:00 10/15/17 21:00 (Aspirin) 325 mg DAILY PO 10/16/17 09:00 Nitroglycerin/ Dextrose 250 ml @ 1.5 mls/hr TITRATE PRN IV 10/15/17 23:45 10/16/17 02:19 (Morphine Inj) 4 mg Q3H PRN IV PUSH 10/15/17 23:45 10/16/17 08:04 Sodium Chloride 1,000 ml @ 125 mls/hr Q8H IV 10/15/17 23:45 10/16/17 00:00 (Lipitor) 80 mg HS PO 10/16/17 21:00 (Coreg) 6.25 mg BID PO 10/16/17 09:00 (Plavix) 75 mg DAILY PO 10/16/17 09:00 (Lasix) 20 mg BID PO 10/16/17 09:00 (Synthroid) 50 mcg DAILY@0700 PO 10/16/17 07:00 10/16/17 07:18 (Prinivil) 20 mg BID PO 10/16/17 09:00 (Coumadin) 5 mg DAILY@1600 PO 10/16/17 16:00 Future Hold (D50w (Vial) Inj) 50 ml UNSCH PRN IV PUSH 10/16/17 00:00 (Glucagon Inj) 1 mg UNSCH PRN OTHER 10/16/17 00:00 (NovoLOG SUPPLEMENTAL SCALE) 1 ACHS SLIDING SCALE SQ 10/16/17 08:00 Family History Patient does not know Social History Smokes approximately 5 cigarettes per day. Has a history of alcohol abuse however is currently abstinent from alcohol and all illicit drugs. (Sandip Ramirez) Physical Exam Vital Signs Vital Signs Date Time Temp Pulse Resp B/P (MAP) Pulse Ox O2 Delivery O2 Flow Rate FiO2 10/16/17 08:08 97.9 73 27 125/70 (88) 98 10/16/17 06:09 69 10/16/17 05:00 75 10/16/17 04:01 18 10/16/17 04:00 73 10/16/17 03:11 98.0 75 145/70 (95) 97 10/16/17 03:00 92 10/16/17 02:33 18 10/16/17 02:19 75 145/70 10/16/17 01:15 97.6 77 16 159/84 (109) 98 10/15/17 23:45 66 10/15/17 20:49 97.8 78 16 162/88 (112) 99 10/15/17 18:36 74 18 128/62 (84) 99 Room Air 10/15/17 16:31 79 20 109/68 (82) 98 Nasal Cannula 2.00 10/15/17 15:32 98 Nasal Cannula 2.00 10/15/17 15:28 86 20 98 Nasal Cannula 2.00 10/15/17 15:24 98.9 92 18 98 Physical Exam GENERAL: Well-developed well-nourished. Morbidly obese. Anxious but in no acute distress. NECK: No carotid bruits. No JVD. CARDIOVASCULAR: Regular rate and rhythm. No murmur appreciated. RESPIRATORY: No accessory muscle use. Clear to auscultation. Occasional expiratory wheezing. MUSCULOSKELETAL: No clubbing or cyanosis. No edema. NEUROLOGICAL: Awake and alert. Normal speech. Laboratory Laboratory Tests Test 10/15/17 15:20 10/15/17 18:30 10/15/17 21:30 10/16/17 03:22 White Blood Count 7.3 7.9 Red Blood Count 4.72 4.47 Hemoglobin 12.0 11.3 Hematocrit 37.3 35.3 Mean Corpuscular Volume 79.1 79.0 Mean Corpuscular Hemoglobin 25.4 25.4 Mean Corpuscular Hemoglobin Concent 32.2 32.1 Red Cell Distribution Width 19.2 19.1 Platelet Count 308 266 Mean Platelet Volume 7.2 7.8 Neutrophils (%) (Auto) 61.7 49.1 Lymphocytes (%) (Auto) 30.0 41.0 Monocytes (%) (Auto) 5.8 7.9 Eosinophils (%) (Auto) 1.5 1.5 Basophils (%) (Auto) 1.0 0.5 Neutrophils # (Auto) 4.5 3.9 Lymphocytes # (Auto) 2.2 3.2 Monocytes # (Auto) 0.4 0.6 Eosinophils # (Auto) 0.1 0.1 Basophils # (Auto) 0.1 0.0 CBC Comment DIFF FINAL DIFF FINAL Differential Comment Prothrombin Time 26.1 Prothromb Time International Ratio 2.6 Activated Partial Thromboplast Time 35.1 Blood Urea Nitrogen 8 11 Creatinine 1.09 0.93 Random Glucose 217 86 Total Protein 6.9 Albumin 3.1 Calcium Level 8.2 8.3 Magnesium Level 1.8 Alkaline Phosphatase 98 Aspartate Amino Transf (AST/SGOT) 19 Alanine Aminotransferase (ALT/SGPT) 26 Total Bilirubin 0.3 Sodium Level 139 141 Potassium Level 4.3 3.5 Chloride Level 104 107 Carbon Dioxide Level 28.7 25.3 Anion Gap 6 9 Estimat Glomerular Filtration Rate 72 87 Total Creatine Kinase 130 102 100 Creatine Kinase MB 1.2 0.9 Troponin I LESS THAN 0.02 LESS THAN 0.02 LESS THAN 0.02 B-Type Natriuretic Peptide 33 (Sandip Ramirez) Result Diagram: 10/16/17 0322 10/16/17 0322 Imaging Last Impressions Chest X-Ray 10/15/17 1526 Signed Impressions: Service Date/Time: October 15:33 - CONCLUSION: No acute cardiopulmonary disease. Bishop Ghosh MD (Sandip Ramirez) Assessment and Plan Assessment and Plan 47-year-old male with an extensive history of CAD, HTN, HLD, DM, tobacco abuse who presented for chest pain. Yesterday afternoon the patient was sitting and began having 9/10 discomfort in his chest similar to previous episodes of angina. No shortness of breath. Chest pain is improving since starting on nitro GTT overnight. EKG with no significant change from previous and cardiac enzymes are not elevated. Not currently following with cardiology. Continues to smoke. On warfarin for history of DVT/PE. Recurrent angina in a patient with an extensive history of CAD: No evidence of acute DE. Will hold warfarin for now and tentatively plan on cardiac catheterization on Thursday. Continue nitro GTT, aspirin, statin, Plavix. History of DVT/PE: Hold warfarin in anticipation of upcoming procedure, change to heparin when INR less than 2. Tobacco abuse: Patient counseled on cessation. Cardiomyopathy: Chronic, likely ischemic. Previous echo 07/19 with EF 35-40%. No clinical evidence of CHF currently. Continue carvedilol and lisinopril. Discussed Condition With Dr. Pryor, patient, RN (Sandip Ramirez) Assessment and Plan unstable angina - nitro gtt INR 2.6. heparin gtt when INR<2 NPO p MN thursday [facility] thursday 2d echo (Claudy Pryor MD) Sandip Ramirez Oct 16, 2017 09:09 Claudy Pryor MD Oct 16, 2017 12:26
[2017-10-16] MEDS: ASPIRIN 325 MG TAB PO SCH (09:46)
[2017-10-16] MEDS: LISINOPRIL 20 MG TAB PO SCH ×2 (09:46→21:35)
[2017-10-16] MEDS: FUROSEMIDE 20 MG TAB PO SCH ×2 (09:47→21:36)
[2017-10-16] MEDS: CARVEDILOL 6.25 MG TAB PO SCH ×2 (09:47→21:36)
[2017-10-16] MEDS: SODIUM CHLORIDE 0.9% FLUSH 10 ML FLUSH IV FLUSH SCH ×2 (09:49→21:00)
[2017-10-16] MEDS: CLOPIDOGREL 75 MG TAB PO SCH (10:25)
--- NOTE | 2017-10-16 11:13 | EKG ---
Date Performed: 10/15/2017 Time Performed: 15:30:40 PTAGE: 47 years EKG: Sinus rhythm WITH OCCASIONAL VENTRICULAR PREMATURE COMPLEXES INFERIOR MYOCARDIAL INFARCTION ANTEROLATERAL MYOCARD IAL INFARCTION ABNORMAL ECG INTERPRETATION BASED ON A DEFAULT AGE OF 40 YEARS PREVIOUS TRACING : 08/20/2017 01.17 Since the previous tracing, no significant change not ed DOCTOR: Lazaro López Interpretating Date/Time 10/16/2017 11:09:46
--- NOTE | 2017-10-16 11:13 | EKG ---
Date Performed: 10/15/2017 Time Performed: 18:25:30 PTAGE: 47 years EKG: Sinus rhythm WITH FREQUENT VENTRICULAR PREMATURE COMPLEXES INFERIOR MYOCARDIAL INFARCTION ANTEROLATERAL MYOCARDIA L INFARCTION ABNORMAL ECG PREVIOUS TRACING : 10/15/2017 15.30 Since the previous tracing, no significant change noted DOCTOR: Lazaro López Interpretating Date/Time 10/16/2017 11:10:06
[2017-10-16] MEDS: ISOSORBIDE MONONITRATE 60 MG CR TAB (IMDUR) PO SCH (13:26)
[2017-10-16] MEDS ORDERED: ACETAMINOPHEN/HYDROcodone 325 MG/5 MG TAB PO PRN (14:30)
[2017-10-16] MEDS ORDERED: WARFARIN SOD 5 MG TAB PO SCH (16:00)
--- NOTE | 2017-10-16 16:57 | HHI.PR ---
Subjective Remarks This is a pleasant 47 y/o male with morbid obesity, has CAD, Hypertension, Hyperlipidemia, DM II, Tobacco dependence, who was admitted with chest pain, he has DVT and PE on Warfarin, improved on Nitroglycerine drip, seen by Cardiology recommended to hold Warfarin, start Heparin once INR less than 2, [facility] for 10/19/17, Previous echo 07/19 with EF 35-40%. No clinical evidence of CHF currently. Continue carvedilol and lisinopril. asking for pain medicine at this time. Objective Vital Signs Date Time Temp Pulse Resp B/P (MAP) Pulse Ox O2 Delivery O2 Flow Rate FiO2 10/16/17 16:34 76 120/65 10/16/17 16:15 78 121/70 10/16/17 16:02 78 117/72 10/16/17 16:01 63 10/16/17 15:47 18 10/16/17 15:05 97.7 74 18 121/75 (90) 99 10/16/17 15:05 66 10/16/17 14:03 68 10/16/17 13:07 77 10/16/17 12:11 80 10/16/17 11:05 97.9 78 18 133/72 (92) 98 10/16/17 11:05 81 10/16/17 10:38 69 10/16/17 10:11 18 10/16/17 09:05 96 21 10/16/17 09:00 68 10/16/17 08:08 97.9 73 27 125/70 (88) 98 10/16/17 07:00 93 10/16/17 06:09 69 10/16/17 05:00 75 10/16/17 04:00 73 10/16/17 03:11 98.0 75 145/70 (95) 97 10/16/17 03:00 92 10/16/17 02:33 18 10/16/17 02:19 75 145/70 10/16/17 01:15 97.6 77 16 159/84 (109) 98 10/15/17 23:45 66 10/15/17 20:49 97.8 78 16 162/88 (112) 99 10/15/17 18:36 74 18 128/62 (84) 99 Room Air I/O 3/15/18 3/15/18 10/15/17 10/16/17 10/16/17 10/16/17 07:00 15:00 23:00 07:00 15:00 23:00 Intake Total 500 ml 439 ml Output Total 220 ml Balance 500 ml 219 ml Intake Oral 0 ml IV Total 500 ml 439 ml Output Urine Total 220 ml Result Diagram: 10/16/17 0322 10/16/17 0322 Imaging Last Impressions Chest X-Ray 10/15/17 1526 Signed Impressions: Service Date/Time: October 15:33 - CONCLUSION: No acute cardiopulmonary disease. Bishop Ghosh MD Procedures None Other Results Laboratory Tests Test 10/15/17 15:20 10/15/17 18:30 10/15/17 21:30 10/16/17 03:22 Prothrombin Time 26.1 SEC Prothromb Time International Ratio 2.6 RATIO Activated Partial Thromboplast Time 35.1 SEC Blood Urea Nitrogen 8 MG/DL 11 MG/DL Creatinine 1.09 MG/DL 0.93 MG/DL Random Glucose 217 MG/DL 86 MG/DL Total Protein 6.9 GM/DL Albumin 3.1 GM/DL Calcium Level 8.2 MG/DL 8.3 MG/DL Magnesium Level 1.8 MG/DL Alkaline Phosphatase 98 U/L Aspartate Amino Transf (AST/SGOT) 19 U/L Alanine Aminotransferase (ALT/SGPT) 26 U/L Total Bilirubin 0.3 MG/DL Sodium Level 139 MEQ/L 141 MEQ/L Potassium Level 4.3 MEQ/L 3.5 MEQ/L Chloride Level 104 MEQ/L 107 MEQ/L Carbon Dioxide Level 28.7 MEQ/L 25.3 MEQ/L B-Type Natriuretic Peptide 33 PG/ML Creatine Kinase MB 0.9 NG/ML Total Creatine Kinase 100 U/L Troponin I LESS THAN 0.02 NG/ML White Blood Count 7.9 TH/MM3 Red Blood Count 4.47 MIL/MM3 Hemoglobin 11.3 GM/DL Hematocrit 35.3 % Mean Corpuscular Volume 79.0 FL Mean Corpuscular Hemoglobin 25.4 PG Mean Corpuscular Hemoglobin Concent 32.1 % Red Cell Distribution Width 19.1 % Platelet Count 266 TH/MM3 Mean Platelet Volume 7.8 FL Neutrophils (%) (Auto) 49.1 % Lymphocytes (%) (Auto) 41.0 % Monocytes (%) (Auto) 7.9 % Eosinophils (%) (Auto) 1.5 % Basophils (%) (Auto) 0.5 % Neutrophils # (Auto) 3.9 TH/MM3 Lymphocytes # (Auto) 3.2 TH/MM3 Monocytes # (Auto) 0.6 TH/MM3 Eosinophils # (Auto) 0.1 TH/MM3 Basophils # (Auto) 0.0 TH/MM3 CBC Comment DIFF FINAL Differential Comment Anion Gap 9 MEQ/L Estimat Glomerular Filtration Rate 87 ML/MIN Objective Remarks GENERAL: Morbid Obese patient in no acute distress. SKIN: No rashes, ecchymoses or lesions. Cool and dry. HEAD: Atraumatic. Normocephalic. No temporal or scalp tenderness. EYES: Pupils equal round and reactive. Extraocular motions intact. No scleral icterus. No injection or drainage. ENT: Nose without bleeding, purulent drainage or septal hematoma. NECK: Trachea midline. No JVD or lymphadenopathy. Supple, nontender, no meningeal signs. CARDIOVASCULAR: Regular rate and rhythm without murmurs, gallops, or rubs. RESPIRATORY: Clear to auscultation. Breath sounds equal bilaterally. No wheezes , rales, or rhonchi. GASTROINTESTINAL: Abdomen soft, non-tender, nondistended. No hepato-splenomegaly , or palpable masses. No guarding. MUSCULOSKELETAL: Extremities without clubbing, cyanosis, or edema. No joint tenderness, effusion, or edema noted. No calf tenderness. NEUROLOGICAL: Awake and alert. Cranial nerves II through XII intact. Motor and sensory grossly within normal limits. Normal speech. Medications and IVs Current Medications Medications (Trade) Dose Ordered Sig/Erin Route Start Time Stop Time Status Last Admin (NS Flush) 2 ml UNSCH PRN IV FLUSH 10/15/17 17:15 (NS Flush) 2 ml BID IV FLUSH 10/15/17 21:00 10/16/17 09:49 (Aspirin) 325 mg DAILY PO 10/16/17 09:00 10/16/17 09:46 Nitroglycerin/ Dextrose 250 ml @ 1.5 mls/hr TITRATE PRN IV 10/15/17 23:45 10/16/17 02:19 (Morphine Inj) 4 mg Q3H PRN IV PUSH 10/15/17 23:45 10/16/17 08:04 Sodium Chloride 1,000 ml @ 125 mls/hr Q8H IV 10/15/17 23:45 10/16/17 15:45 (Lipitor) 80 mg HS PO 10/16/17 21:00 (Coreg) 6.25 mg BID PO 10/16/17 09:00 10/16/17 09:47 (Plavix) 75 mg DAILY PO 10/16/17 09:00 10/16/17 10:25 (Lasix) 20 mg BID PO 10/16/17 09:00 10/16/17 09:47 (Synthroid) 50 mcg DAILY@0700 PO 10/16/17 07:00 10/16/17 09:47 (Prinivil) 20 mg BID PO 10/16/17 09:00 10/16/17 09:46 (D50w (Vial) Inj) 50 ml UNSCH PRN IV PUSH 10/16/17 00:00 (Glucagon Inj) 1 mg UNSCH PRN OTHER 10/16/17 00:00 (NovoLOG SUPPLEMENTAL SCALE) 1 ACHS SLIDING SCALE SQ 10/16/17 08:00 (Imdur) 120 mg DAILY@07 PO 10/16/17 13:30 10/16/17 13:26 (Sterling 5-325 Mg) 1 tab Q4H PRN PO 10/16/17 14:30 10/16/17 14:29 A/P Assessment and Plan 1. Unstable Angina in a patient with known Coronary artery disease, he has no legal recovery specialist at this time, after seen by legal recovery specialist recommended for [facility], on hold Warfarin and start heparin once INR less than 2. History of multiple MIs 2. Coronary artery disease by history 3. Hypertension/Hyperlipidemia to continue Home medicines. 4. DM II on hold Metformin continue sliding scale 5. DVT/PE INR therapeutic 2.6 following Warfarin on hold start Heparin once INR less than 2 6. Hypothyroidism to continue Hormonal replacement 7. Morbid Obesity strongly recommended diet and exercise as outpatient. DVT prophylaxis with Warfarin INR 2.6 GI protection with Famotidine. Discharge Planning Once cleared by legal recovery specialist. Chon Jorge MD Oct 16, 2017 16:57
[2017-10-16] MEDS: ATORVASTATIN 80 MG TAB PO SCH (21:36)
[2017-10-16] MEDS: QUEtiapine FUMARATE 100 MG TAB PO SCH (21:36)
[2017-10-17] VITALS (25 sets, daily range): BP systolic 91–113; BP diastolic 53–59; PULSE 70–91; RESP 16–18; TEMP 97.5–98.6; O2SAT 94–97
[2017-10-17] MEDS: ALPRAZolam 1 MG TAB PO PRN ×3 (00:34→20:25)
[2017-10-17] MEDS: NITROGLYCERIN-D5W 50 MG/250 ML 250 ML IV PRN ×2 (00:44→11:09)
[2017-10-17] MEDS: SODIUM CHLOR 0.9% 1000 ML INJ 1,000 ML IV SCH ×4 (02:06→23:45)
[2017-10-17] MEDS: MORPHINE SULFATE 4 MG/ML INJ IV PUSH PRN ×4 (03:19→18:25)
[2017-10-17] MEDS: ISOSORBIDE MONONITRATE 60 MG CR TAB (IMDUR) PO SCH (06:19)
[2017-10-17] MEDS: LEVOTHYROXINE SODIUM 50 MCG TAB PO SCH (06:20)
[2017-10-17 07:38] LABS: INTERNATIONAL NORMALIZED RATIO 1.9 RATIO; PROTHROMBIN TIME - PATIENT 19.7 SEC (9.8-11.6)
[2017-10-17] MEDS: INSULIN ASPART SUPPLEMENTAL SCALE SQ SCH ×4 (08:00→20:26)
[2017-10-17] MEDS: SODIUM CHLORIDE 0.9% FLUSH 10 ML FLUSH IV FLUSH SCH ×2 (08:16→20:26)
[2017-10-17] MEDS: ASPIRIN 325 MG TAB PO SCH (08:20)
[2017-10-17] MEDS: FUROSEMIDE 20 MG TAB PO SCH ×2 (08:21→20:26)
[2017-10-17] MEDS: ACETAMINOPHEN 325 MG TAB PO PRN ×3 (08:21→23:29)
[2017-10-17] MEDS: CLOPIDOGREL 75 MG TAB PO SCH (08:22)
[2017-10-17] MEDS: LISINOPRIL 20 MG TAB PO SCH ×2 (08:22→20:25)
[2017-10-17] MEDS: CARVEDILOL 6.25 MG TAB PO SCH ×2 (08:22→20:25)
[2017-10-17] MEDS: QUEtiapine FUMARATE 100 MG TAB PO SCH ×2 (08:23→20:25)
--- NOTE | 2017-10-17 09:59 | HHI.PR ---
Subjective Remarks Follow up unstable angina 10/17/17-patient seen and examined; some chest pain and shortness of breath otherwise stable and afebrile Objective Vitals Vital Signs Date Time Temp Pulse Resp B/P (MAP) Pulse Ox O2 Delivery O2 Flow Rate FiO2 10/17/17 08:13 97 21 10/17/17 07:00 98.3 91 16 110/56 (74) 95 10/17/17 07:00 91 10/17/17 06:00 78 10/17/17 05:00 81 10/17/17 04:05 18 10/17/17 04:00 82 10/17/17 03:00 74 10/17/17 03:00 98.2 74 110/59 (76) 94 10/17/17 02:00 81 10/17/17 01:00 85 10/17/17 00:44 77 119/78 10/17/17 00:00 77 10/16/17 23:00 66 10/16/17 23:00 98.4 75 113/68 (83) 95 10/16/17 22:00 66 10/16/17 21:00 82 10/16/17 20:00 74 10/16/17 19:00 66 10/16/17 19:00 98.2 76 109/57 (74) 97 10/16/17 18:09 69 10/16/17 17:25 75 10/16/17 16:34 76 120/65 10/16/17 16:15 78 121/70 10/16/17 16:02 78 117/72 10/16/17 16:01 63 10/16/17 15:47 18 10/16/17 15:05 97.7 74 18 121/75 (90) 99 10/16/17 15:05 66 10/16/17 14:03 68 10/16/17 13:07 77 10/16/17 12:11 80 10/16/17 11:05 97.9 78 18 133/72 (92) 98 10/16/17 11:05 81 10/16/17 10:38 69 I/O 10/16/17 10/16/17 10/16/17 10/17/17 10/17/17 10/17/17 07:00 15:00 23:00 07:00 15:00 23:00 Intake Total 439 ml 1842 ml 2934 ml Output Total 220 ml 900 ml 2900 ml Balance 219 ml 942 ml 34 ml Intake Oral 0 ml 600 ml 1320 ml IV Total 439 ml 1242 ml 1614 ml Output Urine Total 220 ml 900 ml 2900 ml # Bowel Movements 0 Result Diagram: 10/16/17 0322 10/16/17 0322 Imaging Last Impressions Chest X-Ray 10/15/17 1526 Signed Impressions: Service Date/Time: October 15:33 - CONCLUSION: No acute cardiopulmonary disease. Bishop Ghosh MD Objective Remarks GENERAL: NAD SKIN: Warm and dry. HEAD: Normocephalic. EYES: No scleral icterus. No injection or drainage. NECK: Supple, trachea midline. No JVD or lymphadenopathy. CARDIOVASCULAR: Regular rate and rhythm without murmurs, gallops, or rubs. RESPIRATORY: Breath sounds equal bilaterally. No accessory muscle use. GASTROINTESTINAL: Abdomen soft, non-tender, nondistended. MUSCULOSKELETAL: No cyanosis, or edema. BACK: Nontender without obvious deformity. No CVA tenderness. A/P Problem List: (1) Unstable angina ICD Code: I20.0 - Unstable angina Assessment and Plan 47 years old man with 1. Unstable Angina Plan for [facility] on Thursday 10/19 Appreciate input from cardiology Continue with Nitro drip Continue with current meds including Imdur/Plavix/Coreg/ASA 3. Hypertension/Hyperlipidemia continue Home medicines. 4. DM II Continue to hold Metformin continue sliding scale 5. DVT/PE On Warfarin 6. Hypothyroidism continue Hormonal replacement Chris Mcclendon MD Oct 17, 2017 09:59
--- NOTE | 2017-10-17 18:12 | EKG ---
Date Performed: 10/15/2017 Time Performed: 20:46:30 PTAGE: 47 years EKG: Sinus rhythm WITH FREQUENT VENTRICULAR PREMATURE COMPLEXES INFERIOR MYOCARDIAL INFARCTION ANTEROLATERAL MYOCARDIA L INFARCTION ABNORMAL ECG Compared to PREVIOUS TRACING , no significant change. PREVIOUS TRACIN10/15/2017 18.25 DOCTOR: Gilberto Roca Interpretating Date/Time 10/17/2017 18:11:06
[2017-10-17] MEDS: GABAPENTIN 300 MG CAP PO SCH (20:25)
[2017-10-17] MEDS: ATORVASTATIN 80 MG TAB PO SCH (20:26)
[2017-10-17] MEDS ORDERED: MIRTAZAPINE 15 MG TAB PO SCH (21:00)
--- NOTE | 2017-10-17 23:10 | PD.CARD.PN ---
Subjective Subjective Remarks Feeling better, still has mid chest tightness. Objective Medications Current Medications Medications (Trade) Dose Ordered Sig/Erin Route Start Time Stop Time Status Last Admin (NS Flush) 2 ml UNSCH PRN IV FLUSH 10/15/17 17:15 (NS Flush) 2 ml BID IV FLUSH 10/15/17 21:00 10/17/17 20:26 (Aspirin) 325 mg DAILY PO 10/16/17 09:00 10/17/17 08:20 Nitroglycerin/ Dextrose 250 ml @ 1.5 mls/hr TITRATE PRN IV 10/15/17 23:45 10/17/17 11:09 (Morphine Inj) 4 mg Q3H PRN IV PUSH 10/15/17 23:45 10/17/17 18:25 Sodium Chloride 1,000 ml @ 125 mls/hr Q8H IV 10/15/17 23:45 10/17/17 17:35 (Lipitor) 80 mg HS PO 10/16/17 21:00 10/17/17 20:26 (Coreg) 6.25 mg BID PO 10/16/17 09:00 10/17/17 20:25 (Plavix) 75 mg DAILY PO 10/16/17 09:00 10/17/17 08:22 (Lasix) 20 mg BID PO 10/16/17 09:00 10/17/17 20:26 (Synthroid) 50 mcg DAILY@0700 PO 10/16/17 07:00 10/17/17 06:20 (Prinivil) 20 mg BID PO 10/16/17 09:00 10/17/17 20:25 (D50w (Vial) Inj) 50 ml UNSCH PRN IV PUSH 10/16/17 00:00 (Glucagon Inj) 1 mg UNSCH PRN OTHER 10/16/17 00:00 (NovoLOG SUPPLEMENTAL SCALE) 1 ACHS SLIDING SCALE SQ 10/16/17 08:00 (Imdur) 120 mg DAILY@07 PO 10/16/17 13:30 10/17/17 06:19 ([place] 5-325 Mg) 1 tab Q4H PRN PO 10/16/17 14:30 10/16/17 14:29 (Xanax) 2 mg BID PRN PO 10/16/17 21:00 10/17/17 20:25 (SEROquel) 100 mg BID PO 10/16/17 21:00 10/17/17 20:25 (Tylenol) 650 mg Q4H PRN PO 10/17/17 06:45 10/17/17 17:36 (Cymbalta Dr) 120 mg DAILY PO 10/18/17 09:00 (Neurontin) 900 mg HS PO 10/17/17 21:00 10/17/17 20:25 Vital Signs / I&O Vital Signs Date Time Temp Pulse Resp B/P (MAP) Pulse Ox O2 Delivery O2 Flow Rate FiO2 10/17/17 23:06 73 10/17/17 22:03 71 10/17/17 21:00 74 10/17/17 20:08 98.2 73 17 113/55 (74) 97 10/17/17 20:00 74 10/17/17 19:00 73 10/17/17 18:00 74 10/17/17 17:00 85 10/17/17 16:00 70 10/17/17 15:00 97.5 73 16 105/55 (72) 97 10/17/17 15:00 73 10/17/17 14:00 79 10/17/17 13:00 82 10/17/17 12:00 76 10/17/17 11:09 72 91/53 10/17/17 11:00 72 10/17/17 11:00 98.6 72 18 91/53 (66) 96 10/17/17 10:00 76 10/17/17 08:13 97 21 10/17/17 07:00 98.3 91 16 110/56 (74) 95 10/17/17 07:00 91 10/17/17 06:00 78 10/17/17 05:00 81 10/17/17 04:05 18 10/17/17 04:00 82 10/17/17 03:00 74 10/17/17 03:00 98.2 74 110/59 (76) 94 10/17/17 02:00 81 10/17/17 01:00 85 10/17/17 00:44 77 119/78 10/17/17 00:00 77 I/O 10/17/17 10/17/17 10/17/1718 10/18/17 10/18/17 07:00 15:00 23:00 07:00 15:00 23:00 Intake Total 2934 ml 920 ml Output Total 2900 ml 2200 ml Balance 34 ml -1280 ml Intake Oral 1320 ml 920 ml IV Total 1614 ml Output Urine Total 2900 ml 2200 ml Physical Exam GENERAL: NAD, obesity SKIN: Warm and dry. HEAD: Normocephalic. EYES: No scleral icterus. No injection or drainage. NECK: Supple, trachea midline. No JVD or lymphadenopathy. CARDIOVASCULAR: Regular rate and rhythm without murmurs, gallops, or rubs. RESPIRATORY: Breath sounds equal bilaterally. No accessory muscle use. GASTROINTESTINAL: Abdomen soft, non-tender, nondistended. MUSCULOSKELETAL: No cyanosis, or edema. BACK: Nontender without obvious deformity. No CVA tenderness. Laboratory Laboratory Tests Test 10/17/17 06:40 Prothrombin Time 19.7 SEC Prothromb Time International Ratio 1.9 RATIO Assessment and Plan Problem List: (1) H/O heart artery stent ICD Codes: Z95.5 - Presence of coronary angioplasty implant and graft Status: Acute (2) Chest pain ICD Codes: R07.9 - Chest pain, unspecified Status: Acute (3) DVT (deep vein thrombosis) in ICD Codes: O22.30 - Deep phlebothrombosis in , unspecified trimester; I82.409 - Acute embolism and thrombosis of unspecified deep veins of unspecified lower extremity Status: Chronic (4) Gross hematuria ICD Codes: R31.0 - Gross hematuria Status: Acute (5) Acute coronary syndrome ICD Codes: I24.9 - Acute ischemic heart disease, unspecified Status: Acute Assessment and Plan 47-year-old male with an extensive history of CAD, HTN, HLD, DM, tobacco abuse who presented for chest pain. 1. Recurrent angina in a patient with an extensive history of CAD: No evidence of acute SD. Will hold warfarin for now and tentatively plan on cardiac catheterization on Thursday. Continue nitro GTT, aspirin, statin, Plavix. 2.History of DVT/PE: Hold warfarin in anticipation of upcoming procedure, change to heparin when INR less than 2. INR 1.9 today. Will start Lovenox 1 mg/KG Q12H 3.Tobacco abuse: Patient counseled on cessation. Wing Nikki Cordero MD Oct 17, 2017 23:10
[2017-10-18] VITALS (24 sets, daily range): BP systolic 101–148; BP diastolic 54–75; PULSE 69–90; RESP 16–19; TEMP 97.4–98.1; O2SAT 95–98
[2017-10-18] MEDS: ENOXAPARIN SODIUM 150 MG/ML SYRINGE SQ SCH ×2 (03:26→14:43)
[2017-10-18] MEDS: SODIUM CHLOR 0.9% 1000 ML INJ 1,000 ML IV SCH ×2 (06:29→14:43)
[2017-10-18] MEDS: LEVOTHYROXINE SODIUM 50 MCG TAB PO SCH (06:29)
[2017-10-18] MEDS: INSULIN ASPART SUPPLEMENTAL SCALE SQ SCH ×4 (08:00→21:00)
[2017-10-18] MEDS: SODIUM CHLORIDE 0.9% FLUSH 10 ML FLUSH IV FLUSH SCH ×2 (08:16→20:42)
[2017-10-18] MEDS: ISOSORBIDE MONONITRATE 60 MG CR TAB (IMDUR) PO SCH (08:16)
[2017-10-18] MEDS: DULoxetine HCl DR 60 MG CAP PO SCH (08:17)
[2017-10-18] MEDS: ASPIRIN 325 MG TAB PO SCH (08:17)
[2017-10-18] MEDS: CLOPIDOGREL 75 MG TAB PO SCH (08:17)
[2017-10-18] MEDS: LISINOPRIL 20 MG TAB PO SCH ×2 (08:17→20:41)
[2017-10-18] MEDS: FUROSEMIDE 20 MG TAB PO SCH ×2 (08:17→20:42)
[2017-10-18] MEDS: QUEtiapine FUMARATE 100 MG TAB PO SCH ×2 (08:17→20:41)
[2017-10-18] MEDS: CARVEDILOL 6.25 MG TAB PO SCH ×2 (08:17→20:42)
[2017-10-18] MEDS: MORPHINE SULFATE 4 MG/ML INJ IV PUSH PRN ×4 (08:18→20:55)
--- NOTE | 2017-10-18 09:45 | HHI.PR ---
Subjective Remarks Follow up unstable angina 10/17/17-patient seen and examined; some chest pain and shortness of breath otherwise stable and afebrile 10/18/17-patient seen and examined; states he is doing much better today and shortness of breath Objective Vitals Vital Signs Date Time Temp Pulse Resp B/P (MAP) Pulse Ox O2 Delivery O2 Flow Rate FiO2 10/18/17 09:14 82 10/18/17 08:04 97.4 82 148/75 (99) 98 10/18/17 08:03 82 148/75 10/18/17 08:00 90 10/18/17 07:00 78 10/18/17 06:25 72 116/72 10/18/17 06:00 72 10/18/17 05:05 75 10/18/17 05:00 69 117/57 10/18/17 04:03 73 10/18/17 04:00 71 102/59 10/18/17 03:16 88 10/18/17 03:00 77 108/62 10/18/17 03:00 98.1 90 16 108/62 (77) 97 10/18/17 02:57 76 110/58 10/18/17 02:00 83 10/18/17 01:00 82 114/55 10/18/17 00:00 98.0 75 16 104/62 (76) 97 10/18/17 00:00 82 10/18/17 00:00 73 139/65 10/17/17 23:50 75 104/62 10/17/17 23:06 73 10/17/17 22:03 71 10/17/17 21:25 97 21 10/17/17 21:00 74 10/17/17 20:08 98.2 73 17 113/55 (74) 97 10/17/17 20:00 74 10/17/17 20:00 73 113/55 10/17/17 19:00 73 10/17/17 18:00 74 10/17/17 17:00 85 10/17/17 16:00 70 10/17/17 15:00 97.5 73 16 105/55 (72) 97 10/17/17 15:00 73 10/17/17 14:00 79 10/17/17 13:00 82 10/17/17 12:00 76 10/17/17 11:09 72 91/53 10/17/17 11:00 72 10/17/17 11:00 98.6 72 18 91/53 (66) 96 10/17/17 10:00 76 I/O 10/17/17 10/17/17 10/17/17 10/18/17 10/18/17 10/18/17 07:00 15:00 23:00 07:00 15:00 23:00 Intake Total 2934 ml 920 ml 2133 ml Output Total 2900 ml 2200 ml 3050 ml Balance 34 ml -1280 ml -917 ml Intake Oral 1320 ml 920 ml 480 ml IV Total 1614 ml 1653 ml Output Urine Total 2900 ml 2200 ml 3050 ml Result Diagram: 10/16/17 0322 10/16/17 0322 Objective Remarks GENERAL: NAD SKIN: Warm and dry. HEAD: Normocephalic. EYES: No scleral icterus. No injection or drainage. NECK: Supple, trachea midline. No JVD or lymphadenopathy. CARDIOVASCULAR: Regular rate and rhythm without murmurs, gallops, or rubs. RESPIRATORY: Breath sounds equal bilaterally. No accessory muscle use. GASTROINTESTINAL: Abdomen soft, non-tender, nondistended. MUSCULOSKELETAL: No cyanosis, or edema. BACK: Nontender without obvious deformity. No CVA tenderness. A/P Problem List: (1) Unstable angina ICD Code: I20.0 - Unstable angina Assessment and Plan 47 years old man with 1. Unstable Angina Plan for [facility] on tomorrow Thursday 10/19 Appreciate input from cardiology Continue with Nitro drip Continue with current meds including Imdur/Plavix/Coreg/ASA 3. Hypertension/Hyperlipidemia continue Home medicines. 4. DM II Continue to hold Metformin continue sliding scale 5. DVT/PE On Warfarin 6. Hypothyroidism continue Hormonal replacement Chris Mcclendon MD Oct 18, 2017 09:45
[2017-10-18 11:23] LABS: INTERNATIONAL NORMALIZED RATIO 1.5 RATIO; PROTHROMBIN TIME - PATIENT 14.7 SEC (9.8-11.6)
--- NOTE | 2017-10-18 20:27 | PD.CARD.PN ---
Subjective Subjective Remarks Feeling better, still has mid chest tightness, better with IV MSO4. Still on IV NTG gtt. Objective Medications Current Medications Medications (Trade) Dose Ordered Sig/Erin Route Start Time Stop Time Status Last Admin (NS Flush) 2 ml UNSCH PRN IV FLUSH 10/15/17 17:15 (NS Flush) 2 ml BID IV FLUSH 10/15/17 21:00 10/18/17 08:16 (Aspirin) 325 mg DAILY PO 10/16/17 09:00 10/18/17 08:17 Nitroglycerin/ Dextrose 250 ml @ 1.5 mls/hr TITRATE PRN IV 10/15/17 23:45 10/17/17 11:09 (Morphine Inj) 4 mg Q3H PRN IV PUSH 10/15/17 23:45 10/18/17 16:38 Sodium Chloride 1,000 ml @ 125 mls/hr Q8H IV 10/15/17 23:45 10/18/17 14:43 (Lipitor) 80 mg HS PO 10/16/17 21:00 10/17/17 20:26 (Coreg) 6.25 mg BID PO 10/16/17 09:00 10/18/17 08:17 (Plavix) 75 mg DAILY PO 10/16/17 09:00 10/18/17 08:17 (Lasix) 20 mg BID PO 10/16/17 09:00 10/18/17 08:17 (Synthroid) 50 mcg DAILY@0700 PO 10/16/17 07:00 10/18/17 06:29 (Prinivil) 20 mg BID PO 10/16/17 09:00 10/18/17 08:17 (D50w (Vial) Inj) 50 ml UNSCH PRN IV PUSH 10/16/17 00:00 (Glucagon Inj) 1 mg UNSCH PRN OTHER 10/16/17 00:00 (NovoLOG SUPPLEMENTAL SCALE) 1 ACHS SLIDING SCALE SQ 10/16/17 08:00 (Imdur) 120 mg DAILY@07 PO 10/16/17 13:30 10/18/17 08:16 ([place] 5-325 Mg) 1 tab Q4H PRN PO 10/16/17 14:30 10/16/17 14:29 (Xanax) 2 mg BID PRN PO 10/16/17 21:00 10/17/17 20:25 (SEROquel) 100 mg BID PO 10/16/17 21:00 10/18/17 08:17 (Tylenol) 650 mg Q4H PRN PO 10/17/17 06:45 10/17/17 23:29 (C[address]alta [address]) 120 mg DAILY PO 10/18/17 09:00 10/18/17 08:17 (Neurontin) 900 mg HS PO 10/17/17 21:00 10/17/17 20:25 (Lovenox Inj) 150 mg Q12H SQ 10/18/17 02:00 10/18/17 14:43 Vital Signs / I&O Vital Signs Date Time Temp Pulse Resp B/P (MAP) Pulse Ox O2 Delivery O2 Flow Rate FiO2 10/18/17 18:00 84 10/18/17 17:00 69 10/18/17 16:09 73 10/18/17 15:37 77 10/18/17 15:29 74 101/58 10/18/17 15:27 98.0 74 19 101/58 (72) 96 10/18/17 14:00 82 10/18/17 13:00 77 10/18/17 12:00 80 10/18/17 11:33 97.6 76 19 109/54 (72) 97 10/18/17 11:00 77 10/18/17 10:00 81 10/18/17 09:14 82 10/18/17 08:04 97.4 82 148/75 (99) 98 10/18/17 08:03 82 148/75 10/18/17 08:00 90 10/18/17 07:00 78 10/18/17 06:25 72 116/72 10/18/17 06:00 72 10/18/17 05:05 75 10/18/17 05:00 69 117/57 10/18/17 04:03 73 10/18/17 04:00 71 102/59 10/18/17 03:16 88 10/18/17 03:00 77 108/62 10/18/17 03:00 98.1 90 16 108/62 (77) 97 10/18/17 02:57 76 110/58 10/18/17 02:00 83 10/18/17 01:00 82 114/55 10/18/17 00:00 98.0 75 16 104/62 (76) 97 10/18/17 00:00 82 10/18/17 00:00 73 139/65 10/17/17 23:50 75 104/62 10/17/17 23:06 73 10/17/17 22:03 71 10/17/17 21:25 97 21 10/17/17 21:00 74 I/O 10/17/17 10/17/17 10/17/17 10/18/17 10/18/17 10/18/17 07:00 15:00 23:00 07:00 15:00 23:00 Intake Total 2934 ml 920 ml 2133 ml 720 ml Output Total 2900 ml 2200 ml 3050 ml 1775 ml Balance 34 ml -1280 ml -917 ml -1055 ml Intake Oral 1320 ml 920 ml 480 ml 720 ml IV Total 1614 ml 1653 ml Output Urine Total 2900 ml 2200 ml 3050 ml 1775 ml # Bowel Movements 0 Physical Exam GENERAL: NAD, obesity SKIN: Warm and dry. HEAD: Normocephalic. EYES: No scleral icterus. No injection or drainage. NECK: Supple, trachea midline. No JVD or lymphadenopathy. CARDIOVASCULAR: Regular rate and rhythm without murmurs, gallops, or rubs. RESPIRATORY: Breath sounds equal bilaterally. No accessory muscle use. GASTROINTESTINAL: Abdomen soft, non-tender, nondistended. MUSCULOSKELETAL: No cyanosis, or edema. BACK: Nontender without obvious deformity. No CVA tenderness. Laboratory Laboratory Tests Test 10/18/17 10:48 Prothrombin Time 14.7 SEC Prothromb Time International Ratio 1.5 RATIO Assessment and Plan Problem List: (1) H/O heart artery stent ICD Codes: Z95.5 - Presence of coronary angioplasty implant and graft Status: Acute (2) Chest pain ICD Codes: R07.9 - Chest pain, unspecified Status: Acute (3) DVT (deep vein thrombosis) in ICD Codes: O22.30 - Deep phlebothrombosis in , unspecified trimester; I82.409 - Acute embolism and thrombosis of unspecified deep veins of unspecified lower extremity Status: Chronic (4) Gross hematuria ICD Codes: R31.0 - Gross hematuria Status: Acute (5) Acute coronary syndrome ICD Codes: I24.9 - Acute ischemic heart disease, unspecified Status: Acute Assessment and Plan 47-year-old male with an extensive history of CAD, HTN, HLD, DM, tobacco abuse who presented for chest pain. 1. Recurrent angina in a patient with an extensive history of CAD: No evidence of acute TN. Will hold warfarin for now and tentatively plan on cardiac catheterization on Thursday. Continue nitro GTT, aspirin, statin, Plavix. 2.History of DVT/PE: Hold warfarin in anticipation of upcoming procedure, change to heparin when INR less than 2. INR 1.9 10/17/17, bridging with Lovenox 1 mg/KG Q12H Hold next lovenox dose, pending [facility] in AM. 3.Tobacco abuse: Patient counseled on cessation. Dr. Pryor will resume care of this patient tomorrow. Wing Nikki Cordero MD Oct 18, 2017 20:27
[2017-10-18] MEDS: ALPRAZolam 1 MG TAB PO PRN (20:41)
[2017-10-18] MEDS: GABAPENTIN 300 MG CAP PO SCH (20:41)
[2017-10-18] MEDS: ATORVASTATIN 80 MG TAB PO SCH (20:43)
[2017-10-19] VITALS (15 sets, daily range): BP systolic 96–118; BP diastolic 54–61; PULSE 62–79; RESP 18–19; TEMP 97.6–98.1; O2SAT 95–97
[2017-10-19] MEDS: MORPHINE SULFATE 4 MG/ML INJ IV PUSH PRN ×3 (01:40→09:29)
[2017-10-19] MEDS: INSULIN ASPART SUPPLEMENTAL SCALE SQ SCH ×2 (08:00→11:07)
--- NOTE | 2017-10-19 08:08 | PD.CARD.PN ---
Subjective Subjective Remarks Psoas episodes of chest pain, up to 8/10 in severity, reports relieved with morphine. Denies any shortness of breath or palpitations. Planning for cardiac catheterization today, all questions answered. (Sandip Ramirez) Objective Medications Current Medications Medications (Trade) Dose Ordered Sig/Erin Route Start Time Stop Time Status Last Admin (NS Flush) 2 ml UNSCH PRN IV FLUSH 10/15/17 17:15 (NS Flush) 2 ml BID IV FLUSH 10/15/17 21:00 10/18/17 20:42 (Aspirin) 325 mg DAILY PO 10/16/17 09:00 10/18/17 08:17 Nitroglycerin/ Dextrose 250 ml @ 1.5 mls/hr TITRATE PRN IV 10/15/17 23:45 10/17/17 11:09 (Morphine Inj) 4 mg Q3H PRN IV PUSH 10/15/17 23:45 10/19/17 05:08 Sodium Chloride 1,000 ml @ 125 mls/hr Q8H IV 10/15/17 23:45 10/18/17 14:43 (Lipitor) 80 mg HS PO 10/16/17 21:00 10/18/17 20:43 (Coreg) 6.25 mg BID PO 10/16/17 09:00 10/18/17 20:42 (Plavix) 75 mg DAILY PO 10/16/17 09:00 10/18/17 08:17 (Lasix) 20 mg BID PO 10/16/17 09:00 10/18/17 20:42 (Synthroid) 50 mcg DAILY@0700 PO 10/16/17 07:00 10/18/17 06:29 (Prinivil) 20 mg BID PO 10/16/17 09:00 10/18/17 20:41 (D50w (Vial) Inj) 50 ml UNSCH PRN IV PUSH 10/16/17 00:00 (Glucagon Inj) 1 mg UNSCH PRN OTHER 10/16/17 00:00 (NovoLOG SUPPLEMENTAL SCALE) 1 ACHS SLIDING SCALE SQ 10/16/17 08:00 (Imdur) 120 mg DAILY@07 PO 10/16/17 13:30 10/18/17 08:16 ([place] 5-325 Mg) 1 tab Q4H PRN PO 10/16/17 14:30 10/16/17 14:29 (Xanax) 2 mg BID PRN PO 10/16/17 21:00 10/18/17 20:41 (SEROquel) 100 mg BID PO 10/16/17 21:00 10/18/17 20:41 (Tylenol) 650 mg Q4H PRN PO 10/17/17 06:45 10/17/17 23:29 (C[address]) 120 mg DAILY PO 10/18/17 09:00 10/18/17 08:17 (Neurontin) 900 mg HS PO 10/17/17 21:00 10/18/17 20:41 Vital Signs / I&O Vital Signs Date Time Temp Pulse Resp B/P (MAP) Pulse Ox O2 Delivery O2 Flow Rate FiO2 10/19/17 07:21 97.6 67 19 108/61 (77) 95 10/19/17 06:00 72 10/19/17 05:00 66 10/19/17 04:00 68 10/19/17 03:00 98.0 73 18 105/59 (74) 97 10/19/17 03:00 77 10/19/17 02:00 65 10/19/17 00:00 98.1 77 18 105/54 (71) 97 10/18/17 20:48 71 115/68 10/18/17 20:46 98.1 71 18 115/68 (84) 97 10/18/17 20:06 95 21 10/18/17 18:00 84 10/18/17 17:00 69 10/18/17 16:09 73 10/18/17 15:37 77 10/18/17 15:29 74 101/58 10/18/17 15:27 98.0 74 19 101/58 (72) 96 10/18/17 14:00 82 10/18/17 13:00 77 10/18/17 12:00 80 10/18/17 11:33 97.6 76 19 109/54 (72) 97 10/18/17 11:00 77 10/18/17 10:00 81 10/18/17 09:14 82 I/O 10/18/17 10/18/17 10/18/17 10/19/17 10/19/17 10/19/17 07:00 15:00 23:00 07:00 15:00 23:00 Intake Total 2133 ml 720 ml 480 ml Output Total 3050 ml 1775 ml 1600 ml Balance -917 ml -1055 ml -1120 ml Intake Oral 480 ml 720 ml 480 ml IV Total 1653 ml Output Urine Total 3050 ml 1775 ml 1600 ml # Bowel Movements 0 Physical Exam GENERAL: Well-developed well-nourished. Morbidly obese. In no acute distress. NECK: No carotid bruits. No JVD. CARDIOVASCULAR: Regular rate and rhythm. No murmur appreciated. RESPIRATORY: No accessory muscle use. Clear to auscultation. Breath sounds equal bilaterally. MUSCULOSKELETAL: No clubbing or cyanosis. No edema. NEUROLOGICAL: Awake and alert. Normal speech. Laboratory Laboratory Tests Test 10/18/17 10:48 Prothrombin Time 14.7 SEC Prothromb Time International Ratio 1.5 RATIO Imaging Last Impressions Chest X-Ray 10/15/17 1526 Signed Impressions: Service Date/Time: October 15:33 - CONCLUSION: No acute cardiopulmonary disease. Bishop Ghosh MD (Sandip Ramirez) Assessment and Plan Problem List: (1) H/O heart artery stent ICD Codes: Z95.5 - Presence of coronary angioplasty implant and graft Status: Acute (2) Chest pain ICD Codes: R07.9 - Chest pain, unspecified Status: Acute (3) DVT (deep vein thrombosis) in ICD Codes: O22.30 - Deep phlebothrombosis in , unspecified trimester; I82.409 - Acute embolism and thrombosis of unspecified deep veins of unspecified lower extremity Status: Chronic (4) Gross hematuria ICD Codes: R31.0 - Gross hematuria Status: Acute (5) Acute coronary syndrome ICD Codes: I24.9 - Acute ischemic heart disease, unspecified Status: Acute Assessment and Plan 47-year-old male with an extensive history of CAD, HTN, HLD, DM, tobacco abuse who presented for chest pain. Yesterday afternoon the patient was sitting and began having 9/10 discomfort in his chest similar to previous episodes of angina. No shortness of breath. Chest pain is improving since starting on nitro GTT overnight. EKG with no significant change from previous and cardiac enzymes are not elevated. Not currently following with cardiology. Continues to smoke. On warfarin for history of DVT/PE. Recurrent angina in a patient with an extensive history of CAD: Planning for cardiac catheterization today. Continue nitro GTT, aspirin, statin, Plavix. History of DVT/PE: Holding warfarin, received Lovenox bridging over the weekend. Tobacco abuse: Patient counseled on cessation. Cardiomyopathy: Chronic, likely ischemic, currently compensated. Previous echo 07/19 with EF 35-40%. Continue carvedilol and lisinopril. (Sandip Ramirez) Assessment and Plan cath today (Claudy Pryor MD) Sandip Ramirez Oct 19, 2017 08:08 Claudy Pryor MD Oct 19, 2017 09:11
[2017-10-19] MEDS: SODIUM CHLORIDE 0.9% FLUSH 10 ML FLUSH IV FLUSH SCH (09:00)
[2017-10-19] MEDS: ASPIRIN 325 MG TAB PO SCH (09:30)
[2017-10-19] MEDS: LISINOPRIL 20 MG TAB PO SCH (09:30)
[2017-10-19] MEDS: DULoxetine HCl DR 60 MG CAP PO SCH (09:30)
[2017-10-19] MEDS: CLOPIDOGREL 75 MG TAB PO SCH (09:30)
[2017-10-19] MEDS: QUEtiapine FUMARATE 100 MG TAB PO SCH (09:30)
[2017-10-19] MEDS: FUROSEMIDE 20 MG TAB PO SCH (09:30)
[2017-10-19] MEDS: LEVOTHYROXINE SODIUM 50 MCG TAB PO SCH (09:30)
[2017-10-19] MEDS: CARVEDILOL 6.25 MG TAB PO SCH (09:30)
[2017-10-19] MEDS: ISOSORBIDE MONONITRATE 60 MG CR TAB (IMDUR) PO SCH (09:31)
[2017-10-19] MEDS: SODIUM CHLOR 0.9% 1000 ML INJ 1,000 ML IV SCH (09:31)
[2017-10-19] MEDS: ALPRAZolam 1 MG TAB PO PRN (11:05)
[2017-10-19] MEDS ORDERED: HEPARIN-NS/PF FLUSH BAG 2,000 ML IV FLUSH ONE (11:41)
[2017-10-19] MEDS ORDERED: HEPARIN SODIUM - IV 10,000 UNITS/10 ML VIAL ONE (11:41)
[2017-10-19] MEDS ORDERED: NITROGLYCERIN INJ 5 ML ONE (11:42)
[2017-10-19] MEDS ORDERED: MIDAZOLAM HCL 2 MG/2 ML VIAL ONE (11:42)
--- NOTE | 2017-10-19 11:59 | HHI.PR ---
Subjective Remarks Follow up unstable angina 10/17/17-patient seen and examined; some chest pain and shortness of breath otherwise stable and afebrile 10/18/17-patient seen and examined; states he is doing much better today and shortness of breath 10/19/17-patient seen and examined, plan for left heart catheterization today. Still with chest pain but stated is manageable Objective Vitals Vital Signs Date Time Temp Pulse Resp B/P (MAP) Pulse Ox O2 Delivery O2 Flow Rate FiO2 10/19/17 11:00 97.8 69 19 96/60 (72) 96 10/19/17 10:00 66 10/19/17 09:00 118/61 (80) 10/19/17 09:00 62 10/19/17 08:07 97 21 10/19/17 08:00 72 10/19/17 07:21 97.6 67 19 108/61 (77) 95 10/19/17 07:00 66 10/19/17 06:00 72 10/19/17 05:00 66 10/19/17 04:00 68 10/19/17 03:00 98.0 73 18 105/59 (74) 97 10/19/17 03:00 77 10/19/17 02:00 65 10/19/17 00:00 98.1 77 18 105/54 (71) 97 10/18/17 20:48 71 115/68 10/18/17 20:46 98.1 71 18 115/68 (84) 97 10/18/17 20:06 95 21 10/18/17 18:00 84 10/18/17 17:00 69 10/18/17 16:09 73 10/18/17 15:37 77 10/18/17 15:29 74 101/58 10/18/17 15:27 98.0 74 19 101/58 (72) 96 10/18/17 14:00 82 10/18/17 13:00 77 10/18/17 12:00 80 I/O 10/18/17 10/18/17 10/18/17 10/19/17 10/19/17 10/19/17 07:00 15:00 23:00 07:00 15:00 23:00 Intake Total 2133 ml 720 ml 480 ml Output Total 3050 ml 1775 ml 1600 ml Balance -917 ml -1055 ml -1120 ml Intake Oral 480 ml 720 ml 480 ml IV Total 1653 ml Output Urine Total 3050 ml 1775 ml 1600 ml # Bowel Movements 0 Result Diagram: 10/16/17 0322 10/16/17 0322 Objective Remarks GENERAL: NAD SKIN: Warm and dry. HEAD: Normocephalic. EYES: No scleral icterus. No injection or drainage. NECK: Supple, trachea midline. No JVD or lymphadenopathy. CARDIOVASCULAR: Regular rate and rhythm without murmurs, gallops, or rubs. RESPIRATORY: Breath sounds equal bilaterally. No accessory muscle use. GASTROINTESTINAL: Abdomen soft, non-tender, nondistended. MUSCULOSKELETAL: No cyanosis, or edema. BACK: Nontender without obvious deformity. No CVA tenderness. A/P Problem List: (1) Unstable angina ICD Code: I20.0 - Unstable angina Assessment and Plan 47 years old man with 1. Unstable Angina Plan for [facility] today Thursday 10/19 Appreciate input from cardiology Continue with Nitro drip Continue with current meds including Imdur/Plavix/Coreg/ASA 3. Hypertension/Hyperlipidemia continue Home medicines. 4. DM II Continue to hold Metformin continue sliding scale 5. DVT/PE Warfarin on hold 6. Hypothyroidism continue Hormonal replacement Chris Mcclendon MD Oct 19, 2017 11:59
[2017-10-19] MEDS ORDERED: BACITRACIN OINT 0.9 GM PKT TOP ONE (12:30)
[2017-10-19] MEDS ORDERED: MISC INFORMATION XX ONE (12:30)
--- NOTE | 2017-10-19 12:33 | CATHPROC ---
[employer] HIS Report Study Information Study Number Admission Scheduled Start Study Start [id number] Oct 15 2017 11:58PM 10/16/2017 Oct 19 2017 11:14AM [facility] Cardiac Catheterization Admit Source Facility Department Emergency department [facility] - Photography Manager Physician and Clinical Staff Initial Claudy Medeiros Lighting Adviser Shyla Skinner,JEFF Recorder Elisabet Cantu,RT(R) Recorder Marty Buitrago,RT(R) Scrub Carole Hair,RT(R) Procedures Performed Procedure Location (Site) Vessel Name Coronary Angiograms LCA Left Coronary Coronary Angiograms RCA Right Coronary L Heart Cath Wire insertion Radial (right) Radial Art. Equipment Time Hatchery Supervisor Description Size Mfg Part Number Used/Scraped TRANSDUCER, TRUWAVE [id number] 11:20 GRIGSBY CAMACHO * Used W/STOCKCOCK *[id number] *[id number] *[id number] 11:20 [employer] INDUSTRIES PACK, CCL CUSTOM * Used *[id number] 11:20 [employer] SUPPORT, ARTERIAL ADULT 89849 *[id number] Used [id number] 11:20 [employer] PACER PEN, SKIN DUAL W/ RULER * Used *[id number] BAND, RADIAL COMPRESSION TR [id number] 12:26 [employer] 29CM Used LARGE 29 *[id number] SHEATH, FR6 RADIAL PRELUDE 11:20 [employer] FR 6 [id number] Used EASE 11CM [id number] 11:20 [employer] WIRE, EXCHANGE 260CM 3MMJ 260CM Used *[id number] 11:20 [employer]COMED OMNIPAQUE, 350 MG, 150ML 150ML [id number] Used 11:20 Sc[employer]x BLANKET,WARM AIR CCL * Used *[id number] History: Current Medications Medication Dosage/Unit Route Frequency Last Date/Time Taken Neurontin LIPITOR Glucophage LASIX PLAVIX CARVEDILOL ASA History: Allergies Allergy Reaction Penicillin Anaphylaxis penicillin G Anaphylaxis History: Risk Factors Family History of Hypertension Dyslipidemia Previous HI Previous Heart Failure Premature CAD Yes Yes No Yes No Prior Valve Prior PCI Prior PCIDate Prior CABG Surgery No Yes 07/06/2017 No Cerebrovascular Peripheral Artery Chronic Lung On Dialysis Diabetes Diabetes Therapy Disease Disease Disease No No No No Yes Oral History: Risk Factors Selection Items Current Smoker Diabetes Hyperlipidemia Obesity History: Symptoms/Diagnosis Selection Items Angina-unstable Chest pain History: CV Disease Selection Items Known CAD History: Stress Tests Stress or Imaging Studies Performed No History: Other Disease Selection Items CAD HTN History: Other Current Smoker Method Packs a Day Years Used Pack Years Yes Cigarettes 2 35 70 Labs Hgb (g/dl) Hct (%) WBC (l/cumm) Platelets (thousands) 11.60-17.00 35.00-51.00 4.00-11.00 150.00-450.00 11.3 35.3 7.9 266 Glucose (mg/dl) BUN (mg/dl) Creatinine (mg/dl) BUN:Creatinine (1:x) 74.00-106.00 7.00-18.00 0.50-1.30 10.00-20.00 86 11 0.9 12.2 Na (meq/l) K (meq/l) 136.00-145.00 3.50-5.10 141 3.5 Troponin I (ng/ml) CPK-MB (ng/ML) 0.02-0.05 0.50-3.60 0.02 0.9 Medication Medication Total Dose (Bolus/Oral) Medication Total Dosage/Unit 1% XYLOCAINE 25 mL FENTANYL 25 mcg VERSED 1 mg Medications (Bolus/Oral) Medication Time Given Dosage/Unit Administered By Reason 1% XYLOCAINE 10/19/2017 12:08:15 PM 5 mL Claudy Pryor Patient arrived on 5 mL 1% XYLOCAINE given by Claudy Pryor in Right Radial via Subcutaneous. VERSED 10/19/2017 12:08:47 PM 1 mg Shyla Skinner 1 mg VERSED given in lab by Shyla Skinner RN in Right Forearm via Peripheral IV. FENTANYL 10/19/2017 12:09:00 PM 25 mcg Shyla Skinner 25 mcg FENTANYL given in lab by Shyla Skinner RN in Right Forearm via Peripheral IV. 1% XYLOCAINE 10/19/2017 12:09:13 PM 20 mL Shyla Skinner 20 mL 1% XYLOCAINE given in lab by Shyla Skniner RN via Subcutaneous. Medication (Drip) Medication Time Given Dosage/Unit Concentration/Unit Diluent (ml) Solution IV Solutions 10/19/2017 11:39:57 AM 50 mL (IV) NaCl .9 Patient arrived on IV Solutions in Right Forearm via Peripheral IV. Pump/Drip Flow using NaCl .9. NESIRITIDE DRIP 10/19/2017 12:07:47 PM units/hr 0 STOPPED NESIRITIDE DRIP STOPPED given in lab by Shyla Skinner RN in Right Forearm via Peripheral IV. Pump /Drip Flow = 0 ml/hr using [Solution Name]. NITROGLYCERIN DRIP 10/19/2017 12:03:05 PM 30 mcg/min 50 mg 250 D5W Patient arrived on 30 mcg/min NITROGLYCERIN DRIP given by Shyla Skinner RN in Right Forearm via P eripheral IV. Pump/Drip Flow = 9 ml/hr using D5W with a concentration of 50 mg in 250 ml. Reason: For pain. Nitro drip resumed because of ch est pain. Initial Case Assessment Cardiovascular HR Rhythm Chest Pain 68 SR 0 Edema Present Skin color Skin Moderate Normal Warm Dry Circulatory - Right Pulses Dorsalis Pedis Femoral Radial d 1 2 Scale (0,1,2,3,4,d) Scale (0,1,2,3,4,d) Neurological State Oriented to time-place- Alert Moves all extremities person Respiration - General Respiration Rate SpO2 (%) (B/min) 15 97 Final Case Assessment Cardiovascular HR Rhythm NIBP Chest Pain 73 Sinus 133/72 6 Edema Present Skin color Skin None Normal Warm Dry Circulatory - Right Pulses Dorsalis Pedis Femoral Radial d 1 2 Scale (0,1,2,3,4,d) Scale (0,1,2,3,4,d) Neurological State Oriented to time-place- Alert Moves all extremities person Respiration - General Respiration Rate SpO2 (%) O2 (lpm) (B/min) 8 96 0 Chronological Log Time Study Chronological Log 11:39:01 Patient arrived via Bed. 11:39:02 Patient Name, D.O.B, / Armband Verified By R.N. 11:39:02 Consent signed by the physician and the patient and verified by the Photography Manager staff. 11:39:02 Pre-op and post- op instructions given; patient acknowledges understanding of instructions. 11:39:03 Verbal Stimulation=2 Physical Stimulation=2 Airway=2 Respiration=2 TOTAL=8. (0=absent, 1=li mited, 2=present) 11:39:38 Allens test performed on the right radial and ulnar artery. 11:39:40 Presedation assessment performed by Photography Manager RN. 11:39:45 Patient has been NPO for More than 6Hrs. 11:39:46 Skin Breakdown- bruises and scabs 11:39:50 Rupa Prominences Protected 11:39:55 A # 20 IV was noted in the Forearm (right). Grade = 0 11:39:57 Patient arrived on IV Solutions in Right Forearm via Peripheral IV. Pump/Drip Flow using Na Cl .9. 11:39:59 History and physical on the chart or being dictated. Assessment: Initial Case, HR=68 BPM, Rhythm=SR, Chest Pain=0, Edema=Mod, Color=Normal, Skin = W arm, Dry Right Pulses: Fabrice Ped=d, Femoral=1, Radial=2 11:40:00 Neurological: State=Alert, Ox3, LANDIN Respiration: Resp=15 B/min, SpO2=97 % Vitals capture started with the following parameters, Patient=Adult, Interval=5 min, Initial Pr ffqtvo=118 mmHg, 11:49:24 Deflation Rate=5 mmHg, Cuff placed on Right Arm 11:49:38 Reference ECG taken 11:50:02 HR=68 bpm, EBWQ=174/79 mmhg, SpO2=96 %, Resp=23 B/min 11:55:28 HR=70 bpm, IEVH=805/80 mmhg, SpO2=97 %, Resp=10 B/min 11:59:22 Right Radial and right groin prepped with 2% chlorhexidine, and draped after a 3 min. waiti ng time. 11:59:54 MD paged 12:00:00 HR=80 bpm, UDPY=569/83 mmhg, SpO2=97 %, Resp=13 B/min 12:00:31 MD responded Patient arrived on 30 mcg/min NITROGLYCERIN DRIP given by Shyla Skinner RN in Right Forearm via Peripheral 12:03:05 IV. Pump/Drip Flow = 9 ml/hr using D5W with a concentration of 50 mg in 250 ml. Reason: For pain. Nitro drip resumed because of chest pain. 12:05:00 MD arrived. 12:05:01 HR=69 bpm, KUXW=057/80 mmhg, Resp=12 B/min, Pain=6, April=10, Dooley=2 12:05:22 Pressure channel 1 zeroed. Time Out. Correct patient, correct procedure, correct physician, power injector not loaded with contrast with surgical 12:07:41 team present. Time Out Concurred by MD and individual staff in procedure. NESIRITIDE DRIP STOPPED given in lab by Shyla Skinner RN in Right Forearm via Peripheral IV . Pump/Drip Flow = 12:07:47 0 ml/hr using [Solution Name]. 12:07:48 Case Start 12:08:15 Patient arrived on 5 mL 1% XYLOCAINE given by Claudy Pryor in Right Radial via Subcutaneo us. 12:08:47 1 mg VERSED given in lab by Shyla Skinner RN in Right Forearm via Peripheral IV. 12:09:00 25 mcg FENTANYL given in lab by Shyla Skinner RN in Right Forearm via Peripheral IV. 12:09:13 20 mL 1% XYLOCAINE given in lab by Shyla Skinner RN via Subcutaneous. 12:09:50 Access site was Radial Artery. A SHEATH, FR6 RADIAL PRELUDE EASE 11CM FR 6 was advanced into the Radial (right) using the Perc utaneous 12:09:57 technique. 12:10:00 HR=69 bpm, WXOS=347/83 mmhg, SpO2=94.0 %, Resp=16 B/min, Pain=6, April=10, Dooley=2 12:12:01 A catheter was advanced over a wire. OMNIPAQUE, 350 MG, 150ML 150ML was used for injections . Recorded Pressure: LV, HR=72, Condition=Condition 1 12:12:30 (Left Ventricle) LV 127/17/28 Recorded Pressure: LV, Ao, HR=70, Condition=Condition 1 12:12:46 (Left Ventricle) LV 136/13/39, (Aorta) Ao 125/83/101 12:12:59 The RCA was injected and visualized at various angles. OMNIPAQUE, 350 MG, 150ML 150ML use d. Recorded Pressure: Ao, HR=71, Condition=Condition 1 12:13:21 (Aorta) Ao 132/84/106 After removing the current catheter a JL 3.5 INFINITI CATHETER FR 5 was advanced over a WIRE, EXCHANGE 260CM 12:14:07 3MMJ 260CM. 12:15:06 HR=73 bpm, CZUF=045/75 mmhg, SpO2=95.0 %, Resp=11 B/min, Pain=6, April=10, Dooley=2 12:16:02 The LCA was injected and visualized at various angles. OMNIPAQUE, 350 MG, 150ML 150ML use d. 12:18:04 A WIRE, EXCHANGE 260CM 3MMJ 260CM was inserted via Radial (right). 12:18:11 Catheter was removed 12:18:13 Wire removed 12:18:18 Case End Assessment: Final Case, HR=73 BPM, Rhythm=Sinus, AQWG=165/72 mmhg, Chest Pain=6, Edema=None, Color=Normal, Skin = Warm, Dry 12:20:05 Right Pulses: Fabrice Ped=d, Femoral=1, Radial=2 Neurological: State=Alert, Ox3, LANDIN Respiration: Resp=8 B/min, SpO2=96 %, O2=0 lpm 12:20:09 HR=74 bpm, KKGH=585/72 mmhg, SpO2=96.0 %, Resp=13 B/min, Pain=6, April=10, Dooley=2 Radial Compression Device Used. 16 mLs of air placed in BAND, RADIAL COMPRESSION TR LARGE 29 2 9CM. Affected 12:21:32 hand ~O2 SATURATION~ % O2 saturation. 12:21:42 No case complications noted. 12:21:45 Cine recording checked. 12:22:29 Bedside Report will be given. 12:23:40 A Left Heart Cath was performed. 12:25:04 Vitals capture stopped. 12:32:54 Patient moved to [facility] End Study - Contrast Media Used In Study Contrast Total Opened (mL) Total Used (mL) Total Wasted (mL) Omnipaque 150 70 80 End Study - Maximum Contrast Load Max Contrast Load (mL) 858.6 End Study - Radiation Exposure Fluoro Time (minutes) 1.6 End Study - Patient Disposition Complications Transferred To Interventional Outcome No Telemetry Bed No attempt made
[2017-10-19] MEDS ORDERED: IOHEXOL 350 MG/ML 100 ML BTL (for Cath Lab) OTHER ONE (12:51)
--- NOTE | 2017-10-19 13:02 | MA ---
cc: Claudy Pryor MD 10/19/2017 INDICATION: Unstable angina. PROCEDURE; 1. Fluoroscopy with interpretation. 2. Coronary angiography. 3. left heart catheterization. METHOD: The risks, benefits and alternatives discussed with the patient. The patient understood and consented to the procedure. The patient brought into the catheterization lab, placed on the catheterization table. The right wrist was prepped and draped in a sterile fashion. The right wrist was anesthetized with 2% lidocaine. The right radial artery was cannulated. A 6-Chilean, 7 cm insertion sheath was placed without difficulty. LEFT HEART CATHETERIZATION: Intraventricular hemodynamics measured 127/70 mmHg. CORONARY ANGIOGRAPHY; 1. Left main coronary artery is angiographically normal. 2. Left anterior descending coronary artery has some minor luminal irregularities. There is a stent present in the mid segment, which appears to be widely patent. 3. The left circumflex gives rise to a large ramus intermedius branch and subbranch that has only mild luminal irregularities The circumflex proximally has a 30-40 percent eccentric stenosis. It is rather discrete. There is an obtuse marginal branch which has minor luminal irregularities. 4. Right coronary artery also has mild to moderate rather diffuse disease to the proximal to mid segment, but no high-grade stenosis. Posterior descending branch has mild luminal irregularities. CONCLUSIONS: 1. Mild to moderate nonobstructive coronary artery disease. 2. Normal left-sided filling pressures. PLAN: The patient will be monitored closely for any post-procedural complications. HemoBand applied. I am not convinced that the patient's symptoms are cardiac in origin. He is on a long-acting nitrate 120 mg a day and still having constant chest pain without elevation in troponin and nonobstructive coronary artery disease. Noncardiac causes should be investigated presumably gastrointestinal. Okay for discharge from a cardiac perspective. Dr. Patel takes Medicaid patients. He can establish care there. Claudy Pryor MD GERALD/DL , 12:33 PM , 01:00 PM
[2017-10-19] MEDS ORDERED: LISI-515 PO (13:14)
[2017-10-19] MEDS ORDERED: CARV6.25 PO (13:14)
[2017-10-19] MEDS ORDERED: FURO20TA PO (13:14)
[2017-10-19] MEDS ORDERED: ASA325 PO (13:14)
[2017-10-19] MEDS ORDERED: ENOX100P SQ (13:14)
[2017-10-19] MEDS ORDERED: ISOS60TA PO (13:14)
--- NOTE | 2017-10-19 13:16 | HHI.PR ---
Addendum to Inpatient Note Addendum Reason: Additional Documentation Additional Information Patient Had a clean left heart catheterization Chris Mcclendon MD Oct 19, 2017 13:16
--- NOTE | 2017-10-19 13:18 | HHI.DS ---
Discharge Summary Admission Date Oct 15, 2017 at 23:58 Discharge Date: Oct 19, 2017 Admitting Diagnosis Chest pain (1) Unstable angina ICD Code: I20.0 - Unstable angina Procedures Left heart catheterization Brief History - From Admission 37-year-old male with a past medical history significant for CAD status post multiple MIs, hypertension, hyperlipidemia, diabetes mellitus, history of DVT/ PE (anticoagulated on Coumadin), history of bladder cancer resents to the emergency department for evaluation of chest pain. The patient reports that he was sitting watching TV with his father when he had sudden onset chest pain/ pressure which was substernal and radiated to his jaw. The patient states the pain is similar to when he had his previous MIs. He reports that he continues to have chest pain despite Nitropaste and taking his home nitroglycerin 3. The patient is in moderate distress at the time of our interview and is extremely anxious. He reports nothing has improved his chest pain. He denies associated nausea or vomiting. No fever/chills. No cough or shortness of breath. No episodes of diaphoresis. CBC/BMP: 10/16/17 0322 10/16/17 0322 Significant Findings Laboratory Tests Test 10/17/17 06:40 10/18/17 10:48 Prothrombin Time 19.7 SEC (9.8-11.6) 14.7 SEC (9.8-11.6) Imaging Last Impressions Chest X-Ray 10/15/17 1526 Signed Impressions: Service Date/Time: October 15:33 - CONCLUSION: No acute cardiopulmonary disease. Bishop Ghosh MD PE at Discharge GENERAL: NAD SKIN: Warm and dry. HEAD: Normocephalic. EYES: No scleral icterus. No injection or drainage. NECK: Supple, trachea midline. No JVD or lymphadenopathy. CARDIOVASCULAR: Regular rate and rhythm without murmurs, gallops, or rubs. RESPIRATORY: Breath sounds equal bilaterally. No accessory muscle use. GASTROINTESTINAL: Abdomen soft, non-tender, nondistended. MUSCULOSKELETAL: No cyanosis, or edema. BACK: Nontender without obvious deformity. No CVA tenderness. Hospital Course While in the hospital, patient was treated for 1. Unstable Angina He had a clean heart catheterization Thursday Appreciate input from cardiology He was started on Nitro drip He was treated with meds including Imdur/Plavix/Coreg/ASA 3. Hypertension/Hyperlipidemia He was treated with Home medicines. 4. DM II Continue to hold Metformin Was placed on sliding scale 5. DVT/PE Warfarin on hold prior to procedure, however second to subtherapeutic INR patient will be discharged home on 4 days of Lovenox subcutaneous every 12 hours bridge with Coumadin with monitoring of INR/PT 6. Hypothyroidism Treated with Hormonal replacement Pt Condition on Discharge: Good Discharge Disposition: Discharge Home Discharge Time: <= 30 minutes Discharge Instructions DIET: Follow Instructions for: Heart Healthy Diet Activities you can perform: Regular-No Restrictions Follow up Referrals: Cardiology - 4 Weeks with Lazaro Patel MD PCP Follow-up - 1 Week New Orders: PT/INR - 2-3 Days New Medications: Enoxaparin Inj (Lovenox Inj) 100 Mg/Ml Syr 100 MG SQ BID for Blood Clot Prevention, #8 SYRINGE 0 Refills Aspirin (Px Aspirin) 325 Mg Tab 325 MG PO DAILY for Prevent Blood Clot, #30 TAB Carvedilol (Coreg) 6.25 Mg Tab 6.25 MG PO BID for Blood Pressure Management, #60 TAB 3 Refills Furosemide (Furosemide) 20 Mg Tab 20 MG PO BID for Prevent Heart Failure, #60 TAB 3 Refills Isosorbide Mononitrate ER (Isosorbide Mononitrate ER) 60 Mg Tab 120 MG PO DAILY@07 for Regulate Heart Beat, #30 TAB 3 Refills Lisinopril (Lisinopril) 20 Mg Tab 20 MG PO BID for Blood Pressure Management, #60 TAB Continued Medications: Alprazolam (Xanax) 2 Mg Tab 2 MG PO BID PRN for ANXIETY, TAB 0 Refills Atorvastatin (Lipitor) 80 Mg Tab 80 MG PO HS for Cholesterol Management, #30 TAB 0 Refills Clopidogrel (Plavix) 75 Mg Tab 75 MG PO DAILY for Blood Clot Prevention, #30 TAB [address] (Cymbalta DR) 60 Mg Capdr 120 MG PO DAILY, #30 CAP 0 Refills Gabapentin (Gabapentin) 300 Mg Cap 900 MG PO AC LUNCH, #90 CAP 0 Refills Gabapentin (Gabapentin) 300 Mg Cap 600 MG PO AC BREAKFAST, #90 CAP 0 Refills Gabapentin (Gabapentin) 300 Mg Cap 900 MG PO HS, #90 CAP 0 Refills Levothyroxine (Synthroid) 50 Mcg Tab 50 MCG PO DAILY for Thyroid, #30 TAB 0 Refills Metformin (Glucophage) 500 Mg Tab 500 MG PO HS for Blood Sugar Management, #30 TAB 0 Refills Start on 07/11. Take With a meal Mirtazapine (Mirtazapine) 45 Mg Tab 90 MG PO HS for Depression Control, #30 TAB 0 Refills Nitroglycerin SL (Nitroglycerin SL) 0.4 Mg Subl 0.4 MG SL Q 5 MINUTES PRN for CHEST PAIN, #100 TAB.SL 0 Refills ONE TABLET UNDER THE TONGUE NEEDED FOR CHEST PAIN, MAY REPEAT EVERY FIVE MINUTES FOR A TOTAL OF 3 DOSES OR CALL 911 IF NO RELIEF Omeprazole (Omeprazole) 40 Mg Cap 40 MG PO HS, #30 CAP 0 Refills Oxycodone-Acetaminophen (Percocet) 10-325 mg Tab 1 TAB PO Q6H PRN for PAIN, #10 TAB 0 Refills Quetiapine (Seroquel) 100 Mg Tab 100 MG PO BID for Anxiety and/or Insomnia, #30 TAB 0 Refills Warfarin (Coumadin) 5 Mg Tab 5 MG PO DAILY for Blood Clot Prevention, #30 TAB 0 Refills Discontinued Medications: Aspirin (Tgt Aspirin) 81 Mg Chw 162 MG PO DAILY for blood thinner, #30 EA Carvedilol (Coreg) 6.25 Mg Tab 6.25 MG PO BID, #60 TAB 0 Refills Furosemide (Lasix) 20 Mg Tab 20 MG PO BID, #60 TAB 0 Refills Isosorbide Mononitrate ER (Isosorbide Mononitrate ER) 30 Mg Yola 30 MG PO DAILY@07 for Prevent Heart Failure, #30 TAB 3 Refills Lisinopril (Lisinopril) 20 Mg Tab 20 MG PO BID, #30 TAB 0 Refills Chris Mcclendon MD Oct 19, 2017 13:18
== END 2017-10-19 16:27 | disposition home or self-care (01) | DRG 287 ==
LOC: NEPE 15:22 → NEDA 17:17 → NEPHCDU 19:21 → OBSVTOIN 23:58 → HCPC 10-16 01:52
PROVIDERS: ADMIT Hospitalist; ATTEND Hospitalist
PROC: 4A023N7 Measurement of Cardiac Sampling and Pressure, Left Heart, Percutaneous Approach (ICD-10-PCS; 2017-10-19)
PROC: B2111ZZ Fluoroscopy of Multiple Coronary Arteries using Low Osmolar Contrast (ICD-10-PCS; principal; 2017-10-19 11:00)
DX: I25.110 Atherosclerotic heart disease of native coronary artery with unstable angina pectoris (principal); E11.40 Type 2 diabetes mellitus with diabetic neuropathy, unspecified; Z79.84 Long term (current) use of oral hypoglycemic drugs; Z68.42 Body mass index [BMI] 45.0-49.9, adult; E66.01 Morbid (severe) obesity due to excess calories; I10 Essential (primary) hypertension; E78.5 Hyperlipidemia, unspecified; Z86.718 Personal history of other venous thrombosis and embolism; Z79.01 Long term (current) use of anticoagulants; I25.2 Old myocardial infarction; Z95.5 Presence of coronary angioplasty implant and graft; I25.5 Ischemic cardiomyopathy; E03.9 Hypothyroidism, unspecified; M17.0 Bilateral primary osteoarthritis of knee; F17.210 Nicotine dependence, cigarettes, uncomplicated; Z79.82 Long term (current) use of aspirin; Z85.51 Personal history of malignant neoplasm of bladder
CPT/HCPCS: 71045; 76937; 80048; 80053; 82550; 82552; 82948; 83735; 83880; 84484; 85025; 85610; 85730; 93005; 93454; 96361; 96374; 99152; 99153; C1769; C1893; J1644; J1650; J2250; J2270; J3010; J7030; J7040; Q9967

== ENCOUNTER → 2018-01-11 | Day surgery (SDC) | payer SELFPAY ==
[~2018-01-11] VITALS: Ht 182.9 cm; Wt 151.2 kg
[~2018-01-11] MED LIST changes: +*RESP: ALBUTEROL 2.5 MG/3 ML NEB (PRN) PERIprocedural Use ONLY NEB ONE; +*morphine SULFATE 4 MG/ML PERIprocedure ONLY ONE; +ASA325 PO; -ASPI81 PO; +CHLORHEXIDINE GLUCONATE 2 % 1 PACK (2 CLOTHS) TOPICAL PRN; +DO NOT ADM ANY ANTICOAGULANT DRUGS PRN; -FURO1TAB62 PO; +FURO20TA PO; -ISOS30TA3 PO; +ISOS60TA PO; +LACTATED RINGER'S 1000 ML IV PRN; +LEVA500T33 PO; +LEVOFLOXACIN 500 MG PREMIX INJ 100 ML IV PRN; +LIDOCAINE HCL 1% PF 5 ML SYRINGE OTHER ONE; +METOPROLOL TARTRATE 25 MG TAB PO PRN; +MIDAZOLAM HCL 2 MG/2 ML VIAL ONE; +ONDANSETRON HCL 4 MG/2 ML VIAL IV ONE; +ONDANSETRON ODT 4 MG TAB PO PRN; +PERC5TAB12 PO; +PHENYLEPH/NS 1000 MCG/10 ML SYR IV ONE; +POVIDONE IODINE 5% (ANTISEPSIS KIT) 4 APPLICATIONS EACH NARE PRN; +PROPOFOL 200 MG/20 ML AMP IV ONE; +SODIUM CHLORID 0.9% 500 ML IV PRN; +SUCCINYLCHOLINE CHLORIDE 100 MG/5 ML SYRINGE IV PUSH ONE; +VASOPRESSIN 20 UNITS/ML VIAL ONE; +ePHEDrine/NS 25 MG/5 ML SYRINGE IV ONE; +oxyCODONE/ACETAMINOPHEN 5 MG/325 MG TAB PO PRN
[2018-01-11 07:12] LABS: AUTOMATED NEUTROPHIL # 5.2 TH/MM3 (1.8-7.7); BASOPHIL # 0.1 TH/MM3 (0-0.2); BASOPHIL % 1.4 % (0.0-2.0); EOSINOPHIL # 0.1 TH/MM3 (0-0.4); EOSINOPHIL % 1.5 % (0.0-4.0); HEMATOCRIT 36.4 % (39.0-51.0); HEMOGLOBIN 11.8 GM/DL (13.0-17.0); LYMPH % 30.4 % (9.0-44.0); LYMPHOCYTE # 2.7 TH/MM3 (1.0-4.8); MEAN CELL VOLUME 76.1 FL (80.0-100.0); MEAN CORPUSCULAR HEMOGLOBIN 24.7 PG (27.0-34.0); MEAN CORPUSCULAR HGB CONC 32.4 % (32.0-36.0); MEAN PLATELET VOLUME 8.1 FL (7.0-11.0); MONO % 8.9 % (0.0-8.0); MONOCYTE # 0.8 TH/MM3 (0-0.9); NEUT % 57.8 % (16.0-70.0); PLATELET COUNT 294 TH/MM3 (150-450); RED BLOOD COUNT 4.78 MIL/MM3 (4.50-5.90); RED CELL DISTRIBUTION WIDTH 18.5 % (11.6-17.2); WHITE BLOOD COUNT 8.9 TH/MM3 (4.0-11.0)
[2018-01-11 07:25] LABS: PROTHROMBIN TIME - PATIENT 9.7 SEC (9.8-11.6)
--- NOTE | 2018-01-11 09:28 | PD.OP ---
Operative Report Date of Surgery: Jan 11, 2018 Preoperative Diagnosis: (1) Bladder mass Postoperative Diagnosis: (1) Bladder mass Procedure: Cystoscopy with bladder biopsy and fulguration Anesthesia: General Surgeon: Brian Galindo Change Over(s): None Operation and Findings: Indication for procedures: Case of a pleasant 39-year-old gentleman with history bladder cancer who was recently noted to have a small tumor involving the posterior bladder wall on recent cystoscopic evaluation. Patient presents now for cystoscopy with biopsy and fulguration of this small tumor mass. Operative procedure in detail: Patient was brought to the operating room suite and placed supine on the OR table. He was then placed under general anesthesia. He was then repositioned in the dorsolithotomy position and prepped and draped in normal sterile fashion. After an appropriate timeout was undertaken I proceeded with cystoscopic evaluation utilizing the rigid cystoscope with the 20 Omani sheath and both the 30 and 70 lenses. Once again the patient was noted to have a less than 1 cm raised mass involving the posterior bladder wall in vicinity of the bladder outlet. The cup biopsy forceps were then utilized and this mass was excised. The tissue was sent off to pathology. The biopsy site was then fulgurated with the Bugbee electrode. The bladder was drained of all irrigant fluid and the cystoscope was withdrawn. The patient tolerated the procedures without complications and was transferred to the PACU in satisfactory condition. Brian Galindo MD Jan 11, 2018 09:27
[2018-01-11 10:54] VITALS: BP 130/68; PULSE 74; RESP 18; TEMP 98; O2SAT 94
== END | disposition home or self-care (01) ==
LOC: HSDC 05:54
PROVIDERS: ATTEND Urology
DX: N32.9 Bladder disorder, unspecified (principal); Z85.51 Personal history of malignant neoplasm of bladder; Z79.01 Long term (current) use of anticoagulants
CPT/HCPCS: 00910; 52224; 85025; 85610; 88305; J0330; J1956; J2250; J2270; J2370; J2405; J3010; J7120; J7613; 88307; 94664

== ENCOUNTER 2018-01-19 23:32 | Emergency (ER) | payer SELFPAY ==
[~2018-01-19] VITALS: Ht 182.9 cm; Wt 149.5 kg
[~2018-01-19 23:32] MED LIST changes: -*RESP: ALBUTEROL 2.5 MG/3 ML NEB (PRN) PERIprocedural Use ONLY NEB ONE; -*morphine SULFATE 4 MG/ML PERIprocedure ONLY ONE; -CHLORHEXIDINE GLUCONATE 2 % 1 PACK (2 CLOTHS) TOPICAL PRN; -DO NOT ADM ANY ANTICOAGULANT DRUGS PRN; -LACTATED RINGER'S 1000 ML IV PRN; -LEVOFLOXACIN 500 MG PREMIX INJ 100 ML IV PRN; -LIDOCAINE HCL 1% PF 5 ML SYRINGE OTHER ONE; -METOPROLOL TARTRATE 25 MG TAB PO PRN; -MIDAZOLAM HCL 2 MG/2 ML VIAL ONE; -ONDANSETRON HCL 4 MG/2 ML VIAL IV ONE; -ONDANSETRON ODT 4 MG TAB PO PRN; -PHENYLEPH/NS 1000 MCG/10 ML SYR IV ONE; -PLAV75TA29 PO; -POVIDONE IODINE 5% (ANTISEPSIS KIT) 4 APPLICATIONS EACH NARE PRN; -PROPOFOL 200 MG/20 ML AMP IV ONE; -SODIUM CHLORID 0.9% 500 ML IV PRN; -SUCCINYLCHOLINE CHLORIDE 100 MG/5 ML SYRINGE IV PUSH ONE; -VASOPRESSIN 20 UNITS/ML VIAL ONE; -ePHEDrine/NS 25 MG/5 ML SYRINGE IV ONE; -oxyCODONE/ACETAMINOPHEN 5 MG/325 MG TAB PO PRN
[2018-01-19 23:33] VITALS: BP 171/86; PULSE 72; RESP 18; TEMP 98; O2SAT 96
[2018-01-19 23:53] VITALS: RESP 18
[2018-01-19 23:55] VITALS: BP 152/100; PULSE 68; RESP 18; O2SAT 95
[2018-01-20] MEDS ORDERED: SODIUM CHLORIDE 0.9% FLUSH 10 ML FLUSH IV FLUSH PRN
--- NOTE | 2018-01-20 00:02 | PD ---
HPI Chief Complaint: Chest Pain Time Seen by Provider: 23:53 Travel History International Travel<30 days: No Contact w/Intl Traveler<30days: No Traveled to known affect area: No History of Present Illness HPI The patient is a 47-year-old female that complains of right lower quadrant pain beginning this morning. The pain is a 9/10 and feels like sharp pain. He does have a history of kidney stones but states this does not feel like his kidney stone. He does have nausea without vomiting. He denies any fever. The patient has multiple medical problems and frequently complains of chest pain. He states his chest pain is the same as it usually is and not different tonight. He is on multiple medications including Coumadin. PFSH Past Medical History Hx Anticoagulant Therapy: Yes Alzheimer's Disease: Yes Anemia: Yes Arthritis: Yes Asthma: No Autoimmune Disease: No Blood Disorders: No Bipolar Disorder: Yes Anxiety: Yes Depression: Yes Heart Rhythm Problems: Yes Cancer: Yes Cardiac Catheterization: Yes Cardiovascular Problems: Yes High Cholesterol: Yes Chemotherapy: Yes (implanted something in bladder s/p tummors removed) Chest Pain: Yes Congestive Heart Failure: No COPD: Yes Cerebrovascular Accident: Yes Coronary Artery Disease: Yes Diabetes: Yes Diminished Hearing: No Deep Vein Thrombosis: Yes Endocrine: Yes Gastrointestinal Disorders: Yes (ACID REFLUX, HX ULCER) GERD: Yes Glaucoma: No Genitourinary: Yes Headaches: No Hepatitis: No Hiatal Hernia: Yes Heparin Induced Thrombocytopen: No Hypertension: Yes Immune Disorder: No Implanted Vascular Access Dvce: No Kidney Stones: Yes Musculoskeletal: Yes Neurologic: No Psychiatric: Yes Reproductive: No Respiratory: Yes Immunizations Current: Yes Migraines: Yes Myocardial Infarction: Yes (X 2) Radiation Therapy: Yes (implants ) Renal Failure: No Seizures: No Sickle Cell Disease: No Sleep Apnea: Yes (no cpap) Thyroid Disease: Yes Ulcer: Yes Past Surgical History Abdominal Surgery: No AICD: No Appendectomy: No Arteriovenous Shunt: No Body Medical Devices: cardiac stents Cardiac Surgery: Yes (heart caths) Cholecystectomy: No Coronary Artery Bypass Graft: No Coronary Stent: Yes Ear Surgery: No Endocrine Surgery: No Eye Surgery: No Genitourinary Surgery: Yes (bladder cancer removal ) Gynecologic Surgery: No Insulin Pump: No Joint Replacement: No Neurologic Surgery: No Oral Surgery: No Pacemaker: No Thoracic Surgery: No Other Surgery: Yes (CARDIAC CATH X 3, ANGIOPLASTY X 3 ) Social History Alcohol Use: No Tobacco Use: Yes (1 PPD) Substance Use: No Allergies-Medications (Allergen,Severity, Reaction): Coded Allergies: penicillin G (Verified Allergy, Severe, Anaphylaxis, 01/19/18) Per pt. Reported Meds & Prescriptions Reported Meds & Active Scripts Active Percocet (Oxycodone-Acetaminophen) 5-325 mg Tab 1-2 Tab PO Q6H PRN Furosemide 20 Mg Tab 20 Mg PO BID Px Aspirin (Aspirin) 325 Mg Tab 325 Mg PO DAILY Lisinopril 20 Mg Tab 20 Mg PO BID Coreg (Carvedilol) 6.25 Mg Tab 6.25 Mg PO BID Isosorbide Mononitrate ER (Isosorbide Mononitrate) 60 Mg Tab 120 Mg PO DAILY@07 Glucophage (Metformin HCl) 500 Mg Tab 500 Mg PO HS Start on 07/11. Take With a meal Percocet (Oxycodone-Acetaminophen) 10-325 mg Tab 1 Tab PO Q6H PRN Seroquel (Quetiapine Fumarate) 100 Mg Tab 100 Mg PO BID Coumadin (Warfarin) 5 Mg Tab 5 Mg PO DAILY Reported Cymbalta DR (Duloxetine HCl) 60 Mg Capdr 120 Mg PO DAILY Gabapentin 300 Mg Cap 900 Mg PO HS Gabapentin 300 Mg Cap 600 Mg PO AC BREAKFAST Gabapentin 300 Mg Cap 900 Mg PO AC LUNCH Mirtazapine 45 Mg Tab 90 Mg PO HS Xanax (Alprazolam) 2 Mg Tab 2 Mg PO BID PRN Omeprazole 40 Mg Cap 40 Mg PO HS Synthroid (Levothyroxine Sodium) 50 Mcg Tab 50 Mcg PO DAILY Nitroglycerin SL (Nitroglycerin) 0.4 Mg Subl 0.4 Mg SL Q 5 MINUTES PRN ONE TABLET UNDER THE TONGUE NEEDED FOR CHEST PAIN, MAY REPEAT EVERY FIVE MINUTES FOR A TOTAL OF 3 DOSES OR CALL 911 IF NO RELIEF Lipitor (Atorvastatin Calcium) 80 Mg Tab 80 Mg PO HS Review of Systems Except as stated in HPI: all other systems reviewed are Neg Physical Exam Narrative GENERAL: The patient is obese, alert, oriented 3 in moderate apparent distress with his right lower quadrant abdominal pain. His vital signs show blood pressure 171/86 but otherwise normal. SKIN: Focused skin assessment warm/dry. HEAD: Atraumatic. Normocephalic. EYES: Pupils equal and round. No scleral icterus. No injection or drainage. ENT: No nasal bleeding or discharge. Mucous membranes pink and moist. NECK: Trachea midline. No JVD. CARDIOVASCULAR: Regular rate and rhythm. No murmur appreciated. RESPIRATORY: No accessory muscle use. Clear to auscultation. Breath sounds equal bilaterally. GASTROINTESTINAL: Abdomen soft, with minimal tenderness to direct palpation in the right lower quadrant, nondistended. Hepatic and splenic margins not palpable. No guarding or rebound is present. MUSCULOSKELETAL: No obvious deformities. No clubbing. No cyanosis. No edema. NEUROLOGICAL: Awake and alert. No obvious cranial nerve deficits. Motor grossly within normal limits. Normal speech. PSYCHIATRIC: Appropriate mood and affect; insight and judgment normal. Data Data Last Documented VS Vital Signs Date Time Temp Pulse Resp B/P (MAP) Pulse Ox O2 Delivery O2 Flow Rate FiO2 01/20/18 00:58 69 20 161/87 (111) 95 Room Air 01/19/18 23:33 98.0 Orders Orders Electrocardiogram (01/19/18 23:49) Complete Blood Count With Diff (01/19/18 23:49) Basic Metabolic Panel (Bmp) (01/19/18 23:49) Ckmb (Isoenzyme) Profile (01/19/18 23:49) Troponin I (01/19/18 23:49) Chest, Single Ap (01/19/18 23:49) Iv Access Insert/Monitor (01/19/18 23:49) Ecg Monitoring (01/19/18 23:49) Oxygen Administration (01/19/18 23:49) Oximetry (01/19/18 23:49) Lipase (01/19/18 23:58) Ct Abd/Pel W/O Iv Contrast (01/19/18 23:58) Sodium Chloride 0.9% Flush (Ns Flush) (01/20/18 00:00) Prothrombin Time / Inr (Pt) (01/20/18 00:02) Urinalysis - C+S If Indicated (01/20/18 00:02) CKMB (01/20/18 00:25) CKMB% (01/20/18 00:25) Labs Laboratory Tests Test 01/20/18 00:25 01/20/18 01:00 White Blood Count 9.6 TH/MM3 Red Blood Count 5.13 MIL/MM3 Hemoglobin 12.6 GM/DL Hematocrit 38.8 % Mean Corpuscular Volume 75.7 FL Mean Corpuscular Hemoglobin 24.5 PG Mean Corpuscular Hemoglobin Concent 32.3 % Red Cell Distribution Width 18.0 % Platelet Count 319 TH/MM3 Mean Platelet Volume 8.1 FL Neutrophils (%) (Auto) 65.2 % Lymphocytes (%) (Auto) 25.6 % Monocytes (%) (Auto) 7.6 % Eosinophils (%) (Auto) 1.4 % Basophils (%) (Auto) 0.2 % Neutrophils # (Auto) 6.3 TH/MM3 Lymphocytes # (Auto) 2.5 TH/MM3 Monocytes # (Auto) 0.7 TH/MM3 Eosinophils # (Auto) 0.1 TH/MM3 Basophils # (Auto) 0.0 TH/MM3 CBC Comment DIFF FINAL Differential Comment Prothrombin Time 13.4 SEC Prothromb Time International Ratio 1.3 RATIO Blood Urea Nitrogen 12 MG/DL Creatinine 1.10 MG/DL Random Glucose 101 MG/DL Calcium Level 8.2 MG/DL Sodium Level 137 MEQ/L Potassium Level 3.7 MEQ/L Chloride Level 104 MEQ/L Carbon Dioxide Level 27.4 MEQ/L Anion Gap 6 MEQ/L Estimat Glomerular Filtration Rate 71 ML/MIN Total Creatine Kinase 109 U/L Creatine Kinase MB 1.2 NG/ML Troponin I LESS THAN 0.02 NG/ML Lipase 144 U/L Urine Color YELLOW Urine Turbidity CLEAR Urine pH 6.0 Urine Specific [place] 1.020 Urine Protein NEG mg/dL Urine Glucose (UA) NEG mg/dL Urine Ketones NEG mg/dL Urine Occult Blood TRACE Urine Nitrite NEG Urine Bilirubin NEG Urine Urobilinogen 0.2 MG/DL Urine Leukocyte Esterase NEG Urine RBC 4-9 /hpf Urine WBC 0-2 /hpf Urine Squamous Epithelial Cells 0-5 /hpf Urine Bacteria NONE /hpf Microscopic Urinalysis Comment CULT NOT INDICATED MDM Medical Decision Making Medical Screen Exam Complete: Yes Emergency Medical Condition: Yes Medical Record Reviewed: Yes Interpretation(s) The urinalysis shows 4-9 red cells but is otherwise normal and cultures not indicated. The lipase is normal. The cardiac enzymes are normal. The basic metabolic profile shows a GFR of 71 and calcium 8.2 but is otherwise normal. The CBC shows a hemoglobin of 12.6 and hematocrit of 38.8 but is otherwise normal. The chest x-ray is normal. The CT abdomen/pelvis without contrast is normal. The EKG shows sinus rhythm with a rate of [address] elevation or depression. Differential Diagnosis Urinary stone, acute appendicitis, colitis, malingering to obtain pain medications, electrolyte disorder, urinary tract infection, pancreatitis, acute coronary syndrome Narrative Course The patient has abdominal pain unknown etiology. This could be ulcer pain, he has had ulcers in the past. He needs to follow-up with Dr. Dennison and Dr. Dennison may refer him to a cook taco. I will give him Percocet 5-10 tablets in a prescription to give him time to follow-up with Dr. Dennison. Diagnosis Primary Impression: Abdominal pain of unknown etiology Additional Instructions: Follow-up with Dr. Dennison as soon as possible. She may refer you to a cook taco. Continue to take the omeprazole. Med/Other Pt SpecificInfo: Prescription(s) given Scripts Oxycodone-Acetaminophen (Percocet) 5-325 mg Tab 1 TAB PO Q6H Y for PAIN, #10 TAB 0 Refills Prov: Anthony Peterson MD 01/20/18 Disposition: 01 DISCHARGE HOME Condition: Stable Anthony Peterson MD Jan 20, 2018 00:02
--- NOTE | 2018-01-20 00:21 | RADRPT ---
EXAM DATE: 01/20/2018 12:19 AM EDT AGE/SEX: 47 years / Male INDICATIONS: Chest pain. CLINICAL DATA: This is the patient's initial encounter. Patient reports that signs and symptoms have been present for 1 day and indicates a pain score of 5/10. MEDICAL/SURGICAL HISTORY: . Cardiovascular disease. Diabetes mellitus type 2. Hypertension. . 4 cardiac stents. COMPARISON: [facility] [place], CHEST SINGLE AP, 10/15/2017. . FINDINGS: A single AP view of the chest demonstrates the lungs to be symmetrically aerated without evidence of mass, infiltrate or effusion. The cardiomediastinal contours are unremarkable. Osseous structures a re intact. CONCLUSION: Negative examination. Electronically signed by: Claudy Ventura MD 01/20/2018 12:20 AM EDT
[2018-01-20 00:43] LABS: AUTOMATED NEUTROPHIL # 6.3 TH/MM3 (1.8-7.7); BASOPHIL % 0.2 % (0.0-2.0); EOSINOPHIL # 0.1 TH/MM3 (0-0.4); EOSINOPHIL % 1.4 % (0.0-4.0); HEMATOCRIT 38.8 % (39.0-51.0); HEMOGLOBIN 12.6 GM/DL (13.0-17.0); LYMPH % 25.6 % (9.0-44.0); LYMPHOCYTE # 2.5 TH/MM3 (1.0-4.8); MEAN CELL VOLUME 75.7 FL (80.0-100.0); MEAN CORPUSCULAR HEMOGLOBIN 24.5 PG (27.0-34.0); MEAN CORPUSCULAR HGB CONC 32.3 % (32.0-36.0); MEAN PLATELET VOLUME 8.1 FL (7.0-11.0); MONO % 7.6 % (0.0-8.0); MONOCYTE # 0.7 TH/MM3 (0-0.9); NEUT % 65.2 % (16.0-70.0); PLATELET COUNT 319 TH/MM3 (150-450); RED BLOOD COUNT 5.13 MIL/MM3 (4.50-5.90); WHITE BLOOD COUNT 9.6 TH/MM3 (4.0-11.0)
[2018-01-20 00:51] LABS: CHLORIDE 104 MEQ/L (98-107); SODIUM (NA) 137 MEQ/L (136-145)
[2018-01-20 00:53] LABS: CALCIUM 8.2 MG/DL (8.5-10.1)
[2018-01-20 00:54] LABS: BICARBONATE 27.4 MEQ/L (21.0-32.0); BLOOD UREA NITROGEN 12 MG/DL (7-18); GLUCOSE,RANDOM 101 MG/DL (74-106); INTERNATIONAL NORMALIZED RATIO 1.3 RATIO; PROTHROMBIN TIME - PATIENT 13.4 SEC (9.8-11.6)
[2018-01-20 00:57] LABS: GLOMERULAR FILTRATION RATE 71 ML/MIN (>89)
[2018-01-20 00:58] VITALS: BP 161/87; PULSE 69; RESP 20; O2SAT 95
[2018-01-20 01:02] LABS: TROPONIN I LESS THAN 0.02 NG/ML (0.02-0.05)
[2018-01-20 01:09] LABS: BILIRUBIN, URINE NEG (NEG); BLOOD, URINE TRACE (NEG); GLUCOSE,URINE NEG (NEG); KETONE, URINE NEG (NEG); NITRITE,URINE NEG (NEG); URINE COLOR YELLOW (YELLW/STRAW); URINE LEUKOCYTE ESTERASE NEG (NEG)
[2018-01-20 01:14] LABS: SQUAMOUS EPITHELIAL CELL URINE 0-5 /hpf (0-5); WBC, URINE 0-2 /hpf (0-5)
--- NOTE | 2018-01-20 01:15 | RADRPT ---
EXAM DATE: 01/20/2018 12:53 AM EDT AGE/SEX: 47 years / Male INDICATIONS: Right lower quadrant pain. Recent bladder surgery. CLINICAL DATA: This is the patient's initial encounter. Patient reports that signs and symptoms have been present for 1 day and indicates a pain score of 7/10. MEDICAL/SURGICAL HISTORY: Carcinoma, bladder. Cardiovascular disease. . Stent x 2, Bladder antonio geries RADIATION DOSE: 27.90 CTDI (mGy) ; Patient body habitus COMPARISON: [facility], CT ABDOMEN & PELVIS W/O CONTRAST, 05/24/2016. . TECHNIQUE: Multiple contiguous axial images were obtained through the abdomen. Images were obtained using multiple row detector helical technique. Using automated exposure control and adjustment of the mA and/or kV according to patient size, radiation dose was kept as low as reasonably achievable to o btain optimal diagnostic quality images. DICOM format image data is available electronically for rev iew and comparison. FINDINGS: Lower Lungs: The visualized lower lungs are clear. Liver: The liver has a homogeneous density without space-occupying lesion. There is no dilation of th e biliary tree. Spleen: Homogeneous density without enlargement. Pancreas: Unremarkable without mass or calcification. Kidneys: Normal in size and shape. No evidence of mass or hydronephrosis. Adrenal Glands: Unremarkable. Aorta: The aorta and proximal iliac vessels are grossly unremarkable without aneurysmal dilation. Bowel/Mesentery: The bowel loops are grossly unremarkable. The cecum and sigmoid colon have a normal configuration. Abdominal Wall: Intact. Retroperitoneum: No evidence of adenopathy in the retrocrural, para-aortic, or deep pelvic regions. Bladder: Contours are smooth. Reproductive Organs: No abnormal masses or calcifications seen. Inguinal: The inguinal region is unremarkable without evidence of adenopathy. Bony Structures: Unremarkable. CONCLUSION: 1. Negative CT Abdomen and Pelvis non contrast. Electronically signed by: Claudy Ventura MD 01/20/2018 1:14 AM EDT
[2018-01-20] MEDS ORDERED: PERC5TAB12 PO (02:21)
[2018-01-20 02:27] VITALS: BP 146/86
--- NOTE | 2018-01-20 07:25 | EKG ---
Date Performed: 01/20/2018 Time Performed: 00:05:10 PTAGE: 47 years EKG: Sinus rhythm INFERIOR MYOCARDIAL INFARCTION ABNORMAL ECG PREVIOUS TRACING : 10/15/2017 20.46 DOCTOR: Claudy Pryor Interpretating Date/Time 01/20/2018 07:23:25
== END 2018-01-20 02:35 | disposition home or self-care (01) ==
LOC: PHED 23:32
DX: R10.31 Right lower quadrant pain (principal); R07.9 Chest pain, unspecified; R94.31 Abnormal electrocardiogram [ECG] [EKG]; G30.9 Alzheimer's disease, unspecified; F02.80 Dementia in other diseases classified elsewhere, unspecified severity, without behavioral disturbance, psychotic disturbance, mood disturbance, and anxiety; F31.9 Bipolar disorder, unspecified; E78.00 Pure hypercholesterolemia, unspecified; J44.9 Chronic obstructive pulmonary disease, unspecified; I25.10 Atherosclerotic heart disease of native coronary artery without angina pectoris; E11.9 Type 2 diabetes mellitus without complications; I10 Essential (primary) hypertension; I25.2 Old myocardial infarction; Z86.718 Personal history of other venous thrombosis and embolism; Z95.5 Presence of coronary angioplasty implant and graft; Z86.73 Personal history of transient ischemic attack (TIA), and cerebral infarction without residual deficits; Z85.51 Personal history of malignant neoplasm of bladder; Z87.442 Personal history of urinary calculi
CPT/HCPCS: 71045; 74176; 80048; 81001; 82550; 82552; 83690; 84484; 85025; 85610; 93005